=== PATIENT | male | born 1935 | race Caucasian/White ===

== ENCOUNTER 2023-03-18 13:53 | Outpatient (AMB) | payer MEDICARE, SELFPAY ==
--- NOTE | 2023-03-18 14:00 | HO.NEPHOV_ITS ---
HPI HPI Comments History of Present Illness Details I had the pleasure of seeing Alireza Kyle in the office in follow-up of his chronic kidney disease. 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 He has hypertension which is well controlled. He has anemia chronic disease for which he had been getting Procrit from my office. He denies taking any nonsteroidal anti-inflammatory medications. He does not have any chest pain, shortness of breath, nausea vomiting, diarrhea, orthostatic symptoms, edema. He does not feel tired. His appetite is good. He has not had any medication changes. He feels well. 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, stage 4 (severe) Family History (Updated 03/18/23 @ 14:14 by Tiffany Sheehan MA) Mother Cancer Child No Financial Resp Cancer Social History (Updated 03/18/23 @ 14:12 by Tiffany Sheehan MA) Alcohol intake: never Patient Tobacco Use Status: Never used Tobacco Vital Signs 03/18/23 14:08 Height 5 ft 9 in Weight 165 lb 2 oz BMI 24.4 BP 130/60 Blood Pressure Location Lt brachial Position Sitting Pulse 64 Pulse Source Pulse Oximeter Physical Exam Vital Signs: Last Vital Signs Pulse 64 03/18/23 14:08 BP 130/60 03/18/23 14:08 BMI result Body Mass Index 24.4 Const General: comfortable and no acute distress Orientation/consciousness: patient oriented x3 HEENT Head: Yes normocephalic Mouth: Normal oral and palatal mucosa present Eyes EOM: EOMs intact bilaterally Neck Neck: Yes supple Resp Auscultation: clear to auscultation bilaterally Cardio Jugular venous distension: no JVD Rate: regular rate Heart sounds: Murmur heart sound present GI Palpation (GI): Soft to palpation Auscultation: normal bowel sounds General: Yes no CVA tenderness Back/Spine/Pelvis Back: no CVA tenderness Skin General skin exam: no rashes or lesions noted Neuro General: patient oriented x3 and moves all extremities Extrem General: Yes no pedal edema Assessment & Plan Assessment & Plan (1) Hypertension: Code(s): I10 - Essential (primary) hypertension Qualifiers: Hypertension type: primary hypertension Qualified Code(s): I10 - Essential (primary) hypertension (2) Anemia in chronic kidney disease: Code(s): N18.9 - Chronic kidney disease, unspecified; D63.1 - Anemia in chronic kidney disease Qualifiers: Chronic kidney disease stage: stage 4 (severe) Qualified Code(s): N18.4 - Chronic kidney disease, stage 4 (severe); D63.1 - Anemia in chronic kidney disease (3) Chronic kidney disease, stage 4 (severe): Code(s): N18.4 - Chronic kidney disease, stage 4 (severe) Tristen Lay has history of minimal change disease with nephrotic syndrome. He had been on losartan which has been put on hold for a long time. He can continue on his current dose of diuretics. His CBC, iron studies, PTH, vitamin-D, calcium, electrolytes and renal functions are repeated today. After reviewing the lab work I shall arrange an iron and Procrit through my office. I did not make any other medication changes today. He will be for up in the office for continued care. All his and his Jane's questions were answered. Time spent retrieving all the data, documentation and clinical encounter 29 minutes. Orders: Orders Calcium Today D63.1 - Anemia in chronic kidney disease, I10 - Essential (primary) hypertension, N18.4 - Chronic kidney disease, stage 4 (severe), N18.9 - Chronic kidney disease, unspecified Phosphorus Today D63.1 - Anemia in chronic kidney disease, I10 - Essential (primary) hypertension, N18.4 - Chronic kidney disease, stage 4 (severe), N18.9 - Chronic kidney disease, unspecified Vitamin D 25-OH Total Today D63.1 - Anemia in chronic kidney disease, I10 - Essential (primary) hypertension, N18.4 - Chronic kidney disease, stage 4 (severe), N18.9 - Chronic kidney disease, unspecified Electrolytes Today D63.1 - Anemia in chronic kidney disease, I10 - Essential (primary) hypertension, N18.4 - Chronic kidney disease, stage 4 (severe), N18.9 - Chronic kidney disease, unspecified Creatinine Today D63.1 - Anemia in chronic kidney disease, I10 - Essential (primary) hypertension, N18.4 - Chronic kidney disease, stage 4 (severe), N18.9 - Chronic kidney disease, unspecified Ferritin Today D63.1 - Anemia in chronic kidney disease, I10 - Essential (primary) hypertension, N18.4 - Chronic kidney disease, stage 4 (severe), N18.9 - Chronic kidney disease, unspecified IRON PROFILE Today D63.1 - Anemia in chronic kidney disease, I10 - Essential (primary) hypertension, N18.4 - Chronic kidney disease, stage 4 (severe), N18.9 - Chronic kidney disease, unspecified PTHI Today D63.1 - Anemia in chronic kidney disease, I10 - Essential (primary) hypertension, N18.4 - Chronic kidney disease, stage 4 (severe), N18.9 - Chronic kidney disease, unspecified Blood Urea Nitrogen Today D63.1 - Anemia in chronic kidney disease, I10 - Essential (primary) hypertension, N18.4 - Chronic kidney disease, stage 4 (severe), N18.9 - Chronic kidney disease, unspecified Complete Blood Count Auto Diff Today D63.1 - Anemia in chronic kidney disease, I10 - Essential (primary) hypertension, N18.4 - Chronic kidney disease, stage 4 (severe), N18.9 - Chronic kidney disease, unspecified Coding Level of Care Code Est Pt Level 4 (94349) Diagnoses Primary hypertension I10 Hypertension type: primary hypertension Anemia in stage 4 chronic kidney disease N18.4; D63.1 Chronic kidney disease stage: stage 4 (severe) Chronic kidney disease, stage 4 (severe) N18.4
[2023-03-18 14:08] VITALS: BP 130/60; PULSE 64; BMI 24.4
== END 2023-03-18 14:45 | disposition home or self-care (01) ==
PROVIDERS: PCP Internal Medicine; Visit Provider Internal Medicine Nephrology
DX: I12.9 Hypertensive chronic kidney disease with stage 1 through stage 4 chronic kidney disease, or unspecified chronic kidney disease (principal); N18.4 Chronic kidney disease, stage 4 (severe); D63.1 Anemia in chronic kidney disease
CPT/HCPCS: 99214

== ENCOUNTER → 2023-03-18 13:53 | Outpatient (BNVA) | payer MEDICARE, SELFPAY | PROVIDERS: PCP Internal Medicine; Visit Provider Internal Medicine Nephrology | DX: I12.9 Hypertensive chronic kidney disease with stage 1 through stage 4 chronic kidney disease, or unspecified chronic kidney disease (principal); N18.4 Chronic kidney disease, stage 4 (severe); D63.1 Anemia in chronic kidney disease | CPT/HCPCS: 99212 ==

== ENCOUNTER 2023-03-30 10:45 | Outpatient (AMB) | payer MEDICARE, SELFPAY ==
[2023-03-30 10:54] VITALS: BP 130/70; PULSE 69; BMI 24.1
--- NOTE | 2023-03-30 10:54 | HO.NEPHOV_ITS ---
HPI HPI Comments History of Present Illness Details I had the pleasure of seeing Alireza Kyle in the office in follow-up of his chronic kidney disease. 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 He has hypertension which is well controlled. He has anemia chronic disease for which he had been getting Procrit . He denies taking any nonsteroidal anti-inflammatory medications. He does not have any chest pain, shortness of breath, nausea vomiting, diarrhea, orthostatic symptoms, edema. He does not feel tired. His appetite is good. He has not had any medication changes. 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, stage 4 (severe) Family History Mother Cancer Child No Financial Resp Cancer Social History Alcohol intake: never Patient Tobacco Use Status: Never used Tobacco Vital Signs 03/30/23 10:54 Height 5 ft 9 in Weight 163 lb 8 oz BMI 24.1 BP 130/70 Blood Pressure Location Rt brachial Position Sitting Pulse 69 Pulse Source Pulse Oximeter Physical Exam Vital Signs: Last Vital Signs Pulse 69 03/30/23 10:54 BP 130/70 03/30/23 10:54 BMI result Body Mass Index 24.1 Const General: comfortable and no acute distress Orientation/consciousness: patient oriented x3 HEENT Head: Yes normocephalic Mouth: Normal oral and palatal mucosa present Eyes EOM: EOMs intact bilaterally Neck Neck: Yes supple Resp Auscultation: clear to auscultation bilaterally Cardio Jugular venous distension: no JVD Rate: regular rate GI Palpation (GI): Soft to palpation Auscultation: normal bowel sounds General: Yes no CVA tenderness Back/Spine/Pelvis Back: no CVA tenderness Skin General skin exam: no rashes or lesions noted Neuro General: patient oriented x3 and moves all extremities Extrem General: Yes no pedal edema Assessment & Plan Assessment & Plan (1) Chronic kidney disease, stage 4 (severe): Code(s): N18.4 - Chronic kidney disease, stage 4 (severe) (2) Anemia in chronic kidney disease: Code(s): N18.9 - Chronic kidney disease, unspecified; D63.1 - Anemia in chronic kidney disease Qualifiers: Chronic kidney disease stage: stage 4 (severe) Qualified Code(s): N18.4 - Chronic kidney disease, stage 4 (severe); D63.1 - Anemia in chronic kidney disease (3) Hypertension: Code(s): I10 - Essential (primary) hypertension Qualifiers: Hypertension type: primary hypertension Qualified Code(s): I10 - Essential (primary) hypertension Plan Alireza has history of minimal change disease with nephrotic syndrome. He had been on losartan which has been put on hold for a long time. He can continue on his current dose of diuretics. His CBC, iron studies, PTH, vitamin-D, calcium, electrolytes and renal functions were reviewed. After reviewing the lab work , I administered [id number] Units Procrit in my office today. I did not make any other medication changes today. He will be for up in the office for continued care. All his questions were answered. Time spent retrieving all the data, documentation and clinical encounter 20 minutes Orders: Orders Electrolytes Today D63.1 - Anemia in chronic kidney disease, I10 - Essential (primary) hypertension, N18.4 - Chronic kidney disease, stage 4 (severe), N18.9 - Chronic kidney disease, unspecified Complete Blood Count Auto Diff 2 Weeks D63.1 - Anemia in chronic kidney disease, I10 - Essential (primary) hypertension, N18.4 - Chronic kidney disease, stage 4 (severe), N18.9 - Chronic kidney disease, unspecified Blood Urea Nitrogen 2 Weeks D63.1 - Anemia in chronic kidney disease, I10 - Essential (primary) hypertension, N18.4 - Chronic kidney disease, stage 4 (severe), N18.9 - Chronic kidney disease, unspecified Blood Urea Nitrogen Today D63.1 - Anemia in chronic kidney disease, I10 - Essential (primary) hypertension, N18.4 - Chronic kidney disease, stage 4 (severe), N18.9 - Chronic kidney disease, unspecified Creatinine Today D63.1 - Anemia in chronic kidney disease, I10 - Essential (prim phyllis) hypertension, N18.4 - Chronic kidney disease, stage 4 (severe), N18.9 - Chronic kidney disease, unspecified Calcium Today D63.1 - Anemia in chronic kidney disease, I10 - Essential (primary) hypertension, N18.4 - Chronic kidney disease, stage 4 (severe), N18.9 - Chronic kidney disease, unspecified Complete Blood Count Auto Diff Today D63.1 - Anemia in chronic kidney disease, I10 - Essential (primary) hypertension, N18.4 - Chronic kidney disease, stage 4 (severe), N18.9 - Chronic kidney disease, unspecified Electrolytes 2 Weeks D63.1 - Anemia in chronic kidney disease, I10 - Essential (primary) hypertension, N18.4 - Chronic kidney disease, stage 4 (severe), N18.9 - Chronic kidney disease, unspecified Creatinine 2 Weeks D63.1 - Anemia in chronic kidney disease, I10 - Essential (primary) hypertension, N18.4 - Chronic kidney disease, stage 4 (severe), N18.9 - Chronic kidney disease, unspecified Calcium 2 Weeks D63.1 - Anemia in chronic kidney disease, I10 - Essential (primary) hypertension, N18.4 - Chronic kidney disease, stage 4 (severe), N18.9 - Chronic kidney disease, unspecified Coding Level of Care Code Est Pt Level 2 (51775) Diagnoses Chronic kidney disease, stage 4 (severe) N18.4 Anemia in stage 4 chronic kidney disease N18.4; D63.1 Chronic kidney disease stage: stage 4 (severe) Primary hypertension I10 Hypertension type: primary hypertension
== END 2023-03-30 11:33 | disposition home or self-care (01) ==
PROVIDERS: PCP Internal Medicine; Visit Provider Internal Medicine Nephrology
DX: I12.9 Hypertensive chronic kidney disease with stage 1 through stage 4 chronic kidney disease, or unspecified chronic kidney disease (principal); D63.1 Anemia in chronic kidney disease
CPT/HCPCS: 99214

== ENCOUNTER → 2023-03-30 10:45 | Outpatient (BNVA) | payer MEDICARE, SELFPAY | PROVIDERS: PCP Internal Medicine; Visit Provider Internal Medicine Nephrology | DX: I12.9 Hypertensive chronic kidney disease with stage 1 through stage 4 chronic kidney disease, or unspecified chronic kidney disease (principal); N18.4 Chronic kidney disease, stage 4 (severe); D63.1 Anemia in chronic kidney disease | CPT/HCPCS: 96372; 99212; J0885 ==

== ENCOUNTER 2023-04-21 11:11 | Outpatient (REF) | payer MEDICARE, SELFPAY ==
[2023-04-21 12:46] LABS: MANUAL DIFF FLAG NO
[2023-04-21 12:54] LABS: Basophils Percent Auto 0.4 % (0-2); Eosinophils Absolute Auto 0.1 X10*3/uL (0.0-0.4); Eosinophils Percent Auto 2.6 % (0-4); Hematocrit 28.9 % (42.0-52.0); Hemoglobin 9.4 g/dl (14.0-18.0); Imm Gran Abs Auto 0.01 X10*3/uL (0.00-0.03); Imm Gran Pct Auto 0.2 % (0.0-0.4); Lymphocytes Absolute Auto 1.1 X10*3/uL (1.2-4.9); Lymphocytes Percent Auto 20.5 % (20-40); Mean Corpuscular HGB Conc 32.5 g/dl (31.0-36.0); Mean Corpuscular Hemoglobin 31.1 pg (27.0-33.0); Mean Corpuscular Volume 95.7 fL (80.0-98.0); Mean Platelet Volume 9.9 fL (9.4-12.4); Monocytes Absolute Auto 0.5 X10*3/uL (0.1-1.2); Monocytes Percent Auto 9.9 % (2-11); Neutrophils Absolute Auto 3.6 x10*3/uL (2.0-8.3); Neutrophils Percent Auto 66.4 % (45-73); Platelet Count 256 X10*3/uL (160-400); Red Blood Count 3.02 X10*6/uL (4.60-5.80); Red Cell Distribution Width 15.2 % (11.0-16.0); White Blood Count 5.5 X10*3/uL (4.8-10.8)
[2023-04-21 13:14] LABS: Anion Gap 11 (12-20); Blood Urea Nitrogen 43 mg/dL (9-16); Calcium 8.5 mg/dL (8.4-10.2); Carbon Dioxide 22 mmol/L (22-29); Chloride 112 mmol/L (96-108); Estimated Glomerular Filt Rate 23; Potassium 3.9 mmol/L (3.3-5.1); Sodium 141 mmol/L (135-145)
== END 2023-04-21 11:12 | disposition home or self-care (01) ==
LOC: HO.HKASLDS 11:11
PROVIDERS: Visit Provider Internal Medicine Nephrology
DX: I12.9 Hypertensive chronic kidney disease with stage 1 through stage 4 chronic kidney disease, or unspecified chronic kidney disease (principal); N18.4 Chronic kidney disease, stage 4 (severe); D63.1 Anemia in chronic kidney disease
CPT/HCPCS: 36415; 80051; 82310; 82565; 84520; 85025

== ENCOUNTER 2023-04-28 10:39 | Outpatient (AMB) | payer MEDICARE, SELFPAY ==
[2023-04-28 10:49] VITALS: BP 130/60; PULSE 81; O2SAT 98; BMI 24.0
--- NOTE | 2023-04-28 10:49 | HO.NEPHOV ---
HPI HPI Comments History of Present Illness Details I had the pleasure of seeing Alireza Kyle in the office, accompanied by his Jane, in follow-up of his chronic kidney disease. 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 He has hypertension which is well controlled. He has anemia chronic disease for which he had been getting Procrit . He denies taking any nonsteroidal anti-inflammatory medications. He does not have any chest pain, shortness of breath, nausea vomiting, diarrhea, orthostatic symptoms, edema. He does not feel tired. His appetite is good. He has not had any medication changes. 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, stage 4 (severe) Family History Mother Cancer Child No Financial Resp Cancer Social History Alcohol intake: never Patient Tobacco Use Status: Never used Tobacco Vital Signs 04/28/23 10:49 Height 5 ft 9 in Weight 162 lb 4 oz BMI 24.0 BP 130/60 Blood Pressure Location Lt brachial Position Sitting Pulse 81 Pulse Source Pulse Oximeter Pulse Oximetry (%) 98 Oxygen Delivery Method Room Air Physical Exam Vital Signs: Last Vital Signs Pulse 81 04/28/23 10:49 BP 130/60 04/28/23 10:49 Pulse Ox 98 04/28/23 10:49 Oxygen Delivery Method Room Air 04/28/23 10:49 BMI result Body Mass Index 24.0 Const General: comfortable and no acute distress Orientation/consciousness: patient oriented x3 HEENT Head: Yes normocephalic Mouth: Normal oral and palatal mucosa present Eyes EOM: EOMs intact bilaterally Neck Neck: Yes supple Resp Auscultation: clear to auscultation bilaterally Cardio Jugular venous distension: no JVD Rate: regular rate GI Palpation (GI): Soft to palpation Auscultation: normal bowel sounds General: Yes no CVA tenderness Back/Spine/Pelvis Back: no CVA tenderness Skin General skin exam: no rashes or lesions noted Neuro General: patient oriented x3 and moves all extremities Extrem General: Yes no pedal edema Assessment & Plan Assessment & Plan (1) Anemia in chronic kidney disease: Code(s): N18.9 - Chronic kidney disease, unspecified; D63.1 - Anemia in chronic kidney disease Qualifiers: Chronic kidney disease stage: stage 4 (severe) Qualified Code(s): N18.4 - Chronic kidney disease, stage 4 (severe); D63.1 - Anemia in chronic kidney disease (2) Chronic kidney disease, stage 4 (severe): Code(s): N18.4 - Chronic kidney disease, stage 4 (severe) (3) Hypertension: Code(s): I10 - Essential (primary) hypertension Qualifiers: Hypertension type: primary hypertension Qualified Code(s): I10 - Essential (primary) hypertension Plan Alireza has history of minimal change disease with nephrotic syndrome. He had been on losartan which has been put on hold for a long time. He can continue on his current dose of diuretics. His CBC, iron studies, PTH, vitamin-D, calcium, electrolytes and renal functions were reviewed. After reviewing the lab work , I administered [id number] Units Procrit in my office today. I did not make any other medication changes today. He will be for up in the office for continued care. All his questions were answered. Orders: Orders Complete Blood Count Auto Diff Today D63.1 - Anemia in chronic kidney disease, I10 - Essential (primary) hypertension, N18.4 - Chronic kidney disease, stage 4 (severe), N18.9 - Chronic kidney disease, unspecified Electrolytes Today D63.1 - Anemia in chronic kidney disease, I10 - Essential (primary) hypertension, N18.4 - Chronic kidney disease, stage 4 (severe), N18.9 - Chronic kidney disease, unspecified Blood Urea Nitrogen Today D63.1 - Anemia in chronic kidney disease, I10 - Essential (primary) hypertension, N18.4 - Chronic kidney disease, stage 4 (severe), N18.9 - Chronic kidney disease, unspecified Creatinine Today D63.1 - Anemia in chronic kidney disease, I10 - Essential (primary) hypertension, N18.4 - Chronic kidney disease, stage 4 (severe), N18.9 - Chronic kidney disease, unspecified Calcium Today D63.1 - Anemia in chronic kidney disease, I10 - Essential (primary) hypertension, N18.4 - Chronic kidney disease, stage 4 (severe), N18.9 - Chronic kidney disease, unspecified Coding Level of Care Code Est Pt Level 4 (70032) Diagnoses Anemia in stage 4 chronic kidney disease N18.4; D63.1 Chronic kidney disease stage: stage 4 (severe) Chronic kidney disease, stage 4 (severe) N18.4 Primary hypertension I10 Hypertension type: primary hypertension Results Reviewed Nephrology Results: Hgb 9.4 g/dl (14.0-18.0) L 04/21/23 WBC 5.5 X10*3/uL (4.8-10.8) 04/21/23 Plt Count 256 X10*3/uL (160-400) 04/21/23 Sodium 141 mmol/L (135-145) 04/21/23 Potassium 3.9 mmol/L (3.3-5.1) 04/21/23 Chloride 112 mmol/L (96-108) H 04/21/23 Carbon Dioxide 22 mmol/L (22-29) 04/21/23 BUN 43 mg/dL (9-16) H 04/21/23 Creatinine 2.68 mg/dL (0.5-1.4) H 04/21/23 Calcium 8.5 mg/dL (8.4-10.2) 04/21/23
== END 2023-04-28 11:25 | disposition home or self-care (01) ==
PROVIDERS: PCP Internal Medicine; Visit Provider Internal Medicine Nephrology
DX: I12.9 Hypertensive chronic kidney disease with stage 1 through stage 4 chronic kidney disease, or unspecified chronic kidney disease (principal); N18.4 Chronic kidney disease, stage 4 (severe); D63.1 Anemia in chronic kidney disease
CPT/HCPCS: 99214

== ENCOUNTER → 2023-04-28 10:39 | Outpatient (BNVA) | payer MEDICARE, SELFPAY | PROVIDERS: PCP Internal Medicine; Visit Provider Internal Medicine Nephrology | DX: I12.9 Hypertensive chronic kidney disease with stage 1 through stage 4 chronic kidney disease, or unspecified chronic kidney disease (principal); N18.4 Chronic kidney disease, stage 4 (severe); D63.1 Anemia in chronic kidney disease | CPT/HCPCS: 96372; 99212; Q5106 ==

== ENCOUNTER 2023-06-04 11:22 | Outpatient (AMB) | payer MEDICARE, SELFPAY ==
--- NOTE | 2023-06-04 11:26 | HO.NEPHOV ---
HPI HPI Comments History of Present Illness Details I had the pleasure of seeing Alireza Kyle in the office, accompanied by his Jane, in follow-up of his chronic kidney disease and management of his anemia. 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 He has hypertension which is well controlled. He has anemia chronic disease for which he had been getting Procrit . He denies taking any nonsteroidal anti-inflammatory medications. He does not have any chest pain, shortness of breath, nausea vomiting, diarrhea, orthostatic symptoms, edema. He does not feel tired. His appetite is good. 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, stage 4 (severe) Family History Mother Cancer Child No Financial Resp Cancer Social History Alcohol intake: never Patient Tobacco Use Status: Never used Tobacco Vital Signs 06/04/23 11:27 06/04/23 12:05 Height 5 ft 9 in Weight 163 lb 4 oz BMI 24.1 BP 140/70 H 124/70 Blood Pressure Location Lt brachial Position Sitting Pulse 70 Pulse Source Pulse Oximeter Pulse Oximetry (%) 99 Oxygen Delivery Method Room Air Physical Exam Vital Signs: Last Vital Signs Pulse 70 06/04/23 11:27 BP 140/70 H 06/04/23 11:27 Pulse Ox 99 06/04/23 11:27 Oxygen Delivery Method Room Air 06/04/23 11:27 BMI result Body Mass Index 24.1 Const General: comfortable and no acute distress Orientation/consciousness: patient oriented x3 HEENT Head: Yes normocephalic Mouth: Normal oral and palatal mucosa present Eyes EOM: EOMs intact bilaterally Neck Neck: Yes supple Resp Auscultation: clear to auscultation bilaterally Cardio Jugular venous distension: no JVD Rate: regular rate GI Palpation (GI): Soft to palpation Auscultation: normal bowel sounds General: Yes no CVA tenderness Back/Spine/Pelvis Back: no CVA tenderness Skin General skin exam: no rashes or lesions noted Neuro General: patient oriented x3 and moves all extremities Extrem General: Yes no pedal edema Assessment & Plan Assessment & Plan (1) Anemia in chronic kidney disease: Code(s): N18.9 - Chronic kidney disease, unspecified; D63.1 - Anemia in chronic kidney disease Qualifiers: Chronic kidney disease stage: stage 4 (severe) Qualified Code(s): N18.4 - Chronic kidney disease, stage 4 (severe); D63.1 - Anemia in chronic kidney disease (2) Chronic kidney disease, stage 4 (severe): Code(s): N18.4 - Chronic kidney disease, stage 4 (severe) (3) Hypertension: Code(s): I10 - Essential (primary) hypertension Qualifiers: Hypertension type: primary hypertension Qualified Code(s): I10 - Essential (primary) hypertension Plan Alireza has history of minimal change disease with nephrotic syndrome. He had been on losartan which has been put on hold for a long time. He can continue on his current dose of diuretics. His CBC, iron studies, PTH, vitamin-D, calcium, electrolytes and renal functions were reviewed. After reviewing the lab work , I administered [id number] Units Procrit in my office today ( Hb 8.9). I did not make any other medication changes . He will be for up in the office for continued care. All his questions were answered. Orders: Orders Blood Urea Nitrogen Today D63.1 - Anemia in chronic kidney disease, I10 - Essential (primary) hypertension, N18.4 - Chronic kidney disease, stage 4 (severe), N18.9 - Chronic kidney disease, unspecified Ferritin Today D63.1 - Anemia in chronic kidney disease, I10 - Essential (primary) hypertension, N18.4 - Chronic kidney disease, stage 4 (severe), N18.9 - Chronic kidney disease, unspecified [facility] Epoetin Injection [facility] Supplied Today D63.1 - Anemia in chronic kidney disease, I10 - Essential (primary) hypertension, N18.4 - Chronic kidney disease, stage 4 (severe), N18.9 - Chronic kidney disease, unspecified Complete Blood Count Auto Diff Today D63.1 - Anemia in chronic kidney disease, I10 - Essential (primary) hypertension, N18.4 - Chronic kidney disease, stage 4 (severe), N18.9 - Chronic kidney disease, unspecified Electrolytes Today D63.1 - Anemia in chronic kidney disease, I10 - Essential (primary) hypertension, N18.4 - Chronic kidney disease, stage 4 (severe), N18.9 - Chronic kidney disease, unspecified Creatinine Today D63.1 - Anemia in chronic kidney disease, I10 - Essential (primary) hypertension, N18.4 - Chronic kidney disease, stage 4 (severe), N18.9 - Chronic kidney disease, unspecified IRON PROFILE Today D63.1 - Anemia in chronic kidney disease, I10 - Essential (primary) hypertension, N18.4 - Chronic kidney disease, stage 4 (severe), N18.9 - Chronic kidney disease, unspecified Medications: New epoetin lizet 20,000 units subcut ONCE 1 mL 0RF D63.1 - Anemia in chronic kidney disease, I10 - Essential (primary) hypertension, N18.4 - Chronic kidney disease, stage 4 (severe), N18.9 - Chronic kidney disease, unspecified Coding Level of Care Code Est Pt Level 4 (30857) Diagnoses Anemia in stage 4 chronic kidney disease N18.4; D63.1 Chronic kidney disease stage: stage 4 (severe) Chronic kidney disease, stage 4 (severe) N18.4 Primary hypertension I10 Hypertension type: primary hypertension Results Reviewed Nephrology Results: Hgb 9.4 g/dl (14.0-18.0) L 04/21/23 WBC 5.5 X10*3/uL (4.8-10.8) 04/21/23 Plt Count 256 X10*3/uL (160-400) 04/21/23 Sodium 141 mmol/L (135-145) 04/21/23 Potassium 3.9 mmol/L (3.3-5.1) 04/21/23 Chloride 112 mmol/L (96-108) H 04/21/23 Carbon Dioxide 22 mmol/L (22-29) 04/21/23 BUN 43 mg/dL (9-16) H 04/21/23 Creatinine 2.68 mg/dL (0.5-1.4) H 04/21/23 Calcium 8.5 mg/dL (8.4-10.2) 04/21/23
[2023-06-04 11:27] VITALS: BP 140/70; PULSE 70; O2SAT 99; BMI 24.1
[2023-06-04 12:05] VITALS: BP 124/70
== END 2023-06-04 12:11 | disposition home or self-care (01) ==
PROVIDERS: PCP Internal Medicine; Visit Provider Internal Medicine Nephrology
DX: I12.9 Hypertensive chronic kidney disease with stage 1 through stage 4 chronic kidney disease, or unspecified chronic kidney disease (principal); N18.4 Chronic kidney disease, stage 4 (severe); D63.1 Anemia in chronic kidney disease
CPT/HCPCS: 99214

== ENCOUNTER → 2023-06-04 11:22 | Outpatient (BNVA) | payer MEDICARE, SELFPAY | PROVIDERS: PCP Internal Medicine; Visit Provider Internal Medicine Nephrology | DX: I12.9 Hypertensive chronic kidney disease with stage 1 through stage 4 chronic kidney disease, or unspecified chronic kidney disease (principal); N18.4 Chronic kidney disease, stage 4 (severe); D63.1 Anemia in chronic kidney disease | CPT/HCPCS: 96372; 99212; Q5106 ==

== ENCOUNTER 2023-07-09 10:07 | Outpatient (AMB) | payer MEDICARE, SELFPAY ==
--- NOTE | 2023-07-09 10:42 | HO.NEPHOV_ITS ---
HPI HPI Comments History of Present Illness Details I had the pleasure of seeing Alireza Kyle in the office, accompanied by his Jane, in follow-up of his chronic kidney disease and management of his anemia. 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 He has hypertension which is well controlled. He has anemia chronic disease for which he had been getting Procrit . He denies taking any nonsteroidal anti-inflammatory medications. He does not have any chest pain, shortness of breath, nausea vomiting, diarrhea, orthostatic symptoms, edema. He does not feel tired. His appetite is good. 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, stage 4 (severe) Family History Mother Cancer Child No Financial Resp Cancer Social History Alcohol intake: never Patient Tobacco Use Status: Never used Tobacco Vital Signs 07/09/23 10:43 Height 5 ft 9 in Weight 162 lb 6 oz BMI 24.0 BP 140/62 H Blood Pressure Location Lt brachial Position Sitting Pulse 86 Pulse Source Pulse Oximeter Pulse Oximetry (%) 97 Oxygen Delivery Method Room Air Physical Exam Vital Signs: Last Vital Signs Pulse 86 07/09/23 10:43 BP 140/62 H 07/09/23 10:43 Pulse Ox 97 07/09/23 10:43 Oxygen Delivery Method Room Air 07/09/23 10:43 BMI result Body Mass Index 24.0 Const General: comfortable and no acute distress Orientation/consciousness: patient oriented x3 HEENT Head: Yes normocephalic Mouth: Normal oral and palatal mucosa present Eyes EOM: EOMs intact bilaterally Neck Neck: Yes supple Resp Auscultation: clear to auscultation bilaterally Cardio Jugular venous distension: no JVD Rate: regular rate GI Palpation (GI): Soft to palpation Auscultation: normal bowel sounds General: Yes no CVA tenderness Back/Spine/Pelvis Back: no CVA tenderness Skin General skin exam: no rashes or lesions noted Neuro General: patient oriented x3 and moves all extremities Extrem General: Yes no pedal edema Office Meds epoetin lizet 10,000 unit/mL injection solution Performing Provider: Santy Jonas MD Performing Location[place] [facility] Administered by: Santy Jonas MD on 07/09/23 11:16 Dose Route Admin Location Dispensed Lot Number Expiration Date [facility] Oceanographic Meteorologist 20,000 unit subcut 2 mL [id number] 10/09/25 3559-2814-47 Assessment & Plan Assessment & Plan (1) Hypertension: Code(s): I10 - Essential (primary) hypertension Qualifiers: Hypertension type: primary hypertension Qualified Code(s): I10 - Essential (primary) hypertension (2) Anemia in chronic kidney disease: Code(s): N18.9 - Chronic kidney disease, unspecified; D63.1 - Anemia in chronic kidney disease Qualifiers: Chronic kidney disease stage: stage 4 (severe) Qualified Code(s): N18.4 - Chronic kidney disease, stage 4 (severe); D63.1 - Anemia in chronic kidney disease (3) Chronic kidney disease, stage 4 (severe): Code(s): N18.4 - Chronic kidney disease, stage 4 (severe) Plan Alireza has history of minimal change disease with nephrotic syndrome. He had been on losartan which has been put on hold for a long time. He can continue on his current dose of diuretics. His CBC, iron studies, PTH, vitamin-D, calcium, electrolytes and renal functions were reviewed. After reviewing the lab work , I administered [id number] Units Procrit in my office today ( Hb 8.9). I did not make any other medication changes . He will be for up in the office for continued care. All his questions were answered Orders: Orders AMB Epoetin Injection Practice Supplied Today D63.1 - Anemia in chronic kidney disease, N18.9 - Chronic kidney disease, unspecified Coding Level of Care Code Est Pt Level 3 (73204) Diagnoses Primary hypertension I10 Hypertension type: primary hypertension Anemia in stage 4 chronic kidney disease N18.4; D63.1 Chronic kidney disease stage: stage 4 (severe) Chronic kidney disease, stage 4 (severe) N18.4 Results Reviewed Nephrology Results: Hgb 9.4 g/dl (14.0-18.0) L 04/21/23 WBC 5.5 X10*3/uL (4.8-10.8) 04/21/23 Plt Count 256 X10*3/uL (160-400) 04/21/23 Sodium 141 mmol/L (135-145) 04/21/23 Potassium 3.9 mmol/L (3.3-5.1) 04/21/23 Chloride 112 mmol/L (96-108) H 04/21/23 Carbon Dioxide 22 mmol/L (22-29) 04/21/23 BUN 43 mg/dL (9-16) H 04/21/23 Creatinine 2.68 mg/dL (0.5-1.4) H 04/21/23 Calcium 8.5 mg/dL (8.4-10.2) 04/21/23
[2023-07-09 10:43] VITALS: BP 140/62; PULSE 86; O2SAT 97; BMI 24.0
== END 2023-07-09 11:39 | disposition home or self-care (01) ==
PROVIDERS: PCP Internal Medicine; Visit Provider Internal Medicine Nephrology
DX: I12.9 Hypertensive chronic kidney disease with stage 1 through stage 4 chronic kidney disease, or unspecified chronic kidney disease (principal); N18.4 Chronic kidney disease, stage 4 (severe); D63.1 Anemia in chronic kidney disease; N18.9 Chronic kidney disease, unspecified
CPT/HCPCS: 99213; J0885

== ENCOUNTER → 2023-07-09 10:07 | Outpatient (BNVA) | payer MEDICARE, SELFPAY | PROVIDERS: PCP Internal Medicine; Visit Provider Internal Medicine Nephrology | DX: I12.9 Hypertensive chronic kidney disease with stage 1 through stage 4 chronic kidney disease, or unspecified chronic kidney disease (principal); N18.4 Chronic kidney disease, stage 4 (severe); D63.1 Anemia in chronic kidney disease | CPT/HCPCS: 96372; 99212; J0885 ==

== ENCOUNTER 2023-07-30 11:41 | Outpatient (AMB) | payer MEDICARE, SELFPAY ==
[2023-07-30 11:52] VITALS: BP 140/70; PULSE 80; O2SAT 98; BMI 24.4
--- NOTE | 2023-07-30 11:52 | HO.NEPHOV ---
HPI HPI Comments History of Present Illness Details I had the pleasure of seeing Alireza Kyle in the office, accompanied by his Jane, in follow-up of his chronic kidney disease and management of his anemia. 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 He has hypertension which is well controlled. He has anemia chronic disease for which he had been getting Procrit . He denies taking any nonsteroidal anti-inflammatory medications. He does not have any chest pain, shortness of breath, nausea vomiting, diarrhea, orthostatic symptoms, edema. He does not feel tired. His appetite is good. 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, stage 4 (severe) Family History Mother Cancer Child No Financial Resp Cancer Social History Alcohol intake: never Patient Tobacco Use Status: Never used Tobacco Vital Signs 07/30/23 11:52 Height 5 ft 9 in Weight 165 lb BMI 24.4 BP 140/70 H Blood Pressure Location Lt brachial Position Sitting Pulse 80 Pulse Source Pulse Oximeter Pulse Oximetry (%) 98 Oxygen Delivery Method Room Air Physical Exam Vital Signs: Last Vital Signs Pulse 80 07/30/23 11:52 BP 140/70 H 07/30/23 11:52 Pulse Ox 98 07/30/23 11:52 Oxygen Delivery Method Room Air 07/30/23 11:52 BMI result Body Mass Index 24.4 Const General: comfortable and no acute distress Orientation/consciousness: patient oriented x3 HEENT Head: Yes normocephalic Mouth: Normal oral and palatal mucosa present Eyes EOM: EOMs intact bilaterally Neck Neck: Yes supple Resp Auscultation: clear to auscultation bilaterally Cardio Jugular venous distension: no JVD Rate: regular rate GI Palpation (GI): Soft to palpation Auscultation: normal bowel sounds General: Yes no CVA tenderness Back/Spine/Pelvis Back: no CVA tenderness Skin General skin exam: no rashes or lesions noted Neuro General: patient oriented x3 and moves all extremities Extrem General: Yes no pedal edema Office Meds epoetin lizet-epbx 10,000 unit/mL injection solution Performing Provider: Santy Jonas MD Performing Location[facility] Administered by: Santy Jonas MD on 07/30/23 12:05 Dose Route Admin Location Dispensed Lot Number Expiration Date [facility] Active Directory Systems Administrator 20,000 unit subcut L UE 2 mL [id number] 10/14/25 7506-2378-83 [employer] Assessment & Plan Assessment & Plan (1) Chronic kidney disease, stage 4 (severe): Code(s): N18.4 - Chronic kidney disease, stage 4 (severe) (2) Anemia in chronic kidney disease: Code(s): N18.9 - Chronic kidney disease, unspecified; D63.1 - Anemia in chronic kidney disease Qualifiers: Chronic kidney disease stage: stage 4 (severe) Qualified Code(s): N18.4 - Chronic kidney disease, stage 4 (severe); D63.1 - Anemia in chronic kidney disease (3) Hypertension: Code(s): I10 - Essential (primary) hypertension Qualifiers: Hypertension type: primary hypertension Qualified Code(s): I10 - Essential (primary) hypertension Plan Alireza has history of minimal change disease with nephrotic syndrome. He had been on losartan which has been put on hold for a long time. He can continue on his current dose of diuretics. His CBC, iron studies, PTH, vitamin-D, calcium, electrolytes and renal functions were reviewed. After reviewing the lab work , I administered [id number] Units Procrit in my office today. I did not make any other medication changes . He will be for up in the office for continued care. All his questions were answered Orders: Orders Creatinine Today D63.1 - Anemia in chronic kidney disease, I10 - Essential (primary) hypertension, N18.4 - Chronic kidney disease, stage 4 (severe), N18.9 - Chronic kidney disease, unspecified AMB Epoetin Injection Practice Supplied Today D63.1 - Anemia in chronic kidney disease, N18.4 - Chronic kidney disease, stage 4 (severe), N18.9 - Chronic kidney disease, unspecified Complete Blood Count Auto Diff Today D63.1 - Anemia in chronic kidney disease, I10 - Essential (primary) hypertension, N18.4 - Chronic kidney disease, stage 4 (severe), N18.9 - Chronic kidney disease, unspecified Blood Urea Nitrogen Today D63.1 - Anemia in chronic kidney disease, I10 - Essential (primary) hypertension, N18.4 - Chronic kidney disease, stage 4 (severe), N18.9 - Chronic kidney disease, unspecified Electrolytes Today D63.1 - Anemia in chronic kidney disease, I10 - Essential (primary) hypertension, N18.4 - Chronic kidney disease, stage 4 (severe), N18.9 - Chronic kidney disease, unspecified Coding Level of Care Code Est Pt Level 3 (69591) Diagnoses Chronic kidney disease, stage 4 (severe) N18.4 Anemia in stage 4 chronic kidney disease N18.4; D63.1 Chronic kidney disease stage: stage 4 (severe) Primary hypertension I10 Hypertension type: primary hypertension
== END 2023-07-30 12:17 | disposition home or self-care (01) ==
PROVIDERS: PCP Internal Medicine; Visit Provider Internal Medicine Nephrology
DX: N18.4 Chronic kidney disease, stage 4 (severe) (principal); I12.9 Hypertensive chronic kidney disease with stage 1 through stage 4 chronic kidney disease, or unspecified chronic kidney disease; D63.1 Anemia in chronic kidney disease
CPT/HCPCS: 99213

== ENCOUNTER → 2023-07-30 11:41 | Outpatient (BNVA) | payer MEDICARE, SELFPAY | PROVIDERS: PCP Internal Medicine; Visit Provider Internal Medicine Nephrology | DX: I12.9 Hypertensive chronic kidney disease with stage 1 through stage 4 chronic kidney disease, or unspecified chronic kidney disease (principal); D63.1 Anemia in chronic kidney disease; N18.4 Chronic kidney disease, stage 4 (severe) | CPT/HCPCS: 96372; 99212; Q5106 ==

== ENCOUNTER 2023-08-25 10:46 | Outpatient (REF) | payer MEDICARE, SELFPAY ==
[2023-08-25 12:09] LABS: MANUAL DIFF FLAG NO
[2023-08-25 12:25] LABS: Basophils Percent Auto 0.5 % (0-2); Eosinophils Absolute Auto 0.2 X10*3/uL (0.0-0.4); Eosinophils Percent Auto 2.6 % (0-4); Hematocrit 24.6 % (42.0-52.0); Imm Gran Abs Auto 0.02 X10*3/uL (0.00-0.03); Imm Gran Pct Auto 0.3 % (0.0-0.4); Lymphocytes Absolute Auto 1.3 X10*3/uL (1.2-4.9); Lymphocytes Percent Auto 21.6 % (20-40); Mean Corpuscular HGB Conc 32.5 g/dl (31.0-36.0); Mean Corpuscular Hemoglobin 31.1 pg (27.0-33.0); Mean Corpuscular Volume 95.7 fL (80.0-98.0); Mean Platelet Volume 10.1 fL (9.4-12.4); Monocytes Absolute Auto 0.5 X10*3/uL (0.1-1.2); Monocytes Percent Auto 8.7 % (2-11); Neutrophils Absolute Auto 4.1 x10*3/uL (2.0-8.3); Neutrophils Percent Auto 66.3 % (45-73); Platelet Count 309 X10*3/uL (160-400); Red Blood Count 2.57 X10*6/uL (4.60-5.80); Red Cell Distribution Width 15.4 % (11.0-16.0); White Blood Count 6.2 X10*3/uL (4.8-10.8)
[2023-08-25 16:29] LABS: Anion Gap 12 (12-20); Blood Urea Nitrogen 55 mg/dL (9-16); Calcium 8.6 mg/dL (8.4-10.2); Carbon Dioxide 22 mmol/L (22-29); Chloride 109 mmol/L (96-108); Estimated Glomerular Filt Rate 19; Iron 76 mcg/dL (45-160); Percent Iron Saturation 36 % (15-50); Phosphorus 3.5 mg/dL (2.7-4.5); Potassium 4.1 mmol/L (3.3-5.1); Sodium 139 mmol/L (135-145); Total Iron Binding Capacity 209 mcg/dL (228-428); Unsaturated Iron Binding 133 ug/dL
[2023-08-25 16:49] LABS: Ferritin 498 ng/mL (20-250); Vitamin D 25-OH Total 29.4 ng/mL (>30)
== END 2023-08-25 10:47 | disposition home or self-care (01) ==
LOC: HO.HKASLDS 10:46
PROVIDERS: Visit Provider Internal Medicine Nephrology
DX: I12.9 Hypertensive chronic kidney disease with stage 1 through stage 4 chronic kidney disease, or unspecified chronic kidney disease (principal); N18.4 Chronic kidney disease, stage 4 (severe); D63.1 Anemia in chronic kidney disease
CPT/HCPCS: 36415; 80051; 82306; 82310; 82565; 82728; 83540; 84100; 84520; 85025

== ENCOUNTER 2023-08-27 11:28 | Outpatient (AMB) | payer MEDICARE, SELFPAY ==
[2023-08-27 11:43] VITALS: BP 130/60; PULSE 82; O2SAT 99; BMI 23.3
--- NOTE | 2023-08-27 11:43 | HO.NEPHOV_ITS ---
HPI HPI Comments History of Present Illness Details I had the pleasure of seeing Alireza Kyle in the office, accompanied by his Jane, in follow-up of his chronic kidney disease and management of his anemia. 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 He has hypertension which is well controlled. He has anemia chronic disease for which he had been getting Procrit . He denies taking any nonsteroidal anti-inflammatory medications. He does not have any chest pain, shortness of breath, nausea vomiting, diarrhea, orthostatic symptoms, edema. He does not feel tired. His appetite is good. He had pneumonia and was treated with antibiotic by PCP. His serum creatinine has gone up marginally. 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, stage 4 (severe) Family History Mother Cancer Child No Financial Resp Cancer Social History Alcohol intake: never Patient Tobacco Use Status: Never used Tobacco Vital Signs 08/27/23 11:43 Height 5 ft 9 in Weight 158 lb BMI 23.3 BP 130/60 Blood Pressure Location Lt brachial Position Sitting Pulse 82 Pulse Source Pulse Oximeter Pulse Oximetry (%) 99 Oxygen Delivery Method Room Air Physical Exam Vital Signs: Last Vital Signs Pulse 82 08/27/23 11:43 BP 130/60 08/27/23 11:43 Pulse Ox 99 08/27/23 11:43 Oxygen Delivery Method Room Air 08/27/23 11:43 BMI result Body Mass Index 23.3 Const General: comfortable and no acute distress Orientation/consciousness: patient oriented x3 HEENT Head: Yes normocephalic Mouth: Normal oral and palatal mucosa present Eyes EOM: EOMs intact bilaterally Neck Neck: Yes supple Resp Auscultation: clear to auscultation bilaterally Cardio Jugular venous distension: no JVD Rate: regular rate GI Palpation (GI): Soft to palpation Auscultation: normal bowel sounds General: Yes no CVA tenderness Back/Spine/Pelvis Back: no CVA tenderness Skin General skin exam: no rashes or lesions noted Neuro General: patient oriented x3 and moves all extremities Office Meds epoetin lizet 20,000 unit/mL injection solution Performing Provider: Santy Jonas MD [facility] [facility] Administered by: Satny Jonas MD on 08/27/23 12:18 Dose Route Admin Location Dispensed Lot Number Expiration Date [employer] 20,000 unit subcut Abdomen 1 mL [id number] 04/10/25 16033-352-59 [employer] Assessment & Plan Assessment & Plan (1) Chronic kidney disease, stage 4 (severe): Code(s): N18.4 - Chronic kidney disease, stage 4 (severe) (2) Anemia in chronic kidney disease: Code(s): N18.9 - Chronic kidney disease, unspecified; D63.1 - Anemia in chronic kidney disease Qualifiers: Chronic kidney disease stage: stage 4 (severe) Qualified Code(s): N18.4 - Chronic kidney disease, stage 4 (severe); D63.1 - Anemia in chronic kidney disease (3) Hypertension: Code(s): I10 - Essential (primary) hypertension Qualifiers: Hypertension type: primary hypertension Qualified Code(s): I10 - Essential (primary) hypertension Plan Alireza has history of minimal change disease with nephrotic syndrome. He had been on losartan which has been put on hold for a long time. He can continue on his current dose of diuretics. I administered [id number] Units Procrit in my office today. I did not make any other medication changes . He will be for up in the office for continued care. Labs ordered for F/U All his questions were answered Orders: Orders AMB Epoetin Injection Practice Supplied Today D63.1 - Anemia in chronic kidney disease, N18.4 - Chronic kidney disease, stage 4 (severe) Medications: New epoetin lizet 20,000 units subcut ONCE 1 mL 0RF D63.1 - Anemia in chronic kidney disease, N18.4 - Chronic kidney disease, stage 4 (severe) Coding Level of Care Code Est Pt Level 3 (23153) Diagnoses Chronic kidney disease, stage 4 (severe) N18.4 Anemia in stage 4 chronic kidney disease N18.4; D63.1 Chronic kidney disease stage: stage 4 (severe) Primary hypertension I10 Hypertension type: primary hypertension Results Reviewed Nephrology Results: Hgb 8.0 g/dl (14.0-18.0) L 08/25/23 WBC 6.2 X10*3/uL (4.8-10.8) 08/25/23 Plt Count 309 X10*3/uL (160-400) 08/25/23 Sodium 139 mmol/L (135-145) 08/25/23 Potassium 4.1 mmol/L (3.3-5.1) 08/25/23 Chloride 109 mmol/L (96-108) H 08/25/23 Carbon Dioxide 22 mmol/L (22-29) 08/25/23 BUN 55 mg/dL (9-16) H 08/25/23 Creatinine 3.07 mg/dL (0.5-1.4) H 08/25/23 Calcium 8.6 mg/dL (8.4-10.2) 08/25/23 Phosphorus 3.5 mg/dL (2.7-4.5) 08/25/23
== END 2023-08-27 12:26 | disposition home or self-care (01) ==
PROVIDERS: PCP Internal Medicine; Visit Provider Internal Medicine Nephrology
DX: I12.9 Hypertensive chronic kidney disease with stage 1 through stage 4 chronic kidney disease, or unspecified chronic kidney disease (principal); N18.4 Chronic kidney disease, stage 4 (severe); D63.1 Anemia in chronic kidney disease
CPT/HCPCS: 99213

== ENCOUNTER → 2023-08-27 11:28 | Outpatient (BNVA) | payer MEDICARE, SELFPAY | PROVIDERS: PCP Internal Medicine; Visit Provider Internal Medicine Nephrology | DX: I12.9 Hypertensive chronic kidney disease with stage 1 through stage 4 chronic kidney disease, or unspecified chronic kidney disease (principal); N18.4 Chronic kidney disease, stage 4 (severe); D63.1 Anemia in chronic kidney disease; Z79.899 Other long term (current) drug therapy | CPT/HCPCS: 96372; 99212; J0885 ==

== ENCOUNTER 2023-09-10 11:18 | Outpatient (AMB) | payer MEDICARE, SELFPAY ==
[2023-09-10 11:35] VITALS: BP 124/60; PULSE 86; O2SAT 97; BMI 23.3
--- NOTE | 2023-09-10 11:35 | HO.NEPHOV_ITS ---
Vital Signs 09/10/23 11:35 Height 5 ft 9 in Weight 158 lb 2 oz BMI 23.3 BP 124/60 Blood Pressure Location Lt brachial Position Sitting Pulse 86 Pulse Source Pulse Oximeter Pulse Oximetry (%) 97 Oxygen Delivery Method Room Air Intake Visit Reasons: 2 wks follow up/ Confirmed Process Architect Required: No Accompanied by: Spouse Allergies lisinopril Allergy (Verified 09/10/23 11:39) Unknown Macrolides and Ketolides Allergy (Uncoded 03/18/23 13:49) Unknown HPI Comments Details: I had the pleasure of seeing Alireza Kyle in the office, accompanied by his Jane, in follow-up of his chronic kidney disease and management of his anemia. 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 He has hypertension which is well controlled. He has anemia chronic disease for which he had been getting Procrit . He denies taking any nonsteroidal anti-inflammatory medications. He does not have any chest pain, shortness of breath, nausea vomiting, diarrhea, orthostatic symptoms, edema. He does not feel tired. His appetite is better. 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 disease, stage 4 (severe) Family History Mother Cancer Child No Financial Resp Cancer Social History Alcohol intake: never Patient Tobacco Use Status: Never used Tobacco Physical Exam Vital Signs: Last Vital Signs Pulse 86 09/10/23 11:35 BP 124/60 09/10/23 11:35 Pulse Ox 97 09/10/23 11:35 Oxygen Delivery Method Room Air 09/10/23 11:35 BMI result Body Mass Index 23.3 Const General: comfortable and no acute distress Orientation/consciousness: patient oriented x3 HEENT Head: Yes normocephalic Mouth: Normal oral and palatal mucosa present Eyes EOM: EOMs intact bilaterally Neck Neck: Yes supple Resp Auscultation: clear to auscultation bilaterally Cardio Jugular venous distension: no JVD Rate: regular rate GI Palpation (GI): Soft to palpation Auscultation: normal bowel sounds General: Yes no CVA tenderness Back/Spine/Pelvis Back: no CVA tenderness Skin General skin exam: no rashes or lesions noted Neuro General: patient oriented x3 and moves all extremities Extrem General: Yes no pedal edema Office Meds epoetin lizet-epbx 10,000 unit/mL injection solution Performing Provider: Santy Jonas MD [facility] Administered by: Santy Jonas MD on 09/10/23 12:07 Dose Route Admin Location Dispensed Lot Number Expiration Date [facility] Bandsaw Operator 20,000 unit subcut 2 mL [id number] 04/10/25 0647-5553-72 [employer] Results Reviewed Nephrology Results: Hgb 8.0 g/dl (14.0-18.0) L 08/25/23 WBC 6.2 X10*3/uL (4.8-10.8) 08/25/23 Plt Count 309 X10*3/uL (160-400) 08/25/23 Sodium 139 mmol/L (135-145) 08/25/23 Potassium 4.1 mmol/L (3.3-5.1) 08/25/23 Chloride 109 mmol/L (96-108) H 08/25/23 Carbon Dioxide 22 mmol/L (22-29) 08/25/23 BUN 55 mg/dL (9-16) H 08/25/23 Creatinine 3.07 mg/dL (0.5-1.4) H 08/25/23 Calcium 8.6 mg/dL (8.4-10.2) 08/25/23 Phosphorus 3.5 mg/dL (2.7-4.5) 08/25/23 Assessment & Plan Assessment & Plan (1) Chronic kidney disease, stage 4 (severe): Code(s): N18.4 - Chronic kidney disease, stage 4 (severe) Category: Medical (2) Anemia in chronic kidney disease: Code(s): N18.9 - Chronic kidney disease, unspecified; D63.1 - Anemia in chronic kidney disease Category: Medical Qualifiers: Chronic kidney disease stage: stage 4 (severe) Qualified Code(s): N18.4 - Chronic kidney disease, stage 4 (severe); D63.1 - Anemia in chronic kidney disease (3) Hypertension: Code(s): I10 - Essential (primary) hypertension Category: Medical Qualifiers: Hypertension type: primary hypertension Qualified Code(s): I10 - Essential (primary) hypertension Plan Alireza has history of minimal change disease with nephrotic syndrome. He had been on losartan which has been put on hold for a long time. He can continue on his current dose of diuretics. I administered [id number] Units Procrit in my office today. I did not make any other medication changes . He will be for up in the office for continued care. 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 disease, I10 - Essential (primary) hypertension, N18.4 - Chronic kidney disease, stage 4 (severe) IRON PROFILE Today D63.1 - Anemia in chronic kidney disease, I10 - Essential (primary) hypertension, N18.4 - Chronic kidney disease, stage 4 (severe) Electrolytes Today D63.1 - Anemia in chronic kidney disease, I10 - Essential (primary) hypertension, N18.4 - Chronic kidney disease, stage 4 (severe) Calcium Today D63.1 - Anemia in chronic kidney disease, I10 - Essential (primary) hypertension, N18.4 - Chronic kidney disease, stage 4 (severe) Creatinine Today D63.1 - Anemia in chronic kidney disease, I10 - Essential (primary) hypertension, N18.4 - Chronic kidney disease, stage 4 (severe) Coding Level of Care Code Est Pt Level 4 (91325) Diagnoses Chronic kidney disease, stage 4 (severe) N18.4 Anemia in stage 4 chronic kidney disease N18.4; D63.1 Chronic kidney disease stage: stage 4 (severe) Primary hypertension I10 Hypertension type: primary hypertension
== END 2023-09-10 12:13 | disposition home or self-care (01) ==
PROVIDERS: PCP Internal Medicine; Visit Provider Internal Medicine Nephrology
DX: I12.9 Hypertensive chronic kidney disease with stage 1 through stage 4 chronic kidney disease, or unspecified chronic kidney disease (principal); N18.4 Chronic kidney disease, stage 4 (severe); D63.1 Anemia in chronic kidney disease
CPT/HCPCS: 99214

== ENCOUNTER → 2023-09-10 11:18 | Outpatient (BNVA) | payer MEDICARE, SELFPAY | PROVIDERS: PCP Internal Medicine; Visit Provider Internal Medicine Nephrology | DX: I12.9 Hypertensive chronic kidney disease with stage 1 through stage 4 chronic kidney disease, or unspecified chronic kidney disease (principal); N18.4 Chronic kidney disease, stage 4 (severe); D63.1 Anemia in chronic kidney disease | CPT/HCPCS: 96372; 99212; Q5106 ==

== ENCOUNTER 2023-09-22 11:29 | Outpatient (REF) | payer MEDICARE, SELFPAY ==
[2023-09-22 17:50] LABS: MANUAL DIFF FLAG NO
[2023-09-22 18:07] LABS: Basophils Percent Auto 0.5 % (0-2); Eosinophils Absolute Auto 0.2 X10*3/uL (0.0-0.4); Eosinophils Percent Auto 3.9 % (0-4); Hematocrit 26.6 % (42.0-52.0); Hemoglobin 8.3 g/dl (14.0-18.0); Imm Gran Abs Auto 0.02 X10*3/uL (0.00-0.03); Imm Gran Pct Auto 0.4 % (0.0-0.4); Lymphocytes Absolute Auto 1.2 X10*3/uL (1.2-4.9); Lymphocytes Percent Auto 22.2 % (20-40); Mean Corpuscular HGB Conc 31.2 g/dl (31.0-36.0); Mean Corpuscular Hemoglobin 30.5 pg (27.0-33.0); Mean Corpuscular Volume 97.8 fL (80.0-98.0); Monocytes Absolute Auto 0.6 X10*3/uL (0.1-1.2); Monocytes Percent Auto 10.6 % (2-11); Neutrophils Absolute Auto 3.5 x10*3/uL (2.0-8.3); Neutrophils Percent Auto 62.4 % (45-73); Platelet Count 323 X10*3/uL (160-400); Red Blood Count 2.72 X10*6/uL (4.60-5.80); Red Cell Distribution Width 16.4 % (11.0-16.0); White Blood Count 5.6 X10*3/uL (4.8-10.8)
[2023-09-22 18:23] LABS: Anion Gap 15 (12-20); Blood Urea Nitrogen 48 mg/dL (9-16); Calcium 8.4 mg/dL (8.4-10.2); Carbon Dioxide 18 mmol/L (22-29); Chloride 113 mmol/L (96-108); Estimated Glomerular Filt Rate 20; Iron 65 mcg/dL (45-160); Percent Iron Saturation 29 % (15-50); Sodium 142 mmol/L (135-145); Total Iron Binding Capacity 222 mcg/dL (228-428); Unsaturated Iron Binding 157 ug/dL
[2023-09-22 18:39] LABS: Ferritin 348 ng/mL (20-250)
== END 2023-09-22 11:30 | disposition home or self-care (01) ==
LOC: HO.HKASLDS 11:29
PROVIDERS: Visit Provider Internal Medicine Nephrology
DX: N18.4 Chronic kidney disease, stage 4 (severe) (principal); D63.1 Anemia in chronic kidney disease; I10 Essential (primary) hypertension
CPT/HCPCS: 36415; 80051; 82310; 82565; 82728; 83540; 84520; 85025

== ENCOUNTER 2023-09-24 11:28 | Outpatient (AMB) | payer MEDICARE, SELFPAY ==
--- NOTE | 2023-09-24 11:32 | HO.NEPHOV ---
Vital Signs 09/24/23 12:07 Height 5 ft 9 in Weight 158 lb 9 oz BMI 23.4 BP 112/60 Blood Pressure Location Rt brachial Position Sitting Pulse 66 Pulse Source Pulse Oximeter Pulse Oximetry (%) 97 Oxygen Delivery Method Room Air Intake Visit Reasons: 2 wks follow up/ Confirmed w/ Core Machine Tender Required: No Accompanied by: Spouse Allergies lisinopril Allergy (Verified 09/24/23 12:08) Unknown Macrolides and Ketolides Allergy (Uncoded 03/18/23 13:49) Unknown HPI Comments Details: I had the pleasure of seeing Alireza Kyle in the office, accompanied by his Jane, in follow-up of his chronic kidney disease and management of his anemia. 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 He has hypertension which is well controlled. He has anemia chronic disease for which he had been getting Procrit . He denies taking any nonsteroidal anti-inflammatory medications. He does not have any chest pain, shortness of breath, nausea vomiting, diarrhea, orthostatic symptoms, edema. He does not feel tired. His appetite is better. 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, stage 4 (severe) Family History Mother Cancer Child No Financial Resp Cancer Social History Alcohol intake: never Patient Tobacco Use Status: Never used Tobacco Physical Exam Vital Signs: Last Vital Signs Pulse 66 09/24/23 12:07 BP 112/60 09/24/23 12:07 Pulse Ox 97 09/24/23 12:07 Oxygen Delivery Method Room Air 09/24/23 12:07 BMI result Body Mass Index 23.4 Const General: comfortable and no acute distress Orientation/consciousness: patient oriented x3 HEENT Head: Yes normocephalic Mouth: Normal oral and palatal mucosa present Eyes EOM: EOMs intact bilaterally Neck Neck: Yes supple Resp Auscultation: clear to auscultation bilaterally Cardio Jugular venous distension: no JVD Rate: regular rate GI Palpation (GI): Soft to palpation Auscultation: normal bowel sounds General: Yes no CVA tenderness Back/Spine/Pelvis Back: no CVA tenderness Skin General skin exam: no rashes or lesions noted Neuro General: patient oriented x3 and moves all extremities Extrem General: Yes no pedal edema Office Meds epoetin lizet-epbx 10,000 unit/mL injection solution Performing Provider: Santy Jonas MD Performing Location: [facility] Administered by: Santy Jonas MD on 09/24/23 12:18 Dose Route Admin Location Dispensed Lot Number Expiration Date [facility] Senior Project Accountant 40,000 unit subcut 4 mL [id number] 04/10/25 7347-5538-06 [employer] [place] Results Reviewed Nephrology Results: Hgb 8.3 g/dl (14.0-18.0) L 09/22/23 WBC 5.6 X10*3/uL (4.8-10.8) 09/22/23 Plt Count 323 X10*3/uL (160-400) 09/22/23 Sodium 142 mmol/L (135-145) 09/22/23 Potassium 4.0 mmol/L (3.3-5.1) 09/22/23 Chloride 113 mmol/L (96-108) H 09/22/23 Carbon Dioxide 18 mmol/L (22-29) L 09/22/23 BUN 48 mg/dL (9-16) H 09/22/23 Creatinine 2.96 mg/dL (0.5-1.4) H 09/22/23 Calcium 8.4 mg/dL (8.4-10.2) 09/22/23 Phosphorus 3.5 mg/dL (2.7-4.5) 08/25/23 Assessment & Plan Assessment & Plan (1) Anemia in chronic kidney disease: Code(s): N18.9 - Chronic kidney disease, unspecified; D63.1 - Anemia in chronic kidney disease Category: Medical Qualifiers: Chronic kidney disease stage: stage 4 (severe) Qualified Code(s): N18.4 - Chronic kidney disease, stage 4 (severe); D63.1 - Anemia in chronic kidney disease (2) Hypertension: Code(s): I10 - Essential (primary) hypertension Category: Medical Qualifiers: Hypertension type: primary hypertension Qualified Code(s): I10 - Essential (primary) hypertension (3) Chronic kidney disease, stage 4 (severe): Code(s): N18.4 - Chronic kidney disease, stage 4 (severe) Category: Medical Plan Alireza has history of minimal change disease with nephrotic syndrome. He had been on losartan which has been put on hold for a long time. He can continue on his current dose of diuretics. I administered [id number] Units Procrit in my office today. I did not make any other medication changes . He will be for up in the office for continued care. Labs ordered for F/U .All his questions were answered Orders: Orders AMB Epoetin Injection Practice Supplied Today D63.1 - Anemia in chronic kidney disease, N18.4 - Chronic kidney disease, stage 4 (severe) Complete Blood Count Auto Diff 3 Weeks D63.1 - Anemia in chronic kidney disease, N18.4 - Chronic kidney disease, stage 4 (severe) Coding Level of Care Code Est Pt Level 4 (98334) Diagnoses Anemia in stage 4 chronic kidney disease N18.4; D63.1 Chronic kidney disease stage: stage 4 (severe) Primary hypertension I10 Hypertension type: primary hypertension Chronic kidney disease, stage 4 (severe) N18.4
[2023-09-24 12:07] VITALS: BP 112/60; PULSE 66; O2SAT 97; BMI 23.4
== END 2023-09-24 12:29 | disposition home or self-care (01) ==
PROVIDERS: PCP Internal Medicine; Visit Provider Internal Medicine Nephrology
DX: I12.9 Hypertensive chronic kidney disease with stage 1 through stage 4 chronic kidney disease, or unspecified chronic kidney disease (principal); N18.4 Chronic kidney disease, stage 4 (severe); D63.1 Anemia in chronic kidney disease
CPT/HCPCS: 99214

== ENCOUNTER → 2023-09-24 11:28 | Outpatient (BNVA) | payer MEDICARE, SELFPAY | PROVIDERS: PCP Internal Medicine; Visit Provider Internal Medicine Nephrology | DX: I12.9 Hypertensive chronic kidney disease with stage 1 through stage 4 chronic kidney disease, or unspecified chronic kidney disease (principal); N18.4 Chronic kidney disease, stage 4 (severe); D63.1 Anemia in chronic kidney disease | CPT/HCPCS: 96372; 99212; Q5106 ==

== ENCOUNTER 2023-10-13 12:48 | Outpatient (REF) | payer MEDICARE, SELFPAY ==
[2023-10-13 18:12] LABS: MANUAL DIFF FLAG NO
[2023-10-13 18:22] LABS: Basophils Percent Auto 0.3 % (0-2); Eosinophils Absolute Auto 0.2 X10*3/uL (0.0-0.4); Eosinophils Percent Auto 3.3 % (0-4); Hematocrit 28.1 % (42.0-52.0); Hemoglobin 9.1 g/dl (14.0-18.0); Imm Gran Abs Auto 0.04 X10*3/uL (0.00-0.03); Imm Gran Pct Auto 0.7 % (0.0-0.4); Lymphocytes Absolute Auto 1.4 X10*3/uL (1.2-4.9); Lymphocytes Percent Auto 23.5 % (20-40); Mean Corpuscular HGB Conc 32.4 g/dl (31.0-36.0); Mean Corpuscular Hemoglobin 31.7 pg (27.0-33.0); Mean Corpuscular Volume 97.9 fL (80.0-98.0); Mean Platelet Volume 10.6 fL (9.4-12.4); Monocytes Absolute Auto 0.7 X10*3/uL (0.1-1.2); Monocytes Percent Auto 11.4 % (2-11); Neutrophils Absolute Auto 3.5 x10*3/uL (2.0-8.3); Neutrophils Percent Auto 60.8 % (45-73); Platelet Count 289 X10*3/uL (160-400); Red Blood Count 2.87 X10*6/uL (4.60-5.80); Red Cell Distribution Width 16.3 % (11.0-16.0); White Blood Count 5.8 X10*3/uL (4.8-10.8)
[2023-10-13 18:33] LABS: Anion Gap 12 (12-20); Blood Urea Nitrogen 53 mg/dL (9-16); Calcium 8.8 mg/dL (8.4-10.2); Carbon Dioxide 20 mmol/L (22-29); Chloride 113 mmol/L (96-108); Estimated Glomerular Filt Rate 21; Potassium 4.2 mmol/L (3.3-5.1); Sodium 141 mmol/L (135-145)
== END 2023-10-13 12:49 | disposition home or self-care (01) ==
LOC: HO.HKASLDS 12:48
PROVIDERS: Visit Provider Internal Medicine Nephrology
DX: I12.9 Hypertensive chronic kidney disease with stage 1 through stage 4 chronic kidney disease, or unspecified chronic kidney disease (principal); N18.4 Chronic kidney disease, stage 4 (severe); D63.1 Anemia in chronic kidney disease
CPT/HCPCS: 36415; 80051; 82310; 82565; 84520; 85025

== ENCOUNTER 2023-10-15 11:25 | Outpatient (AMB) | payer MEDICARE, SELFPAY ==
--- NOTE | 2023-10-15 11:47 | HO.NEPHOV ---
Vital Signs 10/15/23 11:48 Height 5 ft 9 in Weight 160 lb BMI 23.6 BP 114/60 Blood Pressure Location Lt brachial Position Sitting Pulse 75 Pulse Source Pulse Oximeter Pulse Oximetry (%) 97 Oxygen Delivery Method Room Air Intake Visit Reasons: 3 wks follow u/ Conf Night Court Magistrate Required: No Accompanied by: Spouse Allergies lisinopril Allergy (Verified 10/15/23 11:49) Unknown Macrolides and Ketolides Allergy (Uncoded 03/18/23 13:49) Unknown HPI Comments Details: I had the pleasure of seeing Alireza Kyle in the office, accompanied by his Jane, in follow-up of his chronic kidney disease and management of his anemia. 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 He has hypertension which is well controlled. He has anemia chronic disease for which he had been getting Procrit . He denies taking any nonsteroidal anti-inflammatory medications. He does not have any chest pain, shortness of breath, nausea vomiting, diarrhea, orthostatic symptoms, edema. He does not feel tired. His appetite is better. 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, stage 4 (severe) Family History Mother Cancer Child No Financial Resp Cancer Social History Alcohol intake: never Patient Tobacco Use Status: Never used Tobacco Physical Exam Vital Signs: Last Vital Signs Pulse 75 10/15/23 11:48 BP 114/60 10/15/23 11:48 Pulse Ox 97 10/15/23 11:48 Oxygen Delivery Method Room Air 10/15/23 11:48 BMI result Body Mass Index 23.6 Const General: comfortable and no acute distress Orientation/consciousness: patient oriented x3 HEENT Head: Yes normocephalic Mouth: Normal oral and palatal mucosa present Eyes EOM: EOMs intact bilaterally Neck Neck: Yes supple Resp Auscultation: clear to auscultation bilaterally Cardio Jugular venous distension: no JVD Rate: regular rate GI Palpation (GI): Soft to palpation Auscultation: normal bowel sounds General: Yes no CVA tenderness Back/Spine/Pelvis Back: no CVA tenderness Skin General skin exam: no rashes or lesions noted Neuro General: patient oriented x3 and moves all extremities Extrem General: Yes no pedal edema Office Meds epoetin lizet-epbx 10,000 unit/mL injection solution Performing Provider: Santy Jonas MD Performing Location: [facility] Documented (not given) by: Santy Jonas MD on 10/15/23 11:56 Reason Not Given: Not Medically Necessary epoetin lizet-epbx 20,000 unit/mL injection solution Performing Provider: Santy Jonas MD Performing Location: [facility] Administered by: Santy Jonas MD on 10/15/23 11:56 Dose Route Admin Location Dispensed Lot Number Expiration Date [facility] Glazing Superintendent 40,000 unit subcut LUE 2 mL [id number] 04/10/25 5261-8601-89 [employer] [place] Results Reviewed Nephrology Results: Hgb 9.1 g/dl (14.0-18.0) L 10/13/23 WBC 5.8 X10*3/uL (4.8-10.8) 10/13/23 Plt Count 289 X10*3/uL (160-400) 10/13/23 Sodium 141 mmol/L (135-145) 10/13/23 Potassium 4.2 mmol/L (3.3-5.1) 10/13/23 Chloride 113 mmol/L (96-108) H 10/13/23 Carbon Dioxide 20 mmol/L (22-29) L 10/13/23 BUN 53 mg/dL (9-16) H 10/13/23 Creatinine 2.84 mg/dL (0.5-1.4) H 10/13/23 Calcium 8.8 mg/dL (8.4-10.2) 10/13/23 Phosphorus 3.5 mg/dL (2.7-4.5) 08/25/23 Assessment & Plan Assessment & Plan (1) Anemia in chronic kidney disease: Code(s): N18.9 - Chronic kidney disease, unspecified; D63.1 - Anemia in chronic kidney disease Category: Medical Qualifiers: Chronic kidney disease stage: stage 4 (severe) Qualified Code(s): N18.4 - Chronic kidney disease, stage 4 (severe); D63.1 - Anemia in chronic kidney disease (2) Chronic kidney disease, stage 4 (severe): Code(s): N18.4 - Chronic kidney disease, stage 4 (severe) Category: Medical (3) Hypertension: Code(s): I10 - Essential (primary) hypertension Category: Medical Qualifiers: Hypertension type: primary hypertension Qualified Code(s): I10 - Essential (primary) hypertension Plan Alireza has history of minimal change disease with nephrotic syndrome. He had been on losartan which has been put on hold for a long time. He can continue on his current dose of diuretics. I administered [id number] Units Procrit in my office today. I did not make any other medication changes . He will be for up in the office for continued care. Labs ordered for F/U .All his questions were answered Orders: Orders Complete Blood Count Auto Diff 3 Weeks D63.1 - Anemia in chronic kidney disease, I10 - Essential (primary) hypertension, N18.4 - Chronic kidney disease, stage 4 (severe) AMB Epoetin Injection Practice Supplied Today D63.1 - Anemia in chronic kidney disease, N18.4 - Chronic kidney disease, stage 4 (severe) Medications: New ergocalciferol (vitamin D2) 1,250 mcg PO .monthly 10 caps 5RF Coding Level of Care Code Est Pt Level 4 (77630) Diagnoses Anemia in stage 4 chronic kidney disease N18.4; D63.1 Chronic kidney disease stage: stage 4 (severe) Chronic kidney disease, stage 4 (severe) N18.4 Primary hypertension I10 Hypertension type: primary hypertension
[2023-10-15 11:48] VITALS: BP 114/60; PULSE 75; O2SAT 97; BMI 23.6
== END 2023-10-15 12:10 | disposition home or self-care (01) ==
PROVIDERS: PCP Internal Medicine; Visit Provider Internal Medicine Nephrology
DX: I12.9 Hypertensive chronic kidney disease with stage 1 through stage 4 chronic kidney disease, or unspecified chronic kidney disease (principal); N18.4 Chronic kidney disease, stage 4 (severe); D63.1 Anemia in chronic kidney disease
CPT/HCPCS: 99214

== ENCOUNTER → 2023-10-15 11:25 | Outpatient (BNVA) | payer MEDICARE, SELFPAY | PROVIDERS: PCP Internal Medicine; Visit Provider Internal Medicine Nephrology | DX: I12.9 Hypertensive chronic kidney disease with stage 1 through stage 4 chronic kidney disease, or unspecified chronic kidney disease (principal); N18.4 Chronic kidney disease, stage 4 (severe); D63.1 Anemia in chronic kidney disease | CPT/HCPCS: 96372; 99212; Q5106 ==

== ENCOUNTER 2023-11-03 10:45 | Outpatient (REF) | payer MEDICARE, SELFPAY ==
[2023-11-03 18:03] LABS: MANUAL DIFF FLAG NO
[2023-11-03 18:34] LABS: Anion Gap 12 (12-20); Blood Urea Nitrogen 48 mg/dL (9-16); Calcium 8.6 mg/dL (8.4-10.2); Carbon Dioxide 22 mmol/L (22-29); Chloride 112 mmol/L (96-108); Estimated Glomerular Filt Rate 21; Potassium 4.2 mmol/L (3.3-5.1); Sodium 142 mmol/L (135-145)
[2023-11-03 18:48] LABS: Basophils Percent Auto 0.7 % (0-2); Eosinophils Absolute Auto 0.1 X10*3/uL (0.0-0.4); Eosinophils Percent Auto 2.4 % (0-4); Hematocrit 31.7 % (42.0-52.0); Hemoglobin 10.2 g/dl (14.0-18.0); Imm Gran Abs Auto 0.02 X10*3/uL (0.00-0.03); Imm Gran Pct Auto 0.3 % (0.0-0.4); Lymphocytes Absolute Auto 1.2 X10*3/uL (1.2-4.9); Lymphocytes Percent Auto 20.2 % (20-40); Mean Corpuscular HGB Conc 32.2 g/dl (31.0-36.0); Mean Corpuscular Hemoglobin 31.1 pg (27.0-33.0); Mean Corpuscular Volume 96.6 fL (80.0-98.0); Mean Platelet Volume 10.2 fL (9.4-12.4); Monocytes Absolute Auto 0.6 X10*3/uL (0.1-1.2); Neutrophils Absolute Auto 3.9 x10*3/uL (2.0-8.3); Neutrophils Percent Auto 66.4 % (45-73); Platelet Count 289 X10*3/uL (160-400); Red Blood Count 3.28 X10*6/uL (4.60-5.80); Red Cell Distribution Width 16.1 % (11.0-16.0); White Blood Count 5.9 X10*3/uL (4.8-10.8)
== END 2023-11-03 10:46 | disposition home or self-care (01) ==
LOC: HO.HKASLDS 10:45
PROVIDERS: Visit Provider Internal Medicine Nephrology
DX: N18.9 Chronic kidney disease, unspecified (principal); I10 Essential (primary) hypertension; D63.1 Anemia in chronic kidney disease; N18.4 Chronic kidney disease, stage 4 (severe)
CPT/HCPCS: 36415; 80051; 82310; 82565; 84520; 85025

== ENCOUNTER 2023-11-05 10:52 | Outpatient (AMB) | payer MEDICARE, SELFPAY ==
--- NOTE | 2023-11-05 11:10 | HO.NEPHOV_ITS ---
Vital Signs 11/05/23 11:11 Height 5 ft 9 in Weight 160 lb BMI 23.6 BP 130/60 Blood Pressure Location Lt brachial Position Sitting Pulse 86 Pulse Source Pulse Oximeter Pulse Oximetry (%) 96 Oxygen Delivery Method Room Air Intake Visit Reasons: 3wk follow up/ LVM Bindery Machine Setter Required: No Accompanied by: Spouse Allergies lisinopril Allergy (Verified 11/05/23 11:13) Unknown Macrolides and Ketolides Allergy (Uncoded 03/18/23 13:49) Unknown HPI Comments Details: Alireza Kyle was seen in the office, accompanied by his Jane, in follow- up of his chronic kidney disease and management of his anemia. 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 He has hypertension which is well controlled. He has anemia chronic disease for which he had been getting Procrit . He denies taking any nonsteroidal anti- inflammatory medications. He does not have any chest pain, shortness of breath, nausea vomiting, diarrhea, orthostatic symptoms, edema. He does not feel tired. His appetite is better. 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, stage 4 (severe) Family History Mother Cancer Child No Financial Resp Cancer Social History Alcohol intake: never Patient Tobacco Use Status: Never used Tobacco Physical Exam Vital Signs: Last Vital Signs Pulse 86 11/05/23 11:11 BP 130/60 11/05/23 11:11 Pulse Ox 96 11/05/23 11:11 Oxygen Delivery Method Room Air 11/05/23 11:11 BMI result Body Mass Index 23.6 Const General: comfortable and no acute distress Orientation/consciousness: patient oriented x3 HEENT Head: Yes normocephalic Mouth: Normal oral and palatal mucosa present Eyes EOM: EOMs intact bilaterally Neck Neck: Yes supple Resp Auscultation: clear to auscultation bilaterally Cardio Jugular venous distension: no JVD Rate: regular rate GI Palpation (GI): Soft to palpation Auscultation: normal bowel sounds General: Yes no CVA tenderness Back/Spine/Pelvis Back: no CVA tenderness Skin General skin exam: no rashes or lesions noted Neuro General: patient oriented x3 and moves all extremities Extrem General: Yes no pedal edema Office Meds epoetin lizet-epbx 10,000 unit/mL injection solution Performing Provider: Santy Jonas MD Performing Location: [facility] Administered by: Santy Jonas MD on 11/05/23 11:21 Dose Route Admin Location Dispensed Lot Number Expiration Date [facility] Publishing Manager 20,000 unit subcut LUE 2 mL [id number] 04/10/25 4132-7986-00 [employer] [place] PHARM Results Reviewed Nephrology Results: Hgb 10.2 g/dl (14.0-18.0) L 11/03/23 WBC 5.9 X10*3/uL (4.8-10.8) 11/03/23 Plt Count 289 X10*3/uL (160-400) 11/03/23 Sodium 142 mmol/L (135-145) 11/03/23 Potassium 4.2 mmol/L (3.3-5.1) 11/03/23 Chloride 112 mmol/L (96-108) H 11/03/23 Carbon Dioxide 22 mmol/L (22-29) 11/03/23 BUN 48 mg/dL (9-16) H 11/03/23 Creatinine 2.81 mg/dL (0.5-1.4) H 11/03/23 Calcium 8.6 mg/dL (8.4-10.2) 11/03/23 Phosphorus 3.5 mg/dL (2.7-4.5) 08/25/23 Assessment & Plan Assessment & Plan (1) Chronic kidney disease, stage 4 (severe): Code(s): N18.4 - Chronic kidney disease, stage 4 (severe) Category: Medical (2) Anemia in chronic kidney disease: Code(s): N18.9 - Chronic kidney disease, unspecified; D63.1 - Anemia in chronic kidney disease Category: Medical Qualifiers: Chronic kidney disease stage: stage 4 (severe) Qualified Code(s): N18.4 - Chronic kidney disease, stage 4 (severe); D63.1 - Anemia in chronic kidney disease (3) Hypertension: Code(s): I10 - Essential (primary) hypertension Category: Medical Qualifiers: Hypertension type: primary hypertension Qualified Code(s): I10 - Essential (primary) hypertension Plan Alireza has history of minimal change disease with nephrotic syndrome. He had been on losartan which has been put on hold for a long time. He can continue on his current dose of diuretics. I administered [id number] Units Procrit in my office today. I did not make any other medication changes. Labs ordered for F/U .All his questions were answered Orders: Orders Creatinine Today D63.1 - Anemia in chronic kidney disease, I10 - Essential (primary) hypertension, N18.4 - Chronic kidney disease, stage 4 (severe) Blood Urea Nitrogen Today D63.1 - Anemia in chronic kidney disease, I10 - Essential (primary) hypertension, N18.4 - Chronic kidney disease, stage 4 (severe) AMB Epoetin Injection Practice Supplied Today D63.1 - Anemia in chronic kidney disease, N18.4 - Chronic kidney disease, stage 4 (severe) Electrolytes Today D63.1 - Anemia in chronic kidney disease, I10 - Essential (primary) hypertension, N18.4 - Chronic kidney disease, stage 4 (severe) Complete Blood Count Auto Diff 3 Weeks D63.1 - Anemia in chronic kidney disease, I10 - Essential (primary) hypertension, N18.4 - Chronic kidney disease, stage 4 (severe) Coding Level of Care Code Est Pt Level 4 (34783) Diagnoses Chronic kidney disease, stage 4 (severe) N18.4 Anemia in stage 4 chronic kidney disease N18.4; D63.1 Chronic kidney disease stage: stage 4 (severe) Primary hypertension I10 Hypertension type: primary hypertension
[2023-11-05 11:11] VITALS: BP 130/60; PULSE 86; O2SAT 96; BMI 23.6
== END 2023-11-05 11:31 | disposition home or self-care (01) ==
PROVIDERS: PCP Internal Medicine; Visit Provider Internal Medicine Nephrology
DX: I12.9 Hypertensive chronic kidney disease with stage 1 through stage 4 chronic kidney disease, or unspecified chronic kidney disease (principal); N18.4 Chronic kidney disease, stage 4 (severe); D63.1 Anemia in chronic kidney disease
CPT/HCPCS: 99214

== ENCOUNTER → 2023-11-05 10:52 | Outpatient (BNVA) | payer MEDICARE, SELFPAY | PROVIDERS: PCP Internal Medicine; Visit Provider Internal Medicine Nephrology | DX: I12.9 Hypertensive chronic kidney disease with stage 1 through stage 4 chronic kidney disease, or unspecified chronic kidney disease (principal); N18.4 Chronic kidney disease, stage 4 (severe); D63.1 Anemia in chronic kidney disease | CPT/HCPCS: 96372; 99212; Q5106 ==

== ENCOUNTER 2023-11-24 13:55 | Outpatient (REF) | payer MEDICARE, SELFPAY ==
[2023-11-24 17:26] LABS: MANUAL DIFF FLAG NO
[2023-11-24 17:42] LABS: Basophils Percent Auto 0.5 % (0-2); Eosinophils Absolute Auto 0.1 X10*3/uL (0.0-0.4); Hematocrit 27.5 % (42.0-52.0); Imm Gran Abs Auto 0.01 X10*3/uL (0.00-0.03); Imm Gran Pct Auto 0.2 % (0.0-0.4); Lymphocytes Absolute Auto 1.3 X10*3/uL (1.2-4.9); Mean Corpuscular HGB Conc 32.7 g/dl (31.0-36.0); Mean Corpuscular Hemoglobin 31.5 pg (27.0-33.0); Mean Corpuscular Volume 96.2 fL (80.0-98.0); Mean Platelet Volume 10.4 fL (9.4-12.4); Monocytes Absolute Auto 0.6 X10*3/uL (0.1-1.2); Monocytes Percent Auto 10.1 % (2-11); Neutrophils Percent Auto 66.2 % (45-73); Platelet Count 266 X10*3/uL (160-400); Red Blood Count 2.86 X10*6/uL (4.60-5.80); White Blood Count 6.1 X10*3/uL (4.8-10.8)
[2023-11-24 17:52] LABS: Anion Gap 12 (12-20); Blood Urea Nitrogen 50 mg/dL (9-16); Carbon Dioxide 20 mmol/L (22-29); Chloride 114 mmol/L (96-108); Estimated Glomerular Filt Rate 22; Iron 76 mcg/dL (45-160); Percent Iron Saturation 34 % (15-50); Potassium 4.2 mmol/L (3.3-5.1); Sodium 142 mmol/L (135-145); Total Iron Binding Capacity 225 mcg/dL (228-428); Unsaturated Iron Binding 149 ug/dL
[2023-11-24 18:06] LABS: Ferritin 277 ng/mL (20-250)
== END 2023-11-24 13:56 | disposition home or self-care (01) ==
LOC: HO.HKASLDS 13:55
PROVIDERS: Visit Provider Internal Medicine Nephrology
DX: I12.9 Hypertensive chronic kidney disease with stage 1 through stage 4 chronic kidney disease, or unspecified chronic kidney disease (principal); N18.4 Chronic kidney disease, stage 4 (severe); D63.1 Anemia in chronic kidney disease
CPT/HCPCS: 36415; 80051; 82565; 82728; 83540; 84520; 85025

== ENCOUNTER 2023-11-26 11:19 | Outpatient (AMB) | payer MEDICARE, SELFPAY ==
--- NOTE | 2023-11-26 11:40 | HO.NEPHOV_ITS ---
Vital Signs 11/26/23 11:41 Height 5 ft 9 in Weight 157 lb BMI 23.2 BP 92/54 L Blood Pressure Location Lt brachial Position Sitting Pulse 71 Pulse Source Pulse Oximeter Pulse Oximetry (%) 96 Oxygen Delivery Method Room Air Intake Visit Reasons: 3 wk follow up/ Conf w/ Job Development Specialist Required: No Accompanied by: Spouse Allergies lisinopril Allergy (Verified 11/26/23 11:43) Unknown Macrolides and Ketolides Allergy (Uncoded 03/18/23 13:49) Unknown HPI Comments Details: Alireza Kyle was seen in the office, accompanied by his Jane, in follow- up of his chronic kidney disease and management of his anemia. 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 He has hypertension which is well controlled. He has anemia chronic disease for which he had been getting Procrit . He denies taking any nonsteroidal anti- inflammatory medications. He does not have any chest pain, shortness of breath, nausea vomiting, diarrhea, orthostatic symptoms, edema. He does not feel tired. His appetite is better. 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, stage 4 (severe) Family History Mother Cancer Child No Financial Resp Cancer Social History Alcohol intake: never Patient Tobacco Use Status: Never used Tobacco Physical Exam Vital Signs: Last Vital Signs Pulse 71 11/26/23 11:41 BP 92/54 L 11/26/23 11:41 Pulse Ox 96 11/26/23 11:41 Oxygen Delivery Method Room Air 11/26/23 11:41 BMI result Body Mass Index 23.2 Const General: comfortable and no acute distress Orientation/consciousness: patient oriented x3 HEENT Head: Yes normocephalic Mouth: Normal oral and palatal mucosa present Eyes EOM: EOMs intact bilaterally Neck Neck: Yes supple Resp Auscultation: clear to auscultation bilaterally Cardio Jugular venous distension: no JVD Rate: regular rate GI Palpation (GI): Soft to palpation Auscultation: normal bowel sounds General: Yes no CVA tenderness Back/Spine/Pelvis Back: no CVA tenderness Skin General skin exam: no rashes or lesions noted Neuro General: patient oriented x3 and moves all extremities Extrem General: Yes no pedal edema Office Meds epoetin lizet-epbx 10,000 unit/mL injection solution Performing Provider: Santy Jonas MD Performing Location: [facility] Administered by: Santy Jonas MD on 11/26/23 12:07 Dose Route Admin Location Dispensed Lot Number Expiration Date [facility] Enrollment Representative 40,000 unit subcut LUE 4 mL [id number] 04/10/25 8769-0911-34 [employer] [place] Results Reviewed Nephrology Results: Hgb 9.0 g/dl (14.0-18.0) L 11/24/23 WBC 6.1 X10*3/uL (4.8-10.8) 11/24/23 Plt Count 266 X10*3/uL (160-400) 11/24/23 Sodium 142 mmol/L (135-145) 11/24/23 Potassium 4.2 mmol/L (3.3-5.1) 11/24/23 Chloride 114 mmol/L (96-108) H 11/24/23 Carbon Dioxide 20 mmol/L (22-29) L 11/24/23 BUN 50 mg/dL (9-16) H 11/24/23 Creatinine 2.79 mg/dL (0.5-1.4) H 11/24/23 Calcium 8.6 mg/dL (8.4-10.2) 11/03/23 Assessment & Plan Assessment & Plan (1) Chronic kidney disease, stage 4 (severe): Code(s): N18.4 - Chronic kidney disease, stage 4 (severe) Category: Medical (2) Anemia in chronic kidney disease: Code(s): N18.9 - Chronic kidney disease, unspecified; D63.1 - Anemia in chronic kidney disease Category: Medical Qualifiers: Chronic kidney disease stage: stage 4 (severe) Qualified Code(s): N18.4 - Chronic kidney disease, stage 4 (severe); D63.1 - Anemia in chronic kidney disease (3) Hypertension: Code(s): I10 - Essential (primary) hypertension Category: Medical Qualifiers: Hypertension type: primary hypertension Qualified Code(s): I10 - Essential (primary) hypertension Plan Alireza has history of minimal change disease with nephrotic syndrome. He had been on losartan which has been put on hold for a long time. He can continue on his current dose of diuretics. I administered [id number] Units Procrit in my office today. I did not make any other medication changes. Labs ordered for F/U .All his questions were answered Orders: Orders Complete Blood Count Auto Diff 1 Month D63.1 - Anemia in chronic kidney disease, I10 - Essential (primary) hypertension, N18.4 - Chronic kidney disease, stage 4 (severe) AMB Epoetin Injection Practice Supplied Today D63.1 - Anemia in chronic kidney disease, I10 - Essential (primary) hypertension, N18.4 - Chronic kidney disease, stage 4 (severe) Coding Level of Care Code Est Pt Level 4 (35338) Diagnoses Chronic kidney disease, stage 4 (severe) N18.4 Anemia in stage 4 chronic kidney disease N18.4; D63.1 Chronic kidney disease stage: stage 4 (severe) Primary hypertension I10 Hypertension type: primary hypertension
[2023-11-26 11:41] VITALS: BP 92/54; PULSE 71; O2SAT 96; BMI 23.2
== END 2023-11-26 12:17 | disposition home or self-care (01) ==
PROVIDERS: PCP Internal Medicine; Visit Provider Internal Medicine Nephrology
DX: I12.9 Hypertensive chronic kidney disease with stage 1 through stage 4 chronic kidney disease, or unspecified chronic kidney disease (principal); N18.4 Chronic kidney disease, stage 4 (severe); D63.1 Anemia in chronic kidney disease
CPT/HCPCS: 99214

== ENCOUNTER → 2023-11-26 11:19 | Outpatient (BNVA) | payer MEDICARE, SELFPAY | PROVIDERS: PCP Internal Medicine; Visit Provider Internal Medicine Nephrology | DX: I12.9 Hypertensive chronic kidney disease with stage 1 through stage 4 chronic kidney disease, or unspecified chronic kidney disease (principal); N18.4 Chronic kidney disease, stage 4 (severe); D63.1 Anemia in chronic kidney disease | CPT/HCPCS: 96372; 99212; Q5106 ==

== ENCOUNTER 2023-12-22 11:31 | Outpatient (REF) | payer MEDICARE, SELFPAY ==
[2023-12-22 14:40] LABS: MANUAL DIFF FLAG NO
[2023-12-22 14:47] LABS: Basophils Percent Auto 0.5 % (0-2); Eosinophils Absolute Auto 0.1 X10*3/uL (0.0-0.4); Eosinophils Percent Auto 2.4 % (0-4); Hemoglobin 9.3 g/dl (14.0-18.0); Imm Gran Abs Auto 0.02 X10*3/uL (0.00-0.03); Imm Gran Pct Auto 0.3 % (0.0-0.4); Lymphocytes Absolute Auto 1.4 X10*3/uL (1.2-4.9); Lymphocytes Percent Auto 23.9 % (20-40); Mean Corpuscular HGB Conc 32.1 g/dl (31.0-36.0); Mean Corpuscular Hemoglobin 30.7 pg (27.0-33.0); Mean Corpuscular Volume 95.7 fL (80.0-98.0); Monocytes Absolute Auto 0.6 X10*3/uL (0.1-1.2); Monocytes Percent Auto 9.4 % (2-11); Neutrophils Absolute Auto 3.7 x10*3/uL (2.0-8.3); Neutrophils Percent Auto 63.5 % (45-73); Platelet Count 242 X10*3/uL (160-400); Red Blood Count 3.03 X10*6/uL (4.60-5.80); Red Cell Distribution Width 15.9 % (11.0-16.0); White Blood Count 5.9 X10*3/uL (4.8-10.8)
[2023-12-22 15:22] LABS: Anion Gap 12 (12-20); Blood Urea Nitrogen 65 mg/dL (9-16); Carbon Dioxide 21 mmol/L (22-29); Chloride 112 mmol/L (96-108); Estimated Glomerular Filt Rate 18; Potassium 3.8 mmol/L (3.3-5.1); Sodium 141 mmol/L (135-145)
== END 2023-12-22 11:32 | disposition home or self-care (01) ==
LOC: HO.HKASLDS 11:31
PROVIDERS: Visit Provider Internal Medicine Nephrology
DX: I10 Essential (primary) hypertension (principal); N18.4 Chronic kidney disease, stage 4 (severe); N18.9 Chronic kidney disease, unspecified; D63.1 Anemia in chronic kidney disease
CPT/HCPCS: 36415; 80051; 82565; 84520; 85025

== ENCOUNTER 2023-12-24 11:12 | Outpatient (AMB) | payer MEDICARE, SELFPAY ==
--- NOTE | 2023-12-24 11:56 | HO.NEPHOV_ITS ---
Vital Signs 12/24/23 11:57 Height 5 ft 9 in Weight 156 lb 8 oz BMI 23.1 BP 130/60 Blood Pressure Location Lt brachial Position Sitting Pulse 56 Pulse Source Pulse Oximeter Pulse Oximetry (%) 99 Oxygen Delivery Method Room Air Intake Visit Reasons: 1 mon follow up (Retacrit) LVM Creative Services Writer Required: No Accompanied by: Spouse Allergies lisinopril Allergy (Verified 12/24/23 11:59) Unknown Macrolides and Ketolides Allergy (Uncoded 03/18/23 13:49) Unknown HPI Comments Details: Alireza Kyle was seen in the office, accompanied by his Jane, in follow- up of his chronic kidney disease and management of his anemia. 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 He has hypertension which is well controlled. He has anemia chronic disease for which he had been getting Procrit . He denies taking any nonsteroidal anti-inflammato ry medications. He does not have any chest pain, shortness of breath, nausea vomiting, diarrhea, orthostatic symptoms, edema. His serum creatinine is marginally up. He does not feel tired. His appetite is better. 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, stage 4 (severe) Family History Mother Cancer Child No Financial Resp Cancer Social History Alcohol intake: never Patient Tobacco Use Status: Never used Tobacco Review of Systems Const All systems reviewed & are unremarkable except as noted in HPI and below Physical Exam Vital Signs: Last Vital Signs Pulse 56 12/24/23 11:57 BP 130/60 12/24/23 11:57 Pulse Ox 99 12/24/23 11:57 Oxygen Delivery Method Room Air 12/24/23 11:57 BMI result Body Mass Index 23.1 Const General: comfortable and no acute distress Orientation/consciousness: patient oriented x3 HEENT Head: Yes normocephalic Mouth: Normal oral and palatal mucosa present Eyes EOM: EOMs intact bilaterally Neck Neck: Yes supple Resp Auscultation: clear to auscultation bilaterally Cardio Jugular venous distension: no JVD Rate: regular rate GI Palpation (GI): Soft to palpation Auscultation: normal bowel sounds General: Yes no CVA tenderness Back/Spine/Pelvis Back: no CVA tenderness Skin General skin exam: no rashes or lesions noted Neuro General: patient oriented x3 and moves all extremities Extrem General: Yes no pedal edema Office Meds epoetin lizet-epbx 10,000 unit/mL injection solution Performing Provider: Santy Jonas MD [place] [facility] [facility] [place] [facility] Administered by: Santy Jonas MD on 12/24/23 12:07 Dose Route Admin Location Dispensed Lot Number Expiration Date [facility] [employer] 40,000 unit subcut lue 4 mL [id number] 04/10/25 9322-6159-25 [employer] Results Reviewed Nephrology Results: Hgb 9.3 g/dl (14.0-18.0) L 12/22/23 WBC 5.9 X10*3/uL (4.8-10.8) 12/22/23 Plt Count 242 X10*3/uL (160-400) 12/22/23 Sodium 141 mmol/L (135-145) 12/22/23 Potassium 3.8 mmol/L (3.3-5.1) 12/22/23 Chloride 112 mmol/L (96-108) H 12/22/23 Carbon Dioxide 21 mmol/L (22-29) L 12/22/23 BUN 65 mg/dL (9-16) H 12/22/23 Creatinine 3.24 mg/dL (0.5-1.4) H 12/22/23 Calcium 8.6 mg/dL (8.4-10.2) 11/03/23 Assessment & Plan Assessment & Plan (1) Anemia in chronic kidney disease: Code(s): N18.9 - Chronic kidney disease, unspecified; D63.1 - Anemia in chronic kidney disease Category: Medical Qualifiers: Chronic kidney disease stage: stage 4 (severe) Qualified Code(s): N18.4 - Chronic kidney disease, stage 4 (severe); D63.1 - Anemia in chronic kidney disease (2) Chronic kidney disease, stage 4 (severe): Code(s): N18.4 - Chronic kidney disease, stage 4 (severe) Category: Medical (3) Hypertension: Code(s): I10 - Essential (primary) hypertension Category: Medical Qualifiers: Hypertension type: primary hypertension Qualified Code(s): I10 - Essential (primary) hypertension Plan Alireza has history of minimal change disease with nephrotic syndrome. He had been on losartan which has been put on hold for a long time. He can continue on his current dose of diuretics. I asked him to increase his fluid intake a bit. I administered [id number] Units Procrit in my office today. I did not make any other medication changes. Labs ordered for F/U .All his questions were answered Orders: Orders Blood Urea Nitrogen Today D63.1 - Anemia in chronic kidney disease, I10 - Essential (primary) hypertension, N18.4 - Chronic kidney disease, stage 4 (severe) Electrolytes Today D63.1 - Anemia in chronic kidney disease, I10 - Essential (primary) hypertension, N18.4 - Chronic kidney disease, stage 4 (severe) AMB Epoetin Injection Practice Supplied Today D63.1 - Anemia in chronic kidney disease, N18.4 - Chronic kidney disease, stage 4 (severe) Creatinine Today D63.1 - Anemia in chronic kidney disease, I10 - Essential (primary) hypertension, N18.4 - Chronic kidney disease, stage 4 (severe) Complete Blood Count Auto Diff 1 Month D63.1 - Anemia in chronic kidney disease, I10 - Essential (primary) hypertension, N18.4 - Chronic kidney disease, stage 4 (severe) Coding Level of Care Code Est Pt Level 4 (99536) Diagnoses Anemia in stage 4 chronic kidney disease N18.4; D63.1 Chronic kidney disease stage: stage 4 (severe) Chronic kidney disease, stage 4 (severe) N18.4 Primary hypertension I10 Hypertension type: primary hypertension
[2023-12-24 11:57] VITALS: BP 130/60; PULSE 56; O2SAT 99; BMI 23.1
== END 2023-12-24 12:22 | disposition home or self-care (01) ==
PROVIDERS: PCP Internal Medicine; Visit Provider Internal Medicine Nephrology
DX: I12.9 Hypertensive chronic kidney disease with stage 1 through stage 4 chronic kidney disease, or unspecified chronic kidney disease (principal); N18.4 Chronic kidney disease, stage 4 (severe); D63.1 Anemia in chronic kidney disease
CPT/HCPCS: 99214

== ENCOUNTER → 2023-12-24 11:12 | Outpatient (BNVA) | payer MEDICARE, SELFPAY | PROVIDERS: PCP Internal Medicine; Visit Provider Internal Medicine Nephrology | DX: I12.9 Hypertensive chronic kidney disease with stage 1 through stage 4 chronic kidney disease, or unspecified chronic kidney disease (principal); N18.4 Chronic kidney disease, stage 4 (severe); D63.1 Anemia in chronic kidney disease | CPT/HCPCS: 96372; 99212; Q5106 ==

== ENCOUNTER 2024-01-19 13:57 | Outpatient (AMB) | payer MEDICARE, SELFPAY ==
--- NOTE | 2024-01-19 14:34 | HO.NEPHOV ---
Vital Signs 01/19/24 14:35 Height 5 ft 9 in Weight 159 lb 6 oz BMI 23.5 BP 122/52 L Blood Pressure Location Lt brachial Position Sitting Pulse 74 Pulse Source Pulse Oximeter Pulse Oximetry (%) 98 Oxygen Delivery Method Room Air Intake Visit Reasons: 1 mon retacrit follow up Direct Selling Counselor Required: No Accompanied by: Self / Same As Patient Allergies lisinopril Allergy (Verified 01/19/24 14:38) Unknown Macrolides and Ketolides Allergy (Uncoded 03/18/23 13:49) Unknown HPI Comments Details: Alireza Kyle was seen in the office, accompanied by his Jane, in follow-up of his chronic kidney disease and management of his anemia. 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 He has hypertension which is well controlled. He has anemia chronic disease for which he had been getting Procrit . He denies taking any nonsteroidal anti-inflammatory medications. He does not have any chest pain, shortness of breath, nausea vomiting, diarrhea, orthostatic symptoms, edema. His serum creatinine is back to baseline. He does not feel tired. His appetite is better. 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, stage 4 (severe) Family History Mother Cancer Child No Financial Resp Cancer Social History Alcohol intake: never Patient Tobacco Use Status: Never used Tobacco Physical Exam Vital Signs: Last Vital Signs Pulse 74 01/19/24 14:35 BP 122/52 L 01/19/24 14:35 Pulse Ox 98 01/19/24 14:35 Oxygen Delivery Method Room Air 01/19/24 14:35 BMI result Body Mass Index 23.5 Const General: comfortable and no acute distress Orientation/consciousness: patient oriented x3 HEENT Head: Yes normocephalic Mouth: Normal oral and palatal mucosa present Eyes EOM: EOMs intact bilaterally Neck Neck: Yes supple Resp Auscultation: clear to auscultation bilaterally Cardio Jugular venous distension: no JVD Rate: regular rate GI Palpation (GI): Soft to palpation Auscultation: normal bowel sounds General: Yes no CVA tenderness Back/Spine/Pelvis Back: no CVA tenderness Skin General skin exam: no rashes or lesions noted Neuro General: patient oriented x3 and moves all extremities Extrem General: Yes no pedal edema Office Meds epoetin lizet-epbx 10,000 unit/mL injection solution Performing Provider: Santy Jonas MD [place] [facility] [place] [facility] Administered by: Santy Jonas MD on 01/19/24 14:58 Dose Route Admin Location Dispensed Lot Number Expiration Date [facility] [employer] 40,000 unit subcut 4 mL [id number] 04/10/25 Results Reviewed Nephrology Results: Hgb 9.3 g/dl (14.0-18.0) L 12/22/23 WBC 5.9 X10*3/uL (4.8-10.8) 12/22/23 Plt Count 242 X10*3/uL (160-400) 12/22/23 Sodium 141 mmol/L (135-145) 12/22/23 Potassium 3.8 mmol/L (3.3-5.1) 12/22/23 Chloride 112 mmol/L (96-108) H 12/22/23 Carbon Dioxide 21 mmol/L (22-29) L 12/22/23 BUN 65 mg/dL (9-16) H 12/22/23 Creatinine 3.24 mg/dL (0.5-1.4) H 12/22/23 Calcium 8.6 mg/dL (8.4-10.2) 11/03/23 Assessment & Plan Assessment & Plan (1) Anemia in chronic kidney disease: Code(s): N18.9 - Chronic kidney disease, unspecified; D63.1 - Anemia in chronic kidney disease Category: Medical Qualifiers: Chronic kidney disease stage: stage 4 (severe) Qualified Code(s): N18.4 - Chronic kidney disease, stage 4 (severe); D63.1 - Anemia in chronic kidney disease (2) Chronic kidney disease, stage 4 (severe): Code(s): N18.4 - Chronic kidney disease, stage 4 (severe) Category: Medical (3) Hypertension: Code(s): I10 - Essential (primary) hypertension Category: Medical Qualifiers: Hypertension type: primary hypertension Qualified Code(s): I10 - Essential (primary) hypertension Plan Alireza has history of minimal change disease with nephrotic syndrome. He had been on losartan which has been put on hold for a long time. He can continue on his current dose of diuretics. His renal function is close to baseline. I asked him to increase his fluid intake a bit. I administered [id number] Units Procrit in my office today. I did not make any other medication changes. Labs ordered for F/U .All his questions were answered Orders: Orders AMB Epoetin Injection Practice Supplied Today D63.1 - Anemia in chronic kidney disease, N18.4 - Chronic kidney disease, stage 4 (severe) Creatinine Today D63.1 - Anemia in chronic kidney disease, I10 - Essential (primary) hypertension, N18.4 - Chronic kidney disease, stage 4 (severe) Electrolytes Today D63.1 - Anemia in chronic kidney disease, I10 - Essential (primary) hypertension, N18.4 - Chronic kidney disease, stage 4 (severe) Complete Blood Count Auto Diff Today D63.1 - Anemia in chronic kidney disease, I10 - Essential (primary) hypertension, N18.4 - Chronic kidney disease, stage 4 (severe) Blood Urea Nitrogen Today D63.1 - Anemia in chronic kidney disease, I10 - Essential (primary) hypertension, N18.4 - Chronic kidney disease, stage 4 (severe) Coding Level of Care Code Est Pt Level 4 (74467) Diagnoses Anemia in stage 4 chronic kidney disease N18.4; D63.1 Chronic kidney disease stage: stage 4 (severe) Chronic kidney disease, stage 4 (severe) N18.4 Primary hypertension I10 Hypertension type: primary hypertension
[2024-01-19 14:35] VITALS: BP 122/52; PULSE 74; O2SAT 98; BMI 23.5
== END 2024-01-19 15:05 | disposition home or self-care (01) ==
PROVIDERS: PCP Internal Medicine; Visit Provider Internal Medicine Nephrology
DX: I12.9 Hypertensive chronic kidney disease with stage 1 through stage 4 chronic kidney disease, or unspecified chronic kidney disease (principal); N18.4 Chronic kidney disease, stage 4 (severe); D63.1 Anemia in chronic kidney disease
CPT/HCPCS: 99214

== ENCOUNTER → 2024-01-19 13:57 | Outpatient (BNVA) | payer MEDICARE, SELFPAY | PROVIDERS: PCP Internal Medicine; Visit Provider Internal Medicine Nephrology | DX: I12.9 Hypertensive chronic kidney disease with stage 1 through stage 4 chronic kidney disease, or unspecified chronic kidney disease (principal); N18.4 Chronic kidney disease, stage 4 (severe); D63.1 Anemia in chronic kidney disease | CPT/HCPCS: 96372; 99212; Q5106 ==

== ENCOUNTER 2024-02-09 13:08 | Outpatient (REF) | payer MEDICARE, SELFPAY ==
[2024-02-09 17:45] LABS: MANUAL DIFF FLAG NO
[2024-02-09 18:01] LABS: Basophils Percent Auto 0.7 % (0-2); Eosinophils Absolute Auto 0.2 X10*3/uL (0.0-0.4); Eosinophils Percent Auto 2.7 % (0-4); Hematocrit 26.8 % (42.0-52.0); Hemoglobin 8.7 g/dl (14.0-18.0); Imm Gran Abs Auto 0.03 X10*3/uL (0.00-0.03); Imm Gran Pct Auto 0.5 % (0.0-0.4); Lymphocytes Absolute Auto 1.2 X10*3/uL (1.2-4.9); Lymphocytes Percent Auto 22.3 % (20-40); Mean Corpuscular HGB Conc 32.5 g/dl (31.0-36.0); Mean Corpuscular Hemoglobin 31.6 pg (27.0-33.0); Mean Corpuscular Volume 97.5 fL (80.0-98.0); Mean Platelet Volume 10.7 fL (9.4-12.4); Monocytes Absolute Auto 0.6 X10*3/uL (0.1-1.2); Monocytes Percent Auto 11.5 % (2-11); Neutrophils Absolute Auto 3.4 x10*3/uL (2.0-8.3); Neutrophils Percent Auto 62.3 % (45-73); Platelet Count 257 X10*3/uL (160-400); Red Blood Count 2.75 X10*6/uL (4.60-5.80); Red Cell Distribution Width 16.3 % (11.0-16.0); White Blood Count 5.5 X10*3/uL (4.8-10.8)
[2024-02-09 18:13] LABS: Anion Gap 13 (12-20); Blood Urea Nitrogen 54 mg/dL (9-16); Carbon Dioxide 21 mmol/L (22-29); Chloride 113 mmol/L (96-108); Estimated Glomerular Filt Rate 19; Potassium 4.2 mmol/L (3.3-5.1); Sodium 143 mmol/L (135-145)
== END 2024-02-09 13:09 | disposition home or self-care (01) ==
LOC: HO.HKASLDS 13:08
PROVIDERS: Visit Provider Internal Medicine Nephrology
DX: I12.9 Hypertensive chronic kidney disease with stage 1 through stage 4 chronic kidney disease, or unspecified chronic kidney disease (principal); D63.1 Anemia in chronic kidney disease; N18.4 Chronic kidney disease, stage 4 (severe); N18.9 Chronic kidney disease, unspecified
CPT/HCPCS: 36415; 80051; 82565; 84520; 85025

== ENCOUNTER 2024-02-18 11:11 | Outpatient (AMB) | payer MEDICARE, SELFPAY ==
[2024-02-18 11:20] VITALS: BP 130/60; PULSE 69; O2SAT 97; BMI 23.6
--- NOTE | 2024-02-18 11:20 | HO.NEPHOV_ITS ---
Vital Signs 02/18/24 11:20 Height 5 ft 9 in Weight 160 lb BMI 23.6 BP 130/60 Blood Pressure Location Lt brachial Position Sitting Pulse 69 Pulse Source Pulse Oximeter Pulse Oximetry (%) 97 Oxygen Delivery Method Room Air Intake Visit Reasons: 1 mon follow up/ Conf Soldering Technician Required: No Accompanied by: Spouse Allergies lisinopril Allergy (Verified 02/18/24 11:26) Unknown Macrolides and Ketolides Allergy (Uncoded 03/18/23 13:49) Unknown HPI Comments Details: Alireza Kyle was seen in the office, accompanied by his Jane, in follow- up of his chronic kidney disease and management of his anemia. 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 He has hypertension which is well controlled. He has anemia chronic disease for which he had been getting Procrit . He denies taking any nonsteroidal anti- inflammatory medications. He does not have any chest pain, shortness of breath, nausea vomiting, diarrhea, orthostatic symptoms, edema. His serum creatinine is stable at baseline. He does not feel tired. His appetite is better. 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, stage 4 (severe) Family History Mother Cancer Child No Financial Resp Cancer Social History Alcohol intake: never Patient Tobacco Use Status: Never used Tobacco Review of Systems Const All systems reviewed & are unremarkable except as noted in HPI and below Physical Exam Const General: comfortable and no acute distress Orientation/consciousness: patient oriented x3 HEENT Head: Yes normocephalic Mouth: Normal oral and palatal mucosa present Eyes EOM: EOMs intact bilaterally Neck Neck: Yes supple Resp Auscultation: clear to auscultation bilaterally Cardio Jugular venous distension: no JVD Rate: regular rate GI Palpation (GI): Soft to palpation Auscultation: normal bowel sounds General: Yes no CVA tenderness Back/Spine/Pelvis Back: no CVA tenderness Skin General skin exam: no rashes or lesions noted Neuro General: patient oriented x3 and moves all extremities Extrem General: Yes no pedal edema Office Meds epoetin lizet-epbx 10,000 unit/mL injection solution Performing Provider: Santy Jonas MD Performing Location[place] [facility] [place] [facility] Administered by: Santy Jonas MD on 02/18/24 11:27 Dose Route Admin Location Dispensed Lot Number Expiration Date [facility] [employer] 40,000 unit subcut LUE 4 mL [id number] 09/08/25 1642-9778-00 [employer] Results Reviewed Nephrology Results: Hgb 8.7 g/dl (14.0-18.0) L 02/09/24 WBC 5.5 X10*3/uL (4.8-10.8) 02/09/24 Plt Count 257 X10*3/uL (160-400) 02/09/24 Sodium 143 mmol/L (135-145) 02/09/24 Potassium 4.2 mmol/L (3.3-5.1) 02/09/24 Chloride 113 mmol/L (96-108) H 02/09/24 Carbon Dioxide 21 mmol/L (22-29) L 02/09/24 BUN 54 mg/dL (9-16) H 02/09/24 Creatinine 3.10 mg/dL (0.5-1.4) H 02/09/24 Calcium 8.6 mg/dL (8.4-10.2) 11/03/23 Assessment & Plan Assessment & Plan (1) Anemia in chronic kidney disease: Code(s): N18.9 - Chronic kidney disease, unspecified; D63.1 - Anemia in chronic kidney disease Category: Medical Qualifiers: Chronic kidney disease stage: stage 4 (severe) Qualified Code(s): N18.4 - Chronic kidney disease, stage 4 (severe); D63.1 - Anemia in chronic kidney disease (2) Chronic kidney disease, stage 4 (severe): Code(s): N18.4 - Chronic kidney disease, stage 4 (severe) Category: Medical (3) Hypertension: Code(s): I10 - Essential (primary) hypertension Category: Medical Qualifiers: Hypertension type: primary hypertension Qualified Code(s): I10 - Essential (primary) hypertension Plan Alireza has history of minimal change disease with nephrotic syndrome. He had been on losartan which has been put on hold for a long time. He can continue on his current dose of diuretics. His renal function is close to baseline. I asked him to increase his fluid intake a bit. I administered [id number] Units Procrit in my office today. I did not make any other medication changes. Labs ordered for F/U .All his questions were answered Orders: Orders Creatinine 1 Month D63.1 - Anemia in chronic kidney disease, I10 - Essential (primary) hypertension, N18.4 - Chronic kidney disease, stage 4 (severe) Blood Urea Nitrogen 1 Month D63.1 - Anemia in chronic kidney disease, I10 - Essential (primary) hypertension, N18.4 - Chronic kidney disease, stage 4 (severe) Electrolytes 1 Month D63.1 - Anemia in chronic kidney disease, I10 - Essential (primary) hypertension, N18.4 - Chronic kidney disease, stage 4 (severe) Calcium 1 Month D63.1 - Anemia in chronic kidney disease, I10 - Essential (primary) hypertension, N18.4 - Chronic kidney disease, stage 4 (severe) Parathyroid Hormone Intact 1 Month D63.1 - Anemia in chronic kidney disease, I10 - Essential (primary) hypertension, N18.4 - Chronic kidney disease, stage 4 (severe) AMB Epoetin Injection Practice Supplied Today D63.1 - Anemia in chronic kidney disease, N18.4 - Chronic kidney disease, stage 4 (severe) Phosphorus 1 Month D63.1 - Anemia in chronic kidney disease, I10 - Essential (primary) hypertension, N18.4 - Chronic kidney disease, stage 4 (severe) Complete Blood Count Auto Diff 1 Month D63.1 - Anemia in chronic kidney disease, I10 - Essential (primary) hypertension, N18.4 - Chronic kidney disease, stage 4 (severe) IRON PROFILE 1 Month D63.1 - Anemia in chronic kidney disease, I10 - Essential (primary) hypertension, N18.4 - Chronic kidney disease, stage 4 (severe) Coding Level of Care Code Est Pt Level 4 (17985) Diagnoses Anemia in stage 4 chronic kidney disease N18.4; D63.1 Chronic kidney disease stage: stage 4 (severe) Chronic kidney disease, stage 4 (severe) N18.4 Primary hypertension I10 Hypertension type: primary hypertension
== END 2024-02-18 11:44 | disposition home or self-care (01) ==
PROVIDERS: PCP Internal Medicine; Visit Provider Internal Medicine Nephrology
DX: I12.9 Hypertensive chronic kidney disease with stage 1 through stage 4 chronic kidney disease, or unspecified chronic kidney disease (principal); N18.4 Chronic kidney disease, stage 4 (severe); D63.1 Anemia in chronic kidney disease
CPT/HCPCS: 99214

== ENCOUNTER → 2024-02-18 11:11 | Outpatient (BNVA) | payer MEDICARE, SELFPAY | PROVIDERS: PCP Internal Medicine; Visit Provider Internal Medicine Nephrology | DX: I12.9 Hypertensive chronic kidney disease with stage 1 through stage 4 chronic kidney disease, or unspecified chronic kidney disease (principal); D63.1 Anemia in chronic kidney disease; N18.4 Chronic kidney disease, stage 4 (severe) | CPT/HCPCS: 96372; 99212; Q5106 ==

== ENCOUNTER 2024-03-24 10:59 | Outpatient (AMB) | payer MEDICARE, SELFPAY ==
--- NOTE | 2024-03-24 11:10 | HO.NEPHOV_ITS ---
Vital Signs 03/24/24 11:13 Height 5 ft 9 in Weight 159 lb 6 oz BMI 23.5 BP 122/60 Blood Pressure Location Lt brachial Position Sitting Pulse 80 Pulse Source Pulse Oximeter Pulse Oximetry (%) 97 Oxygen Delivery Method Room Air Intake Visit Reasons: 1 mon follow up-[facility] Gold Marker Required: No Accompanied by: Spouse Allergies lisinopril Allergy (Verified 03/24/24 11:11) Unknown Macrolides and Ketolides Allergy (Uncoded 03/18/23 13:49) Unknown HPI Comments Details: Alireza Kyle was seen in the office, accompanied by his Jane, in follow- up of his chronic kidney disease and management of his anemia. 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 He has hypertension which is well controlled. He has anemia chronic disease for which he had been getting Procrit . He denies taking any nonsteroidal anti- inflammatory medications. He does not have any chest pain, shortness of breath, nausea vomiting, diarrhea, orthostatic symptoms, edema. His serum creatinine is stable at baseline. He does not feel tired. His appetite is better. 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, stage 4 (severe) Family History Mother Cancer Child No Financial Resp Cancer Social History Alcohol intake: never Patient Tobacco Use Status: Never used Tobacco Review of Systems Const All systems reviewed & are unremarkable except as noted in HPI and below Physical Exam Vital Signs: Last Vital Signs Pulse 80 03/24/24 11:13 BP 122/60 03/24/24 11:13 Pulse Ox 97 03/24/24 11:13 Oxygen Delivery Method Room Air 03/24/24 11:13 BMI result Body Mass Index 23.5 Const General: comfortable and no acute distress Orientation/consciousness: patient oriented x3 HEENT Head: Yes normocephalic Mouth: Normal oral and palatal mucosa present Eyes EOM: EOMs intact bilaterally Neck Neck: Yes supple Resp Auscultation: clear to auscultation bilaterally Cardio Jugular venous distension: no JVD Rate: regular rate GI Palpation (GI): Soft to palpation Auscultation: normal bowel sounds General: Yes no CVA tenderness Back/Spine/Pelvis Back: no CVA tenderness Skin General skin exam: no rashes or lesions noted Neuro General: patient oriented x3 and moves all extremities Extrem General: Yes no pedal edema Office Meds epoetin lizet-epbx 10,000 unit/mL injection solution Performing Provider: Santy Jonas MD Performing Location: [facility] [place] [facility] Administered by: Santy Jonas MD on 03/24/24 11:34 Dose Route Admin Location Dispensed Lot Number Expiration Date [facility] [employer] 40,000 unit subcut 4 mL [id number] 09/08/25 9180-8464-82 [employer] Results Reviewed Nephrology Results: Hgb 8.7 g/dl (14.0-18.0) L 02/09/24 WBC 5.5 X10*3/uL (4.8-10.8) 02/09/24 Plt Count 257 X10*3/uL (160-400) 02/09/24 Sodium 143 mmol/L (135-145) 02/09/24 Potassium 4.2 mmol/L (3.3-5.1) 02/09/24 Chloride 113 mmol/L (96-108) H 02/09/24 Carbon Dioxide 21 mmol/L (22-29) L 02/09/24 BUN 54 mg/dL (9-16) H 02/09/24 Creatinine 3.10 mg/dL (0.5-1.4) H 02/09/24 Assessment & Plan Assessment & Plan (1) Chronic kidney disease, stage 4 (severe): Code(s): N18.4 - Chronic kidney disease, stage 4 (severe) Category: Medical (2) Anemia in chronic kidney disease: Code(s): N18.9 - Chronic kidney disease, unspecified; D63.1 - Anemia in chronic kidney disease Category: Medical Qualifiers: Chronic kidney disease stage: stage 4 (severe) Qualified Code(s): N18.4 - Chronic kidney disease, stage 4 (severe); D63.1 - Anemia in chronic kidney disease (3) Hypertension: Code(s): I10 - Essential (primary) hypertension Category: Medical Qualifiers: Hypertension type: primary hypertension Qualified Code(s): I10 - Essential (primary) hypertension Plan Alireza has history of minimal change disease with nephrotic syndrome. He had been on losartan which has been put on hold for a long time. He can continue on his current dose of diuretics. His renal function is close to baseline. I administered [id number] Units Procrit in my office today. I did not make any other medication changes. Labs ordered for F/U .All his questions were answered Orders: Orders Blood Urea Nitrogen 1 Month D63.1 - Anemia in chronic kidney disease, I10 - Essential (primary) hypertension, N18.4 - Chronic kidney disease, stage 4 (severe) Electrolytes 1 Month D63.1 - Anemia in chronic kidney disease, I10 - Essential (primary) hypertension, N18.4 - Chronic kidney disease, stage 4 (severe) AMB Epoetin Injection Practice Supplied Today D63.1 - Anemia in chronic kidney disease, N18.4 - Chronic kidney disease, stage 4 (severe) Complete Blood Count Auto Diff 1 Month D63.1 - Anemia in chronic kidney disease, I10 - Essential (primary) hypertension, N18.4 - Chronic kidney disease, stage 4 (severe) Creatinine 1 Month D63.1 - Anemia in chronic kidney disease, I10 - Essential (primary) hypertension, N18.4 - Chronic kidney disease, stage 4 (severe) Coding Level of Care Code Est Pt Level 4 (50854) Diagnoses Chronic kidney disease, stage 4 (severe) N18.4 Anemia in stage 4 chronic kidney disease N18.4; D63.1 Chronic kidney disease stage: stage 4 (severe) Primary hypertension I10 Hypertension type: primary hypertension
[2024-03-24 11:13] VITALS: BP 122/60; PULSE 80; O2SAT 97; BMI 23.5
== END 2024-03-24 11:45 | disposition home or self-care (01) ==
PROVIDERS: PCP Internal Medicine; Visit Provider Internal Medicine Nephrology
DX: I12.9 Hypertensive chronic kidney disease with stage 1 through stage 4 chronic kidney disease, or unspecified chronic kidney disease (principal); N18.4 Chronic kidney disease, stage 4 (severe); D63.1 Anemia in chronic kidney disease
CPT/HCPCS: 99214

== ENCOUNTER → 2024-03-24 10:59 | Outpatient (BNVA) | payer MEDICARE, SELFPAY | PROVIDERS: PCP Internal Medicine; Visit Provider Internal Medicine Nephrology | DX: I12.9 Hypertensive chronic kidney disease with stage 1 through stage 4 chronic kidney disease, or unspecified chronic kidney disease (principal); N18.4 Chronic kidney disease, stage 4 (severe); D63.1 Anemia in chronic kidney disease | CPT/HCPCS: 96372; 99212; Q5106 ==

== ENCOUNTER 2024-04-21 11:06 | Outpatient (AMB) | payer MEDICARE, SELFPAY ==
--- OUTSIDE RECORDS SUMMARY | 2024-04-21 11:09 | XMS_ITS | Continuity of Care Document ---
Author Organization [facility] Address [address] [place] [address]- Care Team Providers Care Package Collector Name Role Phone Junior Artis MD Primary Care Physician Encounter [facility] Date(s): 04/11/24 - 04/18/24 [facility] [address] [place], [place] [address] Attending Physician: Junior Artis MD Encounter Type: Office Visit Allergies, Adverse Reactions, Alerts Substance Criticality Severity Reaction Reaction Severity Status lisinopril swelling of face Ac tive Zithromax diarrhea and upset stomach Active Immunizations Given and Recorded Vaccine Date Status Refusal Reason influenza virus vaccine, inactivated 03/07/24 Arben rded influenza virus vaccine, inactivated 02/13/23 Arben rded influenza virus vaccine, inactivated 02/25/22 Give n influenza virus vaccine, inactivated 02/14/21 Arben rded influenza virus vaccine, inactivated 1 02/23/20 Gi guicho influenza virus vaccine, inactivated 02/12/18 Give n influenza virus vaccine, inactivated 03/14/17 Arben rded influenza virus vaccine, inactivated 02/22/16 Give n influenza virus vaccine, inactivated 03/13/15 Give n influenza virus vaccine, inactivated 02/14/14 Give n influenza virus vaccine, inactivated 2 02/24/13 Gi guicho influenza virus vaccine, inactivated 05/13/12 Give n influenza virus vaccine, inactivated 01/24/11 Give n influenza virus vaccine, inactivated 01/25/10 Give n SARS-CoV-2(COVID-19)mRNA-LNP vac([id number]) 03/07/24 Recorded SARS-CoV-2(COVID-19)mRNA-LNP vac([id number]) 04/04/23 Recorded pneumococcal 20-valent conjugate vaccine 01/22/24 Recorded RSV vaccine preF3, recombinant 05/13/23 Recorded zoster vaccine, inactivated 04/21/23 Recorded zoster vaccine, inactivated 06/27/22 Recorded tetanus-diphtheria toxoids (Td) 03/09/23 Given tetanus-diphtheria toxoids (Td) 02/22/99 Given [id number] bivalent booster vax 03/17/22 Recorded SARS-CoV-2 (COVID-19) mRNA-1273 vaccine 08/28/21 R ecorded SARS-CoV-2 (COVID-19) mRNA BNT-162b2 vac 02/26/21 Recorded SARS-CoV-2 (COVID-19) mRNA BNT-162b2 vac 08/07/20 Recorded SARS-CoV-2 (COVID-19) mRNA BNT-162b2 vac 07/18/20 Recorded SARS-CoV-2 (COVID-19) mRNA BNT-162b2 vac 07/09/20 Recorded SARS-CoV-2 (COVID-19) mRNA BNT-162b2 vac 06/18/20 Recorded Influenza Virus Vaccine (oldterm) 02/20/19 Recorde d Influenza Virus Vaccine (oldterm) 3 05/17/07 Given Influenza Virus Vaccine (oldterm) 04/17/06 Given pneumococcal 13-valent vaccine 4 01/03/15 Recorded tetanus/diphtheria/pertussis, acel(Tdap) 11/15/12 Given Zoster Vaccine Live 09/06/09 Given FluLaval (oldterm) 02/27/09 Given Tetanus-Diphth Toxoids, Adult (oldterm) 09/29/08 G iven Pneumococcal Vaccine (oldterm) 05/18/06 Given Pneumococcal Vaccine (oldterm) 06/27/97 Given 1Result Comment: [id number] 2Result Comment: [02/24/2013] given w/o incidense...mh 3Admin Note: SONOFI-given without incident- PT MEETS CRITERIA 4Result Comment: [01/04/2015] DONE AT [facility] RECEIVED Medications apixaban 2.5 mg oral tablet 1 tablet = 2.5 mg, By Mouth, 2 times a day, # 180 tablet, 3 Refills, Maintenance, 4/28/23 3:45:00 PM EDT, Tablet, [facility] #[id number], Partial fill upon patient request if the prescription isfor a schedule II opioid drug., 175, cm, 08/26/22 10:20:00 EDT, Height, 70.5, kg, 11/15/21 21:18:00EDT, Dry Weight Start Date: 09/05/22 Stop Date: 08/31/23 Status: Ordered Quantity: 180.0 Unit: tablet Repeat number: 4 atorvastatin 80 mg oral tablet 1 tablet = 80 mg, By Mouth, Daily, # 90 tablet, 3 Refills, Maintenance, 01/22/24 11:40:00 AM EDT, Tablet, [facility] #[id number], 175, cm, 01/22/24 10:57:00 EDT, Height, 76.8, kg, 01/22/24 10:57:00 EDT, Dry Weight Start Date: 01/22/24 Stop Date: 01/16/25 Status: Ordered Quantity: 90.0 Unit: tablet Repeat number: 4 clopidogrel 75 mg oral tablet 1, tablet, By Mouth, Daily, # 90 tablet, Refills 3, Tot. Refills 3, Maintenance, 01/12/24 11:16:00 AMEDT, Route to Pharmacy Electronically, [facility] #[id number], 175, cm, 10/14/23 11:40:00 EDT,Height, 72, kg, 10/14/23 11:40:00 EDT, Dry Weight Start Date: 01/12/24 Status: Ordered Quantity: 90.0 Unit: tablet Repeat number: 4 Coreg 12.5 mg oral tablet 12.5 mg, 1, tablet, By Mouth, 2 times a day, PLEASE DISCONTINUE PREVIOUS METOPROLOL AND TAKE COREG/CARVEDILOL, # 180 tablet, Refills 3, Tot. Refills 3, Maintenance, 01/22/24 11:42:00 AM EDT, Route to Pharmacy Electronically, [facility] #[id number], Partial fill upon patient request if the prescr iption is for a schedule II opioid drug., 175, cm, 01/22/24 10:57:00 EDT, Height, 76.8, kg, 01/22/24 10:57:00 EDT, Dry Weight Start Date: 01/22/24 Status: Ordered Quantity: 180.0 Unit: tablet Repeat number: 4 doxazosin 8 mg oral tablet 0 Refills, Maintenance, 06/13/21 2:50:00 PM EST, Partial fill upon patient request if the prescription is for a schedule II opioid drug. Start Date: 06/13/21 Status: Ordered Repeat number: 1 Epoetin Telly 1 mL = 10,000 units, Subcutaneous Injection, Every week, 0 Refills, Maintenance, 06/30/19 12:23:00 PM EST, Injection Start Date: 06/30/19 Status: Ordered Repeat number: 1 famotidine 20 mg oral tablet 20 mg, 1, tablet, By Mouth, 2 times a day, # 180 tablet, Refills 3, Tot. Refills 3, Maintenance, 01/22/24 11:41:00 AM EDT, Route to Pharmacy Electronically, [facility] #[id number], Partial fill upon patient request if the prescription is for a schedule II opioid drug., 175, cm, 01/22/24 10:57:00 EDT, Height, 76.8, kg, 01/22/24 10:57:00 EDT, Dry Weight Start Date: 01/22/24 Stop Date: 01/16/25 Status: Ordered Quantity: 180.0 Unit: tablet Repeat number: 4 fenofibrate 54 mg oral tablet 1 tablet, By Mouth, Daily, # 90 tablet, 3 Refills, Maintenance, 04/11/24 12:17:00 PM EST, [facility] #[id number], 175, cm, 04/11/24 12:13:00 EST, Height, 72.8, kg, 04/11/24 11:32:00 EST, Dry Weight Start Date: 04/11/24 Status: Ordered Quantity: 90.0 Unit: tablet Repeat number: 4 ferrous sulfate 325 mg oral enteric coated tablet 325 mg, 1, tablet, By Mouth, Daily, # 90 tablet, Refills 3, Tot. Refills 3, Maintenance, 11/23/20 11:32:00 AM EDT, Do Not Route Start Date: 11/23/20 Stop Date: 11/18/21 Status: Ordered Quantity: 90.0 Unit: tablet Repeat number: 4 furosemide 20 mg oral tablet 20 mg, 1, tablet, By Mouth, Daily, # 90 tablet, Refills 3, Tot. Refills 3, Maintenance, 10/14/23 12:18:00 PM EDT, Route to Pharmacy Electronically, [facility] #[id number], Partial fill upon patient request if the prescription is for a schedule II opioid drug., 175, cm, 10/14/23 11:40:00 EDT, Height, 72, kg, 10/14/23 11:40:00 EDT, Dry Weight Start Date: 10/14/23 Status: Ordered Quantity: 90.0 Unit: tablet Repeat number: 4 hydrALAZINE 50 mg oral tablet 1 tablet, By Mouth, 3 times a day, # 270 tablet, 3 Refills, Maintenance, 01/22/24 11:39:00 AM EDT, [facility] #[id number], 175, cm, 01/22/24 10:57:00 EDT, Height, 76.8, kg, 01/22/24 10:57:00 EDT,Dry Weight Start Date: 01/22/24 Status: Ordered Quantity: 270.0 Unit: tablet Repeat number: 4 isosorbide mononitrate 60 mg oral tablet, extended release 2 tablet = 120 mg, By Mouth, Daily in AM, # 180 tablet, 3 Refills, Maintenance, 01/22/24 11:38:00 AMEDT, ER Tablet, [facility] #[id number], Partial fill upon patient request if the prescription is for a schedule II opioid drug., 175, cm, 01/22/24 10:57:00 EDT, Height, 76.8, kg, 01/22/24 10:57:00 EDT, Dry Weight Start Date: 01/22/24 Stop Date: 01/16/25 Status: Ordered Quantity: 180.0 Unit: tablet Repeat number: 4 nitroglycerin 0.4 mg sublingual tablet See Instructions, one Sublingual prn for chest pain or dyspnea. May repeat x 2, 5 minutes apart, # 100 tablet, 3 Refills, Maintenance, 12/02/22 2:07:00 PM EDT, Tablet, [facility] #[id number], 175, cm, 08/26/22 10:20:00 EDT, Height, 70.5, kg, 11/15/21 21:18:00 EDT, Dry Weight Start Date: 12/02/22 Status: Ordered Quantity: 100.0 Unit: tablet Repeat number: 4 Ocuvite Lutein oral capsule 1 capsule, By Mouth, Daily, 0 Refills, Maintenance, 06/06/13 11:32:13 AM EST Start Date: 06/06/13 Status: Ordered Repeat number: 1 omeprazole 40 mg oral enteric coated capsule 1 capsule = 40 mg, By Mouth, 2 times a day, 30 min before a meal, # 60 capsule, 11 Refills, Maintenance, 09/22/23 5:27:00 PM EDT, [facility] #[id number], Partial fill upon patient request if the prescription is for a schedule II opioid drug., 175, cm, 08/10/23 11:23:00 EDT, Height, 70.5, kg, 11/15/21 21:18:00 EDT, Dry Weight Start Date: 09/22/23 Status: Ordered Quantity: 60.0 Unit: capsule Repeat number: 12 Tylenol 325 mg oral tablet 2 tablet = 650 mg, By Mouth, Every 4 hours, PRN Headache, # 60 tablet, 0 Refills, Maintenance, 07/14/11 8:11:33 PM EST, Tablet Start Date: 07/14/11 Status: Ordered Quantity: 60.0 Unit: tablet Repeat number: 1 Vitamin D 73145 iu oral capsule 1 capsule = 50,000 International_Units, By Mouth, Every 28 days, 0 Refills, Maintenance, 11/15/12 10:33:54 AM EDT Start Date: 11/15/12 Status: Ordered Repeat number: 1 Problem List Condition Confirmation Course Effective Dates Status H ealth Status Informant Anemia of chronic disease Confirmed Active (HCC) Atrial fibrillation Confirmed Active Cholelithiasis Confirmed 04/05/19 Active Cervical osteoarthritis Confirmed Active (HCC) CKD (chronic kidney disease) stage 4, 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 Confirmed Active Coronary artery disease Confirmed Active Diastolic dysfunction Confirmed Active (HCC) Diastolic heart failure Confirmed 11/15/12 Active Carotid artery disease Confirmed Active Family history of cancer of colon Confirmed Active Chronic GERD Confirmed Active Hiatal hernia with gastroesophageal reflux disease Confirmed Active Hyperlipidemia Confirmed 05/17/07 Active Hypertension Confirmed Active 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 Vital Signs Most recent to oldest [Reference Range]: 1 2 Height 175 cm (04/11/24 12:13 PM) 175 cm (04/11/24 11:32 AM) Weight 72.8 kg (04/11/24 11:32 AM) Oxygen Saturation [94-100 %] 98 % (04/11/24 11:32 AM) Pulse Rate [55-90 bpm] 74 bpm (04/11/24 11:32 AM) Body Mass Index [18.5-24.99 kg/m2] 23.77 kg/m2 (04/11/24 11:32 AM) Blood Pressure [90-138/55-84 mm Hg] 132/ 50mm Hg (04/11/24 12:13 PM) 142/60mm Hg *H* (04/11/24 11:32 AM) Mode of Delivery (Oxygen) Room air (04/11/24 11:32 AM) Blood pressure sites Arm, left (04/11/24 11:32 AM) Dry Weight 72.8 kg (04/11/24 11:32 AM) Social History Social History Type Response Smoking Status Never smoker; Tobacc o user in household: No entered on: 05/06/13 Sex Sex Representation Male (finding) Note * Melinda Lance: PERFORM Event Display: Patient Education/Instruction Authored Date: Ambulatory Adult Visit Summary [facility] [address] [place] [address] Name: CASEY SALAZAR : 1935?? Visit: 04/11/2024 10:50?? Ambulatory Visit Instructions ?? Your Care Team Primary Care Provider Junior Artis MD? This Visit Provider Junior Artis MD Your Diagnosis (HCC) Atrial fibrillation (HCC) CKD (chronic kidney disease) stage 4, GFR 15-29 ml/min (HCC) Diastolic heart failure Coronary artery disease Chronic GERD Hematuria Medication monitoring encounter Vitals Signs Pulse Rate: 74 bpm Height: 175 cm Systolic Blood Pressure: 132 mm Hg Weight: 72.8 kg Diastolic Blood Pressure:??50 mm Hg??Low Body Mass Index: 23.77 kg/m2 Oxygen Saturation: 98 % Body surface area: 1.88 What to do next Future Orders CBC - Routine, Once, STAT ??STAT ??STAT ??!!!, 08/07/23 8:44:00 EDT, Single or Recurring Future Order, [facility], Blood?? Vitamin B12 Level (B12 Vitamin Level) - Routine, Once, 04/11/24 12:18:00 EST, Single or Recurring Future Order, [facility], Blood?? Medications The list below reflects the information in our records and provided by you today along with any changes made during this visit. Please continue your medications until treatment is completed or stopped by your provider. If this is different from the information you have or there are other questions,please contact the prescribing provider. What How Much When Instructions Unchanged Acetaminophen (Tylenol 325 mg oral tablet) 2 tab(s) Oral Every 4 hours as needed for Headache Unchanged apixaban (apixaban 2.5 mg oral tablet) 1 tab(s) Oral Twice a day Duration: 90 Days Unchanged Atorvastatin (atorvastatin 80 mg oral tablet) 1 tab(s) Oral Daily Duration: 90 Days Unchanged Carvedilol (Coreg 12.5 mg oral tablet) 1 tab(s) Oral Twice a day PLEASE DISCONTINUE PREVIOUS METOPROLOL AND TAKE COREG/ CARVEDILOL ?? Unchanged Clopidogrel (clopidogrel 75 mg oral tablet) 1 tab(s) Oral Daily Unchanged Doxazosin (doxazosin 8 mg oral tablet) Unchanged Epoetin Telly 10,000 unit(s) Subcutaneous Injection Every week Unchanged Ergocalciferol (Vitamin D 33541 iu oral capsule) 50,000 International Unit Oral Every 28 days Unchanged Famotidine (famotidine 20 mg oral tablet) 1 tab(s) Oral Twice a day Duration: 90 Days Unchanged Fenofibrate (fenofibrate 54 mg oral tablet) 1 tab(s) Oral Daily Pickup at [facility] #[id number] Unchanged Ferrous Sulfate (ferrous sulfate 325 mg oral enteric coated tablet) 1 tab(s) Oral Daily Duration: 90 Days Unchanged Furosemide (furosemide 20 mg oral tablet) 1 tab(s) Oral Daily Unchanged hydrALAZINE (hydrALAZINE 50 mg oral tablet) 1 tab(s) Oral 3 times a day Unchanged Isosorbide Mononitrate (isosorbide mononitrate 60 mg oral tablet, extended release) 2 tab(s) Oral Daily in the morning Duration: 90 Days Unchanged Multivitamin With Minerals (Ocuvite Lutein oral capsule) 1 capsule Oral Daily Unchanged Nitroglycerin (nitroglycerin 0.4 mg sublingual tablet) See instructions one Sublingual prn for chest pain or dyspnea. May repeat x 2, 5 minutes apart ?? Unchanged Omeprazole (omeprazole 40 mg oral enteric coated capsule) 1 capsule Oral Twice a day 30 min before a meal ?? Pharmacy Information [facility] #[id number]: [address] [place], [place] [phone] Test Performed Below is a partial list of the tests performed during your Visit. You may have had other tests and procedures not included in this list. Please discuss all test results with your provider. B12 Vitamin Level?-- Results Pending -- Medications and Immunizations Administered Medications Given During Visit No medications given during this visit.?? Allergies (NKA means No Known Allergies) Zithromax??(diarrhea and upset stomach) lisinopril??(swelling of face) Common Emergency Awareness Tips IS IT A STROKE? Act FAST and Check for these signs: FACE Does the face look uneven? ARM Does one arm drift down? SPEECH Does their speech sound strange? TIME Call at any sign of stroke ?? Heart Attack Signs Chest discomfort: Most heart attacks involve discomfort in the center of the chest and lasts more than a few minutes, or goes away and comes back. It can feel like uncomfortable pressure, squeezing, fullness or pain. Discomfort in upper body: Symptoms can include pain or discomfort in one or both arms, back, neck, jaw or stomach. Shortness of breath: With or without discomfort. Other signs: Breaking out in a cold sweat, nausea, or lightheaded. Remember, MINUTES DO MATTER. If you experience any of these heart attack warning signs, call to get immediate medical attention! ?? Smoking can increase your chances of developing chronic health problems and can cause harmful effects to other family members in your house. If you smoke, you are strongly encouraged to quit. Please call [facility] [employer] at [phone] or [phone] ([phone]) or log in to [email or web address] for referrals to smoking cessation programs. ?? The National Suicide Prevention Hotline is available 01/12 if you or someone you know needs to find a reason to keep living. By calling 1-514-945-[employer] (4333) you'll be connected to a skilled, trained counselor at a crisis center in your area. [facility] [employer] Portal You can view and manage your care through the patient portal or by using a health care taty of your choosing. [employer] is a website that allows you to securely view your medical information including your hospital discharge summary, office visit summaries, medications and follow-up visits. You can also request appointments, renew medications, and request access to your medical information using a health care taty of your choosing, or just ask a question. You can enroll at [email or web address] or register during your next office visit. [facility], in keeping with [facility] guidance, no longer requires face masks for staff, patientsor visitors in most situations. Similiar to time spent indoors at other locations, there is the chance that you were exposed to repiratory viruses during your time with us (such as flu or COVID-19). If you develop symptoms concerning for a viral respiratory infection, please seek testing (and treatment if indicated) from your medical provider or home test kit. ?? Disclaimer: The information provided is of a general nature and is intended to be used in conjunction with the recommendations and advice of your health care practitioner. Every effort has been made to ensure that the information provided is accurate and complete at the time it is provided to you however, as your needs change, or, as new information becomes available, different or additional instructions may be required. ?? If you have questions, please consult with your primary care provider or pharmacist, as appropriate. This information is not intended to serve as substitution for assessment and evaluation by a qualified health care provider. If you do not have a primary care provider, you may find a [facility] provider by calling [employer] at [phone]. Patient Care team information Care Team Personnel Name: Salma Gordon CNM Position: Reference Physician Member Role: Primary Care Nurse Address: [address] [place] [address]- [place] [employer]: Name: Orquidea Brizuela RN Position: [facility] Onco RN Member Role: Primary Care Nurse Name: Junior Artis MD Position: [facility] Physician - Primary Care Member Role: PCP Address: [address] [facility] [place] [address]- Tele[employer]: Name: Santy Jonas MD Position: [facility] Renal MD Member Role: [employer] Consulting Physician Address: [address] [place] [address] [address] [place] [address]- [place] Tele[employer]: Name: Merle WHITLOCK, Irais Davlaos Position: [facility] Associate Professional Member Role: Primary Care Nurse Address: [address] [place] [address]- Tele[employer]: Name: Mane Taylor RN Position: [facility] RN Member Role: Primary Care Nurse Name: Tiffany Sheehan Position: [facility] AMB Nurse Member Role: [employer] Consulting Physician Name: Cadny Boothe RN Position: [facility] RN Member Role: Primary Care Nurse Name: Artem Uriarte MD Position: [facility] Outreach Member Role: [employer] Consulting Physician Address: [address] [facility] [address] [facility] [place] [address]- Telecom: Name: Alton Pineda MD Position: [facility] Renal MD Member Role: [employer] Consulting Physician Address: [address] [facility] [place] [address]- [place] [employer]: Name: Nayeli Iglesias RN Position: [facility] RN Member Role: Primary Care Nurse Care Team Related Persons Name: CASEY SALAZAR Name: FELISA SALAZAR Insurance Providers Guarantor name: CASEY SALAZAR Health Plan Information #: 1 Payer: [facility] [employer] Member Number: [id number] Policy Number: NA Group Number: [id number] Health Plan Information #: 2 Payer: [facility] [employer] Member Number: [id number] Policy Number: NA Group Number: NA
--- OUTSIDE RECORDS SUMMARY | 2024-04-21 11:09 | XMS_ITS | Data Portability ---
Author Organization [place] - [facility], Allergy Address [address] [address] Care Team Providers Care Forest Firefighter Name Role Phone TAIROD FLOWERS Primary Care Provider Assessment Encounter Date Assessment Date Assessment LastModified by Organization Details LastModified Time 10/29/2023 10/29/2023 Discussed various types, models and levels of technology. Patient is a potential BiCROS candidate. Patient is interested in rechargeable option.. Recommended Oticon Real 1 miniRITE R for the right ear $2920 with Cros PX transmitter $1170 on the left ear. Patient wants to think about before proceeding. Wii contact office when ready to proceed. Will need to update HT and complete paperwork to order. [email or web address] Not available 10/29/2023 10:52:03 Plan of Treatment Reminders Order Date Submit Date Provider Last Modified By Organization Details Last Modified Time Details Appointments Establish ed 15 2024 11:15A M LIGIA PERKINS PA-C Not available Not available Not available Lab None recorded. Referral None recorded. Procedures None recorded. Surgeries None recorded. Imaging None recorded. Medication Orders None recorded. Patient TargetsNo targets recorded. Patient InstructionsNo instructions recorded. Reason for Referral None Reported. Results Created Date Observation Date Name Description Value Unit Range Abnormal Flag Note LastModifiedBy Organization Detail LastModifiedTime 12/30/1905/24/2020 imagi ng/di agnos tic resul t No observ ation record ed. [email or web address] Not Available 05:59:24 12/30/19 24 06/22/2020 imagi ng/di agnos tic resul t No observ ation record ed. [email or web address] Not Available 05:59:31 12/30/19 24 07/13/2019 imagi ng/di agnos tic resul t No observ ation record ed. [email or web address] Not Available 05:59:33 12/30/19 24 08/21/2022 imagi ng/di agnos tic resul t No observ ation record ed. [email or web address] Not Available 05:59:38 12/30/1909/08/2023 imagi ng/di agnos tic resul t No observ ation record ed. [email or web address] Not Available 05:59:46 12/30/1902/13/2023 imagi ng/di agnos tic resul t No observ ation record ed. [email or web address] Not Available 05:59:48 12/30/1903/06/2023 imagi ng/di agnos tic resul t No observ ation record ed. [email or web address] Not Available 05:59:50 Result Notes None recorded. 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 Procedures Surgical History None recorded. Imaging Results Imaging Date Name Status LastModified by Organiz ation Details LastModified Time 05/24/2020 imaging/diag nostic result completed Information not available 12/30/2023 05:59:24 06/22/2020 imaging/diag nostic result completed Information not available 12/30/2023 05:59:31 07/13/2019 imaging/diag nostic result completed Information not available 12/30/2023 05:59:33 08/21/2022 imaging/diag nostic result completed Information not available 12/30/2023 05:59:38 09/08/2023 imaging/diag nostic result completed Information not available 12/30/2023 05:59:46 02/13/2023 imaging/diag nostic result completed Information not available 12/30/2023 05:59:48 03/06/2023 imaging/diag nostic result completed Information not available 12/30/2023 05:59:50 Procedure Notes None recorded. Medical Equipment None Reported. Allergies Allergen ID Allergen Name Allergen Category Reaction Reaction Severity Criticality Documentation Date Start Date Code Code System Note Provider Name and Address Organization Details Recorded Time 71484 Zithromax medicatio n other Not available Not available 09/22/202319637 4 RxNorm React ion: Unkno wn; Not Available [facility] 4 00:48:42 69702 lisinopri l medicatio n other Not available Not available 09/22/2023 07781 RxNorm React ion: Unkno wn; Not Available [facility] 4 00:48:46 Medications Name Sig Start Date Stop Date Status Note LastModified by Organization Details LastModified Time atorvasta tin 80 mg tablet TAKE 1 TABLET BY MOUTH DAILY active Not Available Not Available No t Available carvedilo l 12.5 mg tablet TAKE 1 TABLET BY MOUTH TWICE DAILY PLEASE. SOURAV BLACK PREVIOUS METOPROL OL AND TAKE COREG / CARVEDIL OL active Not Available Not Available No t Available ondansetr on HCl 4 mg tablet TAKE 1 TABLET BY MOUTH EVERY 8 HOURS FOR 3 DAYS NEEDED NAUSEA 03/01 completed Not Available Not Available Not Available metoprolo l succinate ER 100 mg tablet,ex tended release 24 hr active Medicati on ID: [id number] B rand Name: metoprol ol succinat e Send Method: E-Prescr ibed Sub s Allowed: subs OK Medic ationGen ericName : metoprol ol succinat e Not Available Not Available Not Available clopidogr el 75 mg tablet TAKE 1 TABLET BY MOUTH DAILY active Not Available Not Available No t Available omeprazol e 40 mg capsule,d elayed release TAKE 1 CAPSULE BY MOUTH TWICE DAILY 30 MINUTES BEFORE A MEAL active Not Available Not Available No t Available Thera 400 mcg tablet 2023 active Medicati on ID: [id number] B rand Name: Thera Se nd Method: E-Prescr ibed Sub s Allowed: subs OK Medic ationGen ericName : Thera Not Available Not Available Not Available isosorbid e mononitra te ER 60 mg tablet,ex tended release 24 hr TAKE 2 TABLETS BY MOUTH DAILY IN THE MORNING active Not Available Not Available No t Available doxazosin 8 mg tablet TAKE 1 TABLET BY MOUTH EVERY DAY active Not Available Not Available No t Available famotidin e 20 mg tablet TAKE 1 TABLET BY MOUTH TWICE DAILY active Not Available Not Available No t Available benzonata te 100 mg capsule TAKE 1 CAPSULE BY MOUTH THREE TIMES DAILY FOR 7 DAYS 03/01 completed Not Available Not Available Not Available hydralazi ne 100 mg tablet 03/01 completed Medicati on ID: [id number] B rand Name: hydralaz ine Send Method: E-Prescr ibed Sub s Allowed: subs OK Medic ationGen ericName : hydralaz ine Not Available Not Available Not Available nitroglyc roger 0.4 mg sublingua l tablet active Not Available Not Available Not Available omeprazol e 20 mg capsule,d elayed release 03/01 completed Medicati on ID: [id number] B rand Name: omeprazo le Send Method: E-Prescr ibed Sub s Allowed: subs OK Speci al Instruct ion: take 1 capsule by mouth twice a day Medi cationGe nericNam e: omeprazo le Not Available Not Available Not Available aspirin 81 mg chewable tablet active Medicati on ID: [id number] B rand Name: aspirin Send Method: E-Prescr ibed Sub s Allowed: subs OK Medic ationGen ericName : aspirin Not Available Not Available Not Available hydralazi ne 50 mg tablet TAKE 1 TABLET BY MOUTH THREE TIMES DAILY active Not Available Not Available No t Available furosemid e 20 mg tablet TAKE 1 TABLET BY MOUTH DAILY active Not Available Not Available No t Available ergocalci ferol (vitamin D2) 1,250 mcg (50,000 unit) capsule TAKE 1 CAPSULE BY MOUTH ONCE A MONTH active Not Available Not Available No t Available doxycycli ne hyclate 100 mg tablet TAKE 1 TABLET BY MOUTH TWICE DAILY FOR 7 DAYS 03/01 completed Not Available Not Available Not Available amoxicill in 500 mg-potass ium clavulana te 125 mg tablet TAKE 1/2 TABLET BY MOUTH EVERY 12 HOURS FOR 7 DAYS 03/01 completed Not Available Not Available Not Available FeroSul 325 mg (65 mg iron) tablet active Medicati on ID: [id number] B rand Name: FeroSul Send Method: E-Prescr ibed Sub s Allowed: subs [facility]ul Not Available Not Available Not Available fenofibra te 54 mg tablet TAKE 1 TABLET BY MOUTH DAILY active Not Available Not Available No t Available Vitals None Recorded Social History None recorded. Functional Status None recorded. Mental Status None recorded. Family History Nothing Reported. Medical History Condition Response Anemia Y GERD/Reflux Y High Cholesterol Y Heart Attack ([place]) Y Cancer Y Hypertension Y Past Encounters Encounter ID Performer Location Encounter Start Date Encounter Closed Date Diagnosis/Indication Diagnosis SNOMED-CT Code Diagnosis ICD10 Code [id number] PAT [facility] [place] [address] [place] [address] [place] [address] 10/29/2023 09:42:53 10/30/2023 11:32:39 Mixed conductive and sensorineural hearing loss, bilateral 736638735 H90.6 [id number] DEV BRICE MD [facility] [address] [place] [address] 03/01/2024 10:50:40 03/01/2024 11:31:11 Disorder of right Eustachian tube 5001695641 197812 H69.81 Sensorineu ral hearing loss of bilateral ears 637212271 H90.3 Health Concerns Section Related Observation LastModified by Organization Detai ls LastModified Time None Recorded Concern Status LastModified by Organization Details LastModified Time None Recorded Advance Directives Directive None Recorded Payers Encounter Date Sequence Insurance Name Policy Number Policy Mccullough Covered Member ID Mccullough Member ID Guarantor Name 10/29/2023 1 [facility] [id number] 4 Rachid Saroj [id number] Alireza Kyle 03/01/2024 1 [facility] [id number] Alireza Kyle [id number] Alireza Kyle Notes Date Note Type Note Provider Name and Address Organization Details Recorded Time 10/29/2023 text/html 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 Was cleared for amplification by Dr Brice. NAVARRO AIKEN, PAT [address] [place] [address], [phone], [facility] 10/29/2023 10:52:09 03/01/2024 text/html Patient with history of asymmetric sensorineural hearing loss and chronic right-sided eustachian tube dysfunction, status post right T-tube placement back in May 2020. Comes back for routine tube check. At his last visit back in August, we discussed his candidacy for amplification. He came in for a hearing aid evaluation but elected against proceeding. He comes in today accompanied by his . DEV BRICE MD [address], [address], [facility] - [facility] 03/01/2024 11:31:24
--- OUTSIDE RECORDS SUMMARY | 2024-04-21 11:10 | XMS_ITS ---
Author Name [facility] Organization Unknown History of Medication Use Medication Directions Dispensed Refills Start Date End Date Stat atorvastatin (LIPITOR) 80 MG tablet Take 80 mg by mouth daily. 01/31/2022 active multivitamin Tab tablet Take 1 tablet by mouth daily. 01/31/2022 active carvedilol (COREG) 12.5 MG tablet Take 12.5 mg by mouth. 01/31/2022 active OMEprazole (PriLOSEC) 20 MG capsule Take 20 mg by mouth 2 (two) times a day. 01/31/2022 active ferrous sulfate 325 (65 FE) MG tablet Take 1 tablet by mouth 2 (two) times a day. 01/31/2022 active doxazosin (CARDURA) 8 MG tablet 01/31/2022 active chlorthalidone (HYGROTON) 25 MG tablet Take 25 mg by mouth daily. 01/31/2022 active famotidine (PEPCID) 20 MG tablet TAKE 1 TABLET(20 MG) BY MOUTH TWICE DAILY 01/31/2022 aborted isosorbide mononitrate (IMDUR) 30 MG 24 hr tablet Take 90 mg by mouth daily. 01/31/2022 active apixaban (ELIQUIS) 2.5 MG tablet Take 2.5 mg by mouth. 01/31/2022 active furosemide (LASIX) 40 MG tablet TK 1 T PO QD 01/31/2022 active ergocalciferol (VITAMIN D2,DRISDOL) 49269 units Cap Take 50,000 Units by mouth every 30 days (once a month). 01/31/2022 active metroNIDAZOLE (METROCREAM) 0.75 % cream Apply topically 2 (two) times a day. 01/31/2022 active nitroglycerin (NITROSTAT) 0.[address] 0.4 mg under the tongue every 5 (five) minutes as needed for chest pain. 01/31/2022 active fenofibrate (LOFIBRA) 54 MG tablet Take 54 mg by mouth daily. 01/31/2022 active aspirin enteric coated (ECOTRIN LOW STRENGTH) 81 MG EC tablet Take 81 mg by mouth daily. 01/31/2022 active hydrALAZINE (APRESOLINE) 100 MG tablet Take 100 mg by mouth 3 (three) times a day. 01/31/2022 active Problems Problem Status Onset Date Problem Type Date of Resoluti on Source Nausea active [facility]
--- OUTSIDE RECORDS SUMMARY | 2024-04-21 11:10 | XMS_ITS | Continuity of Care Document ---
Author Organization [place] - [facility], [facility] Address [address] [place] [address] Care Team Providers Care Telemetry Tech Name Role Phone ROD STERLING Primary Care Provider Assessment No assessment recorded. Plan of Treatment Reminders Order Date Submit [...] instructions recorded. Reason for Referral None Reported. 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 Medical Equipment None Reported. Allergies Allergen ID Allergen Name Allergen Category Reaction Reaction Severity Criticality Documentation Date Start Date Code Code System Note Provider Name and Address Organization Details Recorded Time 09733 Zithromax medicatio n other Not available Not available 09/22/202319637 4 RxNorm React ion: Unkno wn; Not Available [facility] 4 00:48:42 79222 lisinopri l medicatio n other Not available Not available 09/22/2023 84353 RxNorm React ion: Unkno wn; Not Available [facility] 4 00:48:46 Medications Name Sig Start Date Stop Date Status Note LastModified by Organization Details LastModified Time atorvasta tin 80 mg tablet TAKE 1 TABLET BY MOUTH DAILY active Not Available Not Available No t Available carvedilo l 12.5 mg tablet TAKE 1 TABLET BY MOUTH TWICE DAILY PLEASE. DISCONTI NUE PREVIOUS METOPROL OL AND TAKE COREG / CARVEDIL OL active Not Available Not Available No t Available ondansetr on HCl 4 mg tablet TAKE 1 TABLET BY MOUTH EVERY 8 HOURS FOR 3 DAYS NEEDED NAUSEA 03/01 completed Not Available Not Available Not Available metoprolo l succinate ER 100 mg tablet,ex tended release 24 hr active Medicati on ID: [id number] B rand Name: metoprol ol succinat e [...] mcg tablet 2023 active Medicati on ID: [id number] B rand Name: Thera Se nd Method: [...] mg tablet 03/01 completed Medicati on ID: [id number] B rand Name: hydralaz ine Send Method: E-Prescr ibed Sub s Allowed: subs OK Medic ationGen ericName : hydralaz ine Not Available Not Available Not Available nitroglyc roger 0.4 mg sublingua l tablet active Not Available Not Available Not Available omeprazol e 20 mg capsule,d elayed release 03/01 completed Medicati on ID: [id number] B rand Name: omeprazo le Send Method: E-Prescr ibed Sub s Allowed: subs OK Speci al Instruct ion: take 1 capsule by mouth twice a day Medi cationGe nericNam e: omeprazo le Not Available Not Available Not Available aspirin 81 mg chewable tablet active Medicati on ID: [id number] B rand Name: aspirin Send Method: E-Prescr [...] mg iron) tablet active Medicati on ID: [id number] B rand Name: Sam Send Method: E-Prescr ibed Sub s Allowed: subs OK Medic ationGen ericName : Sam Not Available Not Available Not Available fenofibra te 54 mg tablet TAKE 1 TABLET BY MOUTH DAILY active Not Available Not Available No t Available Vitals None Recorded Social History None recorded. Functional Status None recorded. Mental Status None recorded. Family History Nothing Reported. Medical History Condition Response Anemia Y Heart Attack ([place]) Y Cancer Y GERD/Reflux Y High Cholesterol Y Hypertension Y Past Encounters Encounter ID Performer Location Encounter Start Date Encounter Closed Date Diagnosis/Indication Diagnosis SNOMED-CT Code Diagnosis ICD10 Code [id number] DEV FITZGERALD MD [facility] [address] [address] 03/01/2024 10:50:40 03/01/2024 11:31:11 Disorder of right Eustachian tube 6403115218 224210 H69.81 Sensorineu ral hearing loss of bilateral ears 237157414 H90.3 Health Concerns Section Related Observation LastModified by Organization Detai ls LastModified Time None Recorded Concern Status LastModified by Organization Details LastModified Time None Recorded Payers Encounter Date Sequence Insurance Name Policy Number Policy Mccullough Covered Member ID Mccullough Member ID Guarantor Name 03/01/2024 1 [facility] [id number] 4 Alireza Kyle [id number] Alireza Kyle Notes Date Note Type Note Provider Name and Address Organization Details Recorded Time 03/01/2024 text/html Patient with history of asymmetric [...] in today accompanied by his . DEV FITZGERALD MD [address] [place] [address], [address], [facility] - [facility] 03/01/2024 11:31:24
--- NOTE | 2024-04-21 11:34 | HO.NEPHOV ---
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 He has hypertension which is well controlled. He has anemia chronic disease for which he had been getting Procrit . He denies taking any nonsteroidal anti-inflammatory medications. He does not have any chest pain, shortness of breath, nausea vomiting, diarrhea, orthostatic symptoms, edema. His serum creatinine is stable at baseline. He does not feel tired. His appetite is better. He had blood in the urine and is going to see Urologist next Thursday [facility] Medical History Proteinuria Hypertension Anemia in chronic kidney disease Chronic kidney disease, stage 4 (severe) Family History Mother Cancer Child No Financial Resp Cancer Social History Alcohol intake: never Patient Tobacco Use Status: Never used Tobacco Review of Systems Const All systems reviewed & are unremarkable except as noted in HPI and below Physical Exam Vital Signs: Last Vital Signs Pulse 67 04/21/24 11:35 BP 120/62 04/21/24 11:35 Pulse Ox 98 04/21/24 11:35 Oxygen Delivery Method Room Air 04/21/24 11:35 BMI result Body Mass Index 23.4 Const General: comfortable and no acute distress Orientation/consciousness: patient oriented x3 HEENT Head: Yes normocephalic Mouth: Normal oral and palatal mucosa present Eyes EOM: EOMs intact bilaterally Neck Neck: Yes supple Resp Auscultation: clear to auscultation bilaterally Cardio Jugular venous distension: no JVD Rate: regular rate GI Palpation (GI): Soft to palpation Auscultation: normal bowel sounds General: Yes no CVA tenderness Back/Spine/Pelvis Back: no CVA tenderness Skin General skin exam: no rashes or lesions noted Neuro General: patient oriented x3 and moves all extremities Extrem General: Yes no pedal edema Office Meds epoetin lizet-epbx 10,000 unit/mL injection solution Performing Provider: Santy Jonas MD [place] [facility] Administered by: Santy Jonas MD on 04/21/24 11:53 Dose Route Admin Location Dispensed Lot Number Expiration Date [facility] Boat Officer 40,000 unit subcut LUE 4 mL [id number] 09/08/25 5435-0961-04 [employer] Results Reviewed Nephrology Results: Hgb 8.7 g/dl (14.0-18.0) L 02/09/24 WBC 5.5 X10*3/uL (4.8-10.8) 02/09/24 Plt Count 257 X10*3/uL (160-400) 02/09/24 Sodium 143 mmol/L (135-145) 02/09/24 Potassium 4.2 mmol/L (3.3-5.1) 02/09/24 Chloride 113 mmol/L (96-108) H 02/09/24 Carbon Dioxide 21 mmol/L (22-29) L 02/09/24 BUN 54 mg/dL (9-16) H 02/09/24 Creatinine 3.10 mg/dL (0.5-1.4) H 02/09/24 Assessment & Plan Assessment & Plan (1) Chronic kidney disease, stage 4 (severe): Code(s): N18.4 - Chronic kidney disease, stage 4 (severe) Category: Medical (2) Anemia in chronic kidney disease: Code(s): N18.9 - Chronic kidney disease, unspecified; D63.1 - Anemia in chronic kidney disease Category: Medical Qualifiers: Chronic kidney disease stage: stage 4 (severe) Qualified Code(s): N18.4 - Chronic kidney disease, stage 4 (severe); D63.1 - Anemia in chronic kidney disease (3) Hypertension: Code(s): I10 - Essential (primary) hypertension Category: Medical Qualifiers: Hypertension type: primary hypertension Qualified Code(s): I10 - Essential (primary) hypertension (4) Hematuria: Code(s): R31.9 - Hematuria, unspecified Category: Medical Qualifiers: Hematuria type: unspecified type Qualified Code(s): R31.9 - Hematuria, unspecified Plan Alireza has history of minimal change disease with nephrotic syndrome. He had been on losartan which has been put on hold for a long time. He can continue on his current dose of diuretics. His renal function is close to baseline. I administered 06751 Units Procrit in my office today. I did not make any other medication changes. Labs ordered for F/U .All his questions were answered Orders: Orders AMB Epoetin Injection Practice Supplied Today D63.1 - Anemia in chronic kidney disease, N18.4 - Chronic kidney disease, stage 4 (severe) Complete Blood Count Auto Diff 1 Month D63.1 - Anemia in chronic kidney disease, N18.4 - Chronic kidney disease, stage 4 (severe) Coding Level of Care Code Est Pt Level 4 (63940) Diagnoses Chronic kidney disease, stage 4 (severe) N18.4 Anemia in stage 4 chronic kidney disease N18.4; D63.1 Chronic kidney disease stage: stage 4 (severe) Primary hypertension I10 Hypertension type: primary hypertension Hematuria, unspecified type R31.9 Hematuria type: unspecified type
[2024-04-21 11:35] VITALS: BP 120/62; PULSE 67; O2SAT 98; BMI 23.4
== END 2024-04-21 12:07 | disposition home or self-care (01) ==
PROVIDERS: PCP Internal Medicine; Visit Provider Internal Medicine Nephrology
DX: I12.9 Hypertensive chronic kidney disease with stage 1 through stage 4 chronic kidney disease, or unspecified chronic kidney disease (principal); N18.4 Chronic kidney disease, stage 4 (severe); D63.1 Anemia in chronic kidney disease; R31.9 Hematuria, unspecified
CPT/HCPCS: 99214

== ENCOUNTER → 2024-04-21 11:06 | Outpatient (BNVA) | payer MEDICARE, SELFPAY | PROVIDERS: PCP Internal Medicine; Visit Provider Internal Medicine Nephrology | DX: I12.9 Hypertensive chronic kidney disease with stage 1 through stage 4 chronic kidney disease, or unspecified chronic kidney disease (principal); N18.4 Chronic kidney disease, stage 4 (severe); D63.1 Anemia in chronic kidney disease; R31.9 Hematuria, unspecified | CPT/HCPCS: 96372; 99212; Q5106 ==

== ENCOUNTER 2024-05-19 10:53 | Outpatient (AMB) | payer MEDICARE, SELFPAY ==
--- OUTSIDE RECORDS SUMMARY | 2024-05-19 11:36 | XMS_ITS | Data Portability ---
Author Organization [place] - [facility], Allergy Address [address] [address] Care Team Providers Care After School Program Director Name Role Phone TAIROD FLOWERS Primary Care [...] update HT and complete paperwork to order. 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 Procedures [...] Name and Address Organization Details Recorded Time 37625 Zithromax medicatio n other Not available Not available 09/22/202319637 4 RxNorm React ion: Unkno wn; Not Available [facility] 4 00:48:42 18206 lisinopri l medicatio n other Not available Not available 09/22/2023 14148 RxNorm React ion: Unkno wn; Not Available [facility] 4 00:48:46 Medications Name Sig Start Date [...] release 24 hr active Medicati on ID: [id number] B rand Name: metoprol ol succinat e [...] mcg tablet 2023 active Medicati on ID: [id number] B rand Name: Thera Se nd Method: [...] mg tablet 03/01 completed Medicati on ID: [id number] B rand Name: hydralaz ine Send Method: E-Prescr ibed Sub s Allowed: subs OK Medic ationGen ericName : hydralaz ine Not Available Not Available Not Available nitroglyc roger 0.4 mg sublingua l tablet active Not Available Not Available Not Available omeprazol e 20 mg capsule,d elayed release 03/01 completed Medicati on ID: 287882 B rand Name: omeprazo le Send Method: E-Prescr ibed Sub s Allowed: subs OK Speci al Instruct ion: take 1 capsule by mouth twice a day Medi cationGe nericNam e: omeprazo le Not Available Not Available Not Available aspirin 81 mg chewable tablet active Medicati on ID: [id number] B rand Name: aspirin Send Method: E-Prescr [...] mg iron) tablet active Medicati on ID: 434852 B rand Name: FeroSul Send Method: E-Prescr ibed Sub s Allowed: subs [place] [facility] FeroSul Not Available Not Available Not Available fenofibra te 54 mg tablet TAKE 1 TABLET BY MOUTH DAILY active Not Available Not Available No t Available Vitals None Recorded Social History None recorded. Functional Status None recorded. Mental Status None recorded. Family History Nothing Reported. Medical History Condition Response Anemia Y High Cholesterol Y GERD/Reflux Y Heart Attack (NM) Y Cancer Y Hypertension Y Past Encounters Encounter ID Performer Location Encounter Start Date Encounter Closed Date Diagnosis/Indication Diagnosis SNOMED-CT Code Diagnosis ICD10 Code Diagnosis Note [id number] PAT [facility] [place] [place] [address] [place] [address] [address] 10/29/2023 09:42:53 10/30/2023 11:32:39 Mixed conductive and sensorineural hearing loss, bilateral [id number] H90.6 [id number] DEV BRICE MD [facility] [address] [address] 03/01/2024 10:50:40 03/01/2024 11:31:11 Disorder of right Eustachian tube 0318328130 532963 H69.81 Right-side d T-tube remains in good position and patent with some peripheral crusting. Follow-up with PA in 6 months. Sensorineu ral hearing loss of bilateral ears 624660167 H90.3 Patient still remains a good candidate for patient still remains a good candidate for binaural amplificat ion versus BiCROS amplificat ion. I encouraged him to further consider this, but he feels like he cannot afford it. He is always welcome to come back to see our audiologis ts to discuss this further if he desires. Health Concerns Section Related Observation LastModified by Organization Detai ls LastModified Time None Recorded Concern Status LastModified by Organization Details LastModified Time None Recorded Advance Directives Directive None Recorded Payers Encounter Date Sequence Insurance Name Policy Number Policy Mccullough Covered Member ID Mccullough Member ID Guarantor Name 10/29/2023 1 [facility] [id number] 4 Alireza Kyle [id number] Alireza Kyle 03/01/2024 1 [facility] [id number] 4 Alireza Kyle [id number] Alireza Kyle Notes Date Note Type Note Provider Name and Address Organization Details Recorded Time 10/29/2023 text/html 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 Was cleared for amplification by Dr Brice. NAVARRO AIKEN, AUD [address], [address], [place] - [facility] 10/29/2023 10:52:09 03/01/2024 text/html Patient with history [...] by his . DEV BRICE MD [address], [address], [place] - [facility] 03/01/2024 11:31:24
--- OUTSIDE RECORDS SUMMARY | 2024-05-19 11:36 | XMS_ITS | Continuity of Care Document ---
Author Organization [facility] Address [address] [place] [address]- Care Team Providers Care Multifocal Button Generator Name Role Phone Chandra GIBBONS, Junior Jeffries Primary Care Physician [facility] Date[facility]): 03/28/24 - 04/27/24 [facility] [address] [place], [place] [address] Encounter Type: Triage Allergies, Adverse Reactions, Alerts Substance Criticality Severity [...] virus vaccine, inactivated 01/25/10 Give n SARS-CoV-2(COVID-19)mRNA-LNP vac(www262) 03/07/24 Recorded SARS-CoV-2(COVID-19)mRNA-LNP vac([id number]) 04/04/23 Recorded pneumococcal 20-valent conjugate vaccine 01/22/24 Recorded RSV vaccine preF3, recombinant 05/13/23 Recorded zoster vaccine, inactivated 04/21/23 Recorded zoster vaccine, inactivated 06/27/22 Recorded tetanus-diphtheria toxoids (Td) 03/09/23 Given tetanus-diphtheria toxoids (Td) 02/22/99 Given [id number] bivalent booster vax 03/17/22 Recorded SARS-CoV-2 (COVID-19) [...] Pneumococcal Vaccine (oldterm) 06/27/97 Given 1Result Comment: [id number] 2Result Comment: [02/24/2013] given w/o incidense...mh 3Admin Note: SONOFI-given without incident- PT MEETS CRITERIA 4Result Comment: [01/04/2015] DONE AT [facility] FORM RECEIVED Medications apixaban 2.5 mg oral tablet 1 tablet = 2.5 mg, By Mouth, 2 times a day, # 180 tablet, 3 Refills, Maintenance, 09/05/22 3:45:00 PM EDT, Tablet, [facility] #[id number], Partial fill upon patient request if the [...] Refills, Maintenance, 01/22/24 11:40:00 AM EDT, Tablet, [facility] #[id number], 175, cm, 01/22/24 10:57:00 EDT, Height, 76.8, kg, 01/22/24 10:57:00 EDT, Dry Weight Start Date: 01/22/24 Stop Date: 01/16/25 Status: Ordered Quantity: 90.0 Unit: tablet Repeat number: 4 clopidogrel 75 mg oral tablet 1, tablet, By Mouth, Daily, # 90 tablet, Refills 3, Tot. Refills 3, Maintenance, 01/12/24 11:16:00 AMEDT, Route to Pharmacy Electronically, [facility] #[id number], 175, cm, 10/14/23 11:40:00 EDT,Height, 72, kg, 10/14/23 11:40:00 EDT, Dry Weight Start Date: 01/12/24 Status: Ordered Quantity: 90.0 Unit: tablet Repeat number: 4 Coreg 12.5 mg oral tablet 12.5 mg, 1, tablet, By Mouth, 2 times a day, PLEASE DISCONTINUE PREVIOUS METOPROLOL AND TAKE COREG/CARVEDILOL, # 180 tablet, Refills 3, Tot. Refills 3, Maintenance, 01/22/24 11:42:00 AM EDT, Route to Pharmacy Electronically, [facility] #[id number], Partial fill upon patient request if the [...] 11:41:00 AM EDT, Route to Pharmacy Electronically, [facility] #[id number], Partial fill upon patient request if the prescription is for a schedule II opioid drug., 175, cm, 01/22/24 10:57:00 EDT, Height, 76.8, kg, 01/22/24 10:57:00 EDT, Dry Weight Start Date: 01/22/24 Stop Date: 01/16/25 Status: Ordered Quantity: 180.0 Unit: tablet Repeat number: 4 fenofibrate 54 mg oral tablet 1 tablet, By Mouth, Daily, # 90 tablet, 3 Refills, Maintenance, 04/11/24 12:17:00 PM EST, [facility] #[id number], 175, cm, 04/11/24 12:13:00 EST, Height, 72.8, [...] 12:18:00 PM EDT, Route to Pharmacy Electronically, [facility] #[id number], Partial fill upon patient request if the prescription is for a schedule II opioid drug., 175, cm, 10/14/23 11:40:00 EDT, Height, 72, kg, 10/14/23 11:40:00 EDT, Dry Weight Start Date: 10/14/23 Status: Ordered Quantity: 90.0 Unit: tablet Repeat number: 4 hydrALAZINE 50 mg oral tablet 1 tablet, By Mouth, 3 times a day, # 270 tablet, 3 Refills, Maintenance, 01/22/24 11:39:00 AM EDT, [facility] #[id number], 175, cm, 01/22/24 10:57:00 EDT, Height, 76.8, kg, 01/22/24 10:57:00 EDT,Dry Weight Start Date: 01/22/24 Status: Ordered Quantity: 270.0 Unit: tablet Repeat number: 4 isosorbide mononitrate 60 mg oral tablet, extended release 2 tablet = 120 mg, By Mouth, Daily in AM, # 180 tablet, 3 Refills, Maintenance, 01/22/24 11:38:00 AMEDT, ER Tablet, [facility] #[id number], Partial fill upon patient request if the [...] Refills, Maintenance, 12/02/22 2:07:00 PM EDT, Tablet, [facility] #[id number], 175, cm, 08/26/22 10:20:00 EDT, Height, 70.5, [...] 11 Refills, Maintenance, 09/22/23 5:27:00 PM EDT, [facility] #[id number], Partial fill upon patient request if the [...] Unit: tablet Repeat number: 1 Vitamin D 42697 iu oral capsule 1 capsule = 50,000 [...] GFR criteria; nephrology notes as of 10/24/2021. Social History Social History Type Response Smoking Status Never smoker; Tobacc o user in household: No entered on: 05/06/13 Sex Sex Representation Male (finding) Patient Care team information Care Team Personnel Name: Salma Gordon CNM Position: Reference Physician Member Role: Primary Care Nurse Address: [address] [place] [address]- Telecom: Name: Orquidea Brizuela RN Position: [facility] Onco RN Member Role: Primary Care Nurse Name: Junior Artis MD Position: [facility] Physician - Primary Care Member Role: PCP Address: [address] [facility] [place] [address]- Telecom: Name: Santy Jonas MD Position: [facility] Renal MD Member Role: Lifetime Consulting Physician Address: [address] [place] [address] [address] [facility] [address]- [place] Telecom: Name: Irais Bloom NP Position: [facility] Associate Professional Member Role: Primary Care Nurse Address: [address] [place] [address]- [place] Telecom: Name: Mane Taylor RN Position: [facility] RN Member Role: Primary Care Nurse Name: Tiffany Sheehan Position: [facility] AMB Nurse Member Role: Lifetime Consulting Physician Name: Candy Boothe RN Position: [facility] RN Member Role: Primary Care Nurse Name: Artem Uriarte MD Position: S Outreach Member Role: Lifetime Consulting Physician Address: [address] [facility] [place] [address]- [place] Telecom: Name: Alton Pineda MD Position: [facility] Renal MD Member Role: Lifetime Consulting Physician Address: [address] [facility] [place] [address]- [place] Telecom: Name: Nayeli Iglesias RN Position: [facility] RN Member Role: Primary Care Nurse Care Team Related Persons Name: CASEY Name: FELISA SALAZAR Insurance Providers Guarantor name: CASEY Health Plan Information #: 1 Payer: [facility] ADVANT[employer] REPLC Member Number: NA Policy Number: NA Group Number: NA
--- OUTSIDE RECORDS SUMMARY | 2024-05-19 11:36 | XMS_ITS | Continuity of Care Document ---
Author Organization [facility] Address [address] [place] [address]- Care Team Providers Care Destaticizer Feeder Name Role Phone Chandra GIBBONS, Junior Jeffries Primary Care Physician [phone] [facility]counter [facility] Date(s): 04/16/24 - 05/16/24 [facility] [address] [place], [place] [email or web address] Encounter Type: Triage Allergies, Adverse Reactions, Alerts [...] virus vaccine, inactivated 01/25/10 Give n SARS-CoV-2(COVID-19)mRNA-LNP vac(gsz206) 03/07/24 Recorded SARS-CoV-2(COVID-19)mRNA-LNP vac(hdr863) 04/04/23 Recorded pneumococcal 20-valent conjugate vaccine 01/22/24 Recorded RSV vaccine preF3, recombinant 05/13/23 Recorded zoster vaccine, inactivated 04/21/23 Recorded zoster vaccine, inactivated 06/27/22 Recorded tetanus-diphtheria toxoids (Td) 03/09/23 Given tetanus-diphtheria toxoids (Td) 02/22/99 Given [id number] bivalent booster vax 03/17/22 Recorded SARS-CoV-2 (COVID-19) [...] Pneumococcal Vaccine (oldterm) 06/27/97 Given 1Result Comment: [id number] 2Result Comment: [02/24/2013] given w/o incidense...mh 3Admin Note: SONOFI-given without incident- PT MEETS CRITERIA 4Result Comment: [01/04/2015] DONE AT [facility] FORM RECEIVED Medications apixaban 2.5 mg oral tablet 1 tablet = 2.5 mg, By Mouth, 2 times a day, # 180 tablet, 3 Refills, Maintenance, 09/05/22 3:45:00 PM EDT, Tablet, [facility] #[id number], Partial fill upon patient request if the [...] Refills, Maintenance, 01/22/24 11:40:00 AM EDT, Tablet, [facility] #[id number], 175, cm, 01/22/24 10:57:00 EDT, Height, 76.8, kg, 01/22/24 10:57:00 EDT, Dry Weight Start Date: 01/22/24 Stop Date: 01/16/25 Status: Ordered Quantity: 90.0 Unit: tablet Repeat number: 4 clopidogrel 75 mg oral tablet 1, tablet, By Mouth, Daily, # 90 tablet, Refills 3, Tot. Refills 3, Maintenance, 01/12/24 11:16:00 AMEDT, Route to Pharmacy Electronically, [facility] #[id number], 175, cm, 10/14/23 11:40:00 EDT,Height, 72, kg, 10/14/23 11:40:00 EDT, Dry Weight Start Date: 01/12/24 Status: Ordered Quantity: 90.0 Unit: tablet Repeat number: 4 Coreg 12.5 mg oral tablet 12.5 mg, 1, tablet, By Mouth, 2 times a day, PLEASE DISCONTINUE PREVIOUS METOPROLOL AND TAKE COREG/CARVEDILOL, # 180 tablet, Refills 3, Tot. Refills 3, Maintenance, 01/22/24 11:42:00 AM EDT, Route to Pharmacy Electronically, [facility] #[id number], Partial fill upon patient request if the [...] 11:41:00 AM EDT, Route to Pharmacy Electronically, [facility] #[id number], Partial fill upon patient request if the prescription is for a schedule II opioid drug., 175, cm, 01/22/24 10:57:00 EDT, Height, 76.8, kg, 01/22/24 10:57:00 EDT, Dry Weight Start Date: 01/22/24 Stop Date: 01/16/25 Status: Ordered Quantity: 180.0 Unit: tablet Repeat number: 4 fenofibrate 54 mg oral tablet 1 tablet, By Mouth, Daily, # 90 tablet, 3 Refills, Maintenance, 04/11/24 12:17:00 PM EST, [facility] #65292, 175, cm, 04/11/24 12:13:00 EST, Height, 72.8, [...] 12:18:00 PM EDT, Route to Pharmacy Electronically, [facility] #[id number], Partial fill upon patient request if the prescription is for a schedule II opioid drug., 175, cm, 10/14/23 11:40:00 EDT, Height, 72, kg, 10/14/23 11:40:00 EDT, Dry Weight Start Date: 10/14/23 Status: Ordered Quantity: 90.0 Unit: tablet Repeat number: 4 hydrALAZINE 50 mg oral tablet 1 tablet, By Mouth, 3 times a day, # 270 tablet, 3 Refills, Maintenance, 01/22/24 11:39:00 AM EDT, [facility] #09307, 175, cm, 01/22/24 10:57:00 EDT, Height, 76.8, kg, 01/22/24 10:57:00 EDT,Dry Weight Start Date: 01/22/24 Status: Ordered Quantity: 270.0 Unit: tablet Repeat number: 4 isosorbide mononitrate 60 mg oral tablet, extended release 2 tablet = 120 mg, By Mouth, Daily in AM, # 180 tablet, 3 Refills, Maintenance, 01/22/24 11:38:00 AMEDT, ER Tablet, [facility] #[id number], Partial fill upon patient request if the [...] Refills, Maintenance, 12/02/22 2:07:00 PM EDT, Tablet, [facility] #42346, 175, cm, 08/26/22 10:20:00 EDT, Height, 70.5, [...] 11 Refills, Maintenance, 09/22/23 5:27:00 PM EDT, [facility] #[id number], Partial fill upon patient request if the [...] Unit: tablet Repeat number: 1 Vitamin D 04934 iu oral capsule 1 capsule = 50,000 [...] Member Role: Primary Care Nurse Address: [address] [place] [address]- Telecom: Name: Orquidea Brizuela RN Position: [facility] Onco RN Member Role: Primary Care Nurse Name: Junior Artis MD Position: [facility] Physician - Primary Care Member Role: PCP Address: [address] [facility] [place] [address]- Telecom: Name: Santy Jonas MD Position: [facility] Renal MD Member Role: Lifetime Consulting Physician Address: [address] [place] [address] [address] [facility] [address]- [place] Telecom: Name: Irais Bloom NP Position: [facility] Associate Professional Member Role: Primary Care Nurse Address: [address] [place] [address]- [place] Telecom: Name: Mane Taylor RN Position: [facility] RN Member Role: Primary Care Nurse Name: Tiffany Sheehan Position: [facility] AMB Nurse Member Role: Lifetime Consulting Physician Name: Candy Boothe RN Position: [facility] RN Member Role: Primary Care Nurse Name: Artem Uriarte MD Position: S Outreach Member Role: Lifetime Consulting Physician Address: [address] [facility] [place] [address]- [place] Telecom: Name: Alton Pineda MD Position: [facility] Renal MD Member Role: Lifetime Consulting Physician Address: [address] [facility] [place] [address]- [place] Telecom: Name: Nayeli Iglesias RN Position: [facility] RN Member Role: Primary Care Nurse Care Team Related Persons Name: CASEY Name: FELISA SALAZAR Insurance Providers Guarantor name: CASEY Health Plan Information #: 1 Payer: [facility] ADVANTAGE REPLC Member Number: NA Policy Number: NA Group Number: NA
--- OUTSIDE RECORDS SUMMARY | 2024-05-19 11:36 | XMS_ITS | Continuity of Care Document ---
Author Organization [facility] Address [address] [place] [address]- Care Team Providers Care Double Corner Cutter Name Role Phone Chandra GIBBONS, Junior Jeffries Primary Care Physician Encounter [facility] Date(s): 03/29/24 - 04/28/24 [facility] [address] [place], [place] [address] Encounter Type: Triage Allergies, Adverse Reactions, Alerts [...] virus vaccine, inactivated 01/25/10 Give n SARS-CoV-2(COVID-19)mRNA-LNP vac(ijb160) 03/07/24 Recorded SARS-CoV-2(COVID-19)mRNA-LNP vac(dga206) 04/04/23 Recorded pneumococcal 20-valent conjugate vaccine 01/22/24 Recorded RSV vaccine preF3, recombinant 05/13/23 Recorded zoster vaccine, inactivated 04/21/23 Recorded zoster vaccine, inactivated 06/27/22 Recorded tetanus-diphtheria toxoids (Td) 03/09/23 Given tetanus-diphtheria toxoids (Td) 02/22/99 Given [id number] bivalent booster vax 03/17/22 Recorded SARS-CoV-2 (COVID-19) [...] Pneumococcal Vaccine (oldterm) 06/27/97 Given 1Result Comment: [id number] 2Result Comment: [02/24/2013] given w/o incidense...mh 3Admin Note: SONOFI-given without incident- PT MEETS CRITERIA 4Result Comment: [01/04/2015] DONE AT [facility] FORM RECEIVED Medications apixaban 2.5 mg oral tablet 1 tablet = 2.5 mg, By Mouth, 2 times a day, # 180 tablet, 3 Refills, Maintenance, 09/05/22 3:45:00 PM EDT, Tablet, [facility] #85272, Partial fill upon patient request if the [...] Refills, Maintenance, 01/22/24 11:40:00 AM EDT, Tablet, [facility] #[id number], 175, cm, 01/22/24 10:57:00 EDT, Height, 76.8, kg, 01/22/24 10:57:00 EDT, Dry Weight Start Date: 01/22/24 Stop Date: 01/16/25 Status: Ordered Quantity: 90.0 Unit: tablet Repeat number: 4 clopidogrel 75 mg oral tablet 1, tablet, By Mouth, Daily, # 90 tablet, Refills 3, Tot. Refills 3, Maintenance, 01/12/24 11:16:00 AMEDT, Route to Pharmacy Electronically, [facility] #17735, 175, cm, 10/14/23 11:40:00 EDT,Height, 72, kg, 10/14/23 11:40:00 EDT, Dry Weight Start Date: 01/12/24 Status: Ordered Quantity: 90.0 Unit: tablet Repeat number: 4 Coreg 12.5 mg oral tablet 12.5 mg, 1, tablet, By Mouth, 2 times a day, PLEASE DISCONTINUE PREVIOUS METOPROLOL AND TAKE COREG/CARVEDILOL, # 180 tablet, Refills 3, Tot. Refills 3, Maintenance, 01/22/24 11:42:00 AM EDT, Route to Pharmacy Electronically, [facility] #[id number], Partial fill upon patient request if the [...] 11:41:00 AM EDT, Route to Pharmacy Electronically, [facility] #25452, Partial fill upon patient request if the prescription is for a schedule II opioid drug., 175, cm, 01/22/24 10:57:00 EDT, Height, 76.8, kg, 01/22/24 10:57:00 EDT, Dry Weight Start Date: 01/22/24 Stop Date: 01/16/25 Status: Ordered Quantity: 180.0 Unit: tablet Repeat number: 4 fenofibrate 54 mg oral tablet 1 tablet, By Mouth, Daily, # 90 tablet, 3 Refills, Maintenance, 04/11/24 12:17:00 PM EST, [facility] #51421, 175, cm, 04/11/24 12:13:00 EST, Height, 72.8, [...] 12:18:00 PM EDT, Route to Pharmacy Electronically, [facility] #05246, Partial fill upon patient request if the prescription is for a schedule II opioid drug., 175, cm, 10/14/23 11:40:00 EDT, Height, 72, kg, 10/14/23 11:40:00 EDT, Dry Weight Start Date: 10/14/23 Status: Ordered Quantity: 90.0 Unit: tablet Repeat number: 4 hydrALAZINE 50 mg oral tablet 1 tablet, By Mouth, 3 times a day, # 270 tablet, 3 Refills, Maintenance, 01/22/24 11:39:00 AM EDT, [facility] #[id number], 175, cm, 01/22/24 10:57:00 EDT, Height, 76.8, kg, 01/22/24 10:57:00 EDT,Dry Weight Start Date: 01/22/24 Status: Ordered Quantity: 270.0 Unit: tablet Repeat number: 4 isosorbide mononitrate 60 mg oral tablet, extended release 2 tablet = 120 mg, By Mouth, Daily in AM, # 180 tablet, 3 Refills, Maintenance, 01/22/24 11:38:00 AMEDT, ER Tablet, [facility] #28559, Partial fill upon patient request if the [...] Refills, Maintenance, 12/02/22 2:07:00 PM EDT, Tablet, [facility] #[id number], 175, cm, 08/26/22 10:20:00 EDT, Height, 70.5, [...] 11 Refills, Maintenance, 09/22/23 5:27:00 PM EDT, [facility] #[id number], Partial fill upon patient request if the [...] Unit: tablet Repeat number: 1 Vitamin D 57359 iu oral capsule 1 capsule = 50,000 [...] Member Role: Primary Care Nurse Address: [address] [place] [address]- Telecom: Name: Orquidea Brizuela RN Position: [facility] Onco RN Member Role: Primary Care Nurse Name: Junior Artis MD Position: [facility] Physician - Primary Care Member Role: PCP Address: [address] [facility] [place] [address]- Telecom: Name: Santy Jonas MD Position: [facility] Renal MD Member Role: Lifetime Consulting Physician Address: [address] [place] [address] [address] [place] [address]- [place] Telecom: Name: Irais Bloom NP Position: [facility] Associate Professional Member Role: Primary Care Nurse Address: [address] [place] [address]- [place] Telecom: Name: Mane Taylor RN Position: [facility] RN Member Role: Primary Care Nurse Name: Tiffany Sheehan Position: [facility] AMB Nurse Member Role: Lifetime Consulting Physician Name: Candy Boothe RN Position: [facility] RN Member Role: Primary Care Nurse Name: Artem Uriarte MD Position: [facility] Member Role: Lifetime Consulting Physician Address: [address] [facility] [place] [address]- [place] Telecom: Name: Alton Pineda MD Position: [facility] Renal MD Member Role: Lifetime Consulting Physician Address: [address] [facility] [place] [address]- [place] Telecom: Name: Nayeli Iglesias RN Position: [facility] RN Member Role: Primary Care Nurse Care Team Related Persons Name: CASEY Name: FELISA SALAZAR Insurance Providers Guarantor name: CASEY Health Plan Information #: 1 Payer: [facility] ADVANTAGE REPLC Member Number: NA Policy Number: NA Group Number: NA
--- OUTSIDE RECORDS SUMMARY | 2024-05-19 11:37 | XMS_ITS | Continuity of Care Document ---
Author Organization [place] - [facility], [facility] Address [address] [place] [address] Care Team Providers Care Hybrid Powertrain Development Engineer Name Role Phone ROD STERLING Primary Care Provider [phone] Assessment No assessment recorded. 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 Medical Equipment None Reported. Allergies Allergen ID Allergen Name Allergen Category Reaction Reaction Severity Criticality Documentation Date Start Date Code Code System Note Provider Name and Address Organization Details Recorded Time 77900 Zithromax medicatio n other Not available Not available 09/22/202319637 4 RxNorm React ion: Unkno wn; Not Available [facility] 4 00:48:42 40958 lisinopri l medicatio n other Not available Not available 09/22/2023 35247 RxNorm React ion: Unkno wn; Not Available [facility] 4 00:48:46 Medications Name Sig Start [...] release 24 hr active Medicati on ID: [id number] B rand Name: metoprol ol succinat e [...] mcg tablet 2023 active Medicati on ID: [id number] B rand Name: Thera Se nd Method: [...] mg tablet 03/01 completed Medicati on ID: [id number] B rand Name: hydralaz ine Send Method: E-Prescr ibed Sub s Allowed: subs OK Medic ationGen ericName : hydralaz ine Not Available Not Available Not Available nitroglyc roger 0.4 mg sublingua l tablet active Not Available Not Available Not Available omeprazol e 20 mg capsule,d elayed release 03/01 completed Medicati on ID: [id number] B rand Name: omeprazo le Send Method: E-Prescr ibed Sub s Allowed: subs OK Speci al Instruct ion: take 1 capsule by mouth twice a day Medi cationGe nericNam e: omeprazo le Not Available Not Available Not Available aspirin 81 mg chewable tablet active Medicati on ID: [id number] B rand Name: aspirin Send Method: E-Prescr [...] mg iron) tablet active Medicati on ID: [id number] B rand Name: Sam Send Method: E-Prescr [...] High Cholesterol Y GERD/Reflux Y Heart Attack (HI) Y Cancer Y Hypertension Y Past Encounters Encounter ID Performer Location Encounter Start Date Encounter Closed Date Diagnosis/Indication Diagnosis SNOMED-CT Code Diagnosis ICD10 Code Diagnosis Note [id number] DEV FITZGERALD MD [facility] of [address] [address] 03/01/2024 10:50:40 03/01/2024 11:31:11 Disorder of right Eustachian tube [id number] 623857 H69.81 Right-side d T-tube remains in good position and patent with some peripheral crusting. Follow-up with PA in 6 months. Sensorineu ral hearing loss of bilateral ears 594641204 H90.3 Patient still remains a good candidate [...] Mccullough Member ID Guarantor Name 03/01/2024 1 [facility] [id number] Alireza Kyle [id number] Alireza Kyle Notes Date Note Type Note [...] accompanied by his . DEV FITZGERALD MD [address] [place] [address], [place], [address], [facility] - [facility] 03/01/2024 11:31:24
--- NOTE | 2024-05-19 11:40 | HO.NEPHOV ---
Vital Signs 05/19/24 11:41 Height 5 ft 9 in Weight 158 lb 4 oz BMI 23.4 BP 122/60 Blood Pressure Location Lt brachial Position Sitting Pulse 66 Pulse Source Pulse Oximeter Pulse Oximetry (%) 97 Oxygen Delivery Method Room Air Intake Visit Reasons: Follow up 1 mo-Conf Director New Product Required: No Accompanied by: Spouse Allergies lisinopril Allergy (Verified 05/19/24 11:41) Unknown Macrolides and Ketolides Allergy (Uncoded 03/18/23 13:49) Unknown HPI Comments Details: Alireza Kyle was seen in the office, accompanied by his Jane, in follow-up of his chronic kidney disease and management of his anemia. 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 He has hypertension which is well controlled. He has anemia chronic disease for which he had been getting Procrit . He denies taking any nonsteroidal anti-inflammatory medications. He does not have any chest pain, shortness of breath, nausea vomiting, diarrhea, orthostatic symptoms, edema. His serum creatinine is stable at baseline. He does not feel tired. His appetite is better. 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, stage 4 (severe) Family History Mother Cancer Child No Financial Resp Cancer Social History Alcohol intake: never Patient Tobacco Use Status: Never used Tobacco Review of Systems Const All systems reviewed & are unremarkable except as noted in HPI and below Physical Exam Vital Signs: Last Vital Signs Pulse 66 05/19/24 11:41 BP 122/60 05/19/24 11:41 Pulse Ox 97 05/19/24 11:41 Oxygen Delivery Method Room Air 05/19/24 11:41 BMI result Body Mass Index 23.4 Const General: comfortable and no acute distress Orientation/consciousness: patient oriented x3 HEENT Head: Yes normocephalic Mouth: Normal oral and palatal mucosa present Eyes EOM: EOMs intact bilaterally Neck Neck: Yes supple Resp Auscultation: clear to auscultation bilaterally Cardio Jugular venous distension: no JVD Rate: regular rate GI Palpation (GI): Soft to palpation Auscultation: normal bowel sounds General: Yes no CVA tenderness Back/Spine/Pelvis Back: no CVA tenderness Skin General skin exam: no rashes or lesions noted Neuro General: patient oriented x3 and moves all extremities Extrem General: Yes no pedal edema Office Meds epoetin lizet-epbx 10,000 unit/mL injection solution Performing Provider: Santy Jonas MD Performing Location: [facility] Administered by: Santy Jonas MD on 05/19/24 11:58 Dose Route Admin Location Dispensed Lot Number Expiration Date [facility] [employer] [place] 40,000 unit subcut 4 mL [id number] 09/08/25 5029-9327-42 [facility] Assessment & Plan Assessment & Plan (1) Chronic kidney disease, stage 4 (severe): Code(s): N18.4 - Chronic kidney disease, stage 4 (severe) Category: Medical (2) Anemia in chronic kidney disease: Code(s): N18.9 - Chronic kidney disease, unspecified; D63.1 - Anemia in chronic kidney disease Category: Medical Qualifiers: Chronic kidney disease stage: stage 4 (severe) Qualified Code(s): N18.4 - Chronic kidney disease, stage 4 (severe); D63.1 - Anemia in chronic kidney disease (3) Hypertension: Code(s): I10 - Essential (primary) hypertension Category: Medical Qualifiers: Hypertension type: primary hypertension Qualified Code(s): I10 - Essential (primary) hypertension Plan Alireza has history of minimal change disease with nephrotic syndrome. He had been on losartan which has been put on hold for a long time. He can continue on his current dose of diuretics. His renal function is close to baseline. I administered 92573 Units Procrit in my office today. I did not make any other medication changes. Labs ordered for F/U .All his questions were answered Orders: Orders Blood Urea Nitrogen 1 Month D63.1 - Anemia in chronic kidney disease, I10 - Essential (primary) hypertension, N18.4 - Chronic kidney disease, stage 4 (severe) Electrolytes 1 Month D63.1 - Anemia in chronic kidney disease, I10 - Essential (primary) hypertension, N18.4 - Chronic kidney disease, stage 4 (severe) AMB Epoetin Injection Practice Supplied Today D63.1 - Anemia in chronic kidney disease, N18.4 - Chronic kidney disease, stage 4 (severe) Complete Blood Count Auto Diff 1 Month D63.1 - Anemia in chronic kidney disease, I10 - Essential (primary) hypertension, N18.4 - Chronic kidney disease, stage 4 (severe) Creatinine 1 Month D63.1 - Anemia in chronic kidney disease, I10 - Essential (primary) hypertension, N18.4 - Chronic kidney disease, stage 4 (severe) Ferritin 1 Month D63.1 - Anemia in chronic kidney disease, I10 - Essential (primary) hypertension, N18.4 - Chronic kidney disease, stage 4 (severe) IRON PROFILE 1 Month D63.1 - Anemia in chronic kidney disease, I10 - Essential (primary) hypertension, N18.4 - Chronic kidney disease, stage 4 (severe) Medications: New epoetin lizet-epbx 40,000 units (4 mL) subcut ONCE 4 mL 0RF D63.1 - Anemia in chronic kidney disease, N18.4 - Chronic kidney disease, stage 4 (severe) Coding Level of Care Code Est Pt Level 4 (54107) Diagnoses Chronic kidney disease, stage 4 (severe) N18.4 Anemia in stage 4 chronic kidney disease N18.4; D63.1 Chronic kidney disease stage: stage 4 (severe) Primary hypertension I10 Hypertension type: primary hypertension
[2024-05-19 11:41] VITALS: BP 122/60; PULSE 66; O2SAT 97; BMI 23.4
== END 2024-05-19 12:05 | disposition home or self-care (01) ==
PROVIDERS: PCP Internal Medicine; Visit Provider Internal Medicine Nephrology
DX: I12.9 Hypertensive chronic kidney disease with stage 1 through stage 4 chronic kidney disease, or unspecified chronic kidney disease (principal); N18.4 Chronic kidney disease, stage 4 (severe); D63.1 Anemia in chronic kidney disease
CPT/HCPCS: 99214

== ENCOUNTER → 2024-05-19 10:53 | Outpatient (BNVA) | payer MEDICARE, SELFPAY | PROVIDERS: PCP Internal Medicine; Visit Provider Internal Medicine Nephrology | DX: I12.9 Hypertensive chronic kidney disease with stage 1 through stage 4 chronic kidney disease, or unspecified chronic kidney disease (principal); N18.4 Chronic kidney disease, stage 4 (severe); D63.1 Anemia in chronic kidney disease | CPT/HCPCS: 96372; 99212; Q5106 ==

== ENCOUNTER 2024-06-21 10:56 | Outpatient (REF) | payer MEDICARE, SELFPAY ==
--- OUTSIDE RECORDS SUMMARY | 2024-06-21 12:21 | XMS_ITS | Encounter Summary ---
Author Organization [facility] Address [address] [place] [address] Phone Care Team Providers Care Child Adolescent Care Name Role Phone Junior Artis MD Primary Care Provider Reason for Visit * Reason Comments Med Refill Encounter Details Date Type Department Care Team (Late st Contact Info) Description 10/05/2022 Refill [facility] [address] [place] [address] Santy Jonas MD Social History Tobacco Use Types Packs/Day Years Used Date Smoking Tobacco: Never Smokeless Tobacco: Never Alcohol Use Standard Drinks/Week Comments Yes 0 (1 standard drink = 0.6 oz pure alcohol) Alcoholic Drinks/day: Occasional social drink Sex and Gender Information Value Date Recorded Sex Assigned at Not on file Legal Sex Male 5:06 PM EST Gender Identity Not on file Sexual Orientation Not on file documented as of this encounter Plan of Treatment Not on file documented as of this encounter Visit Diagnoses Not on filedocumented in this encounter Care Teams Child Adolescent Care Relationship Specialty Start Date End Date Junior Artis MD [address] [place], [place] PCP - General Internal Medicine 09/10/20 documented as of this encounter
--- OUTSIDE RECORDS SUMMARY | 2024-06-21 12:21 | XMS_ITS | Encounter Summary ---
Author Organization [facility] Address [address] [place] [address] Care Team Providers Care Loftsman Name Role Phone Jb Artis MD Primary Care Provider [phone] Encounter Details Date Type Department Care Team (Late st Contact Info) Description 11/15/2021 Erroneous Encounter [facility] [address] [place] [address] Provider, MD Madeline Social History Tobacco Use Types Packs/Day Years Used Date Smoking Tobacco: Never Smokeless Tobacco: Never Sex and Gender Information Value Date Recorded Sex Assigned at Not on file Gender Identity Not on file Sexual Orientation Not on file documented as of this encounter Plan of Treatment Not on file documented as of this encounter Visit Diagnoses Not on filedocumented in this encounter Care Teams Loftsman Relationship Specialty Start Date End Date Jb Artis MD [address] [place] [address] PCP - General Internal Medicine 11/29/21 documented as of this encounter
--- OUTSIDE RECORDS SUMMARY | 2024-06-21 12:21 | XMS_ITS | Clinical Summary ---
Author Organization [facility] Address [address] [facility] [address] [address] [place] [address] Phone Care Team Providers Care Financial Coordinator Name Role Phone Junior Artis MD Primary Care Provider Allergies Active Allergy Reactions Criticality Noted Date Comments Lisinopril Other (see comments) Medium 09/22/2018 Macrolides And Ketolides Other (see comments) 0 09/05/2020 Medications atorvastatin (LIPITOR) 80 MG tablet Take 1 tablet by mouth 1 (one) time each day Active clopidogrel (PLAVIX) 75 MG tablet Take 1 tablet by mouth 1 (one) time each day 07/07/2019 Active fenofibrate (TRICOR) 54 MG tablet Take 1 tablet by mouth 1 (one) time each day Active Multiple Vitamin (Thera) tablet Take 1 tablet by mouth daily Active nitroglycerin (NITROSTAT) 0.[address] 1 tablet (0.4 mg total) under the tongue every 5 (five) minutes if needed for chest pain 90 tablet 3 12/17/2020 Active apixaban (ELIQUIS) 2.5 MG tablet Take 2.5 mg by mouth in the morning and 2.5 mg in the evening. Active carvedilol (COREG) 12.5 MG tablet Take 12.5 mg by mouth in the morning and 12.5 mg in the evening. Take with meals. Active furosemide (LASIX) 20 MG tablet Take 20 mg by mouth every other day Active famotidine (PEPCID) 20 MG tablet Take 20 mg by mouth in the morning and 20 mg in the evening. Active omeprazole (PriLOSEC) [address] capsule Take 20 mg by mouth in the morning and 20 mg in the evening. 02/01/2022 Active ergocalciferol 1.25 MG (97968 UT) capsule TAKE 1 CAPSULE BY MOUTH EVERY MONTH 4 capsule 11 10/06/2022 Active isosorbide mononitrate (IMDUR) 60 MG 24 hr tablet Take 120 mg by mouth 1 (one) time each day Do not crush or chew. Active doxazosin (CARDURA) 8 MG tablet Take 8 mg by mouth every night Active hydrALAZINE 50 MG tablet Take 50 mg by mouth in the morning and 50 mg in the evening and 50 mg before bedtime. Active ferrous sulfate 325 (65 Fe) MG tablet Take 325 mg by mouth in the morning and 325 mg in the evening. Active Hospital, Clinic, or Other Facility Administered Medication Ordered Dose Route Frequency Start Date End Date Status Epoetin Lizet-epbx solution 30,000 UnitsIndications:Anemia in chronic kidney disease,Chronic kidney disease stage 4 (HCC),Hypertension 65757 Units IJ Every 14 days 02/21/2021 Ac tive epoetin lizet (EPOGEN,PROCRIT) injection 20,000 UnitsIndications:Anemia due to Renal Failure 73618 Units IV Every 14 days 03/19/2022 Active epoetin lizet (EPOGEN,PROCRIT) injection 30,000 UnitsIndications:Anemia due to Renal Failure 06790 Units IV Every 14 days 04/02/2022 Active epoetin lizet (EPOGEN,PROCRIT) injection 20,000 UnitsIndications:Anemia due to Renal Failure 99458 Units IV Every 14 days 05/01/2022 Active Epoetin Lizet-epbx solution 40,000 UnitsIndications:Chronic kidney disease stage 4 (HCC),Anemia in chronic kidney disease 17399 Units IJ Once 07/30/2022 Active Epoetin Lizet-epbx solution 20,000 UnitsIndications:Anemia in chronic kidney disease,Chronic kidney disease stage 4 (HCC) 65698 Units IJ Once 09/10/2022 Ac tive Epoetin Lizet-epbx solution 20,000 UnitsIndications:Chronic kidney disease, not otherwise specified,Anemia in chronic kidney disease 50867 Units IJ Once 12/08/2022 A ctive Active Problems Problem Noted Date Diagnosed Date 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 Vitamin D deficiency, not otherwise specified Anemia 06/21/2021 Hypertension 12/17/2020 Acute nontraumatic kidney injury 09/05/2020 Anemia in chronic kidney disease 09/05/2020 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 Chronic kidney disease stage 4 09/05/2020 Hyperkalemia 09/05/2020 Resolved Problems Problem Noted Date Diagnosed Date Resolved Date Acute myocardial infarction 06/21/2021 06/21/2021 Atrial fibrillation 06/21/2021 06/21/19 Cervical spondylosis 06/21/2021 022 Disorder of carotid artery 06/21/2021 0 06/21/2021 Family history of cancer of colon 06/21/2021 06/21/2021 Hiatal hernia with gastroesophageal reflux 06/21/2021 06/21/2021 Lacunar infarction 06/21/2021 Lumbago 06/21/2021 06/21/2021 Peptic ulcer 06/21/2021 06/21/2021 Tonsillectomy and adenoidectomy 06/21/2021 06/21/2021 Total replacement of hip 06/21/202103/2022 Biliary calculus 04/05/2019 06/21/2021 Diastolic heart failure 11/15/201206/11 Minimal change disease 07/24/201106/21 Hyperlipidemia 05/17/2007 06/21/2021 Immunizations Name Administration Dates Next Due Influenza Whole 02/20/2019,02/27/2009,05/17/2007 ,04/17/2006 Moderna SARS-COV-2 08/28/2021 Pfizer SARS-COV-2 02/26/2021,08/07/2020,07/19/19 21,06/18/2020 Pneumococcal Conjugate 13-Valent 01/03/2015 Pneumococcal Polysaccharide 08/05/2013, 7,06/27/1997 Td, Unspecified 09/29/2008,02/22/1999 Tdap 11/15/2012 Zoster 09/06/2009 Family History Medical History Relation Comments Cancer Mother Hypertension Mother Hypertension Sibling 1 Cancer Sibling 2 Relation Status Comments Father Mother Sibling 1 Sibling 2 Social History Tobacco Use Types Packs/Day Years Used Date Smoking Tobacco: Never Smokeless Tobacco: Never Tobacco Cessation:Counseling Given: Not Answered Alcohol Use Standard Drinks/Week Comments Yes 0 (1 standard drink = 0.6 oz pure alcohol) Alcoholic Drinks/day: Occasional social drink Sex and Gender Information Value Date Recorded Sex Assigned at Not on file Legal Sex Male 5:06 PM EST Gender Identity Not on file Sexual Orientation Not on file Last Filed Vital Signs Vital Sign Reading Time Taken Comments Blood Pressure 128/52 03/03/2023 3:24 PM EDT Pulse 67 01/01/2023 2:22 PM EDT Temperature - - Respiratory Rate - - Oxygen Saturation 98% 04/02/2022 12:52 PM EST Inhaled Oxygen Concentration - - Weight 73.7 kg (162 lb 6.4 oz) 01/01/2023 2:22 P M EDT Height 175.3 cm (5' 9 ) 03/18/2021 3:45 PM EST Body Mass Index 23.98 03/18/2021 3:45 PM EST Plan of Treatment Health Maintenance Due Date Last Done Comments Influenza Vaccine (#1) 2024 9, 02/27/2009, 05/17/2007, Additional history exists Pneumococcal Vaccine: 65+ Years Completed 01/03/2015, 08/05/2013, 05/18/2006, Additional history exists Hepatitis B Vaccine Aged Out No longe r eligible based on patient's age to complete this topic [place] [address] [place] [address] Care Teams Financial Coordinator Relationship Specialty Start Date End Date Junior Artis MD [facility] [place], [place] PCP - General Internal Medicine 09/10/20
--- OUTSIDE RECORDS SUMMARY | 2024-06-21 12:21 | XMS_ITS | Encounter Summary ---
Author Organization [facility] Address [address] [place] [address] Phone Care Team Providers Care Heat Treater Name Role Phone Junior Artis MD Primary Care Provider Reason for Visit * Reason Comments Med Refill Encounter Details Date Type Department Care Team (Late st Contact Info) Description 11/30/2022 Refill [facility] [address] [place] [address] Santy Jonas MD Social History [...] on filedocumented in this encounter Care Teams Heat Treater Relationship Specialty Start Date End Date Junior Artis MD [address] [place], [place] PCP - General Internal Medicine 09/10/20 documented as of this encounter
--- OUTSIDE RECORDS SUMMARY | 2024-06-21 12:21 | XMS_ITS | Clinical Summary ---
Author Organization [facility] Address [address] [place] [address] Care Team Providers Care Supervisor Home Restoration Service Name Role Phone Jb Artis MD Primary Care Provider + [phone] Allergies Active Allergy Reactions Criticality Noted Date Comments Lisinopril Unknown/Patient and Family Unable to Define Medium 09/22/2018 Medications Medication Sig Dispensed Refills Start Date End Date Status doxazosin (CARDURA) 8 MG tablet 05/30/2019 Active ergocalciferol (VITAMIN D2,DRISDOL) 16657 units Cap Take 50,000 Units by mouth every 30 days (once a month). 06/09/2019 Active furosemide (LASIX) 40 MG tablet TK 1 T PO QD 07/07/2019 Active isosorbide mononitrate (IMDUR) 30 MG 24 hr tablet Take 90 mg by mouth daily. 06/30/2019 Active OMEprazole (PriLOSEC) 20 MG capsule Take 20 mg by mouth 2 (two) times a day. 07/07/2019 Active aspirin enteric coated (ECOTRIN LOW STRENGTH) 81 MG EC tablet Take 81 mg by mouth daily. Active metroNIDAZOLE (METROCREAM) 0.75 % cream Apply topically 2 (two) times a day. Active multivitamin Tab tablet Take 1 tablet by mouth daily. Active nitroglycerin (NITROSTAT) 0.[address] 0.4 mg under the tongue every 5 (five) minutes as needed for chest pain. Active atorvastatin (LIPITOR) 80 MG tablet Take 80 mg by mouth daily. 04/25/2020 Active hydrALAZINE (APRESOLINE) 100 MG tablet Take 100 mg by mouth 3 (three) times a day. 04/25/2020 Active chlorthalidone (HYGROTON) 25 MG tablet Take 25 mg by mouth daily. 04/17/2020 Active fenofibrate (LOFIBRA) 54 MG tablet Take 54 mg by mouth daily. 03/05/2020 Active apixaban (ELIQUIS) 2.5 MG tablet Take 2.5 mg by mouth. 07/05/2021 Active carvedilol (COREG) 12.5 MG tablet Take 12.5 mg by mouth. 06/04/2021 Active ferrous sulfate 325 (65 FE) MG tablet Take 1 tablet by mouth 2 (two) times a day. 03/26/2021 Active famotidine (PEPCID) 20 MG tabletIndications:Na usea TAKE 1 TABLET(20 MG) BY MOUTH TWICE DAILY 180 tablet 03/17/2024 Active Active Problems No known active problems Social History Tobacco Use Types Packs/Day Years Used Date Smoking Tobacco: Never Smokeless Tobacco: Never Sex and Gender Information Value Date Recorded Sex Assigned at Not on file Gender Identity Not on file Sexual Orientation Not on file Last Filed Vital Signs Vital Sign Reading Time Taken Comments Blood Pressure 122/60 12/18/2021 1:02 PM EDT Pulse - - Temperature 37.1 ??C (98.7 ??F) 12/18/2021 1:02 PM ED T Respiratory Rate - - Oxygen Saturation - - Inhaled Oxygen Concentration - - Weight 68 kg (150 lb) 12/18/2021 1:02 PM EDT Height 175.3 cm (5' 9 ) 12/18/2021 1:02 PM EDT Body Mass Index 22.15 12/18/2021 1:02 PM EDT Plan of Treatment Health Maintenance Due Date Last Done Comments DTaP/Tdap/Td Vaccines (1 - Tdap) 11/28/1954 Pneumococcal Vaccines 50+ (1 of 1 - PCV) 11/28/1985 Zoster (Shingles) Vaccine (1 of 2) 11/28/1985 RSV Vaccine 60 years and older and Patients (1 - 1-dose 75+ series) 11/28/2010 Influenza Vaccine 12/10/2023 02/14/2021, , 02/20/2019, Additional history exists COVID-19 Vaccine ( - season) 2024 08/28/2021, 02/26/2021, 08/07/2020, Additional history exists Hepatitis B Vaccines Aged Out No long er eligible based on patient's age to complete this topic Care Teams Supervisor Home Restoration Service Relationship Specialty Start Date End Date Jb Artis MD [address] [place] [address] PCP - General Internal Medicine 11/29/21
--- OUTSIDE RECORDS SUMMARY | 2024-06-21 12:21 | XMS_ITS | Encounter Summary ---
Author Organization [facility] Address [address] [place] [address] Care Team Providers Care Tube Mounter Name Role Phone Jb Artis MD Primary Care Provider + [phone] Encounter Details Date Type Department Care Team (Late st Contact Info) Description 12/06/2021 Scanned Document [facility] [address] [place] [address] Melinda Becerril PA [address] [facility] [address] [place] [address] Social History Tobacco Use Types Packs/Day Years Used Date Smoking Tobacco: Never Smokeless Tobacco: Never Sex and Gender Information Value Date Recorded Sex Assigned at Not on file Gender Identity Not on file Sexual Orientation Not on file COVID-19 Exposure Response Date Recorded In the last 10 days, have yo u been in contact with someone who was confirmed or suspected to have Coronavirus/COVID-19? No / Unsure 12/03/2021 8:03 AM EDT documented as of this encounter Plan of Treatment Not on file documented as of this encounter Visit Diagnoses Not on filedocumented in this encounter Care Teams Tube Mounter Relationship Specialty Start Date End Date Jb Artis MD [address] [place] [address] PCP - General Internal Medicine 11/29/21 documented as of this encounter
--- OUTSIDE RECORDS SUMMARY | 2024-06-21 12:21 | XMS_ITS | Clinical Summary ---
Author Organization [facility] Address [address] [place] [address] Care Team Providers Care It Intern Name Role Phone Junior Artis MD Primary Care Provider [phone] Allergies Active Allergy Reactions Criticality Noted Date Comments Azithromycin Diarrhea,GI intolerance 10/02/2020 Other reaction(s): diarrhea and upset stomach Lisinopril Swelling 10/02/2020 Other reaction(s): swelling of face Medications atorvastatin (LIPITOR) 80 mg tablet Take 1 tablet by mouth daily. Active carvediloL (COREG) 12.5 mg tablet Take 1 Tablet by mouth 2 times daily (with meals). 02/16/2024 Active clopidogreL (PLAVIX) 75 mg tablet Take 1 Tablet by mouth daily. Active doxazosin (CARDURA) 8 mg tablet Take 8 mg by mouth at bedtime. Active epoetin lizet (Epogen) 20,000 unit/2 mL injection Inject 10,000 Units into the skin every 14 days. As needed Active ergocalciferol (VITAMIN D-2) 1,250 mcg (50,000 unit) capsule Take 50,000 Units by mouth every 30 days. Active famotidine (PEPCID) 20 mg tablet Take 20 mg by mouth 2 times daily. Active fenofibrate (LOFIBRA) 54 mg tablet Take 1 tablet by mouth daily. Active ferrous sulfate 325 mg (65 mg elemental iron) tablet Take 325 mg by mouth daily. Active furosemide (LASIX) 40 mg tablet Take 0.5 Tablets by mouth daily. Active hydrALAZINE (APRESOLINE) 50 mg tablet Take 50 mg by mouth 3 times daily. Active isosorbide mononitrate (IMDUR) 120 mg 24 hr tablet Take 1 tablet by mouth daily. Active nitroglycerin (NITROSTAT) 0.[address] 1 tablet under the tongue every 5 minutes as needed. Active omeprazole (PRILOSEC) 20 mg tablet,delayed release (DR/EC) Take 1 tablet by mouth 2 times daily. Active MULTIVITAMIN ORAL Take 1 tablet by mouth daily. Active apixaban (ELIQUIS) 2.5 mg tablet Take 1 tablet (2.5 mg total) by mouth 2 (two) times a day. 180 tablet 1 05/12/2024 Active Active Problems Problem Noted Date Diagnosed Date Atrial fibrillation 07/01/2021 Overview (04/26/2024): Last Assessment & Plan: Patient has atrial fibrillation which is relatively well rate controlled on his present dose of carvedilol. He has been on renally dosed Eliquis 2.5 mg twice a day. He denies any overt bleeding however he has had difficulties with anemia for quite some time. He states that he had an endoscopy and colonoscopy approximately 1 year ago and no evidence of bleeding was identified. He has remained on Eliquis 2.5 mg twice a day. If he continues to have significant trouble with anemia we could consider the possibility of a left atrial appendage occlusion device. CAD (coronary artery disease) 07/01/2021 Overview (04/26/2024): Last Assessment & Plan: Patient has history of coronary artery disease, he had PCI 1996. He has no signs or symptoms of unstable angina at this time. He will continue on his beta-nadeem and statin. He had been on Plavix with his Eliquis but with his history of anemia he has been on Eliquis only. We will continue to monitor. HLD (hyperlipidemia) 07/01/2021 Overview (04/26/2024): Last Assessment & Plan: Patient continues on atorvastatin 80 mg once a day. Goal LDL is less than 70. Bilateral carotid artery stenosis 10/02/2020 Overview (04/26/2024): 07/14/19 - Carotid US 50-69% stenosis in bilateral carotid arteries Last Assessment & Plan: He does have bilateral carotid artery stenosis. We will continue him on his current medications. He is asymptomatic from these. We will continue to monitor for any symptoms. There is no indication at this time for intervention on these. Essential hypertension 10/02/2020 Overview (04/26/2024): Last Assessment & Plan: His blood pressure is under good control. Again he is doing well on hydralazine and Coreg. He will continue on these. He will continue to work on diet and exercise. We did discuss exercises that he can do to improve his strength and his balance as well. History of [place] (myocardial infarction) 10/02/2020 Overview (04/26/2024): 1996 -Cath and stent Last Assessment & Plan: Patient has history of coronary artery disease with history of PCI in 1996. He denies any exertional anginal symptoms at this time. Patient had a dobutamine stress echo completed 12/2021. He will continue on cardioprotective medical therapy with Plavix, carvedilol and atorvastatin. I have reviewed with the patient the importance of a heart healthy lifestyle which includes eating a low-fat low-salt diet, getting regular exercise, maintaining a healthy weight, not smoking, and following up with routine medical care. Unspecified diastolic (congestive) heart failure 10/02/2020 Overview (04/26/2024): 10/25/19 ECHO EF = 50-55% Last Assessment & Plan: Patient has history of diastolic heart failure with history of leg edema in the past. He is doing well on his present dose of furosemide 40 mg once a day. He does have an elevated creatinine of about 3.2 on most recent lab work available for my review. He follows closely with nephrology. He has issues with anemia and is on Procrit injections. He denies any clinical symptoms of heart failure and appears euvolemic on examination today. Encounters Date Type Department Care Team Description 05/12/2024 Telephone [facility] [address] [place] [address] Blaire Crowell NP Med Refill from Last 3 Months Surgical History Surgery Date Site/Laterality Comments HIP ARTHROPLASTY Bilateral PROCEDURE: HISTORICAL HIP REPLACEMENT TONSILLECTOMY PROCEDURE: HISTORICAL TONSILLECTOMY ADENOIDECTOMY PROCEDURE: HISTORICAL ADENOIDECTOMY Medical History Medical History Date Comments Peptic ulcer disease DX:Peptic u lcer disease GERD (gastroesophageal reflux disease) DX:GERD (gastroesophageal reflux disease) Arthritis DX:Arthritis Anemia DX:Anemia Cervical osteoarthritis DX:Cervi ary osteoarthritis Cholelithiasis DX:Cholelithiasi s Hiatal hernia DX:Hiatal hernia Lacunar infarction (CMS/HCC) DX: Lacunar infarction (HCC); COMMENT: silent on left Low back pain DX:Low back pain Family history of colon cancer D X:Family history of colon cancer History of total hip replace ment, bilateral DX:History of total hip repl acement, bilateral Family History Medical History Relation Name Comments Abdominal Aortic Anuerysm (AAA) Brother Colon cancer Other Relation Name Status Comments Brother Other Social History Tobacco Use Types Packs/Day Years Used Date Smoking Tobacco: Never Smokeless Tobacco: Never Alcohol Use Standard Drinks/Week Comments Never 0 (1 standard drink = 0.6 oz pur e alcohol) Sex and Gender Information Value Date Recorded Sex Assigned at Not on file Legal Sex Male 11:33 PM EST Gender Identity Not on file Sexual Orientation Not on file Obstetrics History Last Filed Vital Signs Vital Sign Reading Time Taken Comments Blood Pressure 128/52 12/03/2023 10:39 AM EDT Si tting L Arm Pulse 77 12/03/2023 10:39 AM EDT Temperature - - Respiratory Rate - - Oxygen Saturation - - Inhaled Oxygen Concentration - - Weight 71.2 kg (157 lb) 12/03/2023 10:39 AM EDT Height 175.3 cm (5' 9 ) 12/03/2023 10:39 AM EDT Body Mass Index 23.18 12/03/2023 10:39 AM EDT Plan of Treatment Upcoming Encounters Date Type Department Care Team (Late st Contact Info) Description 08/22/2024 2:10 PM EDT Office Visit [facility] [address] [facility] [address] [phone] Blaire Crowell NP [address] [place] [address] [place] [address] Health Maintenance Due Date Last Done Comments DTaP,Tdap,and Td Vaccines (1 - Tdap) 11/28/1942 Pneumococcal Vaccine: 50+ Ye ars (1 of 2 - PCV) 11/28/1954 Zoster Vaccines (1 of 2) 11/28/1985 RSV Immunization Patients 60 + Years Old (1 - 1-dose 75+ series) 11/28/2010 Cholesterol Screening (Lipid Panel) 04/13/2022 Depression Screening 04/13/2022 Falls Risk Assessment 04/13/2022 Medicare Annual Wellness Visit 04/13/2022 Social Influencers of Health Screening 04/13/2022 Hypertension/CHF/CAD Annual BMP Blood Test 04/19/2022 COVID-19 Vaccine (1 - 2023-2 5 season) 2024 Influenza Vaccine (#1) 2024 HIB Vaccines Aged Out No longer eligi ble based on patient's age to complete this topic HPV Vaccines Aged Out No longer eligi ble based on patient's age to complete this topic Hepatitis A Vaccines Aged Out No long er eligible based on patient's age to complete this topic Hepatitis B Vaccines Aged Out No long er eligible based on patient's age to complete this topic IPV Vaccines Aged Out No longer eligi ble based on patient's age to complete this topic MMR Vaccines Aged Out No longer eligi ble based on patient's age to complete this topic Meningococcal ACWY Vaccine Aged Out N o longer eligible based on patient's age to complete this topic Meningococcal B Vacine Aged Out No lo nger eligible based on patient's age to complete this topic RSV Immunization Patients Un eloise 20 months Aged Out No longer eligible b ased on patient's age to complete this topic Varicella Vaccines Aged Out No longer eligible based on patient's age to complete this topic Insurance [employer] Care Teams It Intern Relationship Specialty Start Date End Date Junior Artis MD [facility] [place] [phone] PCP - General 06/17/19
--- OUTSIDE RECORDS SUMMARY | 2024-06-21 12:21 | XMS_ITS | Encounter Summary ---
Author Organization [facility] Address [address] [place] [address] Care Team Providers Care Eyelet Maker Name Role Phone Jb Artis MD Primary Care Provider [phone] Encounter Details Date Type Department Care Team (Late st Contact Info) Description 01/20/2022 Scanned Document [facility] [address] [place] [phone] Melinda Becerril PA [address] [facility] [address] [place] [address] Social History Tobacco Use Types Packs/Day Years [...] on filedocumented in this encounter Care Teams Eyelet Maker Relationship Specialty Start Date End Date Jb Artis MD [address] [place] [address] PCP - General Internal Medicine 11/29/21 documented as of this encounter
--- OUTSIDE RECORDS SUMMARY | 2024-06-21 12:22 | XMS_ITS | Data Portability ---
Author Organization [place] [facility] Address [address] [address] Care Team Providers Care Gaming Table Operator Name Role Phone TAIROD FLOWERS Primary Care Provider [phone] Assessment Encounter Date Assessment Date Assessment LastModified [...] update HT and complete paperwork to order. 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 [...] Name and Address Organization Details Recorded Time 87910 Zithromax medicatio n other Not available Not available 09/22/202319637 4 RxNorm React ion: Unkno wn; Not Available [facility] 4 00:48:42 39827 lisinopri l medicatio n other Not available Not available 09/22/2023 73573 RxNorm React ion: Unkno wn; Not Available [facility] 4 00:48:46 Medications Name Sig Start Date [...] release 24 hr active Medicati on ID: [id number] B rand Name: metoprol ol succinat e [...] mcg tablet 2023 active Medicati on ID: 649717 B rand Name: Thera Se nd Method: [...] mg tablet 03/01 completed Medicati on ID: 123567 B rand Name: hydralaz ine Send Method: E-Prescr ibed Sub s Allowed: subs OK Medic ationGen ericName : hydralaz ine Not Available Not Available Not Available nitroglyc roger 0.4 mg sublingua l tablet active Not Available Not Available Not Available omeprazol e 20 mg capsule,d elayed release 03/01 completed Medicati on ID: [id number] B rand Name: omeprazo le Send Method: E-Prescr ibed Sub s Allowed: subs OK Speci al Instruct ion: take 1 capsule by mouth twice a day Medi cationGe nericNam e: omeprazo le Not Available Not Available Not Available aspirin 81 mg chewable tablet active Medicati on ID: 668206 B rand Name: aspirin Send Method: E-Prescr [...] mg iron) tablet active Medicati on ID: 663064 B rand Name: FeroSul Send Method: E-Prescr ibed Sub s Allowed: subs [place] [facility] FeroSul Not Available Not Available Not Available fenofibra te 54 mg tablet TAKE 1 TABLET BY MOUTH DAILY active Not Available Not Available No t Available Vitals None Recorded Social History None recorded. Functional Status None recorded. Mental Status None recorded. Family History Nothing Reported. Medical History Condition Response Anemia Y High Cholesterol Y GERD/Reflux Y Heart Attack (MD) Y Cancer Y Hypertension Y Past Encounters Encounter ID Performer Location Encounter Start Date Encounter Closed Date Diagnosis/Indication Diagnosis SNOMED-CT Code Diagnosis ICD10 Code Diagnosis Note [id number] [facility] [place] [address] [place] [address] [address] 10/29/2023 09:42:53 10/30/2023 11:32:39 Mixed conductive and sensorineural hearing loss, bilateral 051519383 H90.6 [id number] DEV BRICE MD [facility] [address] [address] 03/01/2024 10:50:40 03/01/2024 11:31:11 Disorder of right Eustachian tube 9416067366 312146 H69.81 Right-side d T-tube remains in good position and patent with some peripheral crusting. Follow-up with PA in 6 months. Sensorineu ral hearing loss of bilateral ears 121081975 H90.3 Patient still remains a good candidate [...] Mccullough Member ID Guarantor Name 10/29/2023 1 [facility] [id number] 4 Alireza Kyle [id number] Alireza Kyle 03/01/2024 1 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 Was cleared for amplification by Dr Brice. NAVARRO AIKEN, AUD [address], [address], [place] - [facility] 10/29/2023 10:52:09 03/01/2024 text/html Patient with [...] by his . DEV BRICE MD [address], [address], [place] - [facility] 03/01/2024 11:31:24
[2024-06-21 18:15] LABS: MANUAL DIFF FLAG NO
[2024-06-21 18:48] LABS: Anion Gap 11 (12-20); Basophils Percent Auto 0.5 % (0-2); Blood Urea Nitrogen 73 mg/dL (9-16); Carbon Dioxide 21 mmol/L (22-29); Chloride 114 mmol/L (96-108); Eosinophils Absolute Auto 0.1 X10*3/uL (0.0-0.4); Eosinophils Percent Auto 2.2 % (0-4); Estimated Glomerular Filt Rate 19; Hematocrit 28.1 % (42.0-52.0); Imm Gran Abs Auto 0.03 X10*3/uL (0.00-0.03); Imm Gran Pct Auto 0.5 % (0.0-0.4); Iron 86 mcg/dL (45-160); Lymphocytes Absolute Auto 1.3 X10*3/uL (1.2-4.9); Lymphocytes Percent Auto 21.8 % (20-40); Mean Corpuscular Hemoglobin 31.7 pg (27.0-33.0); Mean Corpuscular Volume 98.9 fL (80.0-98.0); Mean Platelet Volume 10.5 fL (9.4-12.4); Monocytes Absolute Auto 0.5 X10*3/uL (0.1-1.2); Percent Iron Saturation 37 % (15-50); Platelet Count 238 X10*3/uL (160-400); Potassium 3.9 mmol/L (3.3-5.1); Red Blood Count 2.84 X10*6/uL (4.60-5.80); Red Cell Distribution Width 15.4 % (11.0-16.0); Sodium 142 mmol/L (135-145); Total Iron Binding Capacity 232 mcg/dL (228-428); Unsaturated Iron Binding 146 ug/dL
[2024-06-21 18:53] LABS: Ferritin 463 ng/mL (20-250)
== END 2024-06-21 10:57 | disposition home or self-care (01) ==
LOC: HO.HKASLDS 10:56
PROVIDERS: Visit Provider Internal Medicine Nephrology
DX: N18.4 Chronic kidney disease, stage 4 (severe) (principal); I10 Essential (primary) hypertension; D63.1 Anemia in chronic kidney disease
CPT/HCPCS: 36415; 80051; 82565; 82728; 83540; 84520; 85025

== ENCOUNTER 2024-06-23 13:38 | Outpatient (AMB) | payer MEDICARE, SELFPAY ==
--- NOTE | 2024-06-23 13:46 | HO.NEPHOV_ITS ---
Vital Signs 06/23/24 13:48 Height 5 ft 9 in Weight 158 lb 4 oz BMI 23.4 BP 130/60 Blood Pressure Location Lt brachial Position Sitting Pulse 64 Pulse Source Pulse Oximeter Pulse Oximetry (%) 98 Oxygen Delivery Method Room Air Intake Visit Reasons: 1mon follow-up/ Conf [employer] Clippings Required: No Accompanied by: Spouse Allergies lisinopril Allergy (Verified 06/23/24 13:48) Unknown Macrolides and Ketolides Allergy (Uncoded 03/18/23 13:49) Unknown HPI Comments Details: Alireza Kyle was seen in the office, accompanied by his Jane, in follow- up of his chronic kidney disease and management of his anemia. 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 He has hypertension which is well controlled. He has anemia chronic disease for which he had been getting Procrit . He denies taking any nonsteroidal anti- inflammatory medications. He does not have any chest pain, shortness of breath, nausea vomiting, diarrhea, orthostatic symptoms, edema. His serum creatinine is stable at baseline. He does not feel tired. His appetite is better. [facility] Medical History Proteinuria Hypertension Anemia in chronic kidney disease Chronic kidney disease, stage 4 (severe) Family History Mother Cancer Child No Financial Resp Cancer Social History Alcohol intake: never Patient Tobacco Use Status: Never used Tobacco Review of Systems Const All systems reviewed & are unremarkable except as noted in HPI and below Physical Exam Vital Signs: Last Vital Signs Pulse 64 06/23/24 13:48 BP 130/60 06/23/24 13:48 Pulse Ox 98 06/23/24 13:48 Oxygen Delivery Method Room Air 06/23/24 13:48 BMI result Body Mass Index 23.4 Const General: comfortable and no acute distress Orientation/consciousness: patient oriented x3 HEENT Head: Yes normocephalic Mouth: Normal oral and palatal mucosa present Eyes EOM: EOMs intact bilaterally Neck Neck: Yes supple Resp Auscultation: clear to auscultation bilaterally Cardio Jugular venous distension: no JVD Rate: regular rate GI Palpation (GI): Soft to palpation Auscultation: normal bowel sounds General: Yes no CVA tenderness Back/Spine/Pelvis Back: no CVA tenderness Skin General skin exam: no rashes or lesions noted Neuro General: patient oriented x3 and moves all extremities Extrem General: Yes no pedal edema Office Meds epoetin lizet-epbx 10,000 unit/mL injection solution Performing Provider: Santy Jonas MD Performing Location: [facility] Administered by: Santy Jonas MD on 06/23/24 13:57 Dose Route Admin Location Dispensed Lot Number Expiration Date [facility] Animal Treatment Investigator 40,000 unit subcut LUE 4 mL [id number] 09/08/25 1397-3919-64 [employer] Results Reviewed Nephrology Results: Hgb 9.0 g/dl (14.0-18.0) L 06/21/24 WBC 6.0 X10*3/uL (4.8-10.8) 06/21/24 Plt Count 238 X10*3/uL (160-400) 06/21/24 Sodium 142 mmol/L (135-145) 06/21/24 Potassium 3.9 mmol/L (3.3-5.1) 06/21/24 Chloride 114 mmol/L (96-108) H 06/21/24 Carbon Dioxide 21 mmol/L (22-29) L 06/21/24 BUN 73 mg/dL (9-16) H 06/21/24 Creatinine 3.09 mg/dL (0.5-1.4) H 06/21/24 Assessment & Plan Assessment & Plan (1) Anemia in chronic kidney disease: Code(s): N18.9 - Chronic kidney disease, unspecified; D63.1 - Anemia in chronic kidney disease Category: Medical Qualifiers: Chronic kidney disease stage: stage 4 (severe) Qualified Code(s): N18.4 - Chronic kidney disease, stage 4 (severe); D63.1 - Anemia in chronic kidney d isease (2) Chronic kidney disease, stage 4 (severe): Code(s): N18.4 - Chronic kidney disease, stage 4 (severe) Category: Medical (3) Hypertension: Code(s): I10 - Essential (primary) hypertension Category: Medical Qualifiers: Hypertension type: primary hypertension Qualified Code(s): I10 - Essential (primary) hypertension Plan Alireza has history of minimal change disease with nephrotic syndrome. He had been on losartan which has been put on hold for a long time. He can continue on his current dose of diuretics. His renal function is close to baseline. I administered 08475 Units Procrit in my office today. I did not make any other medication changes. 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
--- OUTSIDE RECORDS SUMMARY | 2024-06-23 13:47 | XMS_ITS | Encounter Summary ---
Author Organization [facility] Address [address] [place] [address] Care Team Providers Care Svp Name Role Phone Jb Artis MD Primary Care Provider [phone] Encounter Details Date Type Department Care Team (Late st Contact Info) Description 01/20/2022 Scanned Document [facility] [address] [place] [address] Melinda Becerril PA [address] [facility] [address] [place] [address] Social History Tobacco Use Types Packs/Day Years [...] on filedocumented in this encounter Care Teams Svp Relationship Specialty Start Date End Date Jb Artis MD [address] [place] [address] PCP - General Internal Medicine 11/29/21 documented as of this encounter
--- OUTSIDE RECORDS SUMMARY | 2024-06-23 13:47 | XMS_ITS | Encounter Summary ---
Author Organization [facility] Address [address] [place] [address] Care Team Providers Care Automobile Body Repair Supervisor Name Role Phone Jb Artis MD Primary Care Provider [phone] Encounter Details Date Type Department Care Team (Late st Contact Info) Description 11/15/2021 Erroneous Encounter [facility]PT [address] [place] [phone] Provider, MD Madeline Social History Tobacco Use [...] on filedocumented in this encounter Care Teams Automobile Body Repair Supervisor Relationship Specialty Start Date End Date Jb Artis MD [address] [place] [address] PCP - General Internal Medicine 11/29/21 documented as of this encounter
--- OUTSIDE RECORDS SUMMARY | 2024-06-23 13:47 | XMS_ITS | Encounter Summary ---
Author Organization [facility] Address [address] [place] [address] Phone Care Team Providers Care Spring Production Supervisor Name Role Phone Junior Artis MD Primary Care Provider Reason for Visit * Reason Comments Med Refill Encounter Details Date Type Department Care Team (Late st Contact Info) Description 10/05/2022 Refill [facility] [address] [place] [address] Santy Jonas MD Social History [...] on filedocumented in this encounter Care Teams Spring Production Supervisor Relationship Specialty Start Date End Date Junior Artis MD [address] [place], [place] PCP - General Internal Medicine 09/10/20 documented as of this encounter
--- OUTSIDE RECORDS SUMMARY | 2024-06-23 13:47 | XMS_ITS | Clinical Summary ---
Author Organization [facility] Address [address] [place] [address] Care Team Providers Care Envelope Stuffer Name Role Phone Junior Artis MD Primary Care Provider [phone] Allergies Active Allergy Reactions Criticality Noted Date [...] and his balance as well. History of [place] (myocardial infarction) 10/02/2020 Overview (04/26/2024): 1996 -Cath [...] Type Department Care Team Description 05/12/2024 Telephone [facility] [address] [facility] [address] [place] [address] Blaire Crowell NP Med Refill [...] Description 08/22/2024 2:10 PM EDT Office Visit [facility] [address] [phone] Blaire Crowell NP [address] [place] [address] [place] [address] Health Maintenance Due Date Last Done Comments [...] [employer] Care Teams Envelope Stuffer Relationship Specialty Start Date End Date Junior Artis MD [facility] [place] [phone] PCP - General 06/17/19
--- OUTSIDE RECORDS SUMMARY | 2024-06-23 13:47 | XMS_ITS | Encounter Summary ---
Author Organization [facility] Address [address] [place] [address] Care Team Providers Care Last Ironer Name Role Phone Jb Artis MD Primary Care Provider + [phone] Encounter Details Date Type Department Care Team (Late st Contact Info) Description 12/06/2021 Scanned Document [facility] [address] [place] [phone] Melinda Becerril PA [address] [facility] [address] [place] [address] Social History Tobacco Use Types Packs/Day Years [...] on filedocumented in this encounter Care Teams Last Ironer Relationship Specialty Start Date End Date Jb Artis MD [address] [place] [address] PCP - General Internal Medicine 11/29/21 documented as of this encounter
--- OUTSIDE RECORDS SUMMARY | 2024-06-23 13:47 | XMS_ITS | Encounter Summary ---
Author Organization [facility] Address [address] [place] [address] Phone Care Team Providers Care Certified Nursing Assistant Name Role Phone Junior Artis MD Primary Care Provider Reason for Visit * Reason Comments Med Refill Encounter Details Date Type Department Care Team (Late st Contact Info) Description 11/30/2022 Refill [facility] [address] [place] [address] Santy Jonas MD Social [...] on filedocumented in this encounter Care Teams Certified Nursing Assistant Relationship Specialty Start Date End Date Junior Artis MD [address] [place], [place] PCP - General Internal Medicine 09/10/20 documented as of this encounter
--- OUTSIDE RECORDS SUMMARY | 2024-06-23 13:47 | XMS_ITS | Clinical Summary ---
Author Organization [facility] Address [address] [facility] [address] [place] [address] Phone Care Team Providers Care Supervisor Model Making Name Role Phone Junior Artis MD Primary [...] the evening. 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 03840 Units IV Every 14 days 05/01/2022 Active Epoetin Lizet-epbx solution 40,000 UnitsIndications:Chronic kidney disease stage 4 (HCC),Anemia in chronic kidney disease 37442 Units IJ Once 07/30/2022 Active Epoetin Lizet-epbx solution 20,000 UnitsIndications:Anemia in chronic kidney disease,Chronic kidney disease stage 4 (HCC) 60711 Units IJ Once 09/10/2022 Ac tive Epoetin Lizet-epbx solution 20,000 UnitsIndications:Chronic kidney disease, not otherwise specified,Anemia in chronic kidney disease 16743 Units IJ Once 12/08/2022 A ctive Active [...] patient's age to complete this topic Insurance [place] [address] Care Teams Supervisor Model Making Relationship Specialty Start Date End Date Junior Artis MD [facility] [place], [place] PCP - General Internal Medicine 09/10/20
[2024-06-23 13:48] VITALS: BP 130/60; PULSE 64; O2SAT 98; BMI 23.4
--- OUTSIDE RECORDS SUMMARY | 2024-06-23 13:48 | XMS_ITS | Data Portability ---
Author Organization [place] - [facility] Address [address] [address] Care Team Providers Care Computing Consultant Name Role Phone TAIROD FLOWERS Primary Care [...] update HT and complete paperwork to order. 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 092955868 Active 2020 Chronic serous otitis media, right ear; Note: Date Diagnosed : 05/24/2020 10:11 AM (H65.21) Not Available [facility] 4 02:14:59 Sensorine ural hearing loss of bilateral ears 598249580 Active 2023 NAVARRO AIKEN, AUD [address] [address], [place], [address] , [facility] 4 10:46:20 Problem Notes None [...] Name and Address Organization Details Recorded Time 13043 Zithromax medicatio n other Not available Not available 09/22/202319637 4 RxNorm React ion: Unkno wn; Not Available [facility] 4 00:48:42 98493 lisinopri l medicatio n other Not available Not available 09/22/2023 02227 RxNorm React ion: Unkno wn; Not Available [facility] 4 00:48:46 Medications Name Sig [...] release 24 hr active Medicati on ID: [id number] B rand Name: metoprol ol succinat e [...] mcg tablet 2023 active Medicati on ID: 993931 B rand Name: Thera Se nd Method: [...] mg tablet 03/01 completed Medicati on ID: 282834 B rand Name: hydralaz ine Send Method: E-Prescr ibed Sub s Allowed: subs OK Medic ationGen ericName : hydralaz ine Not Available Not Available Not Available nitroglyc roger 0.4 mg sublingua l tablet active Not Available Not Available Not Available omeprazol e 20 mg capsule,d elayed release 03/01 completed Medicati on ID: [id number] B rand Name: omeprazo le Send Method: E-Prescr ibed Sub s Allowed: subs [place] Speci al Instruct ion: take 1 capsule by mouth twice a day Medi cationGe nericNam e: omeprazo le Not Available Not Available Not Available aspirin 81 mg chewable tablet active Medicati on ID: 451913 B rand Name: aspirin Send Method: E-Prescr [...] mg iron) tablet active Medicati on ID: 828709 B rand Name: FeroSul Send Method: E-Prescr ibed Sub s Allowed: subs [place] [facility] : FeroSul Not Available Not Available Not Available fenofibra te 54 mg tablet TAKE 1 TABLET BY MOUTH DAILY active Not Available Not Available No t Available Vitals None Recorded Social History None recorded. Functional Status None recorded. Mental Status None recorded. Family History Nothing Reported. Medical History Condition Response Anemia Y GERD/Reflux Y High Cholesterol Y Heart Attack ([place]) Y Cancer Y Hypertension Y Past Encounters Encounter ID Performer Location Encounter Start Date Encounter Closed Date Diagnosis/Indication Diagnosis SNOMED-CT Code Diagnosis ICD10 Code Diagnosis Note [id number] [facility] [place] [address] [place] [address] [address] 10/29/2023 09:42:53 10/30/2023 11:32:39 Mixed conductive and sensorineural hearing loss, bilateral 933463320 H90.6 [id number] DEV BRICE MD [facility] [address] [address] 03/01/2024 10:50:40 03/01/2024 11:31:11 Disorder of right Eustachian tube 0118259896 885583 H69.81 Right-side d T-tube remains in good position and patent with some peripheral crusting. Follow-up with PA in 6 months. 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 Was cleared for amplification by Dr Brice. NAVARRO AIKEN, AUD [address], [address], [place] - [facility] 10/29/2023 10:52:09 03/01/2024 text/html Patient [...] by his . DEV BRICE MD [address], [address], [place] - [facility] 03/01/2024 11:31:24
--- OUTSIDE RECORDS SUMMARY | 2024-06-23 13:48 | XMS_ITS | Clinical Summary ---
Author Organization [facility] Address [address] [place] [address] Care Team Providers Care Water Manager Name Role Phone Jb Artis MD Primary Care Provider + [phone] Allergies Active Allergy Reactions Criticality Noted Date Comments Lisinopril Unknown/Patient and Family Unable to Define Medium 09/22/2018 Medications Medication Sig Dispensed Refills Start Date End Date Status doxazosin (CARDURA) 8 MG tablet 05/30/2019 Active ergocalciferol (VITAMIN D2,DRISDOL) 64440 units Cap Take 50,000 Units by mouth [...] age to complete this topic Care Teams Water Manager Relationship Specialty Start Date End Date Jb Artis MD [address] [place] [address] PCP - General Internal Medicine 11/29/21
== END 2024-06-23 14:12 | disposition home or self-care (01) ==
PROVIDERS: PCP Internal Medicine; Visit Provider Internal Medicine Nephrology
DX: I12.9 Hypertensive chronic kidney disease with stage 1 through stage 4 chronic kidney disease, or unspecified chronic kidney disease (principal); N18.4 Chronic kidney disease, stage 4 (severe); D63.1 Anemia in chronic kidney disease
CPT/HCPCS: 99214

== ENCOUNTER → 2024-06-23 13:38 | Outpatient (BNVA) | payer MEDICARE, SELFPAY | PROVIDERS: PCP Internal Medicine; Visit Provider Internal Medicine Nephrology | DX: I12.9 Hypertensive chronic kidney disease with stage 1 through stage 4 chronic kidney disease, or unspecified chronic kidney disease (principal); N18.4 Chronic kidney disease, stage 4 (severe); D63.1 Anemia in chronic kidney disease | CPT/HCPCS: 96372; 99212; Q5106 ==

== ENCOUNTER 2024-07-21 11:33 | Outpatient (REF) | payer MEDICARE, SELFPAY ==
--- OUTSIDE RECORDS SUMMARY | 2024-07-21 15:01 | XMS_ITS | Encounter Summary ---
Author Organization [facility] Address [address] [place] [address] Care Team Providers Care Bus Inspector Name Role Phone Jb Artis MD Primary Care Provider [phone] Encounter Details Date Type Department Care Team (Late st Contact Info) Description 11/15/2021 Erroneous Encounter [facility] [address] [place] [phone] Provider, MD Madeline Social History Tobacco Use [...] on filedocumented in this encounter Care Teams Bus Inspector Relationship Specialty Start Date End Date Jb Artis MD [address] [place] [address] PCP - General Internal Medicine 11/29/21 documented as of this encounter
--- OUTSIDE RECORDS SUMMARY | 2024-07-21 15:01 | XMS_ITS | Encounter Summary ---
Author Organization [facility] Address [address] [place] [address] Care Team Providers Care Business Continuity Global Director Name Role Phone Jb Artis MD Primary Care Provider + [phone] Encounter Details Date Type Department Care Team (Late st Contact Info) Description 01/20/2022 Scanned Document [facility] [address] [place] [address] Melinda Becerril PA 85 [facility] [address] [place] [address] Social History Tobacco Use Types Packs/Day Years [...] on filedocumented in this encounter Care Teams Business Continuity Global Director Relationship Specialty Start Date End Date Jb Artis MD [address] [place] [address] PCP - General Internal Medicine 11/29/21 documented as of this encounter
--- OUTSIDE RECORDS SUMMARY | 2024-07-21 15:01 | XMS_ITS | Encounter Summary ---
Author Organization [facility] Address [address] [place] [address] Care Team Providers Care Melt House Supervisor Name Role Phone Jb Artis MD Primary Care Provider + [phone] Encounter Details Date Type Department Care Team (Late st Contact Info) Description 12/06/2021 Scanned Document [facility] [address] [place] [address] Melinda Becerril PA 85 [facility] [address] [place] [address] Social History Tobacco Use Types Packs/Day Years [...] on filedocumented in this encounter Care Teams Melt House Supervisor Relationship Specialty Start Date End Date Jb Artis MD [address] [place] [address] PCP - General Internal Medicine 11/29/21 documented as of this encounter
--- OUTSIDE RECORDS SUMMARY | 2024-07-21 15:01 | XMS_ITS | Clinical Summary ---
Author Organization [facility] Address [address] [place] [address] Care Team Providers Care Stenotype Operator Name Role Phone Jb Artis MD Primary Care Provider + [phone] Allergies Active Allergy Reactions Criticality Noted Date Comments Lisinopril Unknown/Patient and Family Unable to Define Medium 09/22/2018 Medications Medication Sig Dispensed Refills Start Date End Date Status doxazosin (CARDURA) 8 MG tablet 05/30/2019 Active ergocalciferol (VITAMIN D2,DRISDOL) 92007 units Cap Take 50,000 Units by mouth [...] age to complete this topic Care Teams Stenotype Operator Relationship Specialty Start Date End Date Jb Artis MD [address] [place] [address] PCP - General Internal Medicine 11/29/21
--- OUTSIDE RECORDS SUMMARY | 2024-07-21 15:01 | XMS_ITS | Data Portability ---
Author Organization [place] [facility] Address [address] [address] Care Team Providers Care Patient Care Nursing Assistant Name Role Phone TAIROD FLOWERS Primary Care [...] update HT and complete paperwork to order. 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 [...] Name and Address Organization Details Recorded Time 52499 Zithromax medicatio n other Not available Not available 09/22/202319637 4 RxNorm React ion: Unkno wn; Not Available [facility] 4 00:48:42 68685 lisinopri l medicatio n other Not available Not available 09/22/2023 55732 RxNorm React ion: Unkno wn; Not Available [facility] 4 00:48:46 Medications Name Sig Start [...] release 24 hr active Medicati on ID: [id number] B rand Name: metoprol ol succinat e [...] mcg tablet 2023 active Medicati on ID: 142475 B rand Name: Thera Se nd Method: [...] mg tablet 03/01 completed Medicati on ID: 391259 B rand Name: hydralaz ine Send Method: E-Prescr ibed Sub s Allowed: subs OK Medic ationGen ericName : hydralaz ine Not Available Not Available Not Available nitroglyc roger 0.4 mg sublingua l tablet active Not Available Not Available Not Available omeprazol e 20 mg capsule,d elayed release 03/01 completed Medicati on ID: 631870 B rand Name: omeprazo le Send Method: E-Prescr ibed Sub s Allowed: subs [place] Speci al Instruct ion: take 1 capsule by mouth twice a day Medi cationGe nericNam e: omeprazo le Not Available Not Available Not Available aspirin 81 mg chewable tablet active Medicati on ID: 030970 B rand Name: aspirin Send Method: E-Prescr [...] mg iron) tablet active Medicati on ID: 753665 B rand Name: FeroSul Send Method: E-Prescr ibed Sub s Allowed: subs [place] [facility] eric[facility] : FeroSul Not Available Not Available Not Available fenofibra te 54 mg tablet TAKE 1 TABLET BY MOUTH DAILY active Not Available Not Available No t Available Vitals None Recorded Social History None recorded. Functional Status None recorded. Mental Status None recorded. Family History Nothing Reported. Medical History Condition Response Anemia Y GERD/Reflux Y High Cholesterol Y Heart Attack ([place]) Y Cancer Y Hypertension Y Past Encounters Encounter ID Performer Location Encounter Start Date Encounter Closed Date Diagnosis/Indication Diagnosis SNOMED-CT Code Diagnosis ICD10 Code Diagnosis Note [id number] [facility] [place] [address] [place] [address] [address] 10/29/2023 09:42:53 10/30/2023 11:32:39 Mixed conductive and sensorineural hearing loss, bilateral 277963683 H90.6 [id number] DEV BRICE MD [facility] of [address] [address] 03/01/2024 10:50:40 03/01/2024 11:31:11 Disorder of right Eustachian tube 9606505328 251363 H69.81 Right-side d T-tube remains in good position and patent with some peripheral crusting. Follow-up with PA in 6 months. 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 Was cleared for amplification by Dr Brice. NAVARRO AIKEN, AUD [address], [address], [place] - [facility] 10/29/2023 10:52:09 03/01/2024 text/html Patient with [...] by his . DEV BRICE MD [address], [address], [place] - [facility] 03/01/2024 11:31:24
--- OUTSIDE RECORDS SUMMARY | 2024-07-21 15:01 | XMS_ITS | Clinical Summary ---
Author Organization [facility] Address [address] [facility] [address] [place] [address] Phone Care Team Providers Care Intensivist Name Role Phone Junior Artis MD Primary [...] the evening. 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 42993 Units IV Every 14 days 05/01/2022 Active Epoetin Lizet-epbx solution 40,000 UnitsIndications:Chronic kidney disease stage 4 (HCC),Anemia in chronic kidney disease 83014 Units IJ Once 07/30/2022 Active Epoetin Lizet-epbx solution 20,000 UnitsIndications:Anemia in chronic kidney disease,Chronic kidney disease stage 4 (HCC) 88210 Units IJ Once 09/10/2022 Ac tive Epoetin Lizet-epbx solution 20,000 UnitsIndications:Chronic kidney disease, not otherwise specified,Anemia in chronic kidney disease 92523 Units IJ Once 12/08/2022 A ctive Active [...] patient's age to complete this topic [place] [address] [place] [address] Care Teams Intensivist Relationship Specialty Start Date End Date Junior Artis MD [facility] [place], [place] PCP - General Internal Medicine 09/10/20
--- OUTSIDE RECORDS SUMMARY | 2024-07-21 15:01 | XMS_ITS | Clinical Summary ---
Author Organization [facility] Address [address] [place] [address] Care Team Providers Care Sheetmetal Trades Worker Name Role Phone Junior Artis MD Primary Care Provider [phone] Allergies Active Allergy Reactions Criticality Noted Date [...] and his balance as well. History of ME (myocardial infarction) 10/02/2020 Overview (04/26/2024): 1996 -Cath [...] Type Department Care Team Description 05/12/2024 Telephone [facility] [address] [facility] [address] [place] [address] Blaire Crowell NP Med Refill [...] Description 08/22/2024 2:10 PM EDT Office Visit [facility] [address] [place] [address] Blaire Crowell NP [address] [place] [address] [address] [place] [address] Health Maintenance Due Date Last Done Comments DTaP,Tdap,and Td Vaccines (1 - Tdap) 11/28/1954 Pneumococcal Vaccine: 50+ Ye ars (1 of [...] [employer] [place] [employer] Care Teams Sheetmetal Trades Worker Relationship Specialty Start Date End Date Junior Artis MD [facility] [place] [address] PCP - General 06/17/19
--- OUTSIDE RECORDS SUMMARY | 2024-07-21 15:01 | XMS_ITS | Encounter Summary ---
Author Organization [facility] Address [address] [place] [address] Phone Care Team Providers Care Hot Plate Plywood Press Operator Name Role Phone Junior Artis MD Primary Care Provider [phone] Reason for Visit * Reason Comments Med Refill Encounter Details Date Type Department Care Team (Late st Contact Info) Description 11/30/2022 Refill [facility] [address] [place] [address] Santy Jonas MD Social History [...] on filedocumented in this encounter Care Teams Hot Plate Plywood Press Operator Relationship Specialty Start Date End Date Junior Artis MD [address] [place], [place] PCP - General Internal Medicine 09/10/20 documented as of this encounter
--- OUTSIDE RECORDS SUMMARY | 2024-07-21 15:01 | XMS_ITS | Encounter Summary ---
Author Organization [facility] Address [address] [place] [address] Phone Care Team Providers Care Inclusion Paraeducator Name Role Phone Junior Artis MD Primary Care Provider Reason for Visit * Reason Comments Med Refill Encounter Details Date Type Department Care Team (Late st Contact Info) Description 10/05/2022 Refill [facility] [address] [place] [address] Santy Jonas MD Social History [...] on filedocumented in this encounter Care Teams Inclusion Paraeducator Relationship Specialty Start Date End Date Junior Artis MD [address] [place], [place] PCP - General Internal Medicine 09/10/20 documented as of this encounter
[2024-07-21 17:33] LABS: MANUAL DIFF FLAG NO
[2024-07-21 18:02] LABS: Basophils Percent Auto 0.5 % (0-2); Eosinophils Absolute Auto 0.2 X10*3/uL (0.0-0.4); Eosinophils Percent Auto 2.4 % (0-4); Hematocrit 27.1 % (42.0-52.0); Hemoglobin 8.5 g/dl (14.0-18.0); Imm Gran Abs Auto 0.03 X10*3/uL (0.00-0.03); Imm Gran Pct Auto 0.5 % (0.0-0.4); Lymphocytes Absolute Auto 1.1 X10*3/uL (1.2-4.9); Lymphocytes Percent Auto 17.4 % (20-40); Mean Corpuscular HGB Conc 31.4 g/dl (31.0-36.0); Mean Corpuscular Hemoglobin 31.3 pg (27.0-33.0); Mean Corpuscular Volume 99.6 fL (80.0-98.0); Mean Platelet Volume 10.6 fL (9.4-12.4); Monocytes Absolute Auto 0.7 X10*3/uL (0.1-1.2); Monocytes Percent Auto 11.3 % (2-11); Neutrophils Absolute Auto 4.2 x10*3/uL (2.0-8.3); Neutrophils Percent Auto 67.9 % (45-73); Platelet Count 237 X10*3/uL (160-400); Red Blood Count 2.72 X10*6/uL (4.60-5.80); Red Cell Distribution Width 15.8 % (11.0-16.0); White Blood Count 6.2 X10*3/uL (4.8-10.8)
[2024-07-21 18:04] LABS: Anion Gap 12 (12-20); Blood Urea Nitrogen 69 mg/dL (9-16); Carbon Dioxide 21 mmol/L (22-29); Chloride 113 mmol/L (96-108); Estimated Glomerular Filt Rate 19; Potassium 4.3 mmol/L (3.3-5.1); Sodium 142 mmol/L (135-145)
== END 2024-07-21 11:34 | disposition home or self-care (01) ==
LOC: HO.HKASLDS 11:33
PROVIDERS: Visit Provider Internal Medicine Nephrology
DX: N18.4 Chronic kidney disease, stage 4 (severe) (principal); D63.1 Anemia in chronic kidney disease; I10 Essential (primary) hypertension
CPT/HCPCS: 36415; 80051; 82565; 84520; 85025

== ENCOUNTER 2024-07-26 11:16 | Outpatient (AMB) | payer MEDICARE, SELFPAY ==
[2024-07-26 11:40] VITALS: BP 124/64; BMI 23.3
--- NOTE | 2024-07-26 11:40 | HO.NEPHOV_ITS ---
Vital Signs 07/26/24 11:40 Height 5 ft 9 in Weight 158 lb 2 oz BMI 23.3 BP 124/64 Blood Pressure Location Lt brachial Position Sitting Intake Visit Reasons: 1mon [id number] [place] Required: No Allergies lisinopril Allergy (Verified 07/26/24 11:43) Unknown Macrolides and Ketolides Allergy (Uncoded 03/18/23 13:49) Unknown Do you need a note to return to daycare/school/sports/work: No HPI Comments Details: Alireza Kyle was seen in the office, accompanied by his Jane, in follow- up of his chronic kidney disease and management of his anemia. 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 He has hypertension which is well controlled. He has anemia chronic disease for which he had been getting Procrit . He denies taking any nonsteroidal anti- inflammatory medications. He does not have any chest pain, shortness of breath, nausea vomiting, diarrhea, orthostatic symptoms, edema. His serum creatinine is stable at baseline. He does not feel tired. His appetite is better. [facility] Medical History Proteinuria Hypertension Anemia in chronic kidney disease Chronic kidney disease, stage 4 (severe) Family History Mother Cancer Child No Financial Resp Cancer Social History Alcohol intake: never Patient Tobacco Use Status: Never used Tobacco Review of Systems Const All systems reviewed & are unremarkable except as noted in HPI and below Physical Exam Vital Signs: BMI result Body Mass Index 23.3 Const General: comfortable and no acute distress Orientation/consciousness: patient oriented x3 HEENT Head: Yes normocephalic Mouth: Normal oral and palatal mucosa present Eyes EOM: EOMs intact bilaterally Neck Neck: Yes supple Resp Auscultation: clear to auscultation bilaterally Cardio Jugular venous distension: no JVD Rate: regular rate GI Palpation (GI): Soft to palpation Auscultation: normal bowel sounds General: Yes no CVA tenderness Back/Spine/Pelvis Back: no CVA tenderness Skin General skin exam: no rashes or lesions noted Neuro General: patient oriented x3 and moves all extremities Extrem General: Yes no pedal edema Office Meds epoetin lizet-epbx 10,000 unit/mL injection solution Performing Provider: Santy Jonas MD [facility] Administered by: Santy Joans MD on 07/26/24 11:48 Dose Route Admin Location Dispensed Lot Number Expiration Date [facility] Guest Service Host 40,000 unit subcut LUE 4 mL [id number] 11/08/25 [id number] [place] [employer] Results Reviewed Nephrology Results: Hgb 8.5 g/dl (14.0-18.0) L 07/21/24 WBC 6.2 X10*3/uL (4.8-10.8) 07/21/24 Plt Count 237 X10*3/uL (160-400) 07/21/24 Sodium 142 mmol/L (135-145) 07/21/24 Potassium 4.3 mmol/L (3.3-5.1) 07/21/24 Chloride 113 mmol/L (96-108) H 07/21/24 Carbon Dioxide 21 mmol/L (22-29) L 07/21/24 BUN 69 mg/dL (9-16) H 07/21/24 Creatinine 3.14 mg/dL (0.5-1.4) H 07/21/24 Assessment & Plan Assessment & Plan (1) Anemia in chronic kidney disease: Code(s): N18.9 - Chronic kidney disease, unspecified; D63.1 - Anemia in chronic kidney disease Category: Medical Qualifiers: Chronic kidney disease stage: stage 4 (severe) Qualified Code(s): N18.4 - Chronic kidney disease, stage 4 (severe); D63.1 - Anemia in chronic kidney disease (2) Chronic kidney disease, stage 4 (severe): Code(s): N18.4 - Chronic kidney disease, stage 4 (severe) Category: Medical (3) Hypertension: Code(s): I10 - Essential (primary) hypertension Category: Medical Qualifiers: Hypertension type: primary hypertension Qualified Code(s): I10 - Essential (primary) hypertension Plan Alireza has history of minimal change disease with nephrotic syndrome. He had been on losartan which has been put on hold for a long time. He can continue on his current dose of diuretics. His renal function is close to baseline. I administered 01391 Units Procrit in my office today. I did not make any other medication changes. Labs ordered for F/U .All his questions were answered Orders: Orders Ferritin 1 Month D63.1 - Anemia in chronic kidney disease, I10 - Essential (primary) hypertension, N18.4 - Chronic kidney disease, stage 4 (severe) IRON PROFILE 1 Month D63.1 - Anemia in chronic kidney disease, I10 - Essential (primary) hypertension, N18.4 - Chronic kidney disease, stage 4 (severe) Creatinine 1 Month D63.1 - Anemia in chronic kidney disease, I10 - Essential (primary) hypertension, N18.4 - Chronic kidney disease, stage 4 (severe) Electrolytes 1 Month D63.1 - Anemia in chronic kidney disease, I10 - Essential (primary) hypertension, N18.4 - Chronic kidney disease, stage 4 (severe) AMB Epoetin Injection Practice Supplied Today D63.1 - Anemia in chronic kidney disease, N18.4 - Chronic kidney disease, stage 4 (severe) Complete Blood Count Auto Diff 1 Month D63.1 - Anemia in chronic kidney disease, I10 - Essential (primary) hypertension, N18.4 - Chronic kidney disease, stage 4 (severe) Blood Urea Nitrogen 1 Month D63.1 - Anemia in chronic kidney disease, I10 - Essential (primary) hypertension, N18.4 - Chronic kidney disease, stage 4 (severe) Coding Level of Care Code Est Pt Level 4 (96615) Diagnoses Anemia in stage 4 chronic kidney disease N18.4; D63.1 Chronic kidney disease stage: stage 4 (severe) Chronic kidney disease, stage 4 (severe) N18.4 Primary hypertension I10 Hypertension type: primary hypertension
== END 2024-07-26 12:16 | disposition home or self-care (01) ==
LOC: HO.HKAS 11:17
PROVIDERS: PCP Internal Medicine; Visit Provider Internal Medicine Nephrology
DX: I12.9 Hypertensive chronic kidney disease with stage 1 through stage 4 chronic kidney disease, or unspecified chronic kidney disease (principal); N18.4 Chronic kidney disease, stage 4 (severe); D63.1 Anemia in chronic kidney disease
CPT/HCPCS: 99214

== ENCOUNTER → 2024-07-26 11:16 | Outpatient (BNVA) | payer MEDICARE, SELFPAY | PROVIDERS: PCP Internal Medicine; Visit Provider Internal Medicine Nephrology | DX: I12.9 Hypertensive chronic kidney disease with stage 1 through stage 4 chronic kidney disease, or unspecified chronic kidney disease (principal); D63.1 Anemia in chronic kidney disease; N18.4 Chronic kidney disease, stage 4 (severe) | CPT/HCPCS: 96372; 99212; Q5106 ==

== ENCOUNTER 2024-08-25 12:51 | Outpatient (REF) | payer MEDICARE, SELFPAY ==
--- OUTSIDE RECORDS SUMMARY | 2024-08-25 15:38 | XMS_ITS | Clinical Summary ---
Author Organization [facility] Address [address] [facility] [address] [facility] [address] [place] [address] Phone Care Team Providers Care Battery Repairer Name Role Phone Junior Artis MD Primary Care Provider [phone] Allergies Active Allergy Reactions Criticality Noted Date [...] the evening. 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 94215 Units IV Every 14 days 05/01/2022 Active Epoetin Lizet-epbx solution 40,000 UnitsIndications:Chronic kidney disease stage 4 (HCC),Anemia in chronic kidney disease 64845 Units IJ Once 07/30/2022 Active Epoetin Lizet-epbx solution 20,000 UnitsIndications:Anemia in chronic kidney disease,Chronic kidney disease stage 4 (HCC) 95176 Units IJ Once 09/10/2022 Ac tive Epoetin Lizet-epbx solution 20,000 UnitsIndications:Chronic kidney disease, not otherwise specified,Anemia in chronic kidney disease 54738 Units IJ Once 12/08/2022 A ctive Active [...] change disease 07/24/201106/21 Hyperlipidemia 05/17/2007 06/21/2021 Immunizations Immunization Administration Dates Next Due Influenza Whole 02/20/2019,02/27/2009,05/17/2007 [...] Due Date Last Done Comments Influenza Vaccine (Season Ended) 2025 02/20/2019, 02/27/2009, 05/17/2007, Additional history exists Pneumococcal Vaccine: 50+ Years Completed 01/03/2015, 08/05/2013, 05/18/2006, Additional history exists Pneumococcal Vaccine: Peds (0 to 5 Years) and At-Risk Patients (6 to 49 Years) Discontinued 01/03/2015, 08/05/2013, 05/18/2006, Additional history exists Hepatitis B Vaccine Aged Out No longe r eligible based on patient's age to complete this topic Insurance [facility] Care Teams Battery Repairer Relationship Specialty Start Date End Date Junior Artis MD [address] [place], [place] PCP - General Internal Medicine 09/10/20
--- OUTSIDE RECORDS SUMMARY | 2024-08-25 15:38 | XMS_ITS | Encounter Summary ---
Author Organization [facility] Address [address] [place] [address] Phone Care Team Providers Care Sed High School Teacher Name Role Phone Junior Artis MD Primary Care Provider Reason for Visit * Reason Comments Med Refill Encounter Details Date Type Department Care Team (Late st Contact Info) Description 11/30/2022 Refill [facility] [address] [place] [address] Santy Jonas MD Social History [...] on filedocumented in this encounter Care Teams Sed [employer] Teacher Relationship Specialty Start Date End Date Junior Artis MD [address] [place], [place] PCP - General Internal Medicine 09/10/20 documented as of this encounter
--- OUTSIDE RECORDS SUMMARY | 2024-08-25 15:38 | XMS_ITS | Encounter Summary ---
Author Organization [facility] Address [address] [place] [address] Care Team Providers Care Floor Covering Layer Name Role Phone Jb Artis MD Primary Care Provider [phone] Encounter Details Date Type Department Care Team (Late st Contact Info) Description 01/20/2022 Scanned Document [facility] [address] [place] [address] Melinda Becerril PA [address] [facility] [address] [place] [address] Social History Tobacco Use Types Packs/Day Years Used Date Smoking Tobacco: Never Smokeless Tobacco: Never Sex and Gender Information Value Date Recorded Sex Assigned at Not on file Legal Sex Male 11:43 AM EDT Gender Identity Not on file Sexual Orientation Not on file documented as of this encounter Plan of Treatment Not on file documented as of this encounter Visit Diagnoses Not on filedocumented in this encounter Care Teams Floor Covering Layer Relationship Specialty Start Date End Date Jb Artis MD [address] [place] [address] PCP - General Internal Medicine 11/29/21 documented as of this encounter
--- OUTSIDE RECORDS SUMMARY | 2024-08-25 15:38 | XMS_ITS | Clinical Summary ---
Author Organization [facility] [employer] Address [address] [place] [address] Phone Care Team Providers Care Gaming Associate Name Role Phone Junior Artis MD Primary Care Provider [phone] Allergies Active Allergy Reactions Criticality Noted Date Comments Azithromycin Diarrhea,GI intolerance 10/02/2020 Other reaction(s): diarrhea and upset stomach Lisinopril Swelling 10/02/2020 Other reaction(s): swelling of face Medications atorvastatin (LIPITOR) 80 mg tablet Take 1 tablet by mouth daily. Active carvediloL (COREG) 12.5 mg tablet Take 1 Tablet by mouth 2 times daily (with meals). 4 Active clopidogreL (PLAVIX) 75 mg tablet Take [...] mg (65 mg elemental iron) tablet Take 1 tablet (325 mg total) by mouth 2 (two) times a day. Active hydrALAZINE (APRESOLINE) 50 mg tablet Take [...] Take 1 tablet by mouth daily. Active furosemide (LASIX) 20 mg tablet Take 1 tablet (20 mg total) by mouth 1 (one) time each day. Active apixaban (ELIQUIS) 2.5 mg tablet Take 1 tablet (2.5 mg total) by mouth 2 (two) times a day. 180 tablet 1 5 Active furosemide (LASIX) 40 mg tablet Take 0.5 Tablets by mouth daily. 08/23/19 25 Discontinue d(Discontin ued by another clinician) apixaban (ELIQUIS) 2.5 mg tablet Take 1 tablet (2.5 mg total) by mouth 2 (two) times a day. 180 tablet 1 5 08/23/19 25 Discontinue d(Reorder) Active Problems Problem Noted Date Diagnosed Date Atrial fibrillation ([facility] V24, CMS/[facility] V28) 0 07/01/2021 Overview (04/26/2024): Last Assessment & Plan: [...] of a left atrial appendage occlusion device. Assessment & Plan (08/22/2024 4:06 PM EDT): Patient's history of atrial fibrillation and continues on low-dose Eliquis given his chronic kidney disease and advanced age. Heart rate is reasonable. Continue with carvedilol 12.5 mg twice daily. CAD (coronary artery disease) 07/01/2021 Overview (04/26/2024): [...] Eliquis only. We will continue to monitor. Assessment & Plan (08/22/2024 4:06 PM EDT): Patient has history of coronary artery disease status post PCI in the past. He denies any exertional anginal symptoms. He continues on cardioprotective medical therapy with Plavix, beta-nadeem, isosorbide atorvastatin. He denies repeating an echocardiogram. He does not wish to have any cardiac testing at this time and then you. I have reviewed with the patient the importance of a heart healthy lifestyle which includes eating a low-fat low-salt diet, getting regular exercise, maintaining a healthy weight, not smoking, and following up with routine medical care. HLD (hyperlipidemia) 07/01/2021 Overview (04/26/2024): Last Assessment [...] and his balance as well. History of GA (myocardial infarction) 10/02/2020 Overview (04/26/2024): 1996 -Cath [...] up with routine medical care. Unspecified diastolic (conge stive) heart failure (CMS/HCC V24, CMS/HCC V28) 10/02/2020 Overview (04/26/2024): 10/25/19 ECHO EF = [...] Encounters Date Type Department Care Team Description 08/22/2024 2:10 PM EDT Office Visit [facility] [address] [facility] [address] [place] [address] Blaire Crowell NP Atrial fibrillation, unspecified type (CMS/HCC V24, CMS/HCC V28) (Primary Dx); Coronary artery disease, unspecified vessel or lesion type, unspecified whether angina present, unspecified whether [place] or transplanted heart 08/04/2024 Telephone [facility] Cardiology [facility] [address] [facility] [address] [place] [address] Blaire Crowell NP from Last 3 Months Surgical History Surgery [...] s Hiatal hernia DX:Hiatal hernia Lacunar infarction (CMS/HCC V24, CMS/HCC V28) DX:Lacunar infarction (HCC); COMMENT: silent on left Low [...] Sign Reading Time Taken Comments Blood Pressure 136/68 08/22/2024 2:06 PM EDT Pulse 75 08/22/2024 2:06 PM EDT Temperature - - Respiratory Rate - - Oxygen Saturation 97% 08/22/2024 2:06 PM EDT Inhaled Oxygen Concentration - - Weight 70.7 kg (155 lb 12.8 oz) 08/22/2024 2:06 PM EDT Height 175.3 cm (5' 9 ) 08/22/2024 2:06 PM EDT Body Mass Index 23.01 08/22/2024 2:06 PM EDT Plan of Treatment Health Maintenance Due Date Last Done Comments Cholesterol Screening (Lipid Panel) 04/13/2022 Depression Screening 04/13/2022 Falls Risk Assessment 04/13/2022 Medicare Annual Wellness Visit 04/13/2022 Social Influencers of Health Screening 04/13/2022 Hypertension/CHF/CAD Annual BMP Blood Test 04/19/2022 COVID-19 Vaccine ( season) 2024 03/07/2024, 04/04/2023, 03/17/2022, Additional history exists DTaP,Tdap,and Td Vaccines (5 - Td or Tdap) 03/09/2033 03/09/2023, 11/15/2012, 09/29/2008, Additional history exists Zoster Vaccines Completed 04/21/2023, 06/11, 09/06/2009 RSV Immunization Adult Patients Completed 05/13/2023 Pneumococcal Vaccine: 50+ Years Completed 01/22/2024, 01/03/2015, 08/05/2013, Additional history exists Influenza Vaccine Completed 03/07/2024, , 02/25/2022, Additional history exists HIB Vaccines Aged Out No longer eligi [...] age to complete this topic Meningococcal B Vaccine Aged Out No l onger eligible based on patient's age to complete this topic RSV Immunization Patients Under 20 months Aged Out No longer eligible based on patient's age to complete this topic Varicella Vaccines Aged Out No longer eligible based on patient's age to complete this topic Procedures Procedure Name Priority Date/Time Associated Diagnosis Comments ECG 12-LEAD Routine 08/22/2024 4:06 PM EDT Atrial fibrillation, unspecified type (CMS/HCC V24, CMS/HCC V28) Coronary artery disease, unspecified vessel or lesion type, unspecified whether angina present, unspecified whether [place] or transplanted heart from Last 3 Months Results * ECG 12 lead (08/22/2024 4:06 PM EDT) 08/22/2024 2:17 PM EDT us Blaire Crowell NP ECG ORDERABLES Final Result [facility] from Last 3 Months Insurance [employer] Care Teams Gaming Associate Relationship Specialty Start Date End Date Junior Artis MD [address] [place] [address] PCP - General 06/17/19
--- OUTSIDE RECORDS SUMMARY | 2024-08-25 15:38 | XMS_ITS | Encounter Summary ---
Author Organization [facility] Address [address] [place] [address] Care Team Providers Care Home Stager Name Role Phone Jb Artis MD Primary Care Provider [phone] Encounter Details Date Type Department Care Team (Late st Contact Info) Description 11/15/2021 Erroneous Encounter [facility] DEPT [address] [place] [phone] Provider, MD Madeline Social History Tobacco Use [...] on filedocumented in this encounter Care Teams Home Stager Relationship Specialty Start Date End Date Jb Artis MD [address] [place] [address] PCP - General Internal Medicine 11/29/21 documented as of this encounter
--- OUTSIDE RECORDS SUMMARY | 2024-08-25 15:38 | XMS_ITS | Clinical Summary ---
Author Organization [facility] Address [address] [place] [address] Care Team Providers Care Shear Scrapman Name Role Phone Jb Artis MD Primary Care Provider [phone] Allergies Active Allergy Reactions Criticality Noted Date Comments Lisinopril Unknown/Patient and Family Unable to Define Medium 09/22/2018 Medications doxazosin (CARDURA) 8 MG tablet 0 Active ergocalciferol (VITAMIN D2,DRISDOL) 44657 units Cap Take 50,000 Units by mouth every 30 days (once a month). 0 Active furosemide (LASIX) 40 MG tablet TK 1 T PO QD 0 Active isosorbide mononitrate (IMDUR) 30 MG 24 hr tablet Take 90 mg by mouth daily. 0 Active OMEprazole (PriLOSEC) 20 MG capsule Take 20 mg by mouth 2 (two) times a day. 0 Active aspirin enteric coated (ECOTRIN LOW STRENGTH) [...] tablet Take 80 mg by mouth daily. 0 Active hydrALAZINE (APRESOLINE) 100 MG tablet Take 100 mg by mouth 3 (three) times a day. 0 Active chlorthalidone (HYGROTON) 25 MG tablet Take 25 mg by mouth daily. 0 Active fenofibrate (LOFIBRA) 54 MG tablet Take 54 mg by mouth daily. 0 Active apixaban (ELIQUIS) 2.5 MG tablet Take 2.5 mg by mouth. 2 Active carvedilol (COREG) 12.5 MG tablet Take 12.5 mg by mouth. 2 Active ferrous sulfate 325 (65 FE) MG tablet Take 1 tablet by mouth 2 (two) times a day. 1 Active famotidine (PEPCID) 20 MG tabletIndication s:Nausea TAKE 1 TABLET(20 MG) BY MOUTH TWICE DAILY 180 tablet 4 Active Active Problems No known active problems [...] patient's age to complete this topic Insurance [facility] MEDICARE [facility] MEDICARE [facility] MEDICARE Care Teams Shear Scrapman Relationship Specialty Start Date End Date Jb Artis MD [address] [place] [address] PCP - General Internal Medicine 11/29/21
--- OUTSIDE RECORDS SUMMARY | 2024-08-25 15:38 | XMS_ITS | Continuity of Care Document ---
Author Organization [facility] Address [address] [place] [address]- Care Team Providers Care Keeper Helper Name Role Phone Junior Artis MD Primary Care Physician [place] [facility] [place]): [place]16[place]24 - 08/23/24 [facility] [address], [place] [address] Attending Physician: Junior Artis MD Encounter Type: [...] virus vaccine, inactivated 01/25/10 Give n SARS-CoV-2(COVID-19)mRNA-LNP vac([id number]) 03/07/24 Recorded SARS-CoV-2(COVID-19)mRNA-LNP vac([id number]) 04/04/23 Recorded pneumococcal 20-valent conjugate vaccine 01/22/24 Recorded RSV vaccine preF3, recombinant 05/13/23 Recorded zoster vaccine, inactivated 04/21/23 Recorded zoster vaccine, inactivated 06/27/22 Recorded tetanus-diphtheria toxoids (Td) 03/09/23 Given tetanus-diphtheria toxoids (Td) 02/22/99 Given [id number] bivalent booster vax 03/17/22 Recorded SARS-CoV-2 (COVID-19) [...] Pneumococcal Vaccine (oldterm) 06/27/97 Given 1Result Comment: [id number] 2Result Comment: [02/24/2013] given w/o incidense...mh 3Admin Note: SONOFI-given without incident- PT MEETS CRITERIA 4Result Comment: [01/04/2015] DONE AT [facility] RECEIVED Medications apixaban 2.5 mg oral tablet 1 tablet = 2.5 mg, By Mouth, 2 times a day, # 180 tablet, 3 Refills, Maintenance, 4/28/23 3:45:00 PM EDT, Tablet, [facility] #[id number], Partial fill upon patient request if the [...] Refills, Maintenance, 01/22/24 11:40:00 AM EDT, Tablet, [facility] #[id number], 175, cm, 01/22/24 10:57:00 EDT, Height, 76.8, kg, 01/22/24 10:57:00 EDT, Dry Weight Start Date: 01/22/24 Stop Date: 01/16/25 Status: Ordered Quantity: 90.0 Unit: tablet Repeat number: 4 clopidogrel 75 mg oral tablet 1, tablet, By Mouth, Daily, # 90 tablet, Refills 3, Tot. Refills 3, Maintenance, 01/12/24 11:16:00 AMEDT, Route to Pharmacy Electronically, [facility] #[id number], 175, cm, 10/14/23 11:40:00 EDT,Height, 72, kg, 10/14/23 11:40:00 EDT, Dry Weight Start Date: 01/12/24 Status: Ordered Quantity: 90.0 Unit: tablet Repeat number: 4 Coreg 12.5 mg oral tablet 12.5 mg, 1, tablet, By Mouth, 2 times a day, PLEASE DISCONTINUE PREVIOUS METOPROLOL AND TAKE COREG/CARVEDILOL, # 180 tablet, Refills 3, Tot. Refills 3, Maintenance, 01/22/24 11:42:00 AM EDT, Route to Pharmacy Electronically, [facility] #[id number], Partial fill upon patient request if the [...] 11:41:00 AM EDT, Route to Pharmacy Electronically, [facility] #[id number], Partial fill upon patient request if the prescription is for a schedule II opioid drug., 175, cm, 01/22/24 10:57:00 EDT, Height, 76.8, kg, 01/22/24 10:57:00 EDT, Dry Weight Start Date: 01/22/24 Stop Date: 01/16/25 Status: Ordered Quantity: 180.0 Unit: tablet Repeat number: 4 fenofibrate 54 mg oral tablet 1 tablet, By Mouth, Daily, # 90 tablet, 3 Refills, Maintenance, 04/11/24 12:17:00 PM EST, [facility] #[id number], 175, cm, 04/11/24 12:13:00 EST, Height, 72.8, [...] tablet, Refills 3, Tot. Refills 3, Maintenance, 08/16/24 2:28:00 PM EDT, Route to Pharmacy Electronically, [facility]/pharmacy #[id number], Partial fill upon patient request if the prescription is for a schedule II opioid drug., 175, cm, 08/16/24 14:00:00 EDT, Height, 70.9,kg, 08/16/24 14:00:00 EDT, Dry Weight Start Date: 08/16/24 Status: Ordered Quantity: 90.0 Unit: tablet Repeat number: 4 hydrALAZINE 50 mg oral tablet 1 tablet, By Mouth, 3 times a day, # 270 tablet, 3 Refills, Maintenance, 01/22/24 11:39:00 AM EDT, [facility] #[id number], 175, cm, 01/22/24 10:57:00 EDT, Height, 76.8, kg, 01/22/24 10:57:00 EDT,Dry Weight Start Date: 01/22/24 Status: Ordered Quantity: 270.0 Unit: tablet Repeat number: 4 isosorbide mononitrate 60 mg oral tablet, extended release 2 tablet = 120 mg, By Mouth, Daily in AM, # 180 tablet, 3 Refills, Maintenance, 01/22/24 11:38:00 AMEDT, ER Tablet, [facility] #[id number], Partial fill upon patient request if the [...] Refills, Maintenance, 12/02/22 2:07:00 PM EDT, Tablet, [facility] #[id number], 175, cm, 08/26/22 10:20:00 EDT, Height, 70.5, [...] 11 Refills, Maintenance, 09/22/23 5:27:00 PM EDT, [facility] #[id number], Partial fill upon patient request if the [...] Unit: tablet Repeat number: 1 Vitamin D 55471 iu oral capsule 1 capsule = 50,000 International_Units, By Mouth, Every 28 days, 0 Refills, Maintenance, 11/15/12 10:33:54 AM EDT Start Date: 11/15/12 Status: Ordered Repeat number: 1 Problem List Condition Confirmation Course Effective Dates Status H ealth Status Informant Acute bronchitis Confirmed Active Anemia of chronic disease Confirmed Active (HCC) [...] [Reference Range]: 1 2 Height 175 cm (08/16/24 2:32 PM) 175 cm (08/16/24 2:00 PM) Weight 70.9 kg (08/16/24 2:00 PM) Oxygen Saturation [94-100 %] 98 % (08/16/24 2:00 PM) Pulse Rate [55-90 bpm] 80 bpm (08/16/24 2:00 PM) Body Mass Index [18.5-24.99 kg/m2] 23.15 kg/m2 (08/16/24 2:00 PM) Blood Pressure [90-138/55-84 mm Hg] 118/ 60mm Hg (08/16/24 2:32 PM) 161/64mm Hg *H* (08/16/24 2:00 PM) Mode of Delivery (Oxygen) Room air (08/16/24 2:00 PM) Blood pressure sites Arm, left (08/16/24 2:00 PM) Dry Weight 70.9 kg (08/16/24 2:00 PM) Weight Obtained Via Standing scale (08/16/24 2:00 PM) Social History Social History Type Response Smoking Status Never smoker; Tobacc o user in household: No entered on: 05/06/13 Sex Sex Representation Male (finding) Note * Fariba Walsh: PERFORM Event Display: Patient Education/Instruction Authored Date: Ambulatory Adult Visit Summary [facility] [address] [place] [address] Name: CASEY SALAZAR : 1935?? Visit: 08/16/2024 13:43?? Ambulatory Visit Instructions ?? Your Care Team Primary Care Provider Junior Artis MD? This Visit Provider Junior Artis MD Your Diagnosis Cough Vitals Signs Pulse Rate: 80 bpm Height: 175 cm Systolic Blood Pressure: 118 mm Hg Weight: 70.9 kg Diastolic Blood Pressure: 60 mm Hg Body Mass Index: 23.15 kg/m2 Oxygen Saturation: 98 % Body surface area: 1.86 What to do next Scheduled Follow-Up Appointments Thursday 11:20 AM EDT ?? With: Chandra GIBBONS, Junior Jeffries Where: [facility] [address] [place] [address]- Status: Pending Future Orders XR Chest 2 Views Frontal and Lat, Routine, Reason for Exam: Cough, C/Q: Pneumonia, Patient Does NotNeed Assistance, Once, *Est. 08/16/24, Single or Recurring Future Order Medications The list below reflects the information in our records and provided by you today along with any changes made during this visit. Please continue your medications until treatment is completed or stopped by your provider. If this is different from the information you have or there are other questions,please contact the prescribing provider. What How Much When Why Instructions Unchanged Acetaminophen (Tylenol 325 mg oral tablet) 2 tab(s) Oral Every 4 hours as needed for Headache Unchanged apixaban (apixaban 2.5 mg oral tablet) 1 tab(s) Oral Twice a day Duration: 90 Days Unchanged Atorvastatin (atorvastatin 80 mg oral tablet) 1 tab(s) Oral Daily Duration: 90 Days Unchanged Benzonatate (benzonatate 100 mg oral capsule) 1 capsule Oral 3 times a day as needed for as needed for cough Acute bronchitis Duration: 14 Days Unchanged Carvedilol (Coreg 12.5 mg oral tablet) 1 tab(s) Oral Twice a day PLEASE DISCONTINUE PREVIOUS METOPROLOL AND TAKE COREG/ CARVEDILOL ?? Unchanged Clopidogrel (clopidogrel 75 mg oral tablet) 1 tab(s) Oral Daily Unchanged Doxazosin (doxazosin 8 mg oral tablet) Unchanged Epoetin Telly 10,000 unit(s) Subcutaneous Injection Every week Unchanged Ergocalciferol (Vitamin D 23374 iu oral capsule) 50,000 International Unit Oral Every 28 days Unchanged Famotidine (famotidine 20 mg oral tablet) 1 tab(s) Oral Twice a day Duration: 90 Days Unchanged Fenofibrate (fenofibrate 54 mg oral tablet) 1 tab(s) Oral Daily Unchanged Ferrous Sulfate (ferrous sulfate 325 mg oral enteric coated tablet) 1 tab(s) Oral Daily Duration: 90 Days Unchanged Furosemide (furosemide 20 mg oral tablet) 1 tab(s) Oral Daily Pickup at [facility]/pharmacy #[id number] Unchanged hydrALAZINE (hydrALAZINE 50 mg oral tablet) [...] min before a meal ?? Pharmacy Information [facility]/pharmacy #[id number]: [address], [place] [id number] [phone] ?? What How Much When Why Comments Stop Taking PredniSONE (predniSONE 10 mg oral tablet) 1 tab(s) Oral Daily Acute bronchitis Duration: 5 Days Medications and Immunizations Administered Medications Given During [...] are strongly encouraged to quit. Please call [facility] at [phone] or [phone]) or log in to [email or web address] for referrals to smoking cessation programs. ?? The National Suicide Prevention Hotline is available 01/12 if you or someone you know needs to find a reason to keep living. By calling 6-027-126-Factyle (2195) you'll be connected to a skilled, trained counselor at a crisis center in your area. [facility] Portal You can view and manage your care through the patient portal or by using a health care taty of your choosing. [employer] is a website that allows you to securely view your medical information including your hospital discharge summary, office visit summaries, medications and follow-up visits. You can also request appointments, renew medications, and request access to your medical information using a health care taty of your choosing, or just ask a question. You can enroll at [email or web address] or register during your next office visit. [facility], in keeping with [facility] guidance, no longer requires face masks [...] primary care provider, you may find a [facility] provider by calling [facility] Link at [phone]. Patient Care team information Care Team Personnel Name: Salma Gordon CNM Position: Reference Physician Member Role: Primary Care Nurse Address: [address] [place] [address]- [place] [employer]: Name: Orquidea Brizuela RN Position: [facility] Onco RN Member Role: Primary Care Nurse Name: Junior Artis MD Position: [facility] Physician - Primary Care Member Role: PCP Address: [address] [facility] [place] [address]- [place] [employer]: Name: Santy Jonas MD Position: [facility] Renal MD Member Role: [employer] Consulting Physician Address: [address] [place] [address] [address] [place] [address]- [place] [employer]: Name: Merle WHITLOCK, Irais Davalos Position: [facility] Associate Professional Member Role: Primary Care Nurse Address: [address] [place] [address]- [place] [employer]: Name: Mane Taylor RN Position: S RN Member Role: Primary Care Nurse Name: Tiffany Sheehan Position: [facility] AMB Nurse Member Role: [employer] Consulting Physician Name: Candy Boothe RN Position: [facility] RN Member Role: Primary Care Nurse Name: Artem Uriarte MD Position: [facility] Outreach Member Role: [employer] Consulting Physician Address: [address] [facility] [address] [facility] [place] [address]- [place] [employer]: Name: Alton Pineda MD Position: [facility] Renal MD Member Role: [employer]etime Consulting Physician Address: [address] [facility] [address] [facility] [place] [address]- [place] [employer]: Name: Nayeli Iglesias RN Position: [facility] RN Member Role: Primary Care Nurse Care Team Related Persons Name: CASEY SALAZAR Name: FELISA SALAZAR Insurance Providers Guarantor name: CASEY SALAZAR Health Plan Information #: 1 Payer: [employer] Member Number: [id number] Policy Number: NA Group Number: [id number] Health Plan Information #: 2 Payer: [employer] Member Number: [id number] Policy Number: NA Group Number: [id number]
--- OUTSIDE RECORDS SUMMARY | 2024-08-25 15:38 | XMS_ITS | Encounter Summary ---
Author Organization [facility] Address [address] [place] [address] Care Team Providers Care Vacuum Caster Name Role Phone Junior Artis MD Primary Care Provider [phone] Reason for Visit * Reason Comments Follow-up Encounter Details Date Type Department Care Team (Late st Contact Info) Description 08/22/2024 2:10 PM EDT Office Visit [facility] [address] [place] [address] Blaire Crowell NP [address] [place] [address] [address] [place] [address] Atrial fibrillation, unspecified type (CMS/HCC V24, CMS/HCC V28) (Primary Dx); Coronary artery disease, unspecified vessel or lesion type, unspecified whether angina present, unspecified whether shoshone-bannock or transplanted heart Social History Tobacco Use Types Packs/Day Years [...] on file documented as of this encounter Last Filed Vital Signs Vital Sign Reading [...] Mass Index 23.01 08/22/2024 2:06 PM EDT documented in this encounter Ordered Prescriptions Prescription Sig Dispense Quantity Refills Last Filled Start Date End Date apixaban (ELIQUIS) 2.5 mg tablet Take 1 tablet (2.5 mg total) by mouth 2 (two) times a day. 180 tablet 1 08/22/2024 documented in this encounter Progress Notes * Blaire Crowell NP - 08/22/2024 2:10 PM EDTAssociated Problem(s): Atrial fibrillation (CMS/HCC V24, CMS/HCC V28) Patient's history of atrial fibrillation and continues on low-dose Eliquis given his chronic kidneydisease and advanced age. Heart rate is reasonable. Continue with carvedilol 12.5 mg twice daily. * Blaire Crowell NP - 08/22/2024 2:10 PM EDTAssociated Problem(s): CAD (coronary artery disease) Patient has history of coronary artery disease status post PCI in the past. He denies any exertional anginal symptoms. He continues on cardioprotective medical therapy with Plavix, beta-nadeem, isosorbide atorvastatin. He denies repeating an echocardiogram. He does not wish to have any cardiac testing at this time and then you. I have reviewed with the patient the importance of a heart healthy li festyle which includes eating a low-fat low-salt diet, getting regular exercise, maintaining a healthy weight, not smoking, and following up with routine medical care. * Blaire Crowell NP - 08/22/2024 2:10 PM EDT [facility] - [address] * Blaire Crowell NP - 08/22/2024 2:10 PM EDT Images from the original note were not included. [facility] PRIMARY VICE [place] POLICE OFFICER: Previously seen by Dr. Anshu Felix PCP: Junior Artis MD HPI: Alireza Kyle is a 88 y.o. old male with hypertension, hyperlipidemia, anemia, bradycardia, coronary artery disease and atrial fibrillation on low-dose Eliquis for anticoagulation. Patient has history of PCI in 1996. Patient also has history of diastolic heart failure and is presently on furosemidefor history of leg edema. Patient follows with nephrology for chronic kidney disease. Last creatinine 3.0. Given his history of chronic kidney disease and his age he remains on Eliquis 2.5 mg twice daily. Last echocardiogram 10/10/2021. This showed normal left ventricular chamber size and systolic function with an LVEF of 50 to 55%. There is moderate concentric left ventricular hypertrophy noted. Left atrium was severely dilated. There is mild to moderate mitral regurgitation noted. When compared to previous echocardiogram there were no significant changes. In the past, we did order a nuclear stress test however this was not done because the patient was extremely claustrophobic and emphatically refused to do the test at that time. Patient had a dobutamine stress echo completed 12/2021 which did not reveal any evidence of ischemia. Patient presents today for routine follow-up. Patient is feeling well and denies any chest pain, palpitations, dyspnea, orthopnea, PND, syncope, near syncope or increased peripheral edema he continues on Eliquis for anticoagulation and denies any bleeding or excessive bruising. ACTIVE MEDICATIONS: Current Outpatient Medications Medication Instructions apixaban (ELIQUIS) 2.5 mg, oral, 2 times daily atorvastatin (LIPITOR) 80 mg tablet Take 1 tablet by mouth daily. carvediloL (COREG) 12.5 mg tablet Take 1 Tablet by mouth 2 times daily (with meals). clopidogreL (PLAVIX) 75 mg tablet Take 1 Tablet by mouth daily. doxazosin (CARDURA) 8 mg tablet Take 8 mg by mouth at bedtime. epoetin lizet (Epogen) 20,000 unit/2 mL injection Inject 10,000 Units into the skin every 14 days. As needed ergocalciferol (VITAMIN D-2) 1,250 mcg (50,000 unit) capsule Take 50,000 Units by mouth every 30 days. famotidine (PEPCID) 20 mg tablet Take 20 mg by mouth 2 times daily. fenofibrate (LOFIBRA) 54 mg tablet Take 1 tablet by mouth daily. ferrous sulfate 325 mg (65 mg elemental iron) tablet Take 1 tablet (325 mg total) by mouth 2 (two) times a day. furosemide (LASIX) 20 mg, Daily hydrALAZINE (APRESOLINE) 50 mg tablet Take 50 mg by mouth 3 times daily. isosorbide mononitrate (IMDUR) 120 mg 24 hr tablet Take 1 tablet by mouth daily. MULTIVITAMIN ORAL Take 1 tablet by mouth daily. nitroglycerin (NITROSTAT) 0.[address] 1 tablet under the tongue every 5 minutes as needed. omeprazole (PRILOSEC) 20 mg tablet,delayed release (DR/EC) Take 1 tablet by mouth 2 times daily. PAST MEDICAL HISTORY: Patient Active Problem List Diagnosis Atrial fibrillation ([facility] V24, [facility] V28) Bilateral carotid artery stenosis CAD (coronary artery disease) Essential hypertension History of NC (myocardial infarction) HLD (hyperlipidemia) Unspecified diastolic (congestive) heart failure ([facility] V24, [facility] V28) ALLERGIES: Allergies Allergen Reactions Azithromycin Diarrhea and GI intolerance Other reaction(s): diarrhea and upset stomach Lisinopril Swelling Other reaction(s): swelling of face SOCIAL HISTORY: Social History Tobacco Use Smoking status: Never Smokeless tobacco: Never Substance Use Topics Alcohol use: Never PHYSICAL EXAM: Vitals: 08/22/24 1406 BP: 136/68 BP Location: Right arm Patient Position: Sitting BP Cuff Size: Adult Pulse: 75 SpO2: 97% Weight: 70.7 kg (155 lb 12.8 oz) Height: 1.753 m (69 ) Physical Exam Constitutional: General: He is not in acute distress. Appearance: He is not diaphoretic. HENT: Head: Normocephalic. Eyes: Pupils: Pupils are equal, round, and reactive to light. Neck: Vascular: No carotid bruit. Cardiovascular: Rate and Rhythm: Normal rate and regular rhythm. Pulses: Normal pulses. Heart sounds: Normal heart sounds. No murmur heard. No friction rub. Pulmonary: Effort: Pulmonary effort is normal. No respiratory distress. Breath sounds: Normal breath sounds. No stridor. No wheezing, rhonchi or rales. Chest: Chest wall: No tenderness. Abdominal: General: Bowel sounds are normal. There is no distension. Palpations: Abdomen is soft. Tenderness: There is no abdominal tenderness. Musculoskeletal: General: No deformity. Cervical back: Normal range of motion. Right lower leg: No edema. Left lower leg: No edema. Skin: General: Skin is warm and dry. Neurological: Mental Status: He is alert and oriented to person, place, and time. Psychiatric: Mood and Affect: Mood normal. EKG: Encounter Date: 08/22/24 ECG 12 lead Result Value Ventricular Rate ECG 74 Atrial Rate 80 QRS Duration 132 Q-T Interval 432 QTc 479 R [place] -24 T [place] -18 ECG Interpretation Atrial fibrillation with premature ventricular or aberrantly conducted complexes Non-specific intra-ventricular conduction block Abnormal ECG No previous ECGs available *Note: Due to a large number of results and/or encounters for the requested time period, some results have not been displayed. A complete set of results can be found in Results Review. TESTING: ASSESSMENT/PLAN: As per AHA guidelines and previously established plan of care, we discussed the following today: Assessment & Plan Atrial fibrillation, unspecified type (CMS/HCC V24, CMS/HCC V28) Patient's history of atrial fibrillation and continues on low-dose Eliquis given his chronic kidneydisease and advanced age. Heart rate is reasonable. Continue with carvedilol 12.5 mg twice daily. Coronary artery disease, unspecified vessel or lesion type, unspecified whether angina present, unspecified whether shoshone-bannock or transplanted heart Patient has history of coronary artery disease status post PCI in the past. He denies any exertional anginal symptoms. He continues on cardioprotective medical therapy with Plavix, beta-nadeem, isosorbide atorvastatin. He denies repeating an echocardiogram. He does not wish to have any cardiac testing at this time and then you. I have reviewed with the patient the importance of a heart healthy li festyle which includes eating a low-fat low-salt diet, getting regular exercise, maintaining a healthy weight, not smoking, and following up with routine medical care. Thank you for allowing us to participate in the care of this patient. The patient will follow up in9 months, sooner PRN. [facility] Cosigned by iTm Bragg MD at 08/22/2024 4:19 PM EDT documented in this encounter Plan of Treatment Not on file documented as of this encounter Procedures Procedure Name Priority Date/Time Associated Diagnosis Comments ECG 12-LEAD Routine 08/22/2024 4:06 PM EDT Atrial fibrillation, unspecified type (CMS/HCC V24, CMS/HCC V28) Coronary artery disease, unspecified vessel or lesion type, unspecified whether angina present, unspecified whether shoshone-bannock or transplanted heart documented in this encounter Results * ECG 12 lead (08/22/2024 4:06 PM EDT) 08/22/2024 2:17 PM EDT us Blaire Crowell NP ECG ORDERABLES Final Result GEMUSE documented in this encounter Visit Diagnoses Diagnosis Atrial fibrillation, unspecified type (CMS/HCC V24, CMS/HCC V28)- Primary Coronary artery disease, unspecified vessel or lesion type, unspecified whether angina present, unspecified whether shoshone-bannock or transplanted heart documented in this encounter Discontinued Medications Medication Sig Discontinue Reason Start Date End Da te furosemide (LASIX) 40 mg tablet Take 0.5 Tablets by mouth daily. Discontinued by another clinician 08/22/2024 apixaban (ELIQUIS) 2.5 mg tablet Take 1 tablet (2.5 mg total) by mouth 2 (two) times a day. Reorder 05/12/2024 08/22/2024 documented as of this encounter Historical Medications * This list may reflect changes made after this encounter. furosemide (LASIX) 20 mg tablet Take 1 tablet (20 mg total) by mouth 1 (one) time each day. added in this encounter Care Teams Vacuum Caster Relationship Specialty [place] [address] [place] [id number] PCP - General 06/17/19 documented as of this encounter
--- OUTSIDE RECORDS SUMMARY | 2024-08-25 15:38 | XMS_ITS | Encounter Summary ---
Author Organization [facility] Address [address] [place] [address] Care Team Providers Care Case Hardener Name Role Phone Jb Artis MD Primary Care Provider [phone] Encounter Details Date Type Department Care Team (Late st Contact Info) Description 12/06/2021 Scanned Document [facility] [address] [place] [id number] Melinda Becerril PA [address] [facility] [address] [place] [address] Social History Tobacco Use Types Packs/Day Years [...] on filedocumented in this encounter Care Teams Case Hardener Relationship Specialty Start Date End Date Jb Artis MD [address] [place] [id number] PCP - General Internal Medicine 11/29/21 documented as of this encounter
--- OUTSIDE RECORDS SUMMARY | 2024-08-25 15:38 | XMS_ITS | Encounter Summary ---
Author Organization [facility] Address [address] [place] [address] Phone Care Team Providers Care Aircraft Refueler Name Role Phone Junior Artis MD Primary Care Provider [phone] Reason for Visit * Reason Comments Med Refill Encounter Details Date Type Department Care Team (Late st Contact Info) Description 10/05/2022 Refill [facility] [address] [place] [address] Santy Jonas MD Social History [...] on filedocumented in this encounter Care Teams Aircraft Refueler Relationship Specialty Start Date End Date Junior Artis MD [address] [place], [place] PCP - General Internal Medicine 09/10/20 documented as of this encounter
[2024-08-25 17:43] LABS: MANUAL DIFF FLAG NO
[2024-08-25 17:49] LABS: Basophils Percent Auto 0.4 % (0-2); Eosinophils Absolute Auto 0.2 X10*3/uL (0.0-0.4); Eosinophils Percent Auto 4.3 % (0-4); Hematocrit 24.1 % (42.0-52.0); Hemoglobin 7.7 g/dl (14.0-18.0); Imm Gran Abs Auto 0.02 X10*3/uL (0.00-0.03); Imm Gran Pct Auto 0.4 % (0.0-0.4); Lymphocytes Absolute Auto 1.3 X10*3/uL (1.2-4.9); Lymphocytes Percent Auto 23.5 % (20-40); Mean Corpuscular Hemoglobin 31.3 pg (27.0-33.0); Mean Platelet Volume 10.8 fL (9.4-12.4); Monocytes Absolute Auto 0.5 X10*3/uL (0.1-1.2); Monocytes Percent Auto 9.6 % (2-11); Neutrophils Absolute Auto 3.4 x10*3/uL (2.0-8.3); Neutrophils Percent Auto 61.8 % (45-73); Platelet Count 242 X10*3/uL (160-400); Red Blood Count 2.46 X10*6/uL (4.60-5.80); Red Cell Distribution Width 15.9 % (11.0-16.0); White Blood Count 5.5 X10*3/uL (4.8-10.8)
[2024-08-25 18:06] LABS: Anion Gap 13 (12-20); Blood Urea Nitrogen 68 mg/dL (9-16); Carbon Dioxide 21 mmol/L (22-29); Chloride 110 mmol/L (96-108); Estimated Glomerular Filt Rate 19; Iron 93 mcg/dL (45-160); Percent Iron Saturation 43 % (15-50); Potassium 4.2 mmol/L (3.3-5.1); Sodium 140 mmol/L (135-145); Total Iron Binding Capacity 214 mcg/dL (228-428); Unsaturated Iron Binding 121 ug/dL
[2024-08-25 18:21] LABS: Ferritin 505 ng/mL (20-250)
== END 2024-08-25 12:52 | disposition home or self-care (01) ==
LOC: HO.HKASLDS 12:51
PROVIDERS: Visit Provider Internal Medicine Nephrology
DX: N18.4 Chronic kidney disease, stage 4 (severe) (principal); D63.1 Anemia in chronic kidney disease; I10 Essential (primary) hypertension
CPT/HCPCS: 36415; 80051; 82565; 82728; 83540; 84520; 85025

== ENCOUNTER 2024-08-30 12:04 | Outpatient (AMB) | payer MEDICARE, SELFPAY ==
--- NOTE | 2024-08-30 12:06 | HO.NEPHOV_ITS ---
Vital Signs 08/30/24 12:09 Height 5 ft 9 in Weight 157 lb BMI 23.2 BP 110/60 Blood Pressure Location Lt brachial Position Sitting Pulse 83 Pulse Source Pulse Oximeter Pulse Oximetry (%) 98 Oxygen Delivery Method Room Air Intake Visit Reasons: 1 [facility] Endless Bed Drum Sander Required: No Accompanied by: Spouse Allergies lisinopril Allergy (Verified 08/30/24 12:09) Unknown Macrolides and Ketolides Allergy (Uncoded 03/18/23 13:49) Unknown HPI Comments Details: Alireza Kyle was seen in the office, accompanied by his Jane, in follow- up of his chronic kidney disease and management of his anemia. 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 He has hypertension which is well controlled. He has anemia chronic disease for which he had been getting Procrit . He denies taking any nonsteroidal anti- inflammatory medications. He does not have any chest pain, shortness of breath, nausea vomiting, diarrhea, orthostatic symptoms, edema. His serum creatinine is stable at baseline. He does not feel tired. His appetite is better. 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, stage 4 (severe) Family History Mother Cancer Child No Financial Resp Cancer Social History Alcohol intake: never Patient Tobacco Use Status: Never used Tobacco Review of Systems Const All systems reviewed & are unremarkable except as noted in HPI and below Physical Exam Vital Signs: Last Vital Signs Pulse 83 08/30/24 12:09 BP 110/60 08/30/24 12:09 Pulse Ox 98 08/30/24 12:09 Oxygen Delivery Method Room Air 08/30/24 12:09 BMI result Body Mass Index 23.2 Const General: comfortable and no acute distress Orientation/consciousness: patient oriented x3 HEENT Head: Yes normocephalic Mouth: Normal oral and palatal mucosa present Eyes EOM: EOMs intact bilaterally Neck Neck: Yes supple Resp Auscultation: clear to auscultation bilaterally Cardio Jugular venous distension: no JVD Rate: regular rate GI Palpation (GI): Soft to palpation Auscultation: normal bowel sounds General: Yes no CVA tenderness Back/Spine/Pelvis Back: no CVA tenderness Skin General skin exam: no rashes or lesions noted Neuro General: patient oriented x3 and moves all extremities Extrem General: Yes no pedal edema Office Meds epoetin lizet-epbx 10,000 unit/mL injection solution Performing Provider: Santy Jonas MD [place] [facility] [place] [facility] Administered by: Santy Jonas MD on 08/30/24 12:44 Dose Route Admin Location Dispensed Lot Number Expiration Date [facility] Medical Claims Representative 40,000 unit subcut LUE 4 mL [id number] 11/08/25 9607-1791-15 [employer] Results Reviewed Nephrology Results: Hgb 7.7 g/dl (14.0-18.0) L 08/25/24 WBC 5.5 X10*3/uL (4.8-10.8) 08/25/24 Plt Count 242 X10*3/uL (160-400) 08/25/24 Sodium 140 mmol/L (135-145) 08/25/24 Potassium 4.2 mmol/L (3.3-5.1) 08/25/24 Chloride 110 mmol/L (96-108) H 08/25/24 Carbon Dioxide 21 mmol/L (22-29) L 08/25/24 BUN 68 mg/dL (9-16) H 08/25/24 Creatinine 3.14 mg/dL (0.5-1.4) H 08/25/24 Assessment & Plan Assessment & Plan (1) Anemia in chronic kidney disease: Code(s): N18.9 - Chronic kidney disease, unspecified; D63.1 - Anemia in chronic kidney disease Category: Medical Qualifiers: Chronic kidney disease stage: stage 4 (severe) Qualified Code(s): N18.4 - Chronic kidney disease, stage 4 (severe); D63.1 - Anemia in chronic kidney disease (2) Chronic kidney disease, stage 4 (severe): Code(s): N18.4 - Chronic kidney disease, stage 4 (severe) Category: Medical (3) Hypertension: Code(s): I10 - Essential (primary) hypertension Category: Medical Qualifiers: Hypertension type: primary hypertension Qualified Code(s): I10 - Essential (primary) hypertension Plan Alireza has history of minimal change disease with nephrotic syndrome. He had been on losartan which has been put on hold for a long time. He can continue on his current dose of diuretics. His renal function is close to baseline. I administered 22464 Units Procrit in my office today. He may need PRBC. I did not make any other medication changes. Labs ordered for F/U .All his questions were answered Orders: Orders Electrolytes 3 Weeks D63.1 - Anemia in chronic kidney disease, I10 - Essential (primary) hypertension, N18.4 - Chronic kidney disease, stage 4 (severe) Ferritin 3 Weeks D63.1 - Anemia in chronic kidney disease, I10 - Essential (primary) hypertension, N18.4 - Chronic kidney disease, stage 4 (severe) IRON PROFILE 3 Weeks D63.1 - Anemia in chronic kidney disease, I10 - Essential (primary) hypertension, N18.4 - Chronic kidney disease, stage 4 (severe) Creatinine 3 Weeks D63.1 - Anemia in chronic kidney disease, I10 - Essential (primary) hypertension, N18.4 - Chronic kidney disease, stage 4 (severe) Blood Urea Nitrogen 3 Weeks D63.1 - Anemia in chronic kidney disease, I10 - Essential (primary) hypertension, N18.4 - Chronic kidney disease, stage 4 (severe) AMB Epoetin Injection Practice Supplied Today D63.1 - Anemia in chronic kidney disease, N18.4 - Chronic kidney disease, stage 4 (severe) Medications: New epoetin lizet-epbx 40,000 units (4 mL) subcut ONCE 4 mL 0RF D63.1 - Anemia in chronic kidney disease, N18.4 - Chronic kidney disease, stage 4 (severe) Coding Level of Care Code Est Pt Level 4 (91942) Diagnoses Anemia in stage 4 chronic kidney disease N18.4; D63.1 Chronic kidney disease stage: stage 4 (severe) Chronic kidney disease, stage 4 (severe) N18.4 Primary hypertension I10 Hypertension type: primary hypertension
[2024-08-30 12:09] VITALS: BP 110/60; PULSE 83; O2SAT 98; BMI 23.2
--- OUTSIDE RECORDS SUMMARY | 2024-08-30 14:27 | XMS_ITS | Encounter Summary ---
Author Organization [facility] Address [address] [place] [address] Phone Care Team Providers Care Salt Plant Operator Name Role Phone Junior Artis MD Primary Care Provider Reason for Visit * Reason Comments Med Refill Encounter Details Date Type Department Care Team (Late st Contact Info) Description 11/30/2022 Refill [facility] [address] [place] [address] Santy Jonas MD Social History [...] on filedocumented in this encounter Care Teams Salt Plant Operator Relationship Specialty Start Date End Date Junior Artis MD [address] [place], [place] PCP - General Internal Medicine 09/10/20 documented as of this encounter
--- OUTSIDE RECORDS SUMMARY | 2024-08-30 14:27 | XMS_ITS | Clinical Summary ---
Author Organization [facility] Address [address] [facility] [address] [facility] [address] [place] [address] Phone Care Team Providers Care Nuclear Medical Technologist Name Role Phone Junior Artis MD Primary [...] the evening. 02/01/2022 Active ergocalciferol 1.25 MG (08448 UT) capsule TAKE 1 CAPSULE BY MOUTH [...] kidney disease,Chronic kidney disease stage 4 (HCC),Hypertension 46656 Units IJ Every 14 days 02/21/2021 Ac tive epoetin lizet (EPOGEN,PROCRIT) injection 20,000 UnitsIndications:Anemia due to Renal Failure 21568 Units IV Every 14 days 03/19/2022 Active epoetin lizet (EPOGEN,PROCRIT) injection 30,000 UnitsIndications:Anemia due to Renal Failure 94048 Units IV Every 14 days 04/02/2022 Active epoetin lizet (EPOGEN,PROCRIT) injection 20,000 UnitsIndications:Anemia due to Renal Failure 29609 Units IV Every 14 days 05/01/2022 Active Epoetin Lizet-epbx solution 40,000 UnitsIndications:Chronic kidney disease stage 4 (HCC),Anemia in chronic kidney disease 18331 Units IJ Once 07/30/2022 Active Epoetin Lizet-epbx solution 20,000 UnitsIndications:Anemia in chronic kidney disease,Chronic kidney disease stage 4 (HCC) 74544 Units IJ Once 09/10/2022 Ac tive Epoetin Lizet-epbx solution 20,000 UnitsIndications:Chronic kidney disease, not otherwise specified,Anemia in chronic kidney disease 62020 Units IJ Once 12/08/2022 A ctive Active [...] patient's age to complete this topic Insurance [facility] Care Teams Nuclear Medical Technologist Relationship Specialty Start Date End Date Junior Artis MD [address] [place], [place] PCP - General Internal Medicine 09/10/20
--- OUTSIDE RECORDS SUMMARY | 2024-08-30 14:27 | XMS_ITS | Encounter Summary ---
Author Organization [facility] Address [address] [place] [address] Phone Care Team Providers Care Watch Adjuster Name Role Phone Junior Artis MD Primary Care Provider Reason for Visit * Reason Comments Med Refill Encounter Details Date Type Department Care Team (Late st Contact Info) Description 10/05/2022 Refill [facility] [address] [place] [address] Santy Jonas MD Social History [...] on filedocumented in this encounter Care Teams Watch Adjuster Relationship Specialty Start Date End Date Junior Artis MD [address] [place], [place] PCP - General Internal Medicine 09/10/20 documented as of this encounter
--- OUTSIDE RECORDS SUMMARY | 2024-08-30 14:27 | XMS_ITS | Encounter Summary ---
Author Organization [facility] Address [address] [place] [address] Care Team Providers Care Tax Preparer Name Role Phone Jb Artis MD Primary Care Provider [phone] Encounter Details Date Type Department Care Team (Late st Contact Info) Description 12/06/2021 Scanned Document [facility] [address] [place] [phone] Melinda Becerril PA [address] [facility] [address] [place] [address] Social History Tobacco Use Types Packs/Day Years [...] on filedocumented in this encounter Care Teams Tax Preparer Relationship Specialty Start Date End Date Jb Artis MD [address] [place] [address] PCP - General Internal Medicine 11/29/21 documented as of this encounter
--- OUTSIDE RECORDS SUMMARY | 2024-08-30 14:27 | XMS_ITS | Encounter Summary ---
Author Organization [facility] Address [address] [place] [address] Care Team Providers Care Deputy Fire Marshal Name Role Phone Jb Artis MD Primary Care Provider [phone] Encounter Details Date Type Department Care Team (Late st Contact Info) Description 01/20/2022 Scanned Document [facility] [address] [place] [address] Melinda Becerril PA [address] [facility] [address] [place] [address] Social History Tobacco Use Types Packs/Day Years [...] on filedocumented in this encounter Care Teams Deputy Fire Marshal Relationship Specialty Start Date End Date Jb Artis MD [address] [place] [address] PCP - General Internal Medicine 11/29/21 documented as of this encounter
--- OUTSIDE RECORDS SUMMARY | 2024-08-30 14:27 | XMS_ITS | Encounter Summary ---
Author Organization [facility] Address [address] [place] [address] Care Team Providers Care Senior Statistical Programmer Name Role Phone Jb Artis MD Primary Care Provider [phone] Encounter Details Date Type Department Care Team (Late st Contact Info) Description 11/15/2021 Erroneous Encounter [facility] DEPT [address] [place] [phone] Provider, MD Madeline Social History Tobacco Use [...] on filedocumented in this encounter Care Teams Senior Statistical Programmer Relationship Specialty Start Date End Date Jb Artis MD [address] [place] [address] PCP - General Internal Medicine 11/29/21 documented as of this encounter
--- OUTSIDE RECORDS SUMMARY | 2024-08-30 14:27 | XMS_ITS | Clinical Summary ---
Author Organization [facility] Address [address] [place] [address] Care Team Providers Care Python Web Developer Name Role Phone Jb Artis MD Primary Care Provider [phone] Allergies Active Allergy Reactions Criticality Noted Date Comments Lisinopril Unknown/Patient and Family Unable to Define Medium 09/22/2018 Medications doxazosin (CARDURA) 8 MG tablet 0 Active ergocalciferol (VITAMIN D2,DRISDOL) 41055 units Cap Take 50,000 Units by mouth [...] patient's age to complete this topic Insurance [facility] MEDICARE [facility] MEDICARE [facility] MEDICARE Care Teams Python Web Developer Relationship Specialty Start Date End Date Jb Artis MD [address] [place] [address] PCP - General Internal Medicine 11/29/21
--- OUTSIDE RECORDS SUMMARY | 2024-08-30 14:27 | XMS_ITS | Clinical Summary ---
Author Organization [facility] Address [address] [facility] [place] [address] Phone Care Team Providers Care Linux Server Engineer Name Role Phone Junior Artis MD Primary Care Provider [phone] Allergies Active Allergy Reactions Criticality Noted Date [...] Problem Noted Date Diagnosed Date Atrial fibrillation ([facility] V24, CMS/[facility] V28) 0 07/01/2021 Overview (04/26/2024): Last Assessment [...] and his balance as well. History of [place] (myocardial infarction) 10/02/2020 Overview (04/26/2024): 1996 -Cath [...] Description 08/22/2024 2:10 PM EDT Office Visit [facility] Cardiology [facility] [address] [facility] [place] [facility] [address] [place] [address] Blaire Crowell NP Atrial fibrillation, unspecified type (CMS/HCC V24, CMS/HCC V28) (Primary Dx); Coronary artery disease, unspecified vessel or lesion type, unspecified whether angina present, unspecified whether [place] or transplanted heart 08/04/2024 Telephone [facility] Cardiology [facility] [address] [facility] [place] [facility] [address] [place] [address] Blaire Crowell NP from Last 3 Months [...] type, unspecified whether angina present, unspecified whether [place] or transplanted heart from Last 3 Months Results * ECG 12 lead (08/22/2024 4:06 PM EDT) 08/22/2024 2:17 PM EDT us Blaire Crowell NP ECG ORDERABLES Final Result GEM[facility] from Last 3 Months Insurance [employer] Care Teams Linux Server Engineer Relationship Specialty Start Date End Date Junior Artis MD [address] [place] [phone] PCP - General 06/17/19
== END 2024-08-30 12:50 | disposition home or self-care (01) ==
LOC: HO.HKAS 12:05
PROVIDERS: PCP Internal Medicine; Visit Provider Internal Medicine Nephrology
DX: I12.9 Hypertensive chronic kidney disease with stage 1 through stage 4 chronic kidney disease, or unspecified chronic kidney disease (principal); N18.4 Chronic kidney disease, stage 4 (severe); D63.1 Anemia in chronic kidney disease
CPT/HCPCS: 99214

== ENCOUNTER → 2024-08-30 12:04 | Outpatient (BNVA) | payer MEDICARE, SELFPAY | PROVIDERS: PCP Internal Medicine; Visit Provider Internal Medicine Nephrology | DX: I12.9 Hypertensive chronic kidney disease with stage 1 through stage 4 chronic kidney disease, or unspecified chronic kidney disease (principal); N18.4 Chronic kidney disease, stage 4 (severe); D63.1 Anemia in chronic kidney disease | CPT/HCPCS: 96372; 99212; Q5106 ==

== ENCOUNTER 2024-09-20 10:28 | Outpatient (REF) | payer MEDICARE, SELFPAY ==
--- OUTSIDE RECORDS SUMMARY | 2024-09-20 11:34 | XMS_ITS | Encounter Summary ---
Author Organization [facility] Address [address] [place] [address] Phone Care Team Providers Care Emt Paramedic Name Role Phone Junior Artis MD Primary Care Provider Reason for Visit * Reason Comments Med Refill Encounter Details Date Type Department Care Team (Late st Contact Info) Description 11/30/2022 Refill [facility] [address] [place] [address] Santy Jonas MD Social History [...] on filedocumented in this encounter Care Teams Emt Paramedic Relationship Specialty Start Date End Date Junior Artis MD [address] [place], [place] PCP - General Internal Medicine 09/10/20 documented as of this encounter
--- OUTSIDE RECORDS SUMMARY | 2024-09-20 11:34 | XMS_ITS | Clinical Summary ---
Author Organization [facility] Address [address] [facility] [place] [address] Phone Care Team Providers Care Duty Manager Name Role Phone Junior Artis MD Primary Care Provider [phone] Allergies Active Allergy Reactions Criticality Noted Date [...] Problem Noted Date Diagnosed Date Atrial fibrillation ([facility] V24, CMS/[facility] V28) 0 07/01/2021 Overview (04/26/2024): Last Assessment [...] and his balance as well. History of [place] (myocardial infarction) 10/02/2020 Overview (04/26/2024): 1996 -Cath [...] Description 08/22/2024 2:10 PM EDT Office Visit [facility] Cardiology [facility] [address] [facility] [address] [place] [address] Blaire Crowell NP Atrial fibrillation, unspecified type (CMS/HCC V24, CMS/HCC V28) (Primary Dx); Coronary artery disease, unspecified vessel or lesion type, unspecified whether angina present, unspecified whether [place] or transplanted heart 08/04/2024 Telephone [facility] Cardiology [facility] [address] [facility] [address] [place] [address] Blaire Crowell NP from Last 3 Months [...] type, unspecified whether angina present, unspecified whether [place] or transplanted heart from Last 3 Months Results * ECG 12 lead (08/22/2024 4:06 PM EDT) Ventricular Rate ECG 74 BPM GEMUSE Atrial Rate 80 BPM GEM[facility] QRS Duration 132 ms GEMUSE Q-T Interval 432 ms GEMUSE QTc 479 ms GEMUSE R [place] -24 degrees GEMUSE T [place] -18 degrees GEMUSE ECG Interpretation Atrial fibrillation with premature ventricular or aberrantly conducted complexes Non-specific intra-ventricul ar conduction block Abnormal ECG No previous ECGs available Confirmed by CATARINO TEJADA ([id number]) on 09/06/2024 11:09:25 AM GEMUSE 08/22/2024 2:17 PM EDT 09/06/2024 11:09 AM EDT us Blaire Crowell HONEY BLENDER ECG ORDERABLES Edited Resul t - Final GEMUSE from Last 3 Months Insurance [employer] Care Teams Duty Manager Relationship Specialty [place] [address] [place] [phone] PCP - General 06/17/19
--- OUTSIDE RECORDS SUMMARY | 2024-09-20 11:34 | XMS_ITS | Continuity of Care Document ---
Author Organization [facility] Address [address] [place] [address]- Care Team Providers Care Actionscript Developer Name Role Phone Chandra GIBBONS, Junior Jeffries Primary Care Physician [phone] Encounter [facility] Date(s): 08/16/24 - 09/15/24 [facility] [address], [place] [address] [place] Attending Physician: AdmGini sanchez Admitting Physician: AdmtrGini Referring Physician: Admtr, Ar8 Encounter Type: Triage Allergies, Adverse Reactions, Alerts [...] virus vaccine, inactivated 01/25/10 Give n SARS-CoV-2(COVID-19)mRNA-LNP vac([id number]) 03/07/24 Recorded SARS-CoV-2(COVID-19)mRNA-LNP vac([id number]) 04/04/23 Recorded pneumococcal 20-valent conjugate vaccine 01/22/24 Recorded RSV vaccine preF3, recombinant 05/13/23 Recorded zoster vaccine, inactivated 04/21/23 Recorded zoster vaccine, inactivated 06/27/22 Recorded tetanus-diphtheria toxoids (Td) 03/09/23 Given tetanus-diphtheria toxoids (Td) 02/22/99 Given [id number] bivalent booster vax 03/17/22 Recorded SARS-CoV-2 (COVID-19) [...] Pneumococcal Vaccine (oldterm) 06/27/97 Given 1Result Comment: [id number] 2Result Comment: [02/24/2013] given w/o incidense...mh 3Admin Note: SONOFI-given without incident- PT MEETS CRITERIA 4Result Comment: [01/04/2015] DONE AT [facility] FORM RECEIVED Medications apixaban 2.5 mg oral tablet 1 tablet = 2.5 mg, By Mouth, 2 times a day, # 180 tablet, 3 Refills, Maintenance, 09/05/22 3:45:00 PM EDT, Tablet, [facility] #[id number], Partial fill upon patient request if the [...] Refills, Maintenance, 01/22/24 11:40:00 AM EDT, Tablet, [facility] #[id number], 175, cm, 01/22/24 10:57:00 EDT, Height, 76.8, kg, 01/22/24 10:57:00 EDT, Dry Weight Start Date: 01/22/24 Stop Date: 01/16/25 Status: Ordered Quantity: 90.0 Unit: tablet Repeat number: 4 clopidogrel 75 mg oral tablet 1, tablet, By Mouth, Daily, # 90 tablet, Refills 3, Tot. Refills 3, Maintenance, 01/12/24 11:16:00 AMEDT, Route to Pharmacy Electronically, [facility] #[id number], 175, cm, 10/14/23 11:40:00 EDT,Height, 72, kg, 10/14/23 11:40:00 EDT, Dry Weight Start Date: 01/12/24 Status: Ordered Quantity: 90.0 Unit: tablet Repeat number: 4 Coreg 12.5 mg oral tablet 12.5 mg, 1, tablet, By Mouth, 2 times a day, PLEASE DISCONTINUE PREVIOUS METOPROLOL AND TAKE COREG/CARVEDILOL, # 180 tablet, Refills 3, Tot. Refills 3, Maintenance, 01/22/24 11:42:00 AM EDT, Route to Pharmacy Electronically, [facility] #[id number], Partial fill upon patient request if the [...] 11:41:00 AM EDT, Route to Pharmacy Electronically, [facility] #[id number], Partial fill upon patient request if the prescription is for a schedule II opioid drug., 175, cm, 01/22/24 10:57:00 EDT, Height, 76.8, kg, 01/22/24 10:57:00 EDT, Dry Weight Start Date: 01/22/24 Stop Date: 01/16/25 Status: Ordered Quantity: 180.0 Unit: tablet Repeat number: 4 fenofibrate 54 mg oral tablet 1 tablet, By Mouth, Daily, # 90 tablet, 3 Refills, Maintenance, 04/11/24 12:17:00 PM EST, [facility] #[id number], 175, cm, 04/11/24 12:13:00 EST, Height, 72.8, [...] 2:28:00 PM EDT, Route to Pharmacy Electronically, [facility]/pharmacy #[id number], Partial fill upon patient request [...] 3 Refills, Maintenance, 01/22/24 11:39:00 AM EDT, [facility] #[id number], 175, cm, 01/22/24 10:57:00 EDT, Height, 76.8, kg, 01/22/24 10:57:00 EDT,Dry Weight Start Date: 01/22/24 Status: Ordered Quantity: 270.0 Unit: tablet Repeat number: 4 isosorbide mononitrate 60 mg oral tablet, extended release 2 tablet = 120 mg, By Mouth, Daily in AM, # 180 tablet, 3 Refills, Maintenance, 01/22/24 11:38:00 AMEDT, ER Tablet, [facility] #[id number], Partial fill upon patient request if the [...] Refills, Maintenance, 12/02/22 2:07:00 PM EDT, Tablet, [facility] #[id number], 175, cm, 08/26/22 10:20:00 EDT, Height, 70.5, [...] 11 Refills, Maintenance, 09/22/23 5:27:00 PM EDT, [facility] #[id number], Partial fill upon patient request if the [...] Unit: tablet Repeat number: 1 Vitamin D 22196 iu oral capsule 1 capsule = 50,000 [...] on: 05/06/13 Sex Sex Representation Male (finding) Cardiology * Event Display: EKG Non BH Authored Date: * Event Display: Non BH Cardiovascular Results Authored Date: * Event Display: Holter Monitor Non BH Authored Date: Laboratory * Event Display: Laboratory Result Scanned Authored Date: * Event Display: Non BH Lab Results Authored Date: * Paty Whittaker: PERFORM Event Display: Laboratory Results Scanned Authored Date: Cardiology Consult note * Event Display: Consult Note Cardiology Authored Date: * Event Display: Consult Note Cardiology Authored Date: * Event Display: Consult Note Cardiology Authored Date: Radiology * Event Display: Ultrasound Abdomen, Non-BH Authored Date: * Paty Whittaker: PERFORM Event Display: Radiology Results Scanned Authored Date: Note * Doron Dubois: PERFORM, SIGN, VERIFY Event Display: Patient Education/Instruction Authored Date: [facility] Adt Clinical Summary Person Information Name CASEY SALAZAR Age 77 Years 1935 12:00 AM PCP Chandra GIBBONS, Junior Jeffries PCP Reason for Visit: Allergy Info: Zithromax; lisinopril Vital Signs Height Weight BMI Blood Pressure / Temperature Pulse Rate Respiratory Rate 02 Sat Mode of Delivery / Medication Information Acetaminophen (Tylenol 325 mg oral tablet) 2 tablet, Oral, every 4 hours, As Needed, Headache, Refills: 0 Amlodipine (amlodipine 10 mg oral tablet) 0.5 tablet, Oral, Daily, 7 days, Refills: 0 Aspirin 81 mg, Oral, Daily, Refills: 0 Atorvastatin (atorvastatin 80 mg oral tablet) 1 tablet, Oral, Daily, 90 days, Refills: 3 Calcium Carbonate (calcium carbonate 500 mg oral tablet, chewable) 1 tablet, Daily, Refills: 0 CycloSPORINE (cyclosporine 100 mg oral capsule) 1 capsule, Oral, every 12 hours, Refills: 0 Ergocalciferol (Vitamin D 26844 iu oral capsule) 1 capsule, Oral, Every 28 days, Refills: 0 Esomeprazole (Nexium 40 mg oral enteric coated capsule) 1 capsule, Oral, Daily, 90 days, Refills: 3 Fenofibrate (fenofibrate 50 mg oral tablet) 1 tablet, Oral, Daily, Refills: 5 Furosemide (Lasix 40 mg oral tablet) 1 tablet, Oral, every other day, Refills: 0 Labetalol (labetalol 200 mg oral tablet) 1 tablet, Oral, twice a day, Refills: 0 Metronidazole Topical (MetroCream 0.75% topical cream) 1 application, Topically, twice a day, Refills: 1 Multivitamin (Multivitamin Tablet) 1 tablet, Oral, Daily, Refills: 0 Multivitamin With Minerals (Ocuvite Lutein oral capsule) 1 capsule, Oral, Daily, Refills: 0 Nitroglycerin (nitroglycerin 0.4 mg sublingual tablet) , See Instructions, one Sublingual prn for chest pain or dyspnea. 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 Diagnostic Results Lab Result Value Date Lead Hemoglobin A1C LDL LDL CHOLESTEROL NOT CALCULATED WHEN TRIGLYCERIDES ARE GREATER THAN OR 10/31/13 HDL 33 10/31/13 Triglycerides 522 10/31/13 Total Cholesterol 221 10/31/13 Disclaimer: The information provided is of a [...] different or additional instructions may be required. If you have questions, please consult with your primary care provider or pharmacist, as appropriate. This information is not intended to serve as substitution for assessment and evaluation by a qualified health care provider. If you do not have a primary care provider, you may find a [facility] provider by calling [facility] at [phone]. Patient Education Information Follow-up Details: Patient Education Material: Patient Care team information Care Team Personnel Name: Salma Gordon CNM Position: Reference Physician Member Role: Primary Care Nurse Address: [address] [place] [address] [place] Telecom: Name: Orquidea Brizuela RN Position: [facility] Onco RN Member Role: Primary Care Nurse Name: Junior Artis MD Position: [facility] Physician - Primary Care Member Role: PCP Address: [address] [place] [address] Adult [place] [address]- [place] Telecom: Name: Santy Jonas MD Position: [facility] Renal MD Member Role: Lifetime Consulting Physician Address: [address] [place] [address] [address] [facility] [place] [address]- [place] Telecom: Name: Irais Bloom NP Position: [facility] Associate Professional Member Role: Primary Care Nurse Address: [address] [place] [address]- [place] Telecom: Name: Mane Taylor RN Position: [facility] RN Member Role: Primary Care Nurse Name: Tiffany Sheehan Position: [facility] AMB Nurse Member Role: Lifetime Consulting Physician Name: Candy Boothe RN Position: [facility] RN Member Role: Primary Care Nurse Name: Artem Uriarte MD Position: [facility] Outreach Member Role: Lifetime Consulting Physician Address: [address] [facility], [address] Telecom: Name: Alton Pineda MD Position: [facility] Renal MD Member Role: Lifetime Consulting Physician Address: [address] [facility] [place], [place] [address] Telecom: Name: Nayeli Iglesias RN Position: S RN Member Role: Primary Care Nurse Care Team Related Persons Name: CASEY SALAZAR Name: FELISA SALAZAR Insurance Providers Guarantor name: CASEY SALAZAR Health Plan Information #: 1 Payer: [employer] ADV HMO Member Number: NA Policy Number: NA Group Number: NA
--- OUTSIDE RECORDS SUMMARY | 2024-09-20 11:34 | XMS_ITS | Encounter Summary ---
Author Organization [facility] Address [address] [place] [address] Care Team Providers Care Pipe Foreman Name Role Phone Jb Artis MD Primary Care Provider + [phone] Encounter Details Date Type Department Care Team (Late st Contact Info) Description 12/06/2021 Scanned Document [facility] [address] [place] [phone] Melinda Becerril PA [address] [facility] [address] [place] [address] Social History Tobacco Use Types Packs/Day Years [...] on filedocumented in this encounter Care Teams Pipe Foreman Relationship Specialty Start Date End Date Jb Artis MD [address] [place] [address] PCP - General Internal Medicine 11/29/21 documented as of this encounter
--- OUTSIDE RECORDS SUMMARY | 2024-09-20 11:34 | XMS_ITS | Encounter Summary ---
Author Organization [facility] Address [address] [place] [address] Care Team Providers Care Service Person Name Role Phone Jb Artis MD Primary Care Provider + [phone] Encounter Details Date Type Department Care Team (Late st Contact Info) Description 01/20/2022 Scanned Document [facility] [address] [place] [address] Melinda Becerril PA [address] [facility] [address] [place] [address] Social History Tobacco Use Types Packs/Day Years [...] on filedocumented in this encounter Care Teams Service Person Relationship Specialty Start Date End Date Jb Artis MD [address] [place] [address] PCP - General Internal Medicine 11/29/21 documented as of this encounter
--- OUTSIDE RECORDS SUMMARY | 2024-09-20 11:34 | XMS_ITS | Encounter Summary ---
Author Organization [facility] Address [address] [place] [address] Phone Care Team Providers Care Throat Cutter Name Role Phone Junior Artis MD Primary Care Provider Reason for Visit * Reason Comments Med Refill Encounter Details Date Type Department Care Team (Late st Contact Info) Description 10/05/2022 Refill [facility] [address] [place] [address] Santy Jonas MD Social History [...] on filedocumented in this encounter Care Teams Throat Cutter Relationship Specialty Start Date End Date Junior Artis MD [address] [place], [place] PCP - General Internal Medicine 09/10/20 documented as of this encounter
--- OUTSIDE RECORDS SUMMARY | 2024-09-20 11:34 | XMS_ITS | Continuity of Care Document ---
Author Organization [facility] Address [address] [place] [address]- Care Team Providers Care Periodicals Library Assistant Name Role Phone Chandra GIBBONS, Junior Jeffries Primary Care Physician Encounter [facility] Date(s): 08/15/24 - 09/14/24 [facility] [address] [place], [place] [address] Encounter Type: Triage Allergies, Adverse Reactions, Alerts [...] virus vaccine, inactivated 01/25/10 Give n SARS-CoV-2(COVID-19)mRNA-LNP vac([id number]) 03/07/24 Recorded SARS-CoV-2(COVID-19)mRNA-LNP vac([id number]) 04/04/23 Recorded pneumococcal 20-valent conjugate vaccine 01/22/24 Recorded RSV vaccine preF3, recombinant 05/13/23 Recorded zoster vaccine, inactivated 04/21/23 Recorded zoster vaccine, inactivated 06/27/22 Recorded tetanus-diphtheria toxoids (Td) 03/09/23 Given tetanus-diphtheria toxoids (Td) 02/22/99 Given [id number] bivalent booster vax 03/17/22 Recorded SARS-CoV-2 (COVID-19) [...] Pneumococcal Vaccine (oldterm) 06/27/97 Given 1Result Comment: [id number] 2Result Comment: [02/24/2013] given w/o incidense...mh 3Admin Note: SONOFI-given without incident- PT MEETS CRITERIA 4Result Comment: [01/04/2015] DONE AT [facility] FORM RECEIVED Medications apixaban 2.5 mg oral tablet 1 tablet = 2.5 mg, By Mouth, 2 times a day, # 180 tablet, 3 Refills, Maintenance, 09/05/22 3:45:00 PM EDT, Tablet, [facility] #[id number], Partial fill upon patient request if the [...] Refills, Maintenance, 01/22/24 11:40:00 AM EDT, Tablet, [facility] #[id number], 175, cm, 01/22/24 10:57:00 EDT, Height, 76.8, kg, 01/22/24 10:57:00 EDT, Dry Weight Start Date: 01/22/24 Stop Date: 01/16/25 Status: Ordered Quantity: 90.0 Unit: tablet Repeat number: 4 clopidogrel 75 mg oral tablet 1, tablet, By Mouth, Daily, # 90 tablet, Refills 3, Tot. Refills 3, Maintenance, 01/12/24 11:16:00 AMEDT, Route to Pharmacy Electronically, [facility] #[id number], 175, cm, 10/14/23 11:40:00 EDT,Height, 72, kg, 10/14/23 11:40:00 EDT, Dry Weight Start Date: 01/12/24 Status: Ordered Quantity: 90.0 Unit: tablet Repeat number: 4 Coreg 12.5 mg oral tablet 12.5 mg, 1, tablet, By Mouth, 2 times a day, PLEASE DISCONTINUE PREVIOUS METOPROLOL AND TAKE COREG/CARVEDILOL, # 180 tablet, Refills 3, Tot. Refills 3, Maintenance, 01/22/24 11:42:00 AM EDT, Route to Pharmacy Electronically, [facility] #[id number], Partial fill upon patient request if the [...] 11:41:00 AM EDT, Route to Pharmacy Electronically, [facility] #[id number], Partial fill upon patient request if the prescription is for a schedule II opioid drug., 175, cm, 01/22/24 10:57:00 EDT, Height, 76.8, kg, 01/22/24 10:57:00 EDT, Dry Weight Start Date: 01/22/24 Stop Date: 01/16/25 Status: Ordered Quantity: 180.0 Unit: tablet Repeat number: 4 fenofibrate 54 mg oral tablet 1 tablet, By Mouth, Daily, # 90 tablet, 3 Refills, Maintenance, 04/11/24 12:17:00 PM EST, [facility] #[id number], 175, cm, 04/11/24 12:13:00 EST, Height, 72.8, [...] 2:28:00 PM EDT, Route to Pharmacy Electronically, [facility]/pharmacy #[id number], Partial fill upon patient request if the prescription is for a schedule II opioid drug., 175, cm, 08/16/24 14:00:00 EDT, Height, 70.9,kg, 08/16/24 14:00:00 EDT, Dry Weight Start Date: 08/16/24 Status: Ordered Quantity: 90.0 Unit: tablet Repeat number: 4 hydrALAZINE 50 mg oral tablet 1 tablet, By Mouth, 3 times a day, # 270 tablet, 3 Refills, Maintenance, 01/22/24 11:39:00 AM EDT, [facility] #[id number], 175, cm, 01/22/24 10:57:00 EDT, Height, 76.8, kg, 01/22/24 10:57:00 EDT,Dry Weight Start Date: 01/22/24 Status: Ordered Quantity: 270.0 Unit: tablet Repeat number: 4 isosorbide mononitrate 60 mg oral tablet, extended release 2 tablet = 120 mg, By Mouth, Daily in AM, # 180 tablet, 3 Refills, Maintenance, 01/22/24 11:38:00 AMEDT, ER Tablet, [facility] #[id number], Partial fill upon patient request if the [...] Refills, Maintenance, 12/02/22 2:07:00 PM EDT, Tablet, [facility] #[id number], 175, cm, 08/26/22 10:20:00 EDT, Height, 70.5, [...] 11 Refills, Maintenance, 09/22/23 5:27:00 PM EDT, [facility] #[id number], Partial fill upon patient request if the [...] Unit: tablet Repeat number: 1 Vitamin D 27270 iu oral capsule 1 capsule = 50,000 [...] Member Role: Primary Care Nurse Address: [address] [place] [address]- Telecom: Name: Orquidea Brizuela RN Position: [facility] Onco RN Member Role: Primary Care Nurse Name: Junior Artis MD Position: [facility] Physician - Primary Care Member Role: PCP Address: [address] [facility] [place] [address]- Telecom: Name: Santy Jonas MD Position: [facility] Renal MD Member Role: Lifetime Consulting Physician Address: [address] [place] [address] [address] [facility] [address]- [place] Telecom: Name: Irais Bloom NP Position: [facility] Associate Professional Member Role: Primary Care Nurse Address: [address] [place] [address]- [place] Telecom: Name: Mane Taylor RN Position: [facility] RN Member Role: Primary Care Nurse Name: Tiffany Sheehan Position: [facility] AMB Nurse Member Role: Lifetime Consulting Physician Name: Candy Boothe RN Position: [facility] RN Member Role: Primary Care Nurse Name: Artem Uriarte MD Position: [facility] Outreach Member Role: Lifetime Consulting Physician Address: [address] [facility] [address] [facility] [place], [place] [address]- [place] Telecom: Name: Alton Pineda MD Position: [facility] Renal MD Member Role: Lifetime Consulting Physician Address: [address] [facility] [place] [address]- [place] Telecom: Name: Nayeli Iglesias RN Position: [facility] RN Member Role: Primary Care Nurse Care Team Related Persons Name: CASEY Name: FELISA SALAZAR Insurance Providers Guarantor name: CASEY SALAZAR [facility] Plan Information #: 1 Payer: [employer] ADV HMO Member Number: NA Policy Number: NA Group Number: NA
--- OUTSIDE RECORDS SUMMARY | 2024-09-20 11:34 | XMS_ITS | Clinical Summary ---
Author Organization [facility] Address [address] [place] [address] Care Team Providers Care Cable Driller Name Role Phone Jb Artis MD Primary Care Provider [phone] Allergies Active Allergy Reactions Criticality Noted Date Comments Lisinopril Unknown/Patient and Family Unable to Define Medium 09/22/2018 Medications doxazosin (CARDURA) 8 MG tablet 0 Active ergocalciferol (VITAMIN D2,DRISDOL) 59391 units Cap Take 50,000 Units by mouth [...] Patients (1 - 1-dose 75+ series) 11/28/2010 COVID-19 Vaccine ( - season) 2024 08/28/2021, 02/26/2021, 08/07/2020, Additional history exists Influenza Vaccine 12/09/2024 02/14/2021, , 02/20/2019, Additional history exists Hepatitis B Vaccines Aged Out No long er eligible based on patient's age to complete this topic [place] [address] [place] [address] MEDICARE [facility] MEDICARE [facility] MEDICARE Care Teams Cable Driller Relationship Specialty Start Date End Date Jb Artis MD [address] [place] [address] PCP - General Internal Medicine 11/29/21
--- OUTSIDE RECORDS SUMMARY | 2024-09-20 11:34 | XMS_ITS | Encounter Summary ---
Author Organization [facility] Address [address] [place] [address] Care Team Providers Care Adjunct Psychology Professor Name Role Phone Jb Artis MD Primary Care Provider [phone] Encounter Details Date Type Department Care Team (Late st Contact Info) Description 11/15/2021 Erroneous Encounter [facility] [address] [place] [address] Provider, MD Madeline Social History Tobacco Use [...] on filedocumented in this encounter Care Teams Adjunct Psychology Professor Relationship Specialty Start Date End Date Jb Artis MD [address] [place] [address] PCP - General Internal Medicine 11/29/21 documented as of this encounter
--- OUTSIDE RECORDS SUMMARY | 2024-09-20 11:34 | XMS_ITS | Clinical Summary ---
Author Organization [facility] Address [address] [facility] [address] [facility] [address] [place] [address] Phone Care Team Providers Care Shipping Packer Name Role Phone Junior Artis MD Primary Care Provider [phone] Allergies Active Allergy Reactions Criticality Noted Date [...] the evening. 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 63478 Units IV Every 14 days 05/01/2022 Active Epoetin Lizet-epbx solution 40,000 UnitsIndications:Chronic kidney disease stage 4 (HCC),Anemia in chronic kidney disease 38949 Units IJ Once 07/30/2022 Active Epoetin Lizet-epbx solution 20,000 UnitsIndications:Anemia in chronic kidney disease,Chronic kidney disease stage 4 (HCC) 21211 Units IJ Once 09/10/2022 Ac tive Epoetin Lizet-epbx solution 20,000 UnitsIndications:Chronic kidney disease, not otherwise specified,Anemia in chronic kidney disease 92267 Units IJ Once 12/08/2022 A ctive Active [...] patient's age to complete this topic Insurance [facility] Care Teams Shipping Packer Relationship Specialty Start Date End Date Junior Artis MD [address] [place], [place] PCP - General Internal Medicine 09/10/20
[2024-09-20 18:06] LABS: MANUAL DIFF FLAG NO
[2024-09-20 18:10] LABS: Basophils Percent Auto 0.6 % (0-2); Eosinophils Absolute Auto 0.1 X10*3/uL (0.0-0.4); Eosinophils Percent Auto 2.5 % (0-4); Hematocrit 25.5 % (42.0-52.0); Imm Gran Abs Auto 0.01 X10*3/uL (0.00-0.03); Imm Gran Pct Auto 0.2 % (0.0-0.4); Lymphocytes Absolute Auto 1.2 X10*3/uL (1.2-4.9); Lymphocytes Percent Auto 22.2 % (20-40); Mean Corpuscular HGB Conc 31.4 g/dl (31.0-36.0); Mean Corpuscular Hemoglobin 31.6 pg (27.0-33.0); Mean Corpuscular Volume 100.8 fL (80.0-98.0); Mean Platelet Volume 10.5 fL (9.4-12.4); Monocytes Absolute Auto 0.6 X10*3/uL (0.1-1.2); Neutrophils Absolute Auto 3.3 x10*3/uL (2.0-8.3); Neutrophils Percent Auto 62.5 % (45-73); Platelet Count 268 X10*3/uL (160-400); Red Blood Count 2.53 X10*6/uL (4.60-5.80); Red Cell Distribution Width 16.7 % (11.0-16.0); White Blood Count 5.3 X10*3/uL (4.8-10.8)
[2024-09-20 18:36] LABS: Anion Gap 14 (12-20); Blood Urea Nitrogen 67 mg/dL (9-16); Carbon Dioxide 18 mmol/L (22-29); Chloride 112 mmol/L (96-108); Estimated Glomerular Filt Rate 18; Iron 85 mcg/dL (45-160); Percent Iron Saturation 37 % (15-50); Potassium 3.8 mmol/L (3.3-5.1); Sodium 140 mmol/L (135-145); Total Iron Binding Capacity 229 mcg/dL (228-428); Unsaturated Iron Binding 144 ug/dL
[2024-09-20 18:51] LABS: Ferritin 418 ng/mL (20-250)
== END 2024-09-20 10:29 | disposition home or self-care (01) ==
LOC: HO.HKASLDS 10:28
PROVIDERS: Visit Provider Internal Medicine Nephrology
DX: I10 Essential (primary) hypertension (principal); N18.4 Chronic kidney disease, stage 4 (severe); D63.1 Anemia in chronic kidney disease
CPT/HCPCS: 36415; 80051; 82565; 82728; 83540; 84520; 85025

== ENCOUNTER 2024-09-22 11:51 | Outpatient (AMB) | payer MEDICARE, SELFPAY ==
--- NOTE | 2024-09-22 11:59 | HO.NEPHOV_ITS ---
Vital Signs 09/22/24 12:06 Height 5 ft 9 in Weight 158 lb 8 oz BMI 23.4 BP 110/60 Blood Pressure Location Lt brachial Position Sitting Pulse 66 Pulse Source Pulse Oximeter Pulse Oximetry (%) 97 Oxygen Delivery Method Room Air Intake Visit Reasons: 3wks follow-up w/labs-LVM Power Barker Operator Required: No Accompanied by: Spouse Allergies lisinopril Allergy (Verified 09/22/24 12:06) Unknown Macrolides and Ketolides Allergy (Uncoded 03/18/23 13:49) Unknown HPI Comments Details: Alireza Kyle was seen in the office, accompanied by his Jane, in follow- up of his chronic kidney disease and management of his anemia. 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 He has hypertension which is well controlled. He has anemia chronic disease for which he had been getting Procrit . He denies taking any nonsteroidal anti- inflammatory medications. He does not have any chest pain, shortness of breath, nausea vomiting, diarrhea, orthostatic symptoms, edema. His serum creatinine is stable at baseline. He does not feel tired. His appetite is better. 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, stage 4 (severe) Family History Mother Cancer Child No Financial Resp Cancer Social History Alcohol intake: never Patient Tobacco Use Status: Never used Tobacco Review of Systems Const All systems reviewed & are unremarkable except as noted in HPI and below Physical Exam Const General: comfortable and no acute distress Orientation/consciousness: patient oriented x3 HEENT Head: Yes normocephalic Mouth: Normal oral and palatal mucosa present Eyes EOM: EOMs intact bilaterally Neck Neck: Yes supple Resp Auscultation: clear to auscultation bilaterally Cardio Jugular venous distension: no JVD Rate: regular rate GI Palpation (GI): Soft to palpation Auscultation: normal bowel sounds General: Yes no CVA tenderness Back/Spine/Pelvis Back: no CVA tenderness Skin General skin exam: no rashes or lesions noted Neuro General: patient oriented x3 and moves all extremities Extrem General: Yes no pedal edema Office Meds epoetin lizet-epbx 10,000 unit/mL injection solution Performing Provider: Santy Jonas MD Performing Location: [facility] Administered by: Santy Jonas MD on 09/22/24 12:07 Dose Route Admin Location Dispensed Lot Number Expiration Date [facility] [employer] 20,000 unit subcut LUE 2 mL [id number] 11/08/25 0019-8358-52 [employer] Results Reviewed Nephrology Results: Hgb 8.0 g/dl (14.0-18.0) L 09/20/24 WBC 5.3 X10*3/uL (4.8-10.8) 09/20/24 Plt Count 268 X10*3/uL (160-400) 09/20/24 Sodium 140 mmol/L (135-145) 09/20/24 Potassium 3.8 mmol/L (3.3-5.1) 09/20/24 Chloride 112 mmol/L (96-108) H 09/20/24 Carbon Dioxide 18 mmol/L (22-29) L 09/20/24 BUN 67 mg/dL (9-16) H 09/20/24 Creatinine 3.23 mg/dL (0.5-1.4) H 09/20/24 Assessment & Plan Assessment & Plan (1) Chronic kidney disease, stage 4 (severe): Code(s): N18.4 - Chronic kidney disease, stage 4 (severe) Category: Medical (2) Anemia in chronic kidney disease: Code(s): N18.9 - Chronic kidney disease, unspecified; D63.1 - Anemia in chronic kidney disease Category: Medical Qualifiers: Chronic kidney disease stage: stage 4 (severe) Qualified Code(s): N18.4 - Chronic kidney disease, stage 4 (severe); D63.1 - Anemia in chronic kidney disease (3) Hypertension: Code(s): I10 - Essential (primary) hypertension Category: Medical Qualifiers: Hypertension type: primary hypertension Qualified Code(s): I10 - Essential (primary) hypertension Plan Alireza has history of minimal change disease with nephrotic syndrome. He had been on losartan which has been put on hold for a long time. He can continue on his current dose of diuretics. His renal function is close to baseline. I administered 22963 Units Procrit in my office today. I did not make any other medication changes. Labs ordered for F/U .All his questions were answered Orders: Orders AMB Epoetin Injection Practice Supplied Today D63.1 - Anemia in chronic kidney disease, N18.4 - Chronic kidney disease, stage 4 (severe) Complete Blood Count Auto Diff 2 Weeks D63.1 - Anemia in chronic kidney disease, N18.4 - Chronic kidney disease, stage 4 (severe) Coding Level of Care Code Est Pt Level 4 (08934) Diagnoses Chronic kidney disease, stage 4 (severe) N18.4 Anemia in stage 4 chronic kidney disease N18.4; D63.1 Chronic kidney disease stage: stage 4 (severe) Primary hypertension I10 Hypertension type: primary hypertension
[2024-09-22 12:06] VITALS: BP 110/60; PULSE 66; O2SAT 97; BMI 23.4
--- OUTSIDE RECORDS SUMMARY | 2024-09-22 12:55 | XMS_ITS | Encounter Summary ---
Author Organization [facility] Address [address] [place] [address] Phone Care Team Providers Care Tablet Making Machine Operator Helper Name Role Phone Junior Artis MD Primary Care Provider [phone] Reason for Visit * Reason Comments Med Refill Encounter Details Date Type Department Care Team (Late st Contact Info) Description 11/30/2022 Refill [facility] [address] [place] [address] Santy Jonas MD Social History [...] on filedocumented in this encounter Care Teams Tablet Making Machine Operator Helper Relationship Specialty Start Date End Date Junior Artis MD [address] [place], [place] PCP - General Internal Medicine 09/10/20 documented as of this encounter
--- OUTSIDE RECORDS SUMMARY | 2024-09-22 12:55 | XMS_ITS | Encounter Summary ---
Author Organization [facility] Address [address] [place] [address] Phone Care Team Providers Care Associate Professor Of Theology Name Role Phone Junior Artis MD Primary Care Provider Reason for Visit * Reason Comments Med Refill Encounter Details Date Type Department Care Team (Late st Contact Info) Description 10/05/2022 Refill [facility] [address] [place] [address] Santy Jonas MD Social History [...] on filedocumented in this encounter Care Teams Associate Professor Of Theology Relationship Specialty Start Date End Date Junior Artis MD [address] [place], [place] PCP - General Internal Medicine 09/10/20 documented as of this encounter
--- OUTSIDE RECORDS SUMMARY | 2024-09-22 12:55 | XMS_ITS | Encounter Summary ---
Author Organization [facility] Address [address] [place] [address] Care Team Providers Care Agriculture Intern Name Role Phone Jb Artis MD Primary Care Provider [phone] Encounter Details Date Type Department Care Team (Late st Contact Info) Description 12/06/2021 Scanned Document [facility] [address] [place] [phone] Melinda Becerril PA [address] [facility] [address] [place] [address] Social History Tobacco Use Types Packs/Day Years [...] on filedocumented in this encounter Care Teams Agriculture Intern Relationship Specialty Start Date End Date Jb Artis MD [address] [place] [address] PCP - General Internal Medicine 11/29/21 documented as of this encounter
--- OUTSIDE RECORDS SUMMARY | 2024-09-22 12:55 | XMS_ITS | Clinical Summary ---
Author Organization [facility] Address [address] [place] [address] Care Team Providers Care Microelectronics Assembler Name Role Phone Jb Artis MD Primary Care Provider [phone] Allergies Active Allergy Reactions Criticality Noted Date Comments Lisinopril Unknown/Patient and Family Unable to Define Medium 09/22/2018 Medications doxazosin (CARDURA) 8 MG tablet 0 Active ergocalciferol (VITAMIN D2,DRISDOL) 14605 units Cap Take 50,000 Units by mouth [...] patient's age to complete this topic [place] [place] [address] MEDICARE [facility] MEDICARE [facility] MEDICARE Care Teams Microelectronics Assembler Relationship Specialty Start Date End Date Jb Artis MD [address] [place] [address] PCP - General Internal Medicine 11/29/21
--- OUTSIDE RECORDS SUMMARY | 2024-09-22 12:55 | XMS_ITS | Encounter Summary ---
Author Organization [facility] Address [address] [place] [address] Care Team Providers Care Gaming Dealer Name Role Phone Jb Artis MD Primary Care Provider [phone] Encounter Details Date Type Department Care Team (Late st Contact Info) Description 01/20/2022 Scanned Document [facility] [address] [place] [address] Melinda Becerril PA [address] [facility] [address] [place] [address] Social History Tobacco Use Types Packs/Day Years [...] on filedocumented in this encounter Care Teams Gaming Dealer Relationship Specialty Start Date End Date Jb Artis MD [address] [place] [address] PCP - General Internal Medicine 11/29/21 documented as of this encounter
--- OUTSIDE RECORDS SUMMARY | 2024-09-22 12:55 | XMS_ITS | Clinical Summary ---
Author Organization [facility] Address [address] [facility] [address] [facility] [address] [place] [address] Phone Care Team Providers Care Rolled Materials Worker Name Role Phone Junior Artis MD [...] the evening. 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 55850 Units IV Every 14 days 05/01/2022 Active Epoetin Lizet-epbx solution 40,000 UnitsIndications:Chronic kidney disease stage 4 (HCC),Anemia in chronic kidney disease 59573 Units IJ Once 07/30/2022 Active Epoetin Lizet-epbx solution 20,000 UnitsIndications:Anemia in chronic kidney disease,Chronic kidney disease stage 4 (HCC) 11824 Units IJ Once 09/10/2022 Ac tive Epoetin Lizet-epbx solution 20,000 UnitsIndications:Chronic kidney disease, not otherwise specified,Anemia in chronic kidney disease 00840 Units IJ Once 12/08/2022 A ctive Active [...] patient's age to complete this topic Insurance [facility] Care Teams Rolled Materials Worker Relationship Specialty Start Date End Date Junior Artis MD [address] [place], [place] PCP - General Internal Medicine 09/10/20
--- OUTSIDE RECORDS SUMMARY | 2024-09-22 12:55 | XMS_ITS | Encounter Summary ---
Author Organization [facility] Address [address] [place] [address] Care Team Providers Care Marketing Traffic Manager Name Role Phone Jb Artis MD Primary Care Provider [phone] Encounter Details Date Type Department Care Team (Late st Contact Info) Description 11/15/2021 Erroneous Encounter [facility] [address] [place] [phone] Provider, MD Madeline Social History Tobacco Use [...] on filedocumented in this encounter Care Teams Marketing Traffic Manager Relationship Specialty Start Date End Date Jb Artis MD [address] [place] [address] PCP - General Internal Medicine 11/29/21 documented as of this encounter
--- OUTSIDE RECORDS SUMMARY | 2024-09-22 12:55 | XMS_ITS | Clinical Summary ---
Author Organization [facility] Address [address] [facility] [place] [address] Phone Care Team Providers Care Radio Frequency Technician Name Role Phone Junior Artis MD Primary Care Provider [phone] Allergies Active Allergy Reactions Criticality Noted Date [...] times a day. 180 tablet 1 08/22/2024 Active Active Problems Problem Noted Date Diagnosed Date Atrial fibrillation ([facility] V24, [facility] V28) 0 07/01/2021 Overview (04/26/2024): [...] and his balance as well. History of IA (myocardial infarction) 10/02/2020 Overview (04/26/2024): 1996 -Cath [...] Description 08/22/2024 2:10 PM EDT Office Visit [facility] [address] [facility] [address] [place] [address] Blaire Crowell NP Atrial fibrillation, unspecified type (CMS/HCC V24, CMS/HCC V28) (Primary Dx); Coronary artery disease, unspecified vessel or lesion type, unspecified whether angina present, unspecified whether [place] or transplanted heart 08/04/2024 Telephone [facility]iology [facility] [address] [facility] [address] [place] [address] Blaire Crowell NP from Last 3 Months [...] type, unspecified whether angina present, unspecified whether [place] or transplanted heart from Last 3 Months Results * ECG 12 lead (08/22/2024 4:06 PM EDT) Ventricular Rate ECG 74 BPM GEMUSE Atrial Rate 80 BPM GEMUSE QRS Duration 132 ms GEMUSE Q-T Interval 432 ms GEMUSE QTc 479 ms GEMUSE R [place] -24 degrees GEMUSE T [place] -18 degrees GEMUSE ECG Interpretation Atrial fibrillation with premature ventricular or aberrantly conducted complexes Non-specific intra-ventricul ar conduction block Abnormal ECG No previous ECGs available Confirmed by CATARINO TEJADA ([id number]) on 09/06/2024 11:09:25 AM GEMUSE 08/22/2024 2:17 PM EDT 09/06/2024 11:09 AM EDT us Blaire Crowell CHIROPRACTIC ASSISTANT ECG ORDERABLES Edited Resul t - Final GEMUSE from Last 3 Months Insurance [employer] Care Teams Radio Frequency Technician Relationship Specialty Start Date End Date Junior Artis MD [facility] [place] [address] PCP - General 06/17/19
== END 2024-09-22 12:30 | disposition home or self-care (01) ==
LOC: HO.HKAS 11:51
PROVIDERS: PCP Internal Medicine; Visit Provider Internal Medicine Nephrology
DX: I12.9 Hypertensive chronic kidney disease with stage 1 through stage 4 chronic kidney disease, or unspecified chronic kidney disease (principal); N18.4 Chronic kidney disease, stage 4 (severe); D63.1 Anemia in chronic kidney disease
CPT/HCPCS: 99214

== ENCOUNTER → 2024-09-22 11:51 | Outpatient (BNVA) | payer MEDICARE, SELFPAY | PROVIDERS: PCP Internal Medicine; Visit Provider Internal Medicine Nephrology | DX: I12.9 Hypertensive chronic kidney disease with stage 1 through stage 4 chronic kidney disease, or unspecified chronic kidney disease (principal); D63.1 Anemia in chronic kidney disease; N18.4 Chronic kidney disease, stage 4 (severe) | CPT/HCPCS: 96372; 99212; Q5106 ==

== ENCOUNTER 2024-10-04 12:45 | Outpatient (REF) | payer MEDICARE, SELFPAY ==
--- OUTSIDE RECORDS SUMMARY | 2024-10-04 12:48 | XMS_ITS | Clinical Summary ---
Author Organization [facility] Address [address] [facility] [address] [place] [address] Phone Care Team Providers Care Fruit Or Nut Grower Name Role Phone Junior Artis MD Primary [...] the evening. 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 18368 Units IV Every 14 days 05/01/2022 Active Epoetin Lizet-epbx solution 40,000 UnitsIndications:Chronic kidney disease stage 4 (HCC),Anemia in chronic kidney disease 73897 Units IJ Once 07/30/2022 Active Epoetin Lizet-epbx solution 20,000 UnitsIndications:Anemia in chronic kidney disease,Chronic kidney disease stage 4 (HCC) 13394 Units IJ Once 09/10/2022 Ac tive Epoetin Lizet-epbx solution 20,000 UnitsIndications:Chronic kidney disease, not otherwise specified,Anemia in chronic kidney disease 71645 Units IJ Once 12/08/2022 A ctive Active [...] patient's age to complete this topic Insurance [facility] Care Teams Fruit Or Nut Grower Relationship Specialty Start Date End Date Junior Artis MD [address] [place], [place] PCP - General Internal Medicine 09/10/20
[2024-10-04 17:47] LABS: MANUAL DIFF FLAG NO
[2024-10-04 18:05] LABS: Basophils Percent Auto 0.6 % (0-2); Eosinophils Absolute Auto 0.2 X10*3/uL (0.0-0.4); Eosinophils Percent Auto 3.2 % (0-4); Hematocrit 25.7 % (42.0-52.0); Hemoglobin 8.3 g/dl (14.0-18.0); Imm Gran Abs Auto 0.02 X10*3/uL (0.00-0.03); Imm Gran Pct Auto 0.4 % (0.0-0.4); Lymphocytes Absolute Auto 1.1 X10*3/uL (1.2-4.9); Lymphocytes Percent Auto 21.6 % (20-40); Mean Corpuscular HGB Conc 32.3 g/dl (31.0-36.0); Mean Corpuscular Hemoglobin 32.3 pg (27.0-33.0); Mean Platelet Volume 10.5 fL (9.4-12.4); Monocytes Absolute Auto 0.7 X10*3/uL (0.1-1.2); Monocytes Percent Auto 13.4 % (2-11); Neutrophils Absolute Auto 3.2 x10*3/uL (2.0-8.3); Neutrophils Percent Auto 60.8 % (45-73); Platelet Count 248 X10*3/uL (160-400); Red Blood Count 2.57 X10*6/uL (4.60-5.80); Red Cell Distribution Width 17.4 % (11.0-16.0); White Blood Count 5.3 X10*3/uL (4.8-10.8)
== END 2024-10-04 12:46 | disposition home or self-care (01) ==
LOC: HO.HKASLDS 12:45
PROVIDERS: Visit Provider Internal Medicine Nephrology
DX: N18.4 Chronic kidney disease, stage 4 (severe) (principal); D63.1 Anemia in chronic kidney disease
CPT/HCPCS: 36415; 85025

== ENCOUNTER 2024-10-06 11:55 | Outpatient (AMB) | payer MEDICARE, SELFPAY ==
--- NOTE | 2024-10-06 12:13 | HO.NEPHOV ---
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, stage 4 (severe) Family History Mother Cancer Child No Financial Resp Cancer Social History Alcohol intake: never Patient Tobacco Use Status: Never used Tobacco Physical Exam Vital Signs: Last Vital Signs Pulse 57 10/06/24 12:14 BP 130/60 10/06/24 12:14 Pulse Ox 97 10/06/24 12:14 Oxygen Delivery Method Room Air 10/06/24 12:14 BMI result Body Mass Index 23.7 Office Meds epoetin lizet-epbx 10,000 unit/mL injection solution Performing Provider: Santy Jonas MD Performing Location: [facility] Administered by: Santy Jonas MD on 10/06/24 12:25 Dose Route Admin Location Dispensed Lot Number Expiration Date [facility] [place] Postal Inspector 20,000 unit subcut LUE 2 mL [id number] 03/11/26 9772-9679-88 [employer] Results Reviewed Nephrology Results: Hgb 8.3 g/dl (14.0-18.0) L 10/04/24 WBC 5.3 X10*3/uL (4.8-10.8) 10/04/24 Plt Count 248 X10*3/uL (160-400) 10/04/24 Sodium 140 mmol/L (135-145) 09/20/24 Potassium 3.8 mmol/L (3.3-5.1) 09/20/24 Chloride 112 mmol/L (96-108) H 09/20/24 Carbon Dioxide 18 mmol/L (22-29) L 09/20/24 BUN 67 mg/dL (9-16) H 09/20/24 Creatinine 3.23 mg/dL (0.5-1.4) H 09/20/24 Assessment & Plan Assessment & Plan (1) Anemia in chronic kidney disease: Code(s): N18.9 - Chronic kidney disease, unspecified; D63.1 - Anemia in chronic kidney disease Category: Medical Qualifiers: Chronic kidney disease stage: stage 4 (severe) Qualified Code(s): N18.4 - Chronic kidney disease, stage 4 (severe); D63.1 - Anemia in chronic kidney disease (2) Chronic kidney disease, stage 4 (severe): Code(s): N18.4 - Chronic kidney disease, stage 4 (severe) Category: Medical (3) Hypertension: Code(s): I10 - Essential (primary) hypertension Category: Medical Qualifiers: Hypertension type: primary hypertension Qualified Code(s): I10 - Essential (primary) hypertension Orders: Orders AMB Epoetin Injection Practice Supplied Today D63.1 - Anemia in chronic kidney disease, N18.4 - Chronic kidney disease, stage 4 (severe) Electrolytes 3 Weeks D63.1 - Anemia in chronic kidney disease, I10 - Essential (primary) hypertension, N18.4 - Chronic kidney disease, stage 4 (severe) Calcium 3 Weeks D63.1 - Anemia in chronic kidney disease, I10 - Essential (primary) hypertension, N18.4 - Chronic kidney disease, stage 4 (severe) Creatinine 3 Weeks D63.1 - Anemia in chronic kidney disease, I10 - Essential (primary) hypertension, N18.4 - Chronic kidney disease, stage 4 (severe) Complete Blood Count Auto Diff 3 Weeks D63.1 - Anemia in chronic kidney disease, I10 - Essential (primary) hypertension, N18.4 - Chronic kidney disease, stage 4 (severe) Blood Urea Nitrogen 3 Weeks D63.1 - Anemia in chronic kidney disease, I10 - Essential (primary) hypertension, N18.4 - Chronic kidney disease, stage 4 (severe) Medications: New carvedilol 12.5 mg PO BID 60 tabs 3RF Coding Diagnoses Anemia in stage 4 chronic kidney disease N18.4; D63.1 Chronic kidney disease stage: stage 4 (severe) Chronic kidney disease, stage 4 (severe) N18.4 Primary hypertension I10 Hypertension type: primary hypertension
[2024-10-06 12:14] VITALS: BP 130/60; PULSE 57; O2SAT 97; BMI 23.7
== END 2024-10-06 12:33 | disposition home or self-care (01) ==
LOC: HO.HKAS 11:56
PROVIDERS: PCP Internal Medicine; Visit Provider Internal Medicine Nephrology
DX: N18.4 Chronic kidney disease, stage 4 (severe) (principal); D63.1 Anemia in chronic kidney disease

== ENCOUNTER → 2024-10-06 11:55 | Outpatient (BNVA) | payer MEDICARE, SELFPAY | PROVIDERS: PCP Internal Medicine; Visit Provider Internal Medicine Nephrology | DX: I12.9 Hypertensive chronic kidney disease with stage 1 through stage 4 chronic kidney disease, or unspecified chronic kidney disease (principal); N18.4 Chronic kidney disease, stage 4 (severe); D63.1 Anemia in chronic kidney disease | CPT/HCPCS: 96372; 99212; Q5106 ==

== ENCOUNTER 2024-10-25 13:17 | Outpatient (REF) | payer MEDICARE, SELFPAY ==
[2024-10-25 17:38] LABS: MANUAL DIFF FLAG NO
[2024-10-25 17:55] LABS: Basophils Percent Auto 0.4 % (0-2); Eosinophils Absolute Auto 0.1 X10*3/uL (0.0-0.4); Eosinophils Percent Auto 2.2 % (0-4); Hematocrit 29.8 % (42.0-52.0); Hemoglobin 9.2 g/dl (14.0-18.0); Imm Gran Abs Auto 0.01 X10*3/uL (0.00-0.03); Imm Gran Pct Auto 0.2 % (0.0-0.4); Lymphocytes Absolute Auto 1.3 X10*3/uL (1.2-4.9); Lymphocytes Percent Auto 24.6 % (20-40); Mean Corpuscular HGB Conc 30.9 g/dl (31.0-36.0); Mean Corpuscular Hemoglobin 31.3 pg (27.0-33.0); Mean Corpuscular Volume 101.4 fL (80.0-98.0); Mean Platelet Volume 10.8 fL (9.4-12.4); Monocytes Absolute Auto 0.7 X10*3/uL (0.1-1.2); Monocytes Percent Auto 11.9 % (2-11); Neutrophils Absolute Auto 3.3 x10*3/uL (2.0-8.3); Neutrophils Percent Auto 60.7 % (45-73); Platelet Count 235 X10*3/uL (160-400); Red Blood Count 2.94 X10*6/uL (4.60-5.80); Red Cell Distribution Width 15.9 % (11.0-16.0); White Blood Count 5.5 X10*3/uL (4.8-10.8)
[2024-10-25 18:00] LABS: Anion Gap 11 (12-20); Blood Urea Nitrogen 64 mg/dL (9-16); Calcium 8.9 mg/dL (8.4-10.2); Carbon Dioxide 25 mmol/L (22-29); Chloride 111 mmol/L (96-108); Estimated Glomerular Filt Rate 23; Potassium 4.3 mmol/L (3.3-5.1); Sodium 143 mmol/L (135-145)
== END 2024-10-25 13:18 | disposition home or self-care (01) ==
LOC: HO.HKASLDS 13:17
PROVIDERS: Visit Provider Internal Medicine Nephrology
DX: N18.4 Chronic kidney disease, stage 4 (severe) (principal); D63.1 Anemia in chronic kidney disease; I10 Essential (primary) hypertension
CPT/HCPCS: 36415; 80051; 82310; 82565; 84520; 85025

== ENCOUNTER 2024-10-27 11:42 | Outpatient (AMB) | payer MEDICARE, SELFPAY ==
--- NOTE | 2024-10-27 12:34 | HO.NEPHOV ---
Vital Signs 10/27/24 12:35 Height 5 ft 9 in Weight 159 lb 8 oz BMI 23.6 BP 110/50 L Blood Pressure Location Lt brachial Position Sitting Intake Visit Reasons: 3wk Procrit follow-up w/labs-Conf Motorcycle Subassembler Required: No Accompanied by: Spouse Allergies lisinopril Allergy (Verified 10/27/24 12:34) Unknown Macrolides and Ketolides Allergy (Uncoded 03/18/23 13:49) Unknown HPI Comments Details: Alireza Kyle was seen in the office in follow-up of his chronic kidney disease and management of his anemia. 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 He has hypertension which is well controlled. He has anemia chronic disease for which he had been getting Procrit . He denies taking any nonsteroidal anti-inflammatory medications. He does not have any chest pain, shortness of breath, nausea vomiting, diarrhea, orthostatic symptoms, edema. His serum creatinine is stable . He does not feel tired. His appetite is better. 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, stage 4 (severe) Family History Mother Cancer Child No Financial Resp Cancer Social History Alcohol intake: never Patient Tobacco Use Status: Never used Tobacco Review of Systems Const All systems reviewed & are unremarkable except as noted in HPI and below Physical Exam Vital Signs: Last Vital Signs BP 110/50 L 10/27/24 12:35 BMI result Body Mass Index 23.6 Const General: comfortable and no acute distress Orientation/consciousness: patient oriented x3 HEENT Head: Yes normocephalic Mouth: Normal oral and palatal mucosa present Eyes EOM: EOMs intact bilaterally Neck Neck: Yes supple Resp Auscultation: clear to auscultation bilaterally Cardio Jugular venous distension: no JVD Rate: regular rate GI Palpation (GI): Soft to palpation Auscultation: normal bowel sounds General: Yes no CVA tenderness Back/Spine/Pelvis Back: no CVA tenderness Skin General skin exam: no rashes or lesions noted Neuro General: patient oriented x3 and moves all extremities Extrem General: Yes no pedal edema Office Meds epoetin lizet-epbx 10,000 unit/mL injection solution Performing Provider: Santy Jonas MD [place]forming [place] [facility] Administered by: Santy Jonas MD on 10/27/24 12:43 Dose Route Admin Location Dispensed Lot Number Expiration Date [facility] Steam Tank Operator 20,000 unit subcut LUE 2 mL [id number] 06/11/26 3472-8910-77 [employer] Total Dispensed Waste 2 mL 0 % Results Reviewed Nephrology Results: Hgb, (14.0-18.0) 9.2 g/dl L 10/25/24 WBC, (4.8-10.8) 5.5 X10*3/uL 10/25/24 Plt Count, (160-400) 235 X10*3/uL 10/25/24 Sodium, (135-145) 143 mmol/L 10/25/24 Potassium, (3.3-5.1) 4.3 mmol/L 10/25/24 Chloride, (96-108) 111 mmol/L H 10/25/24 Carbon Dioxide, (22-29) 25 mmol/L 10/25/24 BUN, (9-16) 64 mg/dL H 10/25/24 Creatinine, (0.5-1.4) 2.65 mg/dL H 10/25/24 Calcium, (8.4-10.2) 8.9 mg/dL 10/25/24 Assessment & Plan Assessment & Plan (1) Chronic kidney disease, stage 4 (severe): Code(s): N18.4 - Chronic kidney disease, stage 4 (severe) Category: Medical (2) Anemia in chronic kidney disease: Code(s): N18.9 - Chronic kidney disease, unspecified; D63.1 - Anemia in chronic kidney disease Category: Medical Qualifiers: Chronic kidney disease stage: stage 4 (severe) Qualified Code(s): N18.4 - Chronic kidney disease, stage 4 (severe); D63.1 - Anemia in chronic kidney disease (3) Hypertension: Code(s): I10 - Essential (primary) hypertension Category: Medical Qualifiers: Hypertension type: primary hypertension Qualified Code(s): I10 - Essential (primary) hypertension Plan Alireza has history of minimal change disease with nephrotic syndrome. He had been on losartan which has been put on hold for a long time. He can continue on his current dose of diuretics. His renal function is close to baseline. I administered 69262 Units Procrit in my office today. I did not make any other medication changes. Labs ordered for F/U .All his questions were answered Orders: Orders AMB Epoetin Injection Practice Supplied Today N18.4 - Chronic kidney disease, stage 4 (severe) Creatinine 3 Weeks D63.1 - Anemia in chronic kidney disease, I10 - Essential (primary) hypertension, N18.4 - Chronic kidney disease, stage 4 (severe) Blood Urea Nitrogen 3 Weeks D63.1 - Anemia in chronic kidney disease, I10 - Essential (primary) hypertension, N18.4 - Chronic kidney disease, stage 4 (severe) Complete Blood Count Auto Diff 3 Weeks D63.1 - Anemia in chronic kidney disease, I10 - Essential (primary) hypertension, N18.4 - Chronic kidney disease, stage 4 (severe) Electrolytes 3 Weeks D63.1 - Anemia in chronic kidney disease, I10 - Essential (primary) hypertension, N18.4 - Chronic kidney disease, stage 4 (severe) Calcium 3 Weeks D63.1 - Anemia in chronic kidney disease, I10 - Essential (primary) hypertension, N18.4 - Chronic kidney disease, stage 4 (severe) Coding Level of Care Code Est Pt Level 4 (33748) Diagnoses Chronic kidney disease, stage 4 (severe) N18.4 Anemia in stage 4 chronic kidney disease N18.4; D63.1 Chronic kidney disease stage: stage 4 (severe) Primary hypertension I10 Hypertension type: primary hypertension
[2024-10-27 12:35] VITALS: BP 110/50; BMI 23.6
--- OUTSIDE RECORDS SUMMARY | 2024-10-27 13:13 | XMS_ITS | Clinical Summary ---
Author Organization [facility] Address [address] [facility] [address] [place] [address] Phone Care Team Providers Care Aegis Console Operator Track Name Role Phone Junior Artis MD Primary Care Provider [phone] Allergies Active Allergy Reactions Criticality Noted Date [...] the evening. 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 Failure 66814 Units IV Every 14 days 05/01/2022 Active Epoetin Lizet-epbx solution 40,000 UnitsIndications:Chronic kidney disease stage 4 (HCC),Anemia in chronic kidney disease 46418 Units IJ Once 07/30/2022 Active Epoetin Lizet-epbx solution 20,000 UnitsIndications:Anemia in chronic kidney disease,Chronic kidney disease stage 4 (HCC) 35409 Units IJ Once 09/10/2022 Ac tive Epoetin Lizet-epbx solution 20,000 UnitsIndications:Chronic kidney disease, not otherwise specified,Anemia in chronic kidney disease 16855 Units IJ Once 12/08/2022 A ctive Active [...] patient's age to complete this topic Insurance [facility] Care Teams Aegis Console Operator Track Relationship Specialty Start Date End Date Junior Artis MD [address] [place], [place] PCP - General Internal Medicine 09/10/20
== END 2024-10-27 12:51 | disposition home or self-care (01) ==
LOC: HO.HKAS 11:42
PROVIDERS: PCP Internal Medicine; Visit Provider Internal Medicine Nephrology
DX: I12.9 Hypertensive chronic kidney disease with stage 1 through stage 4 chronic kidney disease, or unspecified chronic kidney disease (principal); N18.4 Chronic kidney disease, stage 4 (severe); D63.1 Anemia in chronic kidney disease
CPT/HCPCS: 99214

== ENCOUNTER → 2024-10-27 11:42 | Outpatient (BNVA) | payer MEDICARE, SELFPAY | PROVIDERS: PCP Internal Medicine; Visit Provider Internal Medicine Nephrology | DX: N18.4 Chronic kidney disease, stage 4 (severe) (principal); D63.1 Anemia in chronic kidney disease; I10 Essential (primary) hypertension | CPT/HCPCS: 96372; 99212; Q5106 ==

== ENCOUNTER 2024-11-15 11:34 | Outpatient (REF) | payer MEDICARE, SELFPAY ==
--- OUTSIDE RECORDS SUMMARY | 2024-11-15 12:38 | XMS_ITS | Clinical Summary ---
Author Organization [facility] Address [address] [facility] [address] [place] [address] Phone Care Team Providers Care Qc Tech Name Role Phone Junior Artis MD Primary [...] the evening. 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 Failure 87453 Units IV Every 14 days 04/02/2022 Active epoetin lizet (EPOGEN,PROCRIT) injection 20,000 UnitsIndications:Anemia due to Renal Failure 02503 Units IV Every 14 days 05/01/2022 Active Epoetin Lizet-epbx solution 40,000 UnitsIndications:Chronic kidney disease stage 4 (HCC),Anemia in chronic kidney disease 38908 Units IJ Once 07/30/2022 Active Epoetin Lizet-epbx solution 20,000 UnitsIndications:Anemia in chronic kidney disease,Chronic kidney disease stage 4 (HCC) 71064 Units IJ Once 09/10/2022 Ac tive Epoetin Lizet-epbx solution 20,000 UnitsIndications:Chronic kidney disease, not otherwise specified,Anemia in chronic kidney disease 65224 Units IJ Once 12/08/2022 A ctive Active [...] Date Last Done Comments Influenza Vaccine (#1) 2025 9, 02/27/2009, 05/17/2007, Additional history exists Pneumococcal Vaccine: 50+ Years Completed 01/03/2015, 08/05/2013, 05/18/2006, Additional history exists Pneumococcal Vaccine: Peds (0 to 5 Years) and At-Risk Patients (6 to 49 Years) Discontinued 01/03/2015, 08/05/2013, 05/18/2006, Additional history exists Hepatitis B Vaccine Aged Out No longe r eligible based on patient's age to complete this topic Insurance [facility] Care Teams Qc Tech Relationship Specialty Start Date End Date Junior Artis MD [address] [place], [place] PCP - General Internal Medicine 09/10/20
--- OUTSIDE RECORDS SUMMARY | 2024-11-15 12:38 | XMS_ITS | Encounter Summary ---
Author Organization [facility] Address [address] [place] [address] Care Team Providers Care Search Developer Name Role Phone Jb Artis MD Primary Care Provider [phone] Encounter Details Date Type Department Care Team (Late st Contact Info) Description 11/15/2021 Erroneous Encounter [facility] CONVERSION DEPT [address] [place] [id number] Provider, MD Madeline Social History Tobacco Use [...] on filedocumented in this encounter Care Teams Search Developer Relationship Specialty Start Date End Date Jb Artis MD [address] [place] [address] PCP - General Internal Medicine 11/29/21 documented as of this encounter
--- OUTSIDE RECORDS SUMMARY | 2024-11-15 12:39 | XMS_ITS | Clinical Summary ---
Author Organization [facility] [employer] [facility] Address [address] [place] [address] Phone Care Team Providers Care Brush Washer Name Role Phone Junior Artis MD Primary Care Provider [phone] Allergies Active Allergy Reactions Criticality Noted Date [...] Problem Noted Date Diagnosed Date Atrial fibrillation ([facility] V24, [facility] V28) 0 07/01/2021 Overview (04/26/2024): Last Assessment [...] and his balance as well. History of [place] (myocardial infarction) 10/02/2020 Overview (04/26/2024): 1996 -Cath [...] Description 08/22/2024 2:10 PM EDT Office Visit [facility] [address] [facility] [address] [place] [address] Blaire Crowell NP Atrial fibrillation, unspecified type (CMS/HCC V24, CMS/HCC V28) (Primary Dx); Coronary artery disease, unspecified vessel or lesion type, unspecified whether angina present, unspecified whether [place] or transplanted heart from Last 3 Months Surgical History Surgery [...] 2024 03/07/2024, 04/04/2023, 03/17/2022, Additional history exists Influenza Vaccine (#1) 2025 , 02/13/2023, 02/25/2022, Additional history exists DTaP,Tdap,and Td Vaccines (5 - Td or Tdap) 03/09/2033 03/09/2023, 11/15/2012, 09/29/2008, Additional history exists Zoster Vaccines Completed 04/21/2023, 06/11, 09/06/2009 RSV Immunization Adult Patients Completed 05/13/2023 Pneumococcal Vaccine: 50+ Years Completed 01/22/2024, 01/03/2015, 08/05/2013, Additional history exists HIB Vaccines Aged Out [...] type, unspecified whether angina present, unspecified whether [place] or transplanted heart from Last 3 Months Results * ECG 12 lead (08/22/2024 4:06 PM EDT) Ventricular Rate ECG 74 BPM GEMUSE Atrial Rate 80 BPM GEMUSE QRS Duration 132 ms GEMUSE Q-T Interval 432 ms GEMUSE QTc 479 ms GEMUSE R Davis -24 degrees GEMUSE T [place] -18 degrees GEMUSE ECG Interpretation Atrial fibrillation with premature ventricular or aberrantly conducted complexes Non-specific intra-ventricul ar conduction block Abnormal ECG No previous ECGs available Confirmed by CATARINO TEJADA ([id number]) on 09/06/2024 11:09:25 AM GEMUSE 08/22/2024 2:17 PM EDT 09/06/2024 11:09 AM EDT Blaire Crowell NP ECG ORDERABLES Edited Resul t - Final GEMUSE from Last 3 Months Insurance [employer] Care Teams Brush Washer Relationship Specialty [place] [address] [place] [phone] PCP - General 06/17/19
--- OUTSIDE RECORDS SUMMARY | 2024-11-15 12:39 | XMS_ITS ---
Author Name [facility] Organization Unknown History of Medication Use Medication Directions Dispensed Refills Start Date End Date Stat us ferrous sulfate 325 (65 FE) MG tablet Take 1 tablet by mouth 2 (two) times a day. 03/26/2021 active atorvastatin (LIPITOR) 80 MG tablet Take 80 mg by mouth daily. 04/25/2020 active hydrALAZINE (APRESOLINE) 100 MG tablet Take 100 mg by mouth 3 (three) times a day. 04/25/2020 active furosemide (LASIX) 40 MG tablet TK 1 T PO QD 07/07/2019 active multivitamin Tab tablet Take 1 tablet by mouth daily. active Allergies Allergen Reaction Severity Comment Documented Date Source Statu s LISINOPRIL UNKNOWN/PATIENT AND FAMILY UNABLE TO DEFINE 09/22/2018 [facility] active Problems Problem Status Onset Date Problem Type Date of Resoluti on Source Nausea active EncounterDiagnosisAct [facility] Encounters Encounter Type Encounter Reason Primary Diagnosis Location Date Ambulatory Right upper quad rant pain [email or web address] 12/18/2021 Ambulatory [facility] [employer] 12/03/2021 Ambulatory Nausea [facility] [employer] [facility] [employer] 12/02/2021 Care Team Organization Name Specialty Phone Email Start Date End Da te [email or web address] 12/18/2021 [facility] [employer] [facility] 12/02/2021 022
[2024-11-15 15:07] LABS: MANUAL DIFF FLAG NO
[2024-11-15 15:16] LABS: Hematocrit 27.1 % (42.0-52.0); Hemoglobin 8.4 g/dl (14.0-18.0); Imm Gran Abs Auto 0.02 X10*3/uL (0.00-0.03); Imm Gran Pct Auto 0.4 % (0.0-0.4); Lymphocytes Absolute Auto 1.2 X10*3/uL (1.2-4.9); Mean Corpuscular HGB Conc 31.0 g/dl (31.0-36.0); Mean Corpuscular Hemoglobin 31.1 pg (27.0-33.0); Mean Corpuscular Volume 100.4 fL (80.0-98.0); NRBC Abs Auto 0.000 X10*3/uL (0.0-0.012); NRBC Pct Auto 0.0 /100WBC (0.0-0.2); Platelet Count 229 X10*3/uL (160-400); Red Blood Count 2.70 X10*6/uL (4.60-5.80); White Blood Count 4.7 X10*3/uL (4.8-10.8)
[2024-11-15 15:17] LABS: Hematocrit 26.6 % (42.0-52.0); Hemoglobin 8.5 g/dl (14.0-18.0); Imm Gran Abs Auto 0.01 X10*3/uL (0.00-0.03); Imm Gran Pct Auto 0.2 % (0.0-0.4); Lymphocytes Absolute Auto 1.3 X10*3/uL (1.2-4.9); Mean Corpuscular HGB Conc 32.0 g/dl (31.0-36.0); Mean Corpuscular Hemoglobin 31.6 pg (27.0-33.0); Mean Corpuscular Volume 98.9 fL (80.0-98.0); NRBC Abs Auto 0.000 X10*3/uL (0.0-0.012); NRBC Pct Auto 0.0 /100WBC (0.0-0.2); Platelet Count 227 X10*3/uL (160-400); Red Blood Count 2.69 X10*6/uL (4.60-5.80); White Blood Count 4.8 X10*3/uL (4.8-10.8)
[2024-11-15 15:27] LABS: Anion Gap 11 (12-20); Blood Urea Nitrogen 63 mg/dL (9-16); Calcium 8.4 mg/dL (8.4-10.2); Carbon Dioxide 24 mmol/L (22-29); Chloride 112 mmol/L (96-108); Estimated Glomerular Filt Rate 21; Potassium 3.8 mmol/L (3.3-5.1); Sodium 143 mmol/L (135-145)
[2024-11-15 15:35] LABS: Anion Gap 11 (12-20); Blood Urea Nitrogen 63 mg/dL (9-16); Calcium 8.3 mg/dL (8.4-10.2); Carbon Dioxide 24 mmol/L (22-29); Chloride 111 mmol/L (96-108); Estimated Glomerular Filt Rate 21; Iron 82 mcg/dL (45-160); Percent Iron Saturation 36 % (15-50); Potassium 3.7 mmol/L (3.3-5.1); Sodium 142 mmol/L (135-145); Total Iron Binding Capacity 227 mcg/dL (228-428); Unsaturated Iron Binding 145 ug/dL
[2024-11-15 15:52] LABS: Parathyroid Hormone Intact 162.5 pg/mL (8.7-77.1)
== END 2024-11-15 11:35 | disposition home or self-care (01) ==
LOC: HO.HKASLDS 11:34
PROVIDERS: Visit Provider Internal Medicine Nephrology
DX: I12.9 Hypertensive chronic kidney disease with stage 1 through stage 4 chronic kidney disease, or unspecified chronic kidney disease (principal); N18.4 Chronic kidney disease, stage 4 (severe); D63.1 Anemia in chronic kidney disease
CPT/HCPCS: 36415; 80051; 82310; 82565; 83540; 83970; 84100; 84520; 85025

== ENCOUNTER 2024-11-17 10:52 | Outpatient (AMB) | payer MEDICARE, SELFPAY ==
[2024-11-17 11:03] VITALS: BP 128/62; PULSE 63; O2SAT 94; BMI 23.8
--- NOTE | 2024-11-17 11:03 | HO.NEPHOV_ITS ---
Vital Signs 11/17/24 11:03 Height 5 ft 9 in Weight 161 lb BMI 23.8 BP 128/62 Blood Pressure Location Lt brachial Position Sitting Pulse 63 Pulse Source Pulse Oximeter Pulse Oximetry (%) 94 Oxygen Delivery Method Room Air Intake Visit Reasons: 3wks Procrit follow-up w/labs-Conf [employer] Labor Required: No Accompanied by: Spouse Allergies lisinopril Allergy (Verified 11/17/24 11:08) Unknown Macrolides and Ketolides Allergy (Uncoded 03/18/23 13:49) Unknown HPI Comments Details: Alireza Kyle was seen in the office in follow-up of his chronic kidney disease and management of his anemia. 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 He has hypertension which is well controlled. He has anemia chronic disease for which he had been getting Procrit . He denies taking any nonsteroidal anti-inflammatory medications. He does not have any chest pain, shortness of breath, nausea vomiting, diarrhea, orthostatic symptoms, edema. His serum creatinine is stable . He does not feel tired. His appetite is better. 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, stage 4 (severe) Family History Mother Cancer Child No Financial Resp Cancer Social History Alcohol intake: never Patient Tobacco Use Status: Never used Tobacco Review of Systems Const All systems reviewed & are unremarkable except as noted in HPI and below Physical Exam Vital Signs: Last Vital Signs Pulse 63 11/17/24 11:03 BP 128/62 11/17/24 11:03 Pulse Ox 94 11/17/24 11:03 Oxygen Delivery Method Room Air 11/17/24 11:03 BMI result Body Mass Index 23.8 Const General: comfortable and no acute distress Orientation/consciousness: patient oriented x3 HEENT Head: Yes normocephalic Mouth: Normal oral and palatal mucosa present Eyes EOM: EOMs intact bilaterally Neck Neck: Yes supple Resp Auscultation: clear to auscultation bilaterally Cardio Jugular venous distension: no JVD Rate: regular rate GI Palpation (GI): Soft to palpation Auscultation: normal bowel sounds General: Yes no CVA tenderness Back/Spine/Pelvis Back: no CVA tenderness Skin General skin exam: no rashes or lesions noted Neuro General: patient oriented x3 and moves all extremities Extrem General: Yes no pedal edema Office Meds epoetin lizet-epbx 10,000 unit/mL injection solution Performing Provider: Santy Jonas MD Performing Location: [facility] Administered by: Santy Jonas MD on 11/17/24 11:16 Dose Route Admin Location Dispensed Lot Number Expiration Date [facility] [employer] Equipment Operator 40,000 unit subcut LUE 4 mL [id number] 06/11/26 3061-3281-22 [employer] [facility] [employer] [facility] Total Dispensed Waste 4 mL 0 % Results Reviewed Nephrology Results: Hgb, (14.0-18.0) 8.5 g/dl L 11/15/24 WBC, (4.8-10.8) 4.8 X10*3/uL 11/15/24 Plt Count, (160-400) 227 X10*3/uL 11/15/24 Sodium, (135-145) 143 mmol/L 11/15/24 Potassium, (3.3-5.1) 3.8 mmol/L 11/15/24 Chloride, (96-108) 112 mmol/L H 11/15/24 Carbon Dioxide, (22-29) 24 mmol/L 11/15/24 BUN, (9-16) 63 mg/dL H 11/15/24 Creatinine, (0.5-1.4) 2.82 mg/dL H 11/15/24 Calcium, (8.4-10.2) 8.4 mg/dL 11/15/24 Phosphorus, (2.7-4.5) 3.3 mg/dL 11/15/24 PTH Intact, (8.7-77.1) 162.5 pg/mL H 11/15/24 Assessment & Plan Assessment & Plan (1) Chronic kidney disease, stage 4 (severe): Code(s): N18.4 - Chronic kidney disease, stage 4 (severe) Category: Medical (2) Anemia in chronic kidney disease: Code(s): N18.9 - Chronic kidney disease, unspecified; D63.1 - Anemia in chronic kidney disease Category: Medical Qualifiers: Chronic kidney disease stage: stage 4 (severe) Qualified Code(s): N18.4 - Chronic kidney disease, stage 4 (severe); D63.1 - Anemia in chronic kidney disease (3) Hypertension: Code(s): I10 - Essential (primary) hypertension Category: Medical Qualifiers: Hypertension type: primary hypertension Qualified Code(s): I10 - Essential (primary) hypertension Plan Alireza has history of minimal change disease with nephrotic syndrome. He had been on losartan which has been put on hold for a long time. He can continue on his current dose of diuretics. His renal function is close to baseline. I administered 52662 Units Procrit in my office today. I did not make any other medication changes. Labs ordered for F/U .All his questions were answered Orders: Orders AMB Epoetin Injection Practice Supplied Today D63.1 - Anemia in chronic kidney disease, N18.4 - Chronic kidney disease, stage 4 (severe) Complete Blood Count Auto Diff 4 Weeks D63.1 - Anemia in chronic kidney disease, I10 - Essential (primary) hypertension, N18.4 - Chronic kidney disease, stage 4 (severe) Coding Level of Care Code Est Pt Level 4 (57498) Diagnoses Chronic kidney disease, stage 4 (severe) N18.4 Anemia in stage 4 chronic kidney disease N18.4; D63.1 Chronic kidney disease stage: stage 4 (severe) Primary hypertension I10 Hypertension type: primary hypertension
--- OUTSIDE RECORDS SUMMARY | 2024-11-17 11:33 | XMS_ITS | Clinical Summary ---
Author Organization [facility] [employer] [facility] Address [address] [place] [address] Phone Care Team Providers Care Inspector Machine Cut Glass Name Role Phone Junior Artis MD Primary Care Provider [phone] Allergies Active Allergy Reactions Criticality Noted Date [...] Problem Noted Date Diagnosed Date Atrial fibrillation ([facility] V24, [facility] V28) 0 07/01/2021 Overview (04/26/2024): Last Assessment [...] and his balance as well. History of [place] (myocardial infarction) 10/02/2020 Overview (04/26/2024): 1996 -Cath [...] Description 08/22/2024 2:10 PM EDT Office Visit [facility] [address] [facility] [facility] [address] [place] [address] Blaire Crowell NP Atrial fibrillation, unspecified type (CMS/HCC V24, CMS/HCC V28) (Primary Dx); Coronary artery disease, unspecified vessel or lesion type, unspecified whether angina present, unspecified whether [place] or transplanted heart from Last 3 Months [...] type, unspecified whether angina present, unspecified whether [place] or transplanted heart from Last 3 Months Results * ECG 12 lead (08/22/2024 4:06 PM EDT) Ventricular Rate ECG 74 BPM GEMUSE Atrial Rate 80 BPM GEMUSE QRS Duration 132 ms GEMUSE Q-T Interval 432 ms GEMUSE QTc 479 ms GEMUSE R [place] -24 degrees GEMUSE T [place] -18 degrees GEMUSE ECG Interpretation Atrial fibrillation [...] [employer] Care Teams Inspector Machine Cut Glass Relationship Specialty [place] [address] [place] [phone] PCP - General 06/17/19
--- OUTSIDE RECORDS SUMMARY | 2024-11-17 11:33 | XMS_ITS | Encounter Summary ---
Author Organization [facility] Address [address] [place] [address] Care Team Providers Care Refinery Operator Polymerization Plant Name Role Phone Jb Artis MD Primary Care Provider [phone] Encounter Details Date Type Department Care Team (Late st Contact Info) Description 11/15/2021 Erroneous Encounter [facility] CONVERSION DEPT [address] [place] [id number] Provider, MD Madeline Social History Tobacco Use [...] on filedocumented in this encounter Care Teams Refinery Operator Polymerization Plant Relationship Specialty Start Date End Date Jb Artis MD [address] [place] [address] PCP - General Internal Medicine 11/29/21 documented as of this encounter
--- OUTSIDE RECORDS SUMMARY | 2024-11-17 11:33 | XMS_ITS | Clinical Summary ---
Author Organization [facility] Address [address] [facility] [address] [facility] [address] [place] [address] Phone Care Team Providers Care Vehicle Dynamics Engineer Name Role Phone Junior Artis MD Primary Care Provider [phone] Allergies Active Allergy Reactions Criticality Noted Date [...] the evening. 02/01/2022 Active ergocalciferol 1.25 MG (60862 UT) capsule TAKE 1 CAPSULE BY MOUTH [...] kidney disease,Chronic kidney disease stage 4 (HCC),Hypertension 52968 Units IJ Every 14 days 02/21/2021 Ac tive epoetin lizet (EPOGEN,PROCRIT) injection 20,000 UnitsIndications:Anemia due to Renal Failure 93843 Units IV Every 14 days 03/19/2022 Active epoetin lizet (EPOGEN,PROCRIT) injection 30,000 UnitsIndications:Anemia due to Renal Failure 98565 Units IV Every 14 days 04/02/2022 Active epoetin lizet (EPOGEN,PROCRIT) injection 20,000 UnitsIndications:Anemia due to Renal Failure 27074 Units IV Every 14 days 05/01/2022 Active Epoetin Lizet-epbx solution 40,000 UnitsIndications:Chronic kidney disease stage 4 (HCC),Anemia in chronic kidney disease 68877 Units IJ Once 07/30/2022 Active Epoetin Lizet-epbx solution 20,000 UnitsIndications:Anemia in chronic kidney disease,Chronic kidney disease stage 4 (HCC) 33782 Units IJ Once 09/10/2022 Ac tive Epoetin Lizet-epbx solution 20,000 UnitsIndications:Chronic kidney disease, not otherwise specified,Anemia in chronic kidney disease 97729 Units IJ Once 12/08/2022 A ctive Active [...] patient's age to complete this topic Insurance [facility] Care Teams Vehicle Dynamics Engineer Relationship Specialty Start Date End Date Junior Artis MD [address] [place], [place] PCP - General Internal Medicine 09/10/20
== END 2024-11-17 11:45 | disposition home or self-care (01) ==
LOC: HO.HKAS 10:52
PROVIDERS: PCP Internal Medicine; Visit Provider Internal Medicine Nephrology
DX: I12.9 Hypertensive chronic kidney disease with stage 1 through stage 4 chronic kidney disease, or unspecified chronic kidney disease (principal); N18.4 Chronic kidney disease, stage 4 (severe); D63.1 Anemia in chronic kidney disease
CPT/HCPCS: 99214

== ENCOUNTER → 2024-11-17 10:52 | Outpatient (BNVA) | payer MEDICARE, SELFPAY | PROVIDERS: PCP Internal Medicine; Visit Provider Internal Medicine Nephrology | DX: I12.9 Hypertensive chronic kidney disease with stage 1 through stage 4 chronic kidney disease, or unspecified chronic kidney disease (principal); N18.4 Chronic kidney disease, stage 4 (severe); D63.1 Anemia in chronic kidney disease | CPT/HCPCS: 96372; 99212; Q5106 ==

== ENCOUNTER 2024-12-27 10:42 | Outpatient (REF) | payer MEDICARE, SELFPAY ==
--- OUTSIDE RECORDS SUMMARY | 2024-12-27 12:10 | XMS_ITS | Clinical Summary ---
Author Organization [facility] [employer] [facility] Address [address] [place] [address] Phone Care Team Providers Care Seat Builder Name Role Phone Junior Artis MD Primary [...] Problem Noted Date Diagnosed Date Atrial fibrillation ([facility] V24, [facility] V28) 0 07/01/2021 Overview (04/26/2024): [...] and his balance as well. History of [place] (myocardial infarction) 10/02/2020 Overview (04/26/2024): 1996 -Cath [...] care. Unspecified diastolic (conge stive) heart failure ([facility] V24, [facility] V28) 10/02/2020 Overview (04/26/2024): 10/25/19 ECHO EF [...] failure and appears euvolemic on examination today. Surgical History Surgery Date Site/Laterality Comments HIP ARTHROPLASTY Bilateral PROCEDURE: HISTORICAL HIP REPLACEMENT TONSILLECTOMY PROCEDURE: HISTORICAL TONSILLECTOMY ADENOIDECTOMY PROCEDURE: HISTORICAL ADENOIDECTOMY Medical History Medical History Date Comments Peptic ulcer disease DX:Peptic u lcer disease GERD (gastroesophageal reflux disease) DX:GERD (gastroesophageal reflux disease) Arthritis DX:Arthritis Anemia DX:Anemia Cervical osteoarthritis DX:Cervi ary osteoarthritis Cholelithiasis DX:Cholelithiasi s Hiatal hernia DX:Hiatal hernia Lacunar infarction ([facility] V24, [facility] V28) DX:Lacunar infarction (HCC); COMMENT: silent on [...] Done Comments Cholesterol Screening (Lipid Panel) 04/13/2022 Falls Risk Assessment 04/13/2022 Medicare Annual Wellness Visit 04/13/2022 Social Influencers of Health Screening 04/13/2022 Hypertension/CHF/CAD Annual BMP Blood Test 04/19/2022 Depression Screening 05/11/2024 COVID-19 Vaccine ( season) 2024 03/07/2024, 04/04/2023, [...] [employer] [place] [employer] Care Teams Seat Builder Relationship Specialty Start Date End Date Junior Artis MD [facility] [place] [address] PCP - General 06/17/19
--- OUTSIDE RECORDS SUMMARY | 2024-12-27 12:10 | XMS_ITS | Encounter Summary ---
Author Organization [facility] Address [address] [place] [address] Care Team Providers Care National Sales Manager Name Role Phone Jb Artis MD Primary Care Provider [phone] Encounter Details Date Type Department Care Team (Late st Contact Info) Description 11/15/2021 Erroneous Encounter [facility] CONVERSION DEPT [address] [place] [phone] Provider, MD Madeline Social History Tobacco Use [...] on filedocumented in this encounter Care Teams National Sales Manager Relationship Specialty Start Date End Date Jb Artis MD [address] [place] [address] PCP - General Internal Medicine 11/29/21 documented as of this encounter
--- OUTSIDE RECORDS SUMMARY | 2024-12-27 12:10 | XMS_ITS | Clinical Summary ---
Author Organization [facility] Address [address] [facility] [address] [facility] [address] [place] [address] Phone Care Team Providers Care Floor Inspector Name Role Phone Junior Artis MD Primary [...] the evening. 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 43993 Units IV Every 14 days 04/02/2022 Active epoetin lizet (EPOGEN,PROCRIT) injection 20,000 UnitsIndications:Anemia due to Renal Failure 90573 Units IV Every 14 days 05/01/2022 Active Epoetin Lizet-epbx solution 40,000 UnitsIndications:Chronic kidney disease stage 4 (HCC),Anemia in chronic kidney disease 44655 Units IJ Once 07/30/2022 Active Epoetin Lizet-epbx solution 20,000 UnitsIndications:Anemia in chronic kidney disease,Chronic kidney disease stage 4 (HCC) 92969 Units IJ Once 09/10/2022 Ac tive Epoetin Lizet-epbx solution 20,000 UnitsIndications:Chronic kidney disease, not otherwise specified,Anemia in chronic kidney disease 31322 Units IJ Once 12/08/2022 A ctive Active [...] patient's age to complete this topic Insurance [facility] Care Teams Floor Inspector Relationship Specialty Start Date End Date Junior Artis MD [address] [place], [place] PCP - General Internal Medicine 09/10/20
[2024-12-27 13:04] LABS: MANUAL DIFF FLAG NO
[2024-12-27 13:28] LABS: Hematocrit 27.2 % (42.0-52.0); Hemoglobin 8.7 g/dl (14.0-18.0); Imm Gran Abs Auto 0.03 X10*3/uL (0.00-0.03); Imm Gran Pct Auto 0.4 % (0.0-0.4); Lymphocytes Absolute Auto 0.9 X10*3/uL (1.2-4.9); Mean Corpuscular HGB Conc 32.0 g/dl (31.0-36.0); Mean Corpuscular Hemoglobin 31.0 pg (27.0-33.0); Mean Corpuscular Volume 96.8 fL (80.0-98.0); NRBC Abs Auto 0.000 X10*3/uL (0.0-0.012); NRBC Pct Auto 0.0 /100WBC (0.0-0.2); Platelet Count 220 X10*3/uL (160-400); Red Blood Count 2.81 X10*6/uL (4.60-5.80); White Blood Count 6.7 X10*3/uL (4.8-10.8)
[2024-12-27 13:47] LABS: Anion Gap 13 (12-20); Blood Urea Nitrogen 63 mg/dL (9-16); Carbon Dioxide 24 mmol/L (22-29); Chloride 111 mmol/L (96-108); Potassium 3.9 mmol/L (3.3-5.1); Sodium 144 mmol/L (135-145)
== END 2024-12-27 10:43 | disposition home or self-care (01) ==
LOC: HO.HKASLDS 10:42
PROVIDERS: Visit Provider Internal Medicine Nephrology
DX: I12.9 Hypertensive chronic kidney disease with stage 1 through stage 4 chronic kidney disease, or unspecified chronic kidney disease (principal); N18.4 Chronic kidney disease, stage 4 (severe); D63.1 Anemia in chronic kidney disease
CPT/HCPCS: 36415; 80051; 84520; 85025

== ENCOUNTER 2024-12-29 11:24 | Outpatient (AMB) | payer MEDICARE, SELFPAY ==
--- NOTE | 2024-12-29 12:06 | HO.NEPHOV ---
Vital Signs 12/29/24 12:07 Height 5 ft 9 in Weight 157 lb BMI 23.2 BP 120/60 Blood Pressure Location Lt brachial Position Sitting Pulse 75 Pulse Source Pulse Oximeter Pulse Oximetry (%) 96 Oxygen Delivery Method Room Air Intake Visit Reasons: 4wk Retacrit follow-up w/labs-Conf Geological Sample Tester Required: No Accompanied by: Self / Same As Patient Allergies lisinopril Allergy (Verified 12/29/24 12:07) Unknown Macrolides and Ketolides Allergy (Uncoded 03/18/23 13:49) Unknown HPI Comments Details: Alireza Kyle was seen in the office in follow-up of his chronic kidney disease and management of his anemia. 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 He has hypertension which is well controlled. He has anemia chronic disease for which he had been getting Procrit . He denies taking any nonsteroidal anti-inflammatory medications. He does not have any chest pain, shortness of breath, nausea vomiting, diarrhea, orthostatic symptoms, edema. His serum creatinine is stable . He does not feel tired. His appetite is better. 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, stage 4 (severe) Family History Mother Cancer Child No Financial Resp Cancer Social History Alcohol intake: never Patient Tobacco Use Status: Never used Tobacco Review of Systems Const All systems reviewed & are unremarkable except as noted in HPI and below Physical Exam Vital Signs: Last Vital Signs Pulse 75 12/29/24 12:07 BP 120/60 12/29/24 12:07 Pulse Ox 96 12/29/24 12:07 Oxygen Delivery Method Room Air 12/29/24 12:07 BMI result Body Mass Index 23.2 Const General: comfortable and no acute distress Orientation/consciousness: patient oriented x3 HEENT Head: Yes normocephalic Mouth: Normal oral and palatal mucosa present Eyes EOM: EOMs intact bilaterally Neck Neck: Yes supple Resp Auscultation: clear to auscultation bilaterally Cardio Jugular venous distension: no JVD Rate: regular rate GI Palpation (GI): Soft to palpation Auscultation: normal bowel sounds General: Yes no CVA tenderness Back/Spine/Pelvis Back: no CVA tenderness Skin General skin exam: no rashes or lesions noted Neuro General: patient oriented x3 and moves all extremities Extrem General: Yes no pedal edema Office Meds epoetin lizet-epbx 10,000 unit/mL injection solution Performing Provider: Santy Jonas MD Performing Location: [facility] [place] [facility] Administered by: Santy Jonas MD on 12/29/24 12:24 Dose Route Admin Location Dispensed Lot Number Expiration Date [facility] Master Sheet Clerk 40,000 unit subcut LUE 4 mL [id number] 06/11/26 9964-5709-03 [employer] Total Dispensed Waste 4 mL 0 % Results Reviewed Nephrology Results: Hgb, (14.0-18.0) 8.7 g/dl L 12/27/24 WBC, (4.8-10.8) 6.7 X10*3/uL 12/27/24 Plt Count, (160-400) 220 X10*3/uL 12/27/24 Sodium, (135-145) 144 mmol/L 12/27/24 Potassium, (3.3-5.1) 3.9 mmol/L 12/27/24 Chloride, (96-108) 111 mmol/L H 12/27/24 Carbon Dioxide, (22-29) 24 mmol/L 12/27/24 BUN, (9-16) 63 mg/dL H 12/27/24 Creatinine, (0.5-1.4) 2.82 mg/dL H 11/15/24 Calcium, (8.4-10.2) 8.4 mg/dL 11/15/24 Phosphorus, (2.7-4.5) 3.3 mg/dL 11/15/24 PTH Intact, (8.7-77.1) 162.5 pg/mL H 11/15/24 Assessment & Plan Assessment & Plan (1) Anemia in chronic kidney disease: Code(s): N18.9 - Chronic kidney disease, unspecified; D63.1 - Anemia in chronic kidney disease Category: Medical Qualifiers: Chronic kidney disease stage: stage 4 (severe) Qualified Code(s): N18.4 - Chronic kidney disease, stage 4 (severe); D63.1 - Anemia in chronic kidney disease (2) Chronic kidney disease, stage 4 (severe): Code(s): N18.4 - Chronic kidney disease, stage 4 (severe) Category: Medical (3) Hypertension: Code(s): I10 - Essential (primary) hypertension Category: Medical Qualifiers: Hypertension type: primary hypertension Qualified Code(s): I10 - Essential (primary) hypertension Plan Alireza has history of minimal change disease with nephrotic syndrome. He had been on losartan which has been put on hold for a long time. He can continue on his current dose of diuretics. His renal function is close to baseline. I administered 67613 Units Procrit in my office today. I did not make any other medication changes. Labs ordered for F/U .All his questions were answered Orders: Orders Blood Urea Nitrogen 1 Month D63.1 - Anemia in chronic kidney disease, I10 - Essential (primary) hypertension, N18.4 - Chronic kidney disease, stage 4 (severe) Calcium 1 Month D63.1 - Anemia in chronic kidney disease, I10 - Essential (primary) hypertension, N18.4 - Chronic kidney disease, stage 4 (severe) AMB Epoetin Injection Practice Supplied Today D63.1 - Anemia in chronic kidney disease, N18.4 - Chronic kidney disease, stage 4 (severe) Creatinine 1 Month D63.1 - Anemia in chronic kidney disease, I10 - Essential (primary) hypertension, N18.4 - Chronic kidney disease, stage 4 (severe) Electrolytes 1 Month D63.1 - Anemia in chronic kidney disease, I10 - Essential (primary) hypertension, N18.4 - Chronic kidney disease, stage 4 (severe) Complete Blood Count Auto Diff 1 Month D63.1 - Anemia in chronic kidney disease, I10 - Essential (primary) hypertension, N18.4 - Chronic kidney disease, stage 4 (severe) Coding Level of Care Code Est Pt Level 4 (46590) Diagnoses Anemia in stage 4 chronic kidney disease N18.4; D63.1 Chronic kidney disease stage: stage 4 (severe) Chronic kidney disease, stage 4 (severe) N18.4 Primary hypertension I10 Hypertension type: primary hypertension
[2024-12-29 12:07] VITALS: BP 120/60; PULSE 75; O2SAT 96; BMI 23.2
== END 2024-12-29 12:34 | disposition home or self-care (01) ==
LOC: HO.HKAS 11:25
PROVIDERS: PCP Internal Medicine; Visit Provider Internal Medicine Nephrology
DX: I12.9 Hypertensive chronic kidney disease with stage 1 through stage 4 chronic kidney disease, or unspecified chronic kidney disease (principal); N18.4 Chronic kidney disease, stage 4 (severe); D63.1 Anemia in chronic kidney disease
CPT/HCPCS: 99214

== ENCOUNTER → 2024-12-29 11:24 | Outpatient (BNVA) | payer MEDICARE, SELFPAY | PROVIDERS: PCP Internal Medicine; Visit Provider Internal Medicine Nephrology | DX: N18.4 Chronic kidney disease, stage 4 (severe) (principal); I10 Essential (primary) hypertension; D63.1 Anemia in chronic kidney disease | CPT/HCPCS: 96372; 99212; Q5106 ==

== ENCOUNTER 2025-01-24 11:46 | Outpatient (REF) | payer MEDICARE, SELFPAY ==
--- OUTSIDE RECORDS SUMMARY | 2025-01-24 15:59 | XMS_ITS | Encounter Summary ---
Author Organization [facility] Address [address] [place] [address] Care Team Providers Care General Worker Name Role Phone Jb Artis MD Primary Care Provider + [phone] Encounter Details Date Type Department Care Team (Late st Contact Info) Description 12/06/2021 Scanned Document [facility] [address] [place] [id number] Melinda Becerril PA [address] [facility] [address] [place] [address] Social History Tobacco Use Types Packs/Day Years [...] on filedocumented in this encounter Care Teams General Worker Relationship Specialty Start Date End Date Jb Artis MD [address] [place] [address] PCP - General Internal Medicine 11/29/21 documented as of this encounter
--- OUTSIDE RECORDS SUMMARY | 2025-01-24 15:59 | XMS_ITS | Clinical Summary ---
Author Organization [facility] [employer] [facility] Address [address] [place] [address] Phone Care Team Providers Care Elementary Tutor Name Role Phone Junior Artis MD Primary Care Provider [phone] Allergies Active Allergy Reactions Criticality Noted Date [...] mouth 1 (one) time each day. Active Eliquis 2.5 mg tablet TAKE 1 TABLET BY MOUTH TWICE DAILY 180 tablet 1 5 Active apixaban (ELIQUIS) 2.5 mg tablet Take 1 tablet (2.5 mg total) by mouth 2 (two) times a day. 180 tablet 1 5 025 Discontinued Active Problems Problem Noted Date Diagnosed Date Atrial fibrillation ([facility] V24, [facility] V28) 0 07/01/2021 Overview (04/26/2024): [...] and his balance as well. History of [place] (myocardial infarction) 10/02/2020 Overview (04/26/2024): 1996 -Cath [...] care. Unspecified diastolic (conge stive) heart failure ([facility] V24, [facility] V28) 10/02/2020 Overview (04/26/2024): 10/25/19 [...] s Hiatal hernia DX:Hiatal hernia Lacunar infarction ([facility] V24, [facility] V28) DX:Lacunar infarction (HCC); COMMENT: [...] Depression Screening 05/11/2024 COVID-19 Vaccine ( season) 2025 03/07/2024, 04/04/2023, 03/17/2022, Additional history exists Influenza [...] [employer] [place] [employer] Care Teams Elementary Tutor Relationship Specialty Start Date End Date Junior Artis MD [address] [place] [phone] PCP - General 06/17/19
--- OUTSIDE RECORDS SUMMARY | 2025-01-24 15:59 | XMS_ITS | Encounter Summary ---
Author Organization [facility] Address [address] [place] [address] Care Team Providers Care Corking Machine Operator Name Role Phone Jb Artis MD Primary Care Provider + [phone] Encounter Details Date Type Department Care Team (Late st Contact Info) Description 01/20/2022 Scanned Document [facility] [address] [place] [address] Melinda Becerril PA [address] [facility] [address] [place] [address] Social History Tobacco Use Types Packs/Day Years [...] on filedocumented in this encounter Care Teams Corking Machine Operator Relationship Specialty Start Date End Date Jb Artis MD [address] [place] [id number] PCP - General Internal Medicine 11/29/21 documented as of this encounter
--- OUTSIDE RECORDS SUMMARY | 2025-01-24 15:59 | XMS_ITS | Clinical Summary ---
Author Organization [facility] Address [address] [facility] [address] [place] [address] Phone Care Team Providers Care Broomcorn Press Feeder Name Role Phone Junior Artis MD Primary [...] the evening. 02/01/2022 Active ergocalciferol 1.25 MG (34035 UT) capsule TAKE 1 CAPSULE BY MOUTH [...] kidney disease,Chronic kidney disease stage 4 (HCC),Hypertension 31456 Units IJ Every 14 days 02/21/2021 Ac tive epoetin lizet (EPOGEN,PROCRIT) injection 20,000 UnitsIndications:Anemia due to Renal Failure 33922 Units IV Every 14 days 03/19/2022 Active epoetin lizet (EPOGEN,PROCRIT) injection 30,000 UnitsIndications:Anemia due to Renal Failure 70086 Units IV Every 14 days 04/02/2022 Active epoetin lizet (EPOGEN,PROCRIT) injection 20,000 UnitsIndications:Anemia due to Renal Failure 53538 Units IV Every 14 days 05/01/2022 Active Epoetin Lizet-epbx solution 40,000 UnitsIndications:Chronic kidney disease stage 4 (HCC),Anemia in chronic kidney disease 13439 Units IJ Once 07/30/2022 Active Epoetin Lizet-epbx solution 20,000 UnitsIndications:Anemia in chronic kidney disease,Chronic kidney disease stage 4 (HCC) 26450 Units IJ Once 09/10/2022 Ac tive Epoetin Lizet-epbx solution 20,000 UnitsIndications:Chronic kidney disease, not otherwise specified,Anemia in chronic kidney disease 48937 Units IJ Once 12/08/2022 A ctive Active [...] patient's age to complete this topic Insurance [facility] Care Teams Broomcorn Press Feeder Relationship Specialty Start Date End Date Junior Artis MD [address] [place], [place] PCP - General Internal Medicine 09/10/20
--- OUTSIDE RECORDS SUMMARY | 2025-01-24 15:59 | XMS_ITS | Clinical Summary ---
Author Organization [facility] Address [address] [place] [address] Care Team Providers Care Hand Presser Name Role Phone Jb Artis MD Primary Care Provider [phone] Allergies Active Allergy Reactions Criticality Noted Date Comments Lisinopril Unknown/Patient and Family Unable to Define Medium 09/22/2018 Medications doxazosin (CARDURA) 8 MG tablet 0 Active ergocalciferol (VITAMIN D2,DRISDOL) 61560 units Cap Take 50,000 Units by mouth [...] PM EDT Pulse - - Temperature 37.1 C (98.7 F) 12/18/2021 1:02 PM EDT Respiratory Rate - - Oxygen Saturation - - Inhaled Oxygen Concentration - - Weight 68 kg (150 lb) 12/18/2021 1:02 PM EDT Height 175.3 cm (5' 9 ) 12/18/2021 1:02 PM EDT Body Mass Index 22.15 12/18/2021 1:02 PM EDT Plan of Treatment Health Maintenance Due Date Last Done Comments Advance Care Planning 1935 DTaP/Tdap/Td Vaccines (1 - Tdap) 11/28/1954 Pneumococcal Vaccines 50+ (1 of 1 - PCV) 11/28/1985 Zoster (Shingles) Vaccine (1 of 2) 11/28/1985 RSV Vaccine 60 years and older and Patients (1 - 1-dose 75+ series) 11/28/2010 Influenza Vaccine 12/09/2024 02/14/2021, , 02/20/2019, Additional history exists COVID-19 Vaccine ( - 2024- season) 2025 08/28/2021, 02/26/2021, 08/07/2020, Additional history exists Hepatitis B Vaccines Aged Out No long er eligible based on patient's age to complete this topic Insurance [facility] MEDICARE [facility] MEDICARE Care Teams Hand Presser Relationship Specialty Start Date End Date Jb Artis MD [address] [place] [address] PCP - General Internal Medicine 11/29/21
--- OUTSIDE RECORDS SUMMARY | 2025-01-24 15:59 | XMS_ITS | Encounter Summary ---
Author Organization [facility] Address [address] [place] [address] Phone Care Team Providers Care Impregnator Name Role Phone Junior Artis MD Primary Care Provider Reason for Visit * Reason Comments Med Refill Encounter Details Date Type Department Care Team (Late st Contact Info) Description 10/05/2022 Refill [facility] [address] [place] [address] Santy Jonas MD Social History [...] on filedocumented in this encounter Care Teams Impregnator Relationship Specialty Start Date End Date Junior Artis MD [address] [place], [place] PCP - General Internal Medicine 09/10/20 documented as of this encounter
--- OUTSIDE RECORDS SUMMARY | 2025-01-24 15:59 | XMS_ITS | Encounter Summary ---
Author Organization [facility] Address [address] [place] [address] Phone Care Team Providers Care Coil Machine Operator Name Role Phone Junior Artis MD Primary Care Provider Reason for Visit * Reason Comments Med Refill Encounter Details Date Type Department Care Team (Late st Contact Info) Description 11/30/2022 Refill [facility] [address] [place] [address] Santy Jonas MD Social History [...] on filedocumented in this encounter Care Teams Coil Machine Operator Relationship Specialty Start Date End Date Junior Artis MD [address] [place], [place] PCP - General Internal Medicine 09/10/20 documented as of this encounter
--- OUTSIDE RECORDS SUMMARY | 2025-01-24 15:59 | XMS_ITS | Encounter Summary ---
Author Organization [facility] Address [address] [place] [address] Care Team Providers Care Retail Buyer Name Role Phone Jb Artis MD Primary Care Provider [phone] Encounter Details Date Type Department Care Team (Late st Contact Info) Description 11/15/2021 Erroneous Encounter [facility] CONVERSION DEPT [address] [place] [phone] Provider, MD Madeline Social History Tobacco Use [...] on filedocumented in this encounter Care Teams Retail Buyer Relationship Specialty Start Date End Date Jb Artis MD [address] [place] [address] PCP - General Internal Medicine 11/29/21 documented as of this encounter
[2025-01-24 17:41] LABS: MANUAL DIFF FLAG NO
[2025-01-24 17:47] LABS: Hematocrit 25.2 % (42.0-52.0); Hemoglobin 8.1 g/dl (14.0-18.0); Imm Gran Abs Auto 0.02 X10*3/uL (0.00-0.03); Imm Gran Pct Auto 0.4 % (0.0-0.4); Lymphocytes Absolute Auto 1.1 X10*3/uL (1.2-4.9); Mean Corpuscular HGB Conc 32.1 g/dl (31.0-36.0); Mean Corpuscular Hemoglobin 32.0 pg (27.0-33.0); Mean Corpuscular Volume 99.6 fL (80.0-98.0); NRBC Abs Auto 0.000 X10*3/uL (0.0-0.012); NRBC Pct Auto 0.0 /100WBC (0.0-0.2); Platelet Count 207 X10*3/uL (160-400); Red Blood Count 2.53 X10*6/uL (4.60-5.80); White Blood Count 5.0 X10*3/uL (4.8-10.8)
[2025-01-24 18:02] LABS: Anion Gap 13 (12-20); Blood Urea Nitrogen 72 mg/dL (9-16); Calcium 8.7 mg/dL (8.4-10.2); Carbon Dioxide 24 mmol/L (22-29); Chloride 110 mmol/L (96-108); Estimated Glomerular Filt Rate 22; Potassium 4.0 mmol/L (3.3-5.1); Sodium 143 mmol/L (135-145)
== END 2025-01-24 11:47 | disposition home or self-care (01) ==
LOC: HO.HKASLDS 11:46
PROVIDERS: Visit Provider Internal Medicine Nephrology
DX: I12.9 Hypertensive chronic kidney disease with stage 1 through stage 4 chronic kidney disease, or unspecified chronic kidney disease (principal); N18.4 Chronic kidney disease, stage 4 (severe); D63.1 Anemia in chronic kidney disease
CPT/HCPCS: 36415; 80051; 82310; 82565; 84520; 85025

== ENCOUNTER 2025-01-26 11:19 | Outpatient (AMB) | payer MEDICARE, SELFPAY ==
--- NOTE | 2025-01-26 11:49 | HO.NEPHOV_ITS ---
Vital Signs 01/26/25 11:50 Height 5 ft 9 in Weight 160 lb BMI 23.6 BP 114/70 Blood Pressure Location Lt brachial Position Sitting Pulse 57 Pulse Source Pulse Oximeter Pulse Oximetry (%) 98 Oxygen Delivery Method Room Air Intake Visit Reasons: 1mon Retacrit f/u w/labs-Conf Global Lead Required: No Accompanied by: Spouse Allergies lisinopril Allergy (Verified 01/26/25 11:49) Unknown Macrolides and Ketolides Allergy (Uncoded 03/18/23 13:49) Unknown HPI Comments Details: Alireza Klye was seen in the office in follow-up of his chronic kidney disease and management of his anemia. 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 He has hypertension which is well controlled. He has anemia chronic disease for which he had been getting Procrit . He denies taking any nonsteroidal anti-inflammatory medications. He does not have any sultana st pain, shortness of breath, nausea vomiting, diarrhea, orthostatic symptoms, edema. His serum creatinine is stable . He does not feel tired. There were no complaints at the time of this office visit. [facility] Medical History Proteinuria Hypertension Anemia in chronic kidney disease Chronic kidney disease, stage 4 (severe) Family History Mother Cancer Child No Financial Resp Cancer Social History Alcohol intake: never Patient Tobacco Use Status: Never used Tobacco Review of Systems Const All systems reviewed & are unremarkable except as noted in HPI and below Physical Exam Vital Signs: Last Vital Signs Pulse 57 01/26/25 11:50 BP 114/70 01/26/25 11:50 Pulse Ox 98 01/26/25 11:50 Oxygen Delivery Method Room Air 01/26/25 11:50 BMI result Body Mass Index 23.6 Const General: comfortable and no acute distress Orientation/consciousness: patient oriented x3 HEENT Head: Yes normocephalic Mouth: Normal oral and palatal mucosa present Eyes EOM: EOMs intact bilaterally Neck Neck: Yes supple Resp Auscultation: clear to auscultation bilaterally Cardio Jugular venous distension: no JVD Rate: regular rate Heart sounds: Murmur heart sound present GI Palpation (GI): Soft to palpation Auscultation: normal bowel sounds General: Yes no CVA tenderness Back/Spine/Pelvis Back: no CVA tenderness Skin General skin exam: no rashes or lesions noted Neuro General: patient oriented x3 and moves all extremities Extrem General: Yes no pedal edema Office Meds epoetin lizet-epbx 10,000 unit/mL injection solution Performing Provider: Santy Jonas MD Performing [place] [facility] Administered by: Santy Jonas MD on 01/26/25 11:54 Dose Route Admin Location Dispensed Lot Number Expiration Date [facility] Organizational Development Manager 40,000 unit subcut LUE 4 mL [id number] 06/11/26 2424-3244-24 [employer] Total Dispensed Waste 4 mL 0 % Results Reviewed Nephrology Results: Hgb, (14.0-18.0) 8.1 g/dl L 01/24/25 WBC, (4.8-10.8) 5.0 X10*3/uL 01/24/25 Plt Count, (160-400) 207 X10*3/uL 01/24/25 Sodium, (135-145) 143 mmol/L 01/24/25 Potassium, (3.3-5.1) 4.0 mmol/L 01/24/25 Chloride, (96-108) 110 mmol/L H 01/24/25 Carbon Dioxide, (22-29) 24 mmol/L 01/24/25 BUN, (9-16) 72 mg/dL H 01/24/25 Creatinine, (0.5-1.4) 2.72 mg/dL H 01/24/25 Calcium, (8.4-10.2) 8.7 mg/dL 01/24/25 Phosphorus, (2.7-4.5) 3.3 mg/dL 11/15/24 PTH Intact, (8.7-77.1) 162.5 pg/mL H 11/15/24 Assessment & Plan Assessment & Plan (1) Chronic kidney disease, stage 4 (severe): Code(s): N18.4 - Chronic kidney disease, stage 4 (severe) Category: Medical (2) Anemia in chronic kidney disease: Code(s): N18.9 - Chronic kidney disease, unspecified; D63.1 - Anemia in chronic kidney disease Category: Medical Qualifiers: Chronic kidney disease stage: stage 4 (severe) Qualified Code(s): N18.4 - Chronic kidney disease, stage 4 (severe); D63.1 - Anemia in chronic kidney disease (3) Hypertension: Code(s): I10 - Essential (primary) hypertension Category: Medical Qualifiers: Hypertension type: primary hypertension Qualified Code(s): I10 - Essential (primary) hypertension Plan Alireza has history of minimal change disease with nephrotic syndrome. He had been on losartan which has been put on hold for a long time. He can continue on his current dose of diuretics. His renal function is close to baseline. I administered 37000 Units Procrit in my office today. I did not make any other medication changes. Labs ordered for F/U .All his questions were answered Orders: Orders Creatinine 3 Weeks D63.1 - Anemia in chronic kidney disease, I10 - Essential (primary) hypertension, N18.4 - Chronic kidney disease, stage 4 (severe) Blood Urea Nitrogen 3 Weeks D63.1 - Anemia in chronic kidney disease, I10 - Essential (primary) hypertension, N18.4 - Chronic kidney disease, stage 4 (severe) Electrolytes 3 Weeks D63.1 - Anemia in chronic kidney disease, I10 - Essential (primary) hypertension, N18.4 - Chronic kidney disease, stage 4 (severe) Vitamin D 25-OH Total 3 Weeks D63.1 - Anemia in chronic kidney disease, I10 - Essential (primary) hypertension, N18.4 - Chronic kidney disease, stage 4 (severe) AMB Epoetin Injection Practice Supplied 01/26/25 D63.1 - Anemia in chronic kidney disease, I10 - Essential (primary) hypertension, N18.4 - Chronic kidney disease, stage 4 (severe) Complete Blood Count Auto Diff 3 Weeks D63.1 - Anemia in chronic kidney disease, I10 - Essential (primary) hypertension, N18.4 - Chronic kidney disease, stage 4 (severe) Calcium 3 Weeks D63.1 - Anemia in chronic kidney disease, I10 - Essential (primary) hypertension, N18.4 - Chronic kidney disease, stage 4 (severe) Parathyroid Hormone Intact 3 Weeks D63.1 - Anemia in chronic kidney disease, I10 - Essential (primary) hypertension, N18.4 - Chronic kidney disease, stage 4 (severe) Coding Level of Care Code Est Pt Level 4 (05795) Diagnoses Chronic kidney disease, stage 4 (severe) N18.4 Anemia in stage 4 chronic kidney disease N18.4; D63.1 Chronic kidney disease stage: stage 4 (severe) Primary hypertension I10 Hypertension type: primary hypertension
[2025-01-26 11:50] VITALS: BP 114/70; PULSE 57; O2SAT 98; BMI 23.6
--- OUTSIDE RECORDS SUMMARY | 2025-01-26 13:36 | XMS_ITS | Clinical Summary ---
Author Organization [facility] Address [address] [place] [address] Care Team Providers Care Wood Boring Machine Operator Name Role Phone Jb Artis MD Primary Care Provider [phone] Allergies Active Allergy Reactions Criticality Noted Date Comments Lisinopril Unknown/Patient and Family Unable to Define Medium 09/22/2018 Medications doxazosin (CARDURA) 8 MG tablet 0 Active ergocalciferol (VITAMIN D2,DRISDOL) 84667 units Cap Take 50,000 Units by mouth [...] to complete this topic Insurance [facility] MEDICARE [facility] MEDICARE Care Teams Wood Boring Machine Operator Relationship Specialty Start Date End Date Jb Artis MD [address] [place] [address] PCP - General Internal Medicine 11/29/21
--- OUTSIDE RECORDS SUMMARY | 2025-01-26 13:36 | XMS_ITS | Clinical Summary ---
Author Organization [facility] [facility] Address [address] [place] [address] Phone Care Team Providers Care Post Office Markup Clerk Name Role Phone Junior Artis MD Primary Care Provider [phone] Allergies Active Allergy Reactions Criticality Noted Date [...] Problem Noted Date Diagnosed Date Atrial fibrillation ([facility] V24, [facility] V28) 0 07/01/2021 Overview (04/26/2024): Last [...] and his balance as well. History of [place] (myocardial infarction) 10/02/2020 Overview (04/26/2024): 1996 -Cath [...] care. Unspecified diastolic (conge stive) heart failure ([facility] V24, [facility] V28) 10/02/2020 Overview (04/26/2024): 10/25/19 ECHO EF [...] s Hiatal hernia DX:Hiatal hernia Lacunar infarction ([facility] V24, [facility] V28) DX:Lacunar infarction (HCC); COMMENT: silent on [...] [employer] [place] [employer]VANT[employer] Care Teams Post Office Markup Clerk Relationship Specialty Start Date End Date Junior Artis MD [address] [place] [address] PCP - General 06/17/19
--- OUTSIDE RECORDS SUMMARY | 2025-01-26 13:36 | XMS_ITS | Encounter Summary ---
Author Organization [facility] Address [address] [place] [address] Care Team Providers Care Director Home Name Role Phone Jb Artis MD Primary Care Provider [phone] Encounter Details Date Type Department Care Team (Late st Contact Info) Description 11/15/2021 Erroneous Encounter [facility] CONVERSION DEPT [address] [place] [phone] Provider, MD Madeline Social History Tobacco Use [...] on filedocumented in this encounter Care Teams Director Home Relationship Specialty Start Date End Date Jb Artis MD [address] [place] [address] PCP - General Internal Medicine 11/29/21 documented as of this encounter
--- OUTSIDE RECORDS SUMMARY | 2025-01-26 13:36 | XMS_ITS | Encounter Summary ---
Author Organization [facility] Address [address] [place] [address] Care Team Providers Care Clinical Support Associate Name Role Phone Jb Artis MD Primary Care Provider + [phone] Encounter Details Date Type Department Care Team (Late st Contact Info) Description 12/06/2021 Scanned Document [facility] [address] [place] [phone] Melinda Becerril PA [address] [facility] [address] [place] [address] Social History Tobacco Use Types Packs/Day Years [...] on filedocumented in this encounter Care Teams Clinical Support Associate Relationship Specialty Start Date End Date Jb Artis MD [address] [place] [address] PCP - General Internal Medicine 11/29/21 documented as of this encounter
--- OUTSIDE RECORDS SUMMARY | 2025-01-26 13:36 | XMS_ITS | Encounter Summary ---
Author Organization [facility] Address [address] [place] [address] Care Team Providers Care International Trade Teacher Name Role Phone Jb Artis MD Primary Care Provider + [phone] Encounter Details Date Type Department Care Team (Late st Contact Info) Description 01/20/2022 Scanned Document [facility] [address] [place] [address] Melinda Becerril PA [address] [facility] [address] [place] [address] Social History Tobacco Use Types Packs/Day Years [...] on filedocumented in this encounter Care Teams International Trade Teacher Relationship Specialty Start Date End Date Jb Artis MD [address] [place] [address] PCP - General Internal Medicine 11/29/21 documented as of this encounter
--- OUTSIDE RECORDS SUMMARY | 2025-01-26 13:36 | XMS_ITS | Encounter Summary ---
Author Organization [facility] Address [address] [place] [address] Phone Care Team Providers Care Coffee Farmer Name Role Phone Junior Artis MD Primary Care Provider Reason for Visit * Reason Comments Med Refill Encounter Details Date Type Department Care Team (Late st Contact Info) Description 11/30/2022 Refill [facility] [address] [place] [address] Santy Jonas MD Social History [...] on filedocumented in this encounter Care Teams Coffee Farmer Relationship Specialty Start Date End Date Junior Artis MD [address] [place], [place] PCP - General Internal Medicine 09/10/20 documented as of this encounter
--- OUTSIDE RECORDS SUMMARY | 2025-01-26 13:36 | XMS_ITS | Clinical Summary ---
Author Organization [facility] Address [address] [facility] [address] [address] [place] [address] Phone Care Team Providers Care Senior Clerk Name Role Phone Junior Artis MD [...] the evening. 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 Failure 95606 Units IV Every 14 days 04/02/2022 Active epoetin lizet (EPOGEN,PROCRIT) injection 20,000 UnitsIndications:Anemia due to Renal Failure 66270 Units IV Every 14 days 05/01/2022 Active Epoetin Lizet-epbx solution 40,000 UnitsIndications:Chronic kidney disease stage 4 (HCC),Anemia in chronic kidney disease 03735 Units IJ Once 07/30/2022 Active Epoetin Lizet-epbx solution 20,000 UnitsIndications: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
--- OUTSIDE RECORDS SUMMARY | 2025-01-26 13:36 | XMS_ITS | Encounter Summary ---
Author Organization [facility] Address [address] [place] [address] Phone Care Team Providers Care Machine Joint Cutter Name Role Phone Junior Artis MD Primary Care Provider Reason for Visit * Reason Comments Med Refill Encounter Details Date Type Department Care Team (Late st Contact Info) Description 10/05/2022 Refill [facility] [address] [place] [address] Santy Jonas MD Social History [...] on filedocumented in this encounter Care Teams Machine Joint Cutter Relationship Specialty Start Date End Date Junior Artis MD [address] [place], [place] PCP - General Internal Medicine 09/10/20 documented as of this encounter
== END 2025-01-26 12:08 | disposition home or self-care (01) ==
LOC: HO.HKAS 11:20
PROVIDERS: PCP Internal Medicine; Visit Provider Internal Medicine Nephrology
DX: I12.9 Hypertensive chronic kidney disease with stage 1 through stage 4 chronic kidney disease, or unspecified chronic kidney disease (principal); N18.4 Chronic kidney disease, stage 4 (severe); D63.1 Anemia in chronic kidney disease
CPT/HCPCS: 99214

== ENCOUNTER → 2025-01-26 11:19 | Outpatient (BNVA) | payer MEDICARE, SELFPAY | PROVIDERS: PCP Internal Medicine; Visit Provider Internal Medicine Nephrology | DX: I12.9 Hypertensive chronic kidney disease with stage 1 through stage 4 chronic kidney disease, or unspecified chronic kidney disease (principal); N18.4 Chronic kidney disease, stage 4 (severe); D63.1 Anemia in chronic kidney disease | CPT/HCPCS: 96372; 99212; Q5106 ==

== ENCOUNTER 2025-02-21 11:38 | Outpatient (REF) | payer MEDICARE, SELFPAY ==
--- OUTSIDE RECORDS SUMMARY | 2025-02-21 14:15 | XMS_ITS | Encounter Summary ---
Author Organization [facility] Address [address] [place] [address] Care Team Providers Care Smoke Room Operator Name Role Phone Jb Artis MD Primary Care Provider [phone] Encounter Details Date Type Department Care Team (Late st Contact Info) Description 11/15/2021 Erroneous Encounter [facility] CONVERSION DEPT [address] [place] [phone] Provider, MD Madeline Social History Tobacco Use [...] on filedocumented in this encounter Care Teams Smoke Room Operator Relationship Specialty Start Date End Date Jb Artis MD [address] [place] [address] PCP - General Internal Medicine 11/29/21 documented as of this encounter
--- OUTSIDE RECORDS SUMMARY | 2025-02-21 14:16 | XMS_ITS | Clinical Summary ---
Author Organization [facility] [employer] [facility] Address [address] [place] [address] Phone Care Team Providers Care Efficiency Analyst Name Role Phone Junior Artis MD Primary Care Provider [phone] Allergies Active Allergy Reactions Criticality Noted Date [...] BY MOUTH TWICE DAILY 180 tablet 1 01/20/2025 Active Active Problems Problem Noted Date Diagnosed Date Atrial fibrillation ([facility] V24, [facility] V28) 0 07/01/2021 Overview (04/26/2024): Last [...] care. Unspecified diastolic (conge stive) heart failure ([facility] V24, [facility] V28) 10/02/2020 Overview (04/26/2024): 10/25/19 ECHO [...] s Hiatal hernia DX:Hiatal hernia Lacunar infarction ([facility] V24, [facility] V28) DX:Lacunar infarction (HCC); COMMENT: silent [...] 08/22/2024 2:06 PM EDT Plan of Treatment Upcoming Encounters Date Type Department Care Team (Late st Contact Info) Description 06/06/2025 2:00 PM EST Office Visit [facility] [address] [place] [address] Marco Antonio Acosta MD [address] [place] [address] [address] [place] [address] Health Maintenance Due Date Last Done Comments Cholesterol Screening (Lipid Panel) 04/13/2022 Falls Risk Assessment 04/13/2022 Medicare Annual Wellness Visit 04/13/2022 Social Influencers of Health Screening 04/13/2022 Hypertension/CHF/CAD Annual BMP Blood Test 04/19/2022 Depression Screening 05/11/2024 COVID-19 Vaccine (2023- season) 2025 03/07/2024, 04/04/2023, 03/17/2022, Additional history [...] [employer] [place] [employer]VANTAGE Care Teams Efficiency Analyst Relationship Specialty Start Date End Date Junior Artis MD [address] [place] [phone] PCP - General 06/17/19
--- OUTSIDE RECORDS SUMMARY | 2025-02-21 14:16 | XMS_ITS | Encounter Summary ---
Author Organization [facility] Address [address] [place] [address] Care Team Providers Care Ethylene Compressor Operator Name Role Phone Jb Artis MD Primary Care Provider + [phone] Encounter Details Date Type Department Care Team (Late st Contact Info) Description 01/20/2022 Scanned Document [facility] [address] [place] [address] Melinda Becerril PA [address] [facility] [address] [place] [address] Social History Tobacco Use Types Packs/Day Years [...] on filedocumented in this encounter Care Teams Ethylene Compressor Operator Relationship Specialty Start Date End Date Jb Artis MD [address] [place] [address] PCP - General Internal Medicine 11/29/21 documented as of this encounter
--- OUTSIDE RECORDS SUMMARY | 2025-02-21 14:16 | XMS_ITS | Encounter Summary ---
Author Organization [facility] Address [address] [place] [address] Care Team Providers Care Adult Education Teacher Name Role Phone Jb Artis MD Primary Care Provider + [phone] Encounter Details Date Type Department Care Team (Late st Contact Info) Description 12/06/2021 Scanned Document [facility] [address] [place] [phone] Melinda Becerril PA [address] [facility] [address] [place] [address] Social History Tobacco Use Types Packs/Day Years [...] on filedocumented in this encounter Care Teams Adult Education Teacher Relationship Specialty Start Date End Date Jb Artis MD [address] [place] [address] PCP - General Internal Medicine 11/29/21 documented as of this encounter
--- OUTSIDE RECORDS SUMMARY | 2025-02-21 14:16 | XMS_ITS | Clinical Summary ---
Author Organization [facility] Address [address] [place] [address] Care Team Providers Care Entry Level Civil Engineer Name Role Phone Jb Artis MD Primary Care Provider [phone] Allergies Active Allergy Reactions Criticality Noted Date Comments Lisinopril Unknown/Patient and Family Unable to Define Medium 09/22/2018 Medications doxazosin (CARDURA) 8 MG tablet 0 Active ergocalciferol (VITAMIN D2,DRISDOL) 85257 units Cap Take 50,000 Units by mouth [...] patient's age to complete this topic Insurance [facility] MEDICARE [facility] MEDIC[facility] Care Teams Entry Level Civil Engineer Relationship Specialty Start Date End Date Jb Artis MD [address] [place] [address] PCP - General Internal Medicine 11/29/21
[2025-02-21 18:11] LABS: MANUAL DIFF FLAG NO
[2025-02-21 18:18] LABS: Hematocrit 24.9 % (42.0-52.0); Hemoglobin 7.7 g/dl (14.0-18.0); Imm Gran Abs Auto 0.02 X10*3/uL (0.00-0.03); Imm Gran Pct Auto 0.4 % (0.0-0.4); Lymphocytes Absolute Auto 1.0 X10*3/uL (1.2-4.9); Mean Corpuscular HGB Conc 30.9 g/dl (31.0-36.0); Mean Corpuscular Hemoglobin 31.2 pg (27.0-33.0); Mean Corpuscular Volume 100.8 fL (80.0-98.0); NRBC Abs Auto 0.020 X10*3/uL (0.0-0.012); NRBC Pct Auto 0.4 /100WBC (0.0-0.2); Platelet Count 224 X10*3/uL (160-400); Red Blood Count 2.47 X10*6/uL (4.60-5.80); White Blood Count 4.7 X10*3/uL (4.8-10.8)
[2025-02-21 18:38] LABS: Anion Gap 12 (12-20); Blood Urea Nitrogen 78 mg/dL (9-16); Calcium 8.8 mg/dL (8.4-10.2); Carbon Dioxide 23 mmol/L (22-29); Chloride 112 mmol/L (96-108); Estimated Glomerular Filt Rate 22; Potassium 4.1 mmol/L (3.3-5.1); Sodium 143 mmol/L (135-145)
[2025-02-21 18:44] LABS: Parathyroid Hormone Intact 133.7 pg/mL (8.7-77.1)
== END 2025-02-21 11:39 | disposition home or self-care (01) ==
LOC: HO.HKASLDS 11:38
PROVIDERS: PCP Internal Medicine; Visit Provider Internal Medicine Nephrology
DX: I12.9 Hypertensive chronic kidney disease with stage 1 through stage 4 chronic kidney disease, or unspecified chronic kidney disease (principal); N18.4 Chronic kidney disease, stage 4 (severe); D63.1 Anemia in chronic kidney disease
CPT/HCPCS: 36415; 80051; 82306; 82310; 82565; 83970; 84520; 85025

== ENCOUNTER 2025-02-23 15:17 | Outpatient (AMB) | payer MEDICARE, SELFPAY ==
--- NOTE | 2025-02-23 15:30 | HO.NEPHOV_ITS ---
Vital Signs 02/23/25 15:31 Height 5 ft 9 in Weight 159 lb 6 oz BMI 23.5 BP 124/50 L Blood Pressure Location Lt brachial Position Sitting Pulse 56 Pulse Source Pulse Oximeter Pulse Oximetry (%) 98 Oxygen Delivery Method Room Air Intake Visit Reasons: 3wk-Conf Display Associate Required: No Accompanied by: Spouse Allergies lisinopril Allergy (Verified 02/23/25 15:30) Unknown Macrolides and Ketolides Allergy (Uncoded 03/18/23 13:49) Unknown HPI Comments Details: Alireza Kyle was seen in the office in follow-up of his chronic kidney disease and management of his anemia. 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 He has hypertension which is well controlled. He has anemia chronic disease for which he had been getting Procrit . He denies taking any nonsteroidal anti-inflammatory medications. He does not have any chest pain, shortness of breath, nausea vomiting, diarrhea, orthostatic symptoms, edema. His serum creatinine is stable . He does not feel tired. There were no complaints at the time of this office visit. [facility] Medical History Proteinuria Hypertension Anemia in chronic kidney disease Chronic kidney disease, stage 4 (severe) Family History Mother Cancer Child No Financial Resp Cancer Social History Alcohol intake: never Patient Tobacco Use Status: Never used Tobacco Review of Systems Const All systems reviewed & are unremarkable except as noted in HPI and below Physical Exam Vital Signs: Last Vital Signs Pulse 56 02/23/25 15:31 BP 124/50 L 02/23/25 15:31 Pulse Ox 98 02/23/25 15:31 Oxygen Delivery Method Room Air 02/23/25 15:31 BMI result Body Mass Index 23.5 Const General: comfortable and no acute distress Orientation/consciousness: patient oriented x3 HEENT Head: Yes normocephalic Mouth: Normal oral and palatal mucosa present Eyes EOM: EOMs intact bilaterally Neck Neck: Yes supple Resp Auscultation: clear to auscultation bilaterally Cardio Jugular venous distension: no JVD Rate: regular rate GI Palpation (GI): Soft to palpation Auscultation: normal bowel sounds General: Yes no CVA tenderness Back/Spine/Pelvis Back: no CVA tenderness Skin General skin exam: no rashes or lesions noted Neuro General: patient oriented x3 and moves all extremities Extrem General: Yes no pedal edema Office Meds epoetin lizet-epbx 10,000 unit/mL injection solution Performing Provider: Santy Jonas MD Performing Location: [facility] [place] [facility] Administered by: Santy Jonas MD on 02/23/25 15:40 Dose Route Admin Location Dispensed Lot Number Expiration Date [facility] [place]NOTE 2] [employer] 40,000 unit subcut LUE 4 mL [id number] 06/11/26 3317-7880-12 [employer] Total Dispensed Waste 4 mL 0 % Results Reviewed Nephrology Results: Hgb, (14.0-18.0) 7.7 g/dl L 02/21/25 WBC, (4.8-10.8) 4.7 X10*3/uL L 02/21/25 Plt Count, (160-400) 224 X10*3/uL 02/21/25 Sodium, (135-145) 143 mmol/L 02/21/25 Potassium, (3.3-5.1) 4.1 mmol/L 02/21/25 Chloride, (96-108) 112 mmol/L H 02/21/25 Carbon Dioxide, (22-29) 23 mmol/L 02/21/25 BUN, (9-16) 78 mg/dL H 02/21/25 Creatinine, (0.5-1.4) 2.75 mg/dL H 02/21/25 Calcium, (8.4-10.2) 8.8 mg/dL 02/21/25 Phosphorus, (2.7-4.5) 3.3 mg/dL 11/15/24 PTH Intact, (8.7-77.1) 133.7 pg/mL H 02/21/25 Assessment & Plan Assessment & Plan (1) Anemia in chronic kidney disease: Code(s): N18.9 - Chronic kidney disease, unspecified; D63.1 - Anemia in chronic kidney disease Category: Medical Qualifiers: Chronic kidney disease stage: stage 4 (severe) Qualified Code(s): N18.4 - Chronic kidney disease, stage 4 (severe); D63.1 - Anemia in chronic kidney disease (2) Chronic kidney disease, stage 4 (severe): Code(s): N18.4 - Chronic kidney disease, stage 4 (severe) Category: Medical (3) Hypertension: Code(s): I10 - Essential (primary) hypertension Category: Medical Qualifiers: Hypertension type: primary hypertension Qualified Code(s): I10 - Essential (primary) hypertension Plan Alireza has history of minimal change disease with nephrotic syndrome. He had been on losartan which has been put on hold for a long time. He can continue on his current dose of diuretics. His renal function is close to baseline. I administered 50019 Units Procrit in my office today. I did not make any other medication changes. Labs ordered for F/U .All his questions were answered Orders: Orders AMB Epoetin Injection Practice Supplied Today D63.1 - Anemia in chronic kidney disease, N18.4 - Chronic kidney disease, stage 4 (severe) Complete Blood Count Auto Diff 4 Weeks D63.1 - Anemia in chronic kidney disease, N18.4 - Chronic kidney disease, stage 4 (severe) IRON PROFILE 4 Weeks D63.1 - Anemia in chronic kidney disease, N18.4 - Chronic kidney disease, stage 4 (severe) Ferritin 4 Weeks D63.1 - Anemia in chronic kidney disease, N18.4 - Chronic kidney disease, stage 4 (severe) Coding Level of Care Code Est Pt Level 4 (27553) Diagnoses Anemia in stage 4 chronic kidney disease N18.4; D63.1 Chronic kidney disease stage: stage 4 (severe) Chronic kidney disease, stage 4 (severe) N18.4 Primary hypertension I10 Hypertension type: primary hypertension
[2025-02-23 15:31] VITALS: BP 124/50; PULSE 56; O2SAT 98; BMI 23.5
--- OUTSIDE RECORDS SUMMARY | 2025-02-23 19:07 | XMS_ITS | Clinical Summary ---
Author Organization [facility] Address [address] [place] [address] Care Team Providers Care Life Skills Worker Name Role Phone Jb Artis MD Primary Care Provider [phone] Allergies Active Allergy Reactions Criticality Noted Date Comments Lisinopril Unknown/Patient and Family Unable to Define Medium 09/22/2018 Medications doxazosin (CARDURA) 8 MG tablet 0 Active ergocalciferol (VITAMIN D2,DRISDOL) 16947 units Cap Take 50,000 Units by mouth [...] Vaccine (1 of 2) 11/28/1985 RSV Vaccine 50 years and older and Patients (1 - 1-dose 75+ series) 11/28/2010 Influenza Vaccine 12/09/2024 02/14/2021, , 02/20/2019, Additional history exists COVID-19 Vaccine ( - 2024- season) 2025 08/28/2021, 02/26/2021, 08/07/2020, Additional history exists Hepatitis B Vaccines Aged Out No long er eligible based on patient's age to complete this topic Insurance [facility] MEDICARE [facility] MEDICARE Care Teams Life Skills Worker Relationship Specialty Start Date End Date Jb Artis MD [address] [place] [address] PCP - General Internal Medicine 11/29/21
--- OUTSIDE RECORDS SUMMARY | 2025-02-23 19:07 | XMS_ITS | Encounter Summary ---
Author Organization [facility] Address [address] [place] [address] Care Team Providers Care Magnetic Resonance Imaging Coordinator Name Role Phone Jb Artis MD Primary Care Provider [phone] Encounter Details Date Type Department Care Team (Late st Contact Info) Description 11/15/2021 Erroneous Encounter [facility] DEPT [address] [place] [phone] Provider, MD Madeline Social History Tobacco Use [...] on filedocumented in this encounter Care Teams Magnetic Resonance Imaging Coordinator Relationship Specialty Start Date End Date Jb Artis MD [address] [place] [address] PCP - General Internal Medicine 11/29/21 documented as of this encounter
--- OUTSIDE RECORDS SUMMARY | 2025-02-23 19:07 | XMS_ITS | Encounter Summary ---
Author Organization [facility] Address [address] [place] [address] Care Team Providers Care Color Checker Name Role Phone Jb Artis MD Primary Care Provider + [phone] Encounter Details Date Type Department Care Team (Late st Contact Info) Description 01/20/2022 Scanned Document [facility] [address] [place] [address] Melinda Becerril PA [address] [facility] [address] [place] [address] Social History Tobacco Use Types Packs/Day Years [...] on filedocumented in this encounter Care Teams Color Checker Relationship Specialty Start Date End Date Jb Artis MD [address] [place] [address] PCP - General Internal Medicine 11/29/21 documented as of this encounter
--- OUTSIDE RECORDS SUMMARY | 2025-02-23 19:07 | XMS_ITS | Clinical Summary ---
Author Organization [facility] Address [address] [facility] [place] [address] Phone Care Team Providers Care Onion Topper Name Role Phone Junior Artis MD Primary Care Provider [phone] Allergies Active Allergy Reactions Criticality Noted Date [...] Problem Noted Date Diagnosed Date Atrial fibrillation ([facility] V24, [facility] V28) 0 07/01/2021 Overview (04/26/2024): [...] care. Unspecified diastolic (conge stive) heart failure ([facility] V24, [facility] V28) 10/02/2020 Overview (04/26/2024): 10/25/19 [...] s Hiatal hernia DX:Hiatal hernia Lacunar infarction ([facility] V24, [facility] V28) DX:Lacunar infarction (HCC); COMMENT: [...] Description 06/06/2025 2:00 PM EST Office Visit [facility] [address] [place] [address] Marco Antonio Acosta MD [address] [place] [address] [address] [place] [address] Health Maintenance Due Date Last [...] [employer] MED[employer]AGE Care Teams Onion Topper Relationship Specialty Start Date End Date Junior Artis MD [address] [place] [phone] PCP - General 06/17/19
--- OUTSIDE RECORDS SUMMARY | 2025-02-23 19:07 | XMS_ITS | Encounter Summary ---
Author Organization [facility] Address [address] [place] [address] Care Team Providers Care Sweeper Brush Maker Machine Name Role Phone Jb Artis MD Primary Care Provider + [phone] Encounter Details Date Type Department Care Team (Late st Contact Info) Description 12/06/2021 Scanned Document [facility] [address] [place] [phone] Melinda Becerril PA [address] [facility] [address] [place] [address] Social History Tobacco Use Types Packs/Day Years [...] on filedocumented in this encounter Care Teams Sweeper Brush Maker Machine Relationship Specialty Start Date End Date Jb Artis MD [address] [place] [address] PCP - General Internal Medicine 11/29/21 documented as of this encounter
--- OUTSIDE RECORDS SUMMARY | 2025-02-23 19:07 | XMS_ITS | Data Portability ---
Author Organization [place] [facility] Address [address] [address] Care Team Providers Care Last Inserter Name Role Phone ROD STERLING Primary Care Provider Assessment Encounter Date Assessment [...] update HT and complete paperwork to order. [email or web address] Not available 10/29/2023 10:52:03 08/31/2024 08/31/2024 88 year old male with history of asymmetric sensorineural hearing loss and chronic right-sided eustachian tube dysfunction, status post right T-tube placement back in May 2020 presents for follow up of ETD. Right T tube is patent and in good position. Left TM is intact and scarred. Audiometric testing was offered, but patient declined. We will continue to observe and plan for follow up in 6 months. [email or web address] Not available 08/31/2024 11:38:45 Plan of Treatment Reminders Order Date Submit [...] Abnormal Flag Note LastModifiedBy Organization Detail LastModifiedTime 12/30/19 24 05/24/2020 imagi ng/di agnos tic resul t No [...] ation record ed. 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 230084836 Active 2020 Chronic serous otitis media, right ear; Note: Date Diagnosed : 05/24/2020 10:11 AM (H65.21) Not Available [facility] 4 02:14:59 Tinnitus of right ear 50777507391 08 Active 2022 Tinnitus, right ear; Note: Date Diagnosed : 08/26/2022 9:28 AM (H93.11) Not Available [facility] 4 02:14:19 Sensorine ural hearing loss of bilateral ears 377399388 Active 2023 NAVARRO AIKEN, [facility] [address] [facility] [address], [place], [address] , [facility] - [facility] 4 10:46:20 Problem Notes None recorded. Medical Equipment None Reported. Allergies Allergen ID Allergen Name Allergen Category Reaction Reaction Severity Criticality Documentation Date Start Date Code Code System Note Provider Name and Address Organization Details Recorded Time 44250 Zithromax medicatio n other Not available Not available 09/22/202319637 4 RxNorm React ion: Unkno wn; Not Available [facility] 4 00:48:42 71245 lisinopri l medicatio n other Not available Not available 09/22/2023 38331 RxNorm React ion: Unkno wn; Not Available [facility] 4 00:48:46 Medications Name Sig Start Date Stop Date Status Note LastModified by Organization Details LastModified Time atorvasta tin 80 mg tablet TAKE 1 TABLET BY MOUTH EVERY DAY active Not Available Not Available No t Available prednison e 10 mg tablet TAKE 1 TABLET BY MOUTH EVERY DAY FOR 5 DAYS active Not Available Not Available No t Available carvedilo l 12.5 mg tablet TAKE 1 TABLET BY MOUTH TWICE A DAY active Not Available Not Available No t Available ondansetr on HCl 4 mg tablet TAKE 1 TABLET BY MOUTH EVERY 8 HOURS FOR 3 DAYS NEEDED NAUSEA 03/01 completed Not Available Not Available Not Available metoprolo l succinate ER 100 mg tablet,ex tended release 24 hr active Medicati on ID: [id number] B rand Name: metoprol ol succinat e Send Method: E-Prescr ibed Sub s Allowed: subs OK Medic ationGen ericName : metoprol ol succinat e Not Available Not Available Not Available clopidogr el 75 mg tablet TAKE 1 TABLET BY MOUTH DAILY active Not Available Not Available No t Available omeprazol e 40 mg capsule,d elayed release TAKE 1 CAPSULE BY MOUTH TWICE A DAY 30MIN BEFORE A MEAL active Not Available Not Available No t Available amoxicill in 500 mg tablet 1 TABLET BY MOUTH EVERY 8 HOURS,X7 DAYS active Not Available Not Available No t Available Thera 400 mcg tablet 2023 active Medicati on ID: [id number] B rand Name: Thera Se nd Method: E-Prescr ibed Sub s Allowed: subs OK [facility] Thera Not Available Not Available Not Available isosorbid e mononitra te ER 60 mg tablet,ex tended release 24 hr TAKE 2 TABLETS BY MOUTH EVERY MORNING active Not Available Not Available No t Available doxazosin 8 mg tablet TAKE 1 TABLET BY MOUTH DAILY active Not Available Not Available No t Available famotidin e 20 mg tablet TAKE 1 TABLET BY MOUTH TWICE DAILY active Not Available Not Available No t Available benzonata te 100 mg capsule 1 CAPSULE BY MOUTH 3 TIMES A DAY,X14 DAYS, NEEDED FOR COUGH active Not Available Not Available No t Available hydralazi ne 100 mg tablet 03/01 completed Medicati on ID: [id number] B rand Name: hydralaz ine Send Method: E-Prescr ibed Sub s Allowed: subs OK [facility] : hydralaz ine Not Available Not Available Not Available nitroglyc roger 0.4 mg sublingua l tablet active Not Available Not Available Not Available omeprazol e 20 mg capsule,d elayed release 03/01 completed Medicati on ID: [id number] B rand Name: omeprazo le Send Method: E-Prescr ibed Sub s Allowed: subs OK Speci al Instruct ion: take 1 capsule by mouth twice a day Medi cationGe nericNam e: omeprazo le Not Available Not Available Not Available aspirin 81 mg chewable tablet active Medicati on ID: [id number] B rand Name: aspirin Send Method: E-Prescr ibed Sub s Allowed: subs OK Medic ationGen ericName : aspirin Not Available Not Available Not Available hydralazi ne 50 mg tablet TAKE 1 TABLET BY MOUTH 3 TIMES A DAY active Not Available Not Available No t Available furosemid e 20 mg tablet TAKE 1 TABLET BY MOUTH DAILY active Not Available Not Available No t Available ergocalci ferol (vitamin D2) 1,250 mcg (50,000 unit) capsule TAKE 1 CAPSULE BY MOUTH ONCE A MONTH active Not Available Not Available No t Available betametha sone dipropion ate 0.05 % lotion APPLY TOPICALL Y TO THE SCALP RASH EVERY DAY TO TWICE DAILY NEEDED FOR RASH OR ITCHING active Not Available Not Available No t Available doxycycli ne hyclate 100 mg tablet TAKE 1 TABLET BY MOUTH TWICE DAILY FOR 7 DAYS 03/01 completed Not Available Not Available Not Available finasteri de 5 mg tablet TAKE 1 TABLET BY MOUTH EVERY DAY active Not Available Not Available No t Available amoxicill in 500 mg-potass ium clavulana te 125 mg tablet TAKE 1/2 TABLET BY MOUTH EVERY 12 HOURS FOR 7 DAYS 03/01 completed Not Available Not Available Not Available FeroSul 325 mg (65 mg iron) tablet active Medicati on ID: [id number] B rand Name: HowieoSclemente Send Method: E-Prescr ibed Sub s Allowed: subs OK Medic ationGen ericName : FeroSul Not Available Not Available Not Available fenofibra te 54 mg tablet TAKE 1 TABLET BY MOUTH DAILY active Not Available Not Available No t Available Vitals Date Recorded Body weight Body mass index (BMI) Body height Provider Name and Address Organization Details Last Updated DateTime 08/31/2024 49373.59 g 23.3 kg/m2 175.26 cm Naty Ramires [place] - [facility] 08/31/2024 11:14:44 Social History None recorded. Functional Status None recorded. Mental Status None recorded. Family History Nothing Reported. Medical History Condition Response Heart Attack ([place]) Y Cancer Y Anemia Y Hypertension Y GERD/Reflux Y High Cholesterol Y Past Encounters Encounter ID Performer Location Encounter Start Date Encounter Closed Date Diagnosis/Indication Diagnosis SNOMED-CT Code Diagnosis ICD10 Code Diagnosis IMO Codes Diagnosis Note [id number] PAT [facility] [address] [address] 10/29/2023 09:42:53 10/30/2023 11:32:39 Mixed conductive and sensorineural hearing loss, bilateral 668607170 H90.6 [id number] DEV FITZGERALD MD [facility] [address] [address] 03/01/2024 10:50:40 03/01/2024 11:31:11 Disorder of right Eustachian tube 6630542368 782188 H69.81 Right-side d T-tube remains in good position and patent with some peripheral crusting. Follow-up with PA in 6 months. Sensorineu ral hearing loss of bilateral ears 018192807 H90.3 Patient still remains a good candidate for patient still remains a good candidate for binaural amplificat ion versus BiCROS amplificat ion. I encouraged him to further consider this, but he feels like he cannot afford it. He is always welcome to come back to see our audiologis ts to discuss this further if he desires. [id number] LIGIA PERKINS PA-C [facility] [address] [address] 08/31/2024 11:04:43 08/31/2024 11:25:42 Disorder of right Eustachian tube 6098717228 223404 H69.81 Health Concerns Section Related Observation LastModified by Organization Detai ls LastModified Time None Recorded Concern Status LastModified by Organization Details LastModified Time None Recorded Advance Directives Directive None Recorded Payers Insurance Date Sequence Insurance Name Policy Number Policy Mccullough Covered Member ID Mccullough Member ID Guarantor Name 08/31/2024 1 [facility] [id number] 4 Alireza Kyle [id number] Alireza Kyle Notes Date Note Type Note Provider Name and Address Organization Details Recorded Time 10/29/2023 text/html 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 Was cleared for amplification by Dr Fitzgerald. NAVARRO AIKEN, [facility] [address] [facility],[place] [address], [place], [address], [facility] - [facility] 10/29/2023 10:52:09 03/01/2024 text/html Patient with [...] accompanied by his . DEV FITZGERALD MD [address] [facility],[address], [address], [facility] 03/01/2024 11:31:24 08/31/2024 text/html ROS as noted in the HPI 88 year old male with history of asymmetric sensorineural hearing loss and chronic right-sided eustachian tube dysfunction, status post right T-tube placement back in May 2020 presents for follow up of ETD. Denies otalgia and otorrhea. Reports intermittent ear blockage and muffled hearing on the right x 2 weeks since having bronchitis. Symptoms are improving. Was treated with prednisone and antibiotics. Not interested in hearing aids. ZHENG SIMS MD [address] [facility] [address], [place], [address], [facility] 08/31/2024 12:23:23
== END 2025-02-23 15:50 | disposition home or self-care (01) ==
LOC: HO.HKAS 15:18
PROVIDERS: PCP Internal Medicine; Visit Provider Internal Medicine Nephrology
DX: I12.9 Hypertensive chronic kidney disease with stage 1 through stage 4 chronic kidney disease, or unspecified chronic kidney disease (principal); N18.4 Chronic kidney disease, stage 4 (severe); D63.1 Anemia in chronic kidney disease
CPT/HCPCS: 99214

== ENCOUNTER → 2025-02-23 15:17 | Outpatient (BNVA) | payer MEDICARE, SELFPAY | PROVIDERS: PCP Internal Medicine; Visit Provider Internal Medicine Nephrology | DX: I10 Essential (primary) hypertension (principal); N18.4 Chronic kidney disease, stage 4 (severe); D63.1 Anemia in chronic kidney disease | CPT/HCPCS: 96372; 99212; Q5106 ==

== ENCOUNTER 2025-03-24 10:49 | Outpatient (REF) | payer MEDICARE, SELFPAY ==
[2025-03-24 13:29] LABS: MANUAL DIFF FLAG NO
[2025-03-24 13:38] LABS: Hematocrit 22.9 % (42.0-52.0); Hemoglobin 7.4 g/dl (14.0-18.0); Imm Gran Abs Auto 0.02 X10*3/uL (0.00-0.03); Imm Gran Pct Auto 0.4 % (0.0-0.4); Lymphocytes Absolute Auto 1.0 X10*3/uL (1.2-4.9); Mean Corpuscular HGB Conc 32.3 g/dl (31.0-36.0); Mean Corpuscular Hemoglobin 32.7 pg (27.0-33.0); Mean Corpuscular Volume 101.3 fL (80.0-98.0); NRBC Abs Auto 0.000 X10*3/uL (0.0-0.012); NRBC Pct Auto 0.0 /100WBC (0.0-0.2); Platelet Count 232 X10*3/uL (160-400); Red Blood Count 2.26 X10*6/uL (4.60-5.80); White Blood Count 5.6 X10*3/uL (4.8-10.8)
[2025-03-24 14:23] LABS: Ferritin 445 ng/mL (20-250); Iron 56 mcg/dL (45-160); Percent Iron Saturation 22 % (15-50); Total Iron Binding Capacity 253 mcg/dL (228-428); Unsaturated Iron Binding 197 ug/dL
== END 2025-03-24 10:50 | disposition home or self-care (01) ==
LOC: HO.HKASLDS 10:49
PROVIDERS: PCP Internal Medicine; Visit Provider Internal Medicine Nephrology
DX: N18.4 Chronic kidney disease, stage 4 (severe) (principal); D63.1 Anemia in chronic kidney disease
CPT/HCPCS: 36415; 82728; 83540; 85025

== ENCOUNTER 2025-03-27 12:10 | Outpatient (AMB) | payer MEDICARE, SELFPAY ==
--- NOTE | 2025-03-27 12:11 | HO.NEPHOV_ITS ---
Vital Signs 03/27/25 12:14 Height 5 ft 9 in Weight 160 lb BMI 23.6 BP 130/60 Blood Pressure Location Lt brachial Position Sitting Intake Visit Reasons: Retacrit Diversified Crops Supervisor Required: No Accompanied by: Spouse Allergies lisinopril Allergy (Verified 03/27/25 12:14) Unknown Macrolides and Ketolides Allergy (Uncoded 03/18/23 13:49) Unknown HPI Comments Details: 89-year-old gentleman usually followed up with Dr. 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 He is here for his Procrit shots [facility] Medical History Proteinuria Hypertension Anemia in chronic kidney disease Chronic kidney disease, stage 4 (severe) Family History Mother Cancer Child No Financial Resp Cancer Social History Alcohol intake: never Patient Tobacco Use Status: Never used Tobacco Review of Systems Const Details: Const : no body aches, no chills, no excessive sweating and no fatigue Eyes: no blurry vision and no change in vision ENT: no bleeding gums and no change in voice, no dizziness Card: no chest pain, no shortness of breath, no orthopnea, no PND Resp: no cough, no excessive phlegm production, no SOB GI: no abdominal pain and no nausea, no vomiting : no hematuria, no urinary frequency and no difficulty voiding Musc: no abnormal gait, no bone pain Neuro: no abnormal movements, no weakness, no dizziness, no abnormal gait and no behavioral changes Psych: no behavioral changes and no change in appetite Endo: no change in body appearance, no cold intolerance, no excessive sweating and no fatigue Physical Exam Vital Signs: Last Vital Signs BP 130/60 03/27/25 12:14 BMI result Body Mass Index 23.6 General: not in any acute distress, comfortable, sitting on the chair Nutritional Appearance: Okay nourished and normal weight Eyes: normal position, no icterus Neck: No lymphadenopathy, no thyromegaly Resp: bilateral air entry equal, no added sounds present Cardio: normal S1, S2 heard, no murmur heard, no edema GI: soft, nontender, no guarding, no hepatosplenomegaly : bladder normal to inspection, bladder normal to palpation, no renal angle tenderness Skin: no rashes or lesions noted and elasticity normal Neuro: oriented to person, oriented to place, oriented to time and moves all extremities Results Reviewed Nephrology Results: Hgb, (14.0-18.0) 7.4 g/dl L 03/24/25 WBC, (4.8-10.8) 5.6 X10*3/uL 03/24/25 Plt Count, (160-400) 232 X10*3/uL 03/24/25 Sodium, (135-145) 143 mmol/L 02/21/25 Potassium, (3.3-5.1) 4.1 mmol/L 02/21/25 Chloride, (96-108) 112 mmol/L H 02/21/25 Carbon Dioxide, (22-29) 23 mmol/L 02/21/25 BUN, (9-16) 78 mg/dL H 02/21/25 Creatinine, (0.5-1.4) 2.75 mg/dL H 02/21/25 Calcium, (8.4-10.2) 8.8 mg/dL 02/21/25 Phosphorus, (2.7-4.5) 3.3 mg/dL 11/15/24 PTH Intact, (8.7-77.1) 133.7 pg/mL H 02/21/25 Assessment & Plan Assessment & Plan (1) Hypertension: Code(s): I10 - Essential (primary) hypertension Category: Medical Qualifiers: Hypertension type: primary hypertension Qualified Code(s): I10 - Essential (primary) hypertension Plan: Blood pressure is well controlled, 130/60 this morning Continue carvedilol 12.5 b.i.d., hydralazine 50 mg t.i.d., isosorbide mononitrate 120 mg daily (2) Chronic kidney disease, stage 4 (severe): Code(s): N18.4 - Chronic kidney disease, stage 4 (severe) Category: Medical Plan: 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 Importance of LPD protein about 0.6mg/kg/day, benefits of plant based diet, weight loss, adequate blood pressure control, stop smoking well explained to patient (3) Anemia in chronic kidney disease: Code(s): N18.9 - Chronic kidney disease, unspecified; D63.1 - Anemia in chronic kidney disease Category: Medical Qualifiers: Chronic kidney disease stage: stage 4 (severe) Qualified Code(s): N18.4 - Chronic kidney disease, stage 4 (severe); D63.1 - Anemia in chronic kidney dis ease Plan: He has anemia secondary to CKD, receiving Procrit shots His last hemoglobin was 7.4 on 03/24/2025 Ferritin 445, TSH 22 Will give him 57795 units of Procrit today in the clinic (4) Metabolic bone disease: Code(s): M89.8X9 - Other specified disorders of bone, unspecified site Category: Medical Plan: Vitamin-D 27.9, PTH 133.7 Continue ergocalciferol Coding Level of Care Code Est Pt Level 4 (78828) Diagnoses Primary hypertension I10 Hypertension type: primary hypertension Chronic kidney disease, stage 4 (severe) N18.4 Anemia in stage 4 chronic kidney disease N18.4; D63.1 Chronic kidney disease stage: stage 4 (severe) Metabolic bone disease M89.8X9
[2025-03-27 12:14] VITALS: BP 130/60; BMI 23.6
--- OUTSIDE RECORDS SUMMARY | 2025-03-28 00:42 | XMS_ITS | Data Portability ---
Author Organization [place] [facility], Allergy Address [address] [address] Care Team Providers Care Hair Spinner Name Role Phone ROD STERLING Primary Care [...] update HT and complete paperwork to order. [email or web address] Not available 10/29/2023 10:52:03 08/31/2024 08/31/2024 88 [...] plan for follow up in 6 months. [email or web address] Not available 08/31/2024 11:38:45 03/03/2025 03/03/2025 89 year old male with history of asymmetric sensorineural hearing loss and chronic right-sided eustachian tube dysfunction, status post right T-tube placement back in May 2020 presents for follow up of ETD. Right T tube is patent and in good position. Left TM is intact and scarred. We will continue to observe and plan for follow up in 6 months, or sooner with concerns. 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 Medical Equipment None Reported. Allergies Allergen ID Allergen Name Allergen Category Reaction Reaction Severity Criticality Documentation Date Start Date Code Code System Note Provider Name and Address Organization Details Recorded Time 78472 Zithromax medicatio n other Not available Not available 09/22/2023 95729 4 RxNorm React ion: Unkno wn; Not Available [facility] 4 00:48:42 30581 lisinopri l medicatio n other Not available Not available 09/22/2023 41089 RxNorm React ion: Unkno wn; Not Available [facility] 4 00:48:46 Medications Name Sig Start Date Stop Date Status Note LastModified by Organization Details LastModified Time atorvasta tin 80 mg tablet TAKE 1 TABLET BY MOUTH EVERY DAY active Not Available Not Available No t Available prednison e 10 mg tablet TAKE 1 TABLET BY MOUTH EVERY DAY FOR 5 DAYS 03/03 completed Not Available Not Available Not Available carvedilo l 12.5 mg tablet TAKE [...] release 24 hr active Medicati on ID: [id number] B rand Name: metoprol ol succinat e [...] mcg tablet 2023 active Medicati on ID: 222329 B rand Name: Thera Se nd Method: E-Prescr ibed Sub s Allowed: subs OK Medic ationGen ericName : Thera Not Available Not Available Not Available isosorbid e mononitra te ER 60 mg tablet,ex tended release 24 hr TAKE 2 TABLETS BY MOUTH IN THE MORNING active Not Available Not [...] mg tablet 03/01 completed Medicati on ID: 886374 B rand Name: hydralaz ine Send Method: E-Prescr ibed Sub s Allowed: subs OK Medic ationGen ericName : hydralaz ine Not Available Not Available Not Available pantopraz ole 40 mg tablet,de layed release TAKE 1 TABLET BY MOUTH TWICE A DAY active Not Available Not Available No t Available nitroglyc roger 0.4 mg sublingua l tablet active Not Available Not Available Not Available omeprazol e 20 mg capsule,d elayed release 03/01 completed Medicati on ID: [id number] B rand Name: omeprazo le Send Method: E-Prescr ibed Sub s Allowed: subs OK Speci al Instruct ion: take 1 capsule by mouth twice a day Medi cationGe nericNam e: omeprazo le Not Available Not Available Not Available aspirin 81 mg chewable tablet active Medicati on ID: [id number] B rand Name: aspirin Send Method: E-Prescr ibed Sub s Allowed: subs OK Medic ationGen ericName : aspirin Not Available Not Available Not Available hydralazi ne 50 mg tablet TAKE 1 TABLET BY MOUTH THREE TIMES A DAY active Not Available Not Available No t Available furosemid e 20 mg tablet TAKE 1 TABLET BY MOUTH EVERY DAY active Not Available Not Available No t Available ergocalci ferol (vitamin D2) 1,250 mcg (50,000 unit) capsule TAKE 1 CAPSULE BY MOUTH MONTHLY active Not Available Not Available No t [...] mg iron) tablet active Medicati on ID: [id number] B rand Name: FeroSul Send Method: E-Prescr [...] Address Organization Details Last Updated DateTime 08/31/2024 12596.59 g 23.3 kg/m2 175.26 cm Naty Ramires [place] [facility] 08/31/2024 11:14:44 Date Recorded Body height Body mass index (BMI) Body weight Provider Name and Address Organization Details Last Updated DateTime 03/03/2025 175.26 cm 23.5 kg/m2 67698.19 g JUVENAL ROLAND, [facility] 100 [facility],[address], [address], [place] - [facility] 03/03/2025 11:03:59 Social History None recorded. Functional Status None recorded. Mental Status None recorded. Family History Nothing Reported. Medical History Condition Response Heart Attack ([place]) Y Cancer Y Anemia Y Hypertension Y GERD/Reflux Y High Cholesterol Y Past Encounters Encounter ID Performer Location Encounter Start Date Encounter Closed Date Diagnosis/Indication Diagnosis SNOMED-CT Code Diagnosis ICD10 Code Diagnosis IMO Codes Diagnosis Note [id number] PAT M[place] 100 [facility] it 100 [place] [address] 10/29/2023 09:42:53 10/30/2023 11:32:39 Mixed conductive and sensorineural hearing loss, bilateral 868863389 H90.6 [id number] DEV FITZGERALD MD [facility] [address] [address] 03/01/2024 10:50:40 03/01/2024 11:31:11 Disorder of right Eustachian tube 9054219647 688353 H69.81 Right-side d T-tube remains in good position and patent with some peripheral crusting. Follow-up with PA in 6 months. Sensorineu ral hearing loss of bilateral ears 933038593 H90.3 Patient still remains a good candidate for patient still remains a good candidate for binaural amplificat ion versus BiCROS amplificat ion. I encouraged him to further consider this, but he feels like he cannot afford it. He is always welcome to come back to see our audiologis ts to discuss this further if he desires. [id number] LIGIA PERKINS PA-C [facility] [address] [address] 08/31/2024 11:04:43 08/31/2024 11:25:42 Disorder of right Eustachian tube 4870933017 353351 H69.81 [id number] LIGIA PERKINS PA-C [facility] 100 [place] [address] 03/03/2025 10:58:09 03/03/2025 11:40:14 Disorder of right Eustachian tube 4016882383 381818 H69.81 Health Concerns Section Related Observation LastModified by Organization Detai ls LastModified Time None Recorded Concern Status LastModified by Organization Details LastModified Time None Recorded Advance Directives Directive None Recorded Payers Insurance Date Sequence Insurance Name Policy Number Policy Mccullough Covered Member ID Mccullough Member ID Guarantor Name 03/03/2025 1 [facility] [id number] Alireza Kyle [id number] Alireza Kyle Notes Date Note Type Note Provider Name and Address Organization Details Recorded Time 10/29/2023 text/html 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 Was cleared for amplification by Dr Fitzgerald. NAVARRO AIKEN, PAT [address] [place] [address], [address], [facility] - [facility] 10/29/2023 10:52:09 03/01/2024 text/html Patient with history [...] accompanied by his . DEV FITZGERALD MD [address] [place] [address], [address], [facility] 03/01/2024 11:31:24 08/31/2024 text/html ROS as noted [...] in hearing aids. ZHENG SIMS MD [address], [address], [facility] - [facility] 08/31/2024 12:23:23 03/03/2025 text/html ROS as noted in the HPI 89 year old male with history of asymmetric sensorineural hearing loss and chronic right-sided eustachian tube dysfunction, status post right T-tube placement back in May 2020 presents for follow up of ETD. Denies changes in his hearing, otalgia, and otorrhea. Not interested in hearing aids. ZHENG SIMS MD [address], [address], [facility] 03/03/2025 12:33:00
--- OUTSIDE RECORDS SUMMARY | 2025-03-28 00:42 | XMS_ITS | Continuity of Care Document ---
Author Organization [place] - [facility], [facility] Address [address] [place] [address] Care Team Providers Care Security Solutions Architect Name Role Phone TAIROD FLOWERS Primary Care Provider [phone] Assessment Encounter Date Assessment Date Assessment LastModified by Organization Details LastModified Time 03/03/2025 03/03/2025 89 year old male with [...] in 6 months, or sooner with concerns. 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 757639007 Active 2020 Chronic serous otitis media, right ear; Note: Date Diagnosed : 05/24/2020 10:11 AM (H65.21) Not Available [facility] 4 02:14:59 Tinnitus of right ear 33030526306 08 Active 2022 Tinnitus, right ear; Note: Date Diagnosed : 08/26/2022 9:28 AM (H93.11) Not Available [facility] 4 02:14:19 Sensorine ural hearing loss of bilateral ears 909032328 Active 2023 NAVARRO AIKEN, [facility] 100 [facility], [place], [address] , [facility] - [facility] 4 10:46:20 Problem Notes None recorded. Medical Equipment None Reported. Allergies Allergen ID Allergen Name Allergen Category Reaction Reaction Severity Criticality Documentation Date Start Date Code Code System Note Provider Name and Address Organization Details Recorded Time 08455 Zithromax medicatio n other Not available Not available 09/22/202319637 4 RxNorm React ion: Unkno wn; Not Available [facility] 4 00:48:42 03126 lisinopri l medicatio n other Not available Not available 09/22/2023 09612 RxNorm React ion: Unkno wn; Not Available [facility] 4 00:48:46 Medications Name Sig Start Date [...] release 24 hr active Medicati on ID: [id number] B rand Name: metoprol ol succinat e [...] mcg tablet 2023 active Medicati on ID: 967787 B rand Name: Thera Se nd Method: [...] mg tablet 03/01 completed Medicati on ID: 258378 B rand Name: hydralaz ine Send Method: [...] elayed release 03/01 completed Medicati on ID: [id number] B rand Name: omeprazo le Send Method: E-Prescr ibed Sub s Allowed: subs OK Speci al Instruct ion: take 1 capsule by mouth twice a day Medi cationGe nericNam e: omeprazo le Not Available Not Available Not Available aspirin 81 mg chewable tablet active Medicati on ID: 859294 B rand Name: aspirin Send Method: E-Prescr [...] mg iron) tablet active Medicati on ID: 314006 B rand Name: FeroSul Send Method: E-Prescr ibed Sub s Allowed: subs OK Medic ationGen ericName : FeroSul Not Available Not Available Not Available fenofibra te 54 mg tablet TAKE 1 TABLET BY MOUTH EVERY DAY active Not Available Not Available No t Available Vitals Date Recorded Body height Body mass index (BMI) Body weight Provider Name and Address Organization Details Last Updated DateTime 03/03/2025 175.26 cm 23.5 kg/m2 [address]46.[address], [address], [place] - [facility] 03/03/2025 11:03:59 Social History None recorded. Functional Status None recorded. Mental Status None recorded. Family History Nothing Reported. Medical History Condition Response Anemia Y GERD/Reflux Y High Cholesterol Y Heart Attack ([place]) Y Cancer Y Hypertension Y Past Encounters Encounter ID Performer Location Encounter Start Date Encounter Closed Date Diagnosis/Indication Diagnosis SNOMED-CT Code Diagnosis ICD10 Code Diagnosis IMO Codes Diagnosis Note [id number] LIGIA PERKINS PA-C [facility] 100 [place] [address] 03/03/2025 10:58:09 03/03/2025 11:40:14 Disorder of right Eustachian tube 0738074325 677306 H69.81 Health Concerns Section Related Observation LastModified by Organization Detai ls LastModified Time None Recorded Concern Status LastModified by Organization Details LastModified Time None Recorded Payers Encounter Date Sequence Insurance Name Policy Number Policy Mccullough Covered Member ID Mccullough Member ID Guarantor Name 03/03/2025 1 [facility] [id number] Alireza Kyle [id number] Alireza Kyle Notes Date Note Type Note Provider Name and Address Organization Details Recorded Time 03/03/2025 text/html ROS as noted in the HPI 89 year old male with history of asymmetric sensorineural hearing loss and chronic right-sided eustachian tube dysfunction, status post right T-tube placement back in May 2020 presents for follow up of ETD. Denies changes in his hearing, otalgia, and otorrhea. Not interested in hearing aids. ZHENG SIMS MD [address] [place] [address], [address], [facility] - [facility] 03/03/2025 12:33:00
== END 2025-03-27 12:43 | disposition home or self-care (01) ==
LOC: HO.HKAS 12:10
PROVIDERS: PCP Internal Medicine; Visit Provider Internal Medicine Critical Care Medicine
DX: I12.9 Hypertensive chronic kidney disease with stage 1 through stage 4 chronic kidney disease, or unspecified chronic kidney disease (principal); N18.4 Chronic kidney disease, stage 4 (severe); D63.1 Anemia in chronic kidney disease; M89.8X9 Other specified disorders of bone, unspecified site
CPT/HCPCS: 99214

== ENCOUNTER → 2025-03-27 12:10 | Outpatient (BNVA) | payer MEDICARE, SELFPAY | PROVIDERS: PCP Internal Medicine; Visit Provider Internal Medicine Critical Care Medicine | DX: I10 Essential (primary) hypertension (principal); N18.4 Chronic kidney disease, stage 4 (severe); D63.1 Anemia in chronic kidney disease; M89.8X9 Other specified disorders of bone, unspecified site | CPT/HCPCS: 99212 ==

== ENCOUNTER 2025-04-10 11:23 | Outpatient (REF) | payer MEDICARE, SELFPAY ==
[2025-04-10 13:19] LABS: MANUAL DIFF FLAG NO
[2025-04-10 13:44] LABS: Hematocrit 25.2 % (42.0-52.0); Hemoglobin 7.9 g/dl (14.0-18.0); Imm Gran Abs Auto 0.03 X10*3/uL (0.00-0.03); Imm Gran Pct Auto 0.6 % (0.0-0.4); Lymphocytes Absolute Auto 1.0 X10*3/uL (1.2-4.9); Mean Corpuscular HGB Conc 31.3 g/dl (31.0-36.0); Mean Corpuscular Hemoglobin 31.9 pg (27.0-33.0); Mean Corpuscular Volume 101.6 fL (80.0-98.0); NRBC Abs Auto 0.000 X10*3/uL (0.0-0.012); NRBC Pct Auto 0.0 /100WBC (0.0-0.2); Platelet Count 243 X10*3/uL (160-400); Red Blood Count 2.48 X10*6/uL (4.60-5.80); White Blood Count 4.8 X10*3/uL (4.8-10.8)
--- OUTSIDE RECORDS SUMMARY | 2025-04-10 15:04 | XMS_ITS | Clinical Summary ---
Author Organization Formerly [facility] Address [address] [place] [address] Care Team Providers Care Gameplay Engineer Name Role Phone Jb Artis MD Primary Care Provider [phone] Allergies Active Allergy Reactions Criticality Noted Date Comments Lisinopril Unknown/Patient and Family Unable to Define Medium 09/22/2018 Medications doxazosin (CARDURA) 8 MG tablet 0 Active ergocalciferol (VITAMIN D2,DRISDOL) 61998 units Cap Take 50,000 Units by mouth [...] patient's age to complete this topic Insurance [facility] MEDICARE [facility] MEDICARE Care Teams Gameplay Engineer Relationship Specialty Start Date End Date Jb Artis MD [address] [place] [address] PCP - General Internal Medicine 11/29/21
--- OUTSIDE RECORDS SUMMARY | 2025-04-10 15:04 | XMS_ITS | Encounter Summary ---
Author Organization [facility] Address [address] [place] [address] Phone Care Team Providers Care Data Quality Consultant Name Role Phone Junior Artis MD Primary Care Provider [phone] Reason for Visit * Reason Comments Med Refill Encounter Details Date Type Department Care Team (Late st Contact Info) Description 10/05/2022 Refill [facility] [address] [place] [address] Santy Jonas MD [address] [place] [address] Social History Tobacco Use Types Packs/Day Years [...] on file documented as of this encounter Functional Status * Question Answer Date of Assessment Author BP 130/62 10/08/2022 4:09 PM EDT Latoya Blancas RN * BP Location Answer Date of Assessment Author Right upper arm 10/08/2022 4:09 PM EDT Latoya Franks RN * Question Answer Date of Assessment Author BP 130/62 10/08/2022 4:09 PM Latoya Gallegos RN * BP Location Answer Date of Assessment Author Right upper arm 10/08/2022 4:09 PM Latoya Wright RN documented as of this encounter Plan of Treatment Not on file documented as of this encounter Visit Diagnoses Not on filedocumented in this encounter Care Teams Data Quality Consultant Relationship Specialty Start Date End Date Junior Artis MD [address] [place], [place] PCP - General Internal Medicine 09/10/20 documented as of this encounter
--- OUTSIDE RECORDS SUMMARY | 2025-04-10 15:04 | XMS_ITS | Clinical Summary ---
Author Organization [facility] Address [address] [facility] [place] [address] Phone Care Team Providers Care Bath Solution Maker Name Role Phone Junior Artis MD Primary Care Provider [phone] Allergies Active Allergy Reactions Criticality Noted Date [...] Problem Noted Date Diagnosed Date Atrial fibrillation ([facility] V24, [facility] V28) 0 07/01/2021 Overview (04/26/2024): Last Assessment [...] care. Unspecified diastolic (conge stive) heart failure ([facility] V24, [facility] V28) 10/02/2020 Overview (04/26/2024): 10/25/19 ECHO EF [...] s Hiatal hernia DX:Hiatal hernia Lacunar infarction ([facility] V24, [facility] V28) DX:Lacunar infarction (HCC); COMMENT: silent on [...] 2:00 PM EST Office Visit [facility] [address] [place] [address] Marco Antonio Acosta MD [address] [place] [address] [address] [place] [address] Health Maintenance Due Date Last Done Comments Cholesterol Screening (Lipid Panel) 04/13/2022 Falls Risk Assessment 04/13/2022 Medicare Annual Wellness Visit 04/13/2022 Social Influencers of Health Screening 04/13/2022 Hypertension/CHF/CAD Annual BMP Blood Test 04/19/2022 Depression Screening 05/11/2024 COVID-19 Vaccine (2024- season) 2025 03/07/2024, 04/04/2023, 03/17/2022, Additional history [...] [employer] [place] MEDICARE ADVANTAGE Care Teams Bath Solution Maker Relationship Specialty Start Date End Date Junior Artis MD [address] [place] [phone] PCP - General 06/17/19
--- OUTSIDE RECORDS SUMMARY | 2025-04-10 15:04 | XMS_ITS | Encounter Summary ---
Author Organization [facility] Address [address] [place] [address] Phone Care Team Providers Care Commercial Manager Name Role Phone Junior Artis MD Primary Care Provider [phone] Reason for Visit * Reason Comments Med Refill Encounter Details Date Type Department Care Team ([facility] st Contact Info) Description 11/30/2022 Refill [facility] [address] [place] [address] Santy Jonas MD [address] [place] [address] Social History Tobacco Use Types Packs/Day Years [...] on filedocumented in this encounter Care Teams Commercial Manager Relationship Specialty Start Date End Date Junior Artis MD [address] [place], [place] PCP - General Internal Medicine 09/10/20 documented as of this encounter
--- OUTSIDE RECORDS SUMMARY | 2025-04-10 15:04 | XMS_ITS | Encounter Summary ---
Author Organization [facility] Address [address] [place] [address] Care Team Providers Care Erp Analyst Name Role Phone Jb Artis MD Primary Care Provider + [phone] Encounter Details Date Type Department Care Team (Late st Contact Info) Description 01/20/2022 Scanned Document [facility] [address] [place] [address] Melinda Becerril PA 85 [facility] [address] [place] [address] Social History Tobacco Use Types Packs/Day Years [...] on filedocumented in this encounter Care Teams Erp Analyst Relationship Specialty Start Date End Date Jb Artis MD [address] [place] [address] PCP - General Internal Medicine 11/29/21 documented as of this encounter
--- OUTSIDE RECORDS SUMMARY | 2025-04-10 15:04 | XMS_ITS | Encounter Summary ---
Author Organization [facility] Address [address] [place] [address] Care Team Providers Care Creative Assistant Name Role Phone Jb Artis MD Primary Care Provider + [phone] Encounter Details Date Type Department Care Team (Late st Contact Info) Description 12/06/2021 Scanned Document [facility] [address] [place] [address] Melinda Becerril PA 85 [facility] [address] [place] [address] Social History Tobacco Use Types Packs/Day Years [...] on filedocumented in this encounter Care Teams Creative Assistant Relationship Specialty Start Date End Date Jb Artis MD [address] [place] [address] PCP - General Internal Medicine 11/29/21 documented as of this encounter
--- OUTSIDE RECORDS SUMMARY | 2025-04-10 15:04 | XMS_ITS | Clinical Summary ---
Author Organization [facility] Address [address] [facility] [address] [place] [address] Phone Care Team Providers Care Billing Auditor Name Role Phone Junior Artis MD Primary [...] the evening. 02/01/2022 Active ergocalciferol 1.25 MG (03258 UT) capsule TAKE 1 CAPSULE BY MOUTH [...] kidney disease,Chronic kidney disease stage 4 (HCC),Hypertension 40019 Units IJ Every 14 days 02/21/2021 Ac tive epoetin lizet (EPOGEN,PROCRIT) injection 20,000 UnitsIndications:Anemia due to Renal Failure 75399 Units IV Every 14 days 03/19/2022 Active epoetin lizet (EPOGEN,PROCRIT) injection 30,000 UnitsIndications:Anemia due to Renal Failure 57354 Units IV Every 14 days 04/02/2022 Active epoetin lizet (EPOGEN,PROCRIT) injection 20,000 UnitsIndications:Anemia due to Renal Failure 78291 Units IV Every 14 days 05/01/2022 Active Epoetin Lizet-epbx solution 40,000 UnitsIndications:Chronic kidney disease stage 4 (HCC),Anemia in chronic kidney disease 23961 Units IJ Once 07/30/2022 Active Epoetin Lizet-epbx solution 20,000 UnitsIndications:Anemia in chronic kidney disease,Chronic kidney disease stage 4 (HCC) 43912 Units IJ Once 09/10/2022 Ac tive Epoetin Lizet-epbx solution 20,000 UnitsIndications:Chronic kidney disease, not otherwise specified,Anemia in chronic kidney disease 58049 Units IJ Once 12/08/2022 A ctive Active [...] patient's age to complete this topic Insurance [facility] Care Teams Billing Auditor Relationship Specialty Start Date End Date Junior Artis MD [address] [place], [place] PCP - General Internal Medicine 09/10/20
[2025-04-10 19:57] LABS: Anion Gap 12 (12-20); Blood Urea Nitrogen 69 mg/dL (9-16); Carbon Dioxide 22 mmol/L (22-29); Chloride 114 mmol/L (96-108); Potassium 4.1 mmol/L (3.3-5.1); Sodium 144 mmol/L (135-145)
[2025-04-12 10:44] LABS: Estimated Glomerular Filt Rate 21
== END 2025-04-10 11:24 | disposition home or self-care (01) ==
LOC: HO.HKASLDS 11:23
PROVIDERS: PCP Internal Medicine; Visit Provider Internal Medicine Nephrology
DX: I12.9 Hypertensive chronic kidney disease with stage 1 through stage 4 chronic kidney disease, or unspecified chronic kidney disease (principal); N18.4 Chronic kidney disease, stage 4 (severe); D63.1 Anemia in chronic kidney disease
CPT/HCPCS: 36415; 80051; 82565; 84520; 85025

== ENCOUNTER 2025-04-13 12:12 | Outpatient (AMB) | payer MEDICARE, SELFPAY ==
--- NOTE | 2025-04-13 12:23 | HO.NEPHOV ---
Vital Signs 04/13/25 12:24 Height 5 ft 9 in Weight 157 lb BMI 23.2 BP 140/60 H Blood Pressure Location Lt brachial Position Sitting Intake Visit Reasons: 1mon f/u w/labs-Conf Configuration Consultant Required: No Accompanied by: Spouse Allergies lisinopril Allergy (Verified 04/13/25 12:24) Unknown Macrolides and Ketolides Allergy (Uncoded 03/18/23 13:49) Unknown HPI Comments Details: Alireza Kyle was seen in the office in follow-up of his chronic kidney disease and management of his anemia. 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 He has hypertension which is well controlled. He has anemia chronic disease for which he had been getting Procrit . He denies taking any nonsteroidal anti-inflammatory medications. He does not have any chest pain, shortness of breath, nausea vomiting, diarrhea, orthostatic symptoms, edema. His serum creatinine has been stable . He does not feel tired. There were no complaints at the time of this office visit. REPLACED BY [facility] Medical History Proteinuria Hypertension Anemia in chronic kidney disease Chronic kidney disease, stage 4 (severe) Family History Mother Cancer Child No Financial Resp Cancer Social History Alcohol intake: never Patient Tobacco Use Status: Never used Tobacco Review of Systems Const All systems reviewed & are unremarkable except as noted in HPI and below Physical Exam Vital Signs: Last Vital Signs BP 140/60 H 04/13/25 12:24 BMI result Body Mass Index 23.2 Const General: comfortable and no acute distress Orientation/consciousness: patient oriented x3 HEENT Head: Yes normocephalic Mouth: Normal oral and palatal mucosa present Eyes EOM: EOMs intact bilaterally Neck Neck: Yes supple Resp Auscultation: clear to auscultation bilaterally Cardio Jugular venous distension: no JVD Rate: regular rate GI Palpation (GI): Soft to palpation Auscultation: normal bowel sounds General: Yes no CVA tenderness Back/Spine/Pelvis Back: no CVA tenderness Skin General skin exam: no rashes or lesions noted Neuro General: patient oriented x3 and moves all extremities Extrem General: Yes no pedal edema Office Meds epoetin lizet-epbx 10,000 unit/mL injection solution Performing Provider: Santy Jonas MD Performing Location[facility] Administered by: Santy Jonas MD on 04/13/25 12:30 Dose Route Admin Location Dispensed Lot Number Expiration Date [facility] Assistant Shift Supervisor 40,000 unit subcut LUE 4 mL [id number] 09/08/26 4525-5458-97 [employer] Total Dispensed Waste 4 mL 0 % Results Reviewed Nephrology Results: Hgb, (14.0-18.0) 7.9 g/dl L 04/10/25 WBC, (4.8-10.8) 4.8 X10*3/uL 04/10/25 Plt Count, (160-400) 243 X10*3/uL 04/10/25 Sodium, (135-145) 144 mmol/L 04/10/25 Potassium, (3.3-5.1) 4.1 mmol/L 04/10/25 Chloride, (96-108) 114 mmol/L H 04/10/25 Carbon Dioxide, (22-29) 22 mmol/L 04/10/25 BUN, (9-16) 69 mg/dL H 04/10/25 Creatinine, (0.5-1.4) 2.87 mg/dL H 04/10/25 Calcium, (8.4-10.2) 8.8 mg/dL 02/21/25 PTH Intact, (8.7-77.1) 133.7 pg/mL H 02/21/25 Assessment & Plan Assessment & Plan (1) Anemia in chronic kidney disease: Code(s): N18.9 - Chronic kidney disease, unspecified; D63.1 - Anemia in chronic kidney disease Category: Medical Qualifiers: Chronic kidney disease stage: stage 4 (severe) Qualified Code(s): N18.4 - Chronic kidney disease, stage 4 (severe); D63.1 - Anemia in chronic kidney disease (2) Chronic kidney disease, stage 4 (severe): Code(s): N18.4 - Chronic kidney disease, stage 4 (severe) Category: Medical (3) Hypertension: Code(s): I10 - Essential (primary) hypertension Category: Medical Qualifiers: Hypertension type: primary hypertension Qualified Code(s): I10 - Essential (primary) hypertension Plan Alireza has history of minimal change disease with nephrotic syndrome. He had been on losartan which has been put on hold for a long time. He can continue on his current dose of diuretics. His renal function is close to baseline. I administered 49283 Units Procrit in my office today. I did not make any other medication changes. Labs ordered for F/U .All his questions were answered Orders: Orders AMB Epoetin Injection Practice Supplied Today D63.1 - Anemia in chronic kidney disease, N18.4 - Chronic kidney disease, stage 4 (severe) Complete Blood Count Auto Diff 2 Weeks D63.1 - Anemia in chronic kidney disease, N18.4 - Chronic kidney disease, stage 4 (severe) Coding Level of Care Code Est Pt Level 4 (45706) Diagnoses Anemia in stage 4 chronic kidney disease N18.4; D63.1 Chronic kidney disease stage: stage 4 (severe) Chronic kidney disease, stage 4 (severe) N18.4 Primary hypertension I10 Hypertension type: primary hypertension
[2025-04-13 12:24] VITALS: BP 140/60; BMI 23.2
== END 2025-04-13 12:58 | disposition home or self-care (01) ==
PROVIDERS: PCP Internal Medicine; Visit Provider Internal Medicine Nephrology
DX: I12.9 Hypertensive chronic kidney disease with stage 1 through stage 4 chronic kidney disease, or unspecified chronic kidney disease (principal); N18.4 Chronic kidney disease, stage 4 (severe); D63.1 Anemia in chronic kidney disease
CPT/HCPCS: 99214

== ENCOUNTER → 2025-04-13 12:12 | Outpatient (BNVA) | payer MEDICARE, SELFPAY | PROVIDERS: PCP Internal Medicine; Visit Provider Internal Medicine Nephrology | DX: I12.9 Hypertensive chronic kidney disease with stage 1 through stage 4 chronic kidney disease, or unspecified chronic kidney disease (principal); D63.1 Anemia in chronic kidney disease; N18.4 Chronic kidney disease, stage 4 (severe) | CPT/HCPCS: 96372; 99212; Q5106 ==

== ENCOUNTER 2025-04-25 11:34 | Outpatient (REF) | payer MEDICARE, SELFPAY ==
[2025-04-25 14:40] LABS: MANUAL DIFF FLAG NO
[2025-04-25 14:47] LABS: Hematocrit 29.1 % (42.0-52.0); Hemoglobin 9.0 g/dl (14.0-18.0); Imm Gran Abs Auto 0.02 X10*3/uL (0.00-0.03); Imm Gran Pct Auto 0.4 % (0.0-0.4); Lymphocytes Absolute Auto 1.2 X10*3/uL (1.2-4.9); Mean Corpuscular HGB Conc 30.9 g/dl (31.0-36.0); Mean Corpuscular Hemoglobin 31.5 pg (27.0-33.0); Mean Corpuscular Volume 101.7 fL (80.0-98.0); NRBC Abs Auto 0.000 X10*3/uL (0.0-0.012); NRBC Pct Auto 0.0 /100WBC (0.0-0.2); Platelet Count 262 X10*3/uL (160-400); Red Blood Count 2.86 X10*6/uL (4.60-5.80); White Blood Count 5.6 X10*3/uL (4.8-10.8)
--- OUTSIDE RECORDS SUMMARY | 2025-04-25 15:23 | XMS_ITS | Continuity of Care Document ---
Author Organization [place] [facility], [facility] Address [address] [place] [address] Care Team Providers Care Derrick Boat Operator Name Role Phone TAIROD FLOWERS Primary Care Provider [phone] Assessment Encounter Date Assessment Date Assessment LastModified [...] in 6 months, or sooner with concerns. 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 100 [facility] [address], [place], [address] , [facility] - [facility] 4 10:46:20 Problem Notes None recorded. Medical Equipment None Reported. Allergies Allergen ID Allergen Name Allergen Category Reaction Reaction Severity Criticality Documentation Date Start Date Code Code System Note Provider Name and Address Organization Details Recorded Time 22849 Zithromax medicatio n other Not available Not available 09/22/202319637 4 RxNorm React ion: Unkno wn; Not Available [facility] 4 00:48:42 21867 lisinopri l medicatio n other Not available Not available 09/22/2023 42704 RxNorm React ion: Unkno wn; Not Available [facility] 4 00:48:46 Medications Name Sig Start Date [...] release 24 hr active Medicati on ID: 763669 B rand Name: metoprol ol succinat e [...] mcg tablet 2023 active Medicati on ID: 114055 B rand Name: Thera Se nd Method: [...] mg tablet 03/01 completed Medicati on ID: 694979 B rand Name: hydralaz ine Send Method: [...] elayed release 03/01 completed Medicati on ID: 447374 B rand Name: omeprazo le Send Method: E-Prescr ibed Sub s Allowed: subs OK Speci al Instruct ion: take 1 capsule by mouth twice a day Medi cationGe nericNam e: omeprazo le Not Available Not Available Not Available aspirin 81 mg chewable tablet active Medicati on ID: 676141 B rand Name: aspirin Send Method: E-Prescr [...] mg iron) tablet active Medicati on ID: 318543 B rand Name: FeroSul Send Method: E-Prescr [...] Updated DateTime 03/03/2025 175.26 cm 23.5 kg/m2 [address]01.[address], [address], [place] - [facility] 03/03/2025 11:03:59 Social History None recorded. Functional Status None recorded. Mental Status None recorded. Family History Nothing Reported. Medical History Condition Response Cancer Y Anemia Y High Cholesterol Y GERD/Reflux Y Heart Attack ([place]) Y Hypertension Y Past Encounters Encounter ID Performer Location Encounter Start Date Encounter Closed Date Diagnosis/Indication Diagnosis SNOMED-CT Code Diagnosis ICD10 Code Diagnosis IMO Codes Diagnosis Note [id number] LIGIA PERKINS PA-C [facility] [address] [place] [address] 03/03/2025 10:58:09 03/03/2025 11:40:14 Disorder of right Eustachian tube 9538775066 175463 H69.81 Health Concerns Section Related Observation LastModified by Organization Detai ls LastModified Time None Recorded Concern Status LastModified by Organization Details LastModified Time None Recorded Payers Encounter Date Sequence Insurance Name Policy Number Policy Mccullough Covered Member ID Mccullough Member ID Guarantor Name 03/03/2025 1 [facility] [id number] Alireza Kyle [id number] Alireza Kyle Notes Date Note Type Note [...] interested in hearing aids. ZHENG SIMS MD [address] [place] [address], [phone], [facility] - [facility] 03/03/2025 12:33:00
--- OUTSIDE RECORDS SUMMARY | 2025-04-25 15:24 | XMS_ITS | Encounter Summary ---
Author Organization [facility] Address [address] [place] [address] Care Team Providers Care Duck Bill Operator Name Role Phone Jb Artis MD Primary Care Provider + [phone] Encounter Details Date Type Department Care Team (Late st Contact Info) Description 12/06/2021 Scanned Document [facility] [address] [place] [phone] Melinda Becerril PA 85 [facility] [address] [place] [address] Social History Tobacco Use Types Packs/Day Years [...] on filedocumented in this encounter Care Teams Duck Bill Operator Relationship Specialty Start Date End Date Jb Artis MD [address] [place] [address] PCP - General Internal Medicine 11/29/21 documented as of this encounter
--- OUTSIDE RECORDS SUMMARY | 2025-04-25 15:24 | XMS_ITS | Clinical Summary ---
Author Organization [facility] Address 2 [facility] [place] [address] Phone Care Team Providers Care Chucking Lathe Operator Name Role Phone Junior Artis MD Primary Care Provider [phone] Allergies Active Allergy Reactions Criticality Noted Date [...] Description 06/06/2025 2:00 PM EST Office Visit [facility] [address] [place] [address] Marco Antonio Acosta MD [address] [place] [address] [address] [place] [address] Health Maintenance Due Date Last [...] [employer] [place] MED[employer]AGE Care Teams Chucking Lathe Operator Relationship Specialty Start Date End Date Junior Artis MD [address] [place] [phone] PCP - General 06/17/19
--- OUTSIDE RECORDS SUMMARY | 2025-04-25 15:24 | XMS_ITS | Clinical Summary ---
Author Organization [facility] Address [address] [place] [address] Care Team Providers Care Bible Teacher Name Role Phone Jb Artis MD Primary Care Provider [phone] Allergies Active Allergy Reactions Criticality Noted Date Comments Lisinopril Unknown/Patient and Family Unable to Define Medium 09/22/2018 Medications doxazosin (CARDURA) 8 MG tablet 0 Active ergocalciferol (VITAMIN D2,DRISDOL) 02799 units Cap Take 50,000 Units by mouth [...] patient's age to complete this topic Insurance [facility] MEDICARE [facility] MED[facility] Care Teams Bible Teacher Relationship Specialty Start Date End Date Jb Artis MD [address] [place] [address] PCP - General Internal Medicine 11/29/21
--- OUTSIDE RECORDS SUMMARY | 2025-04-25 15:24 | XMS_ITS | Encounter Summary ---
Author Organization [facility] Address [address] [place] [address] Care Team Providers Care Animal Humane Agent Supervisor Name Role Phone Jb Artis MD Primary Care Provider + [phone] Encounter Details Date Type Department Care Team (Late st Contact Info) Description 01/20/2022 Scanned Document [facility] [address] [place] [address] Melinda Becerril PA 85 [facility] [address] [place] [address] Social History Tobacco Use Types Packs/Day Years [...] on filedocumented in this encounter Care Teams Animal Humane Agent Supervisor Relationship Specialty Start Date End Date Jb Artis MD [address] [place] [address] PCP - General Internal Medicine 11/29/21 documented as of this encounter
--- OUTSIDE RECORDS SUMMARY | 2025-04-25 15:24 | XMS_ITS | Data Portability ---
Author Organization [place] - [facility] Address [address] [address] Care Team Providers Care Shell Press Operator Name Role Phone ROD STERLING Primary Care Provider [phone] Assessment Encounter Date Assessment Date Assessment LastModified [...] update HT and complete paperwork to order. [email or web address] Not available 10/29/2023 10:52:03 08/31/2024 08/31/2024 88 [...] plan for follow up in 6 months. 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 613964815 Active 2020 Chronic serous otitis media, right ear; Note: Date Diagnosed : 05/24/2020 10:11 AM (H65.21) Not Available [facility] 4 02:14:59 Tinnitus of right ear 30946138972 08 Active 2022 Tinnitus, right ear; Note: Date Diagnosed : 08/26/2022 9:28 AM (H93.11) Not Available [facility] 4 02:14:19 Sensorine ural hearing loss of bilateral ears 869087985 Active 2023 NAVARRO AIKEN, [place] [address], [place], [address] , [facility] - [facility] 4 10:46:20 Problem Notes None recorded. Medical Equipment None Reported. Allergies Allergen ID Allergen Name Allergen Category Reaction Reaction Severity Criticality Documentation Date Start Date Code Code System Note Provider Name and Address Organization Details Recorded Time 33920 Zithromax medicatio n other Not available Not available 09/22/2023 37124 4 RxNorm React ion: Unkno wn; Not Available [facility] 4 00:48:42 61214 lisinopri l medicatio n other Not available Not available 09/22/2023 97426 RxNorm React ion: Unkno wn; Not Available [facility] 4 00:48:46 Medications Name Sig [...] release 24 hr active Medicati on ID: 252544 B rand Name: metoprol ol succinat e [...] mcg tablet 2023 active Medicati on ID: 385834 B rand Name: Thera Se nd Method: [...] mg tablet 03/01 completed Medicati on ID: 344762 B rand Name: hydralaz ine Send Method: [...] elayed release 03/01 completed Medicati on ID: 762481 B rand Name: omeprazo le Send Method: E-Prescr ibed Sub s Allowed: subs OK Speci al Instruct ion: take 1 capsule by mouth twice a day Medi cationGe nericNam e: omeprazo le Not Available Not Available Not Available aspirin 81 mg chewable tablet active Medicati on ID: 189292 B rand Name: aspirin Send Method: E-Prescr [...] mg iron) tablet active Medicati on ID: 195177 B rand Name: FeroSul Send Method: E-Prescr [...] Address Organization Details Last Updated DateTime 08/31/2024 28147.59 g 23.3 kg/m2 175.26 cm Naty Ramires [place] - [facility] 08/31/2024 11:14:44 Date Recorded Body height Body mass index (BMI) Body weight Provider Name and Address Organization Details Last Updated DateTime 03/03/2025 175.26 cm 23.5 kg/m2 02032.19 g JUVENAL ROLAND, [facility] 100 [facility],[address], [address], [place] - [facility] 03/03/2025 11:03:59 Social History None recorded. Functional Status None recorded. Mental Status None recorded. Family History Nothing Reported. Medical History Condition Response Anemia Y GERD/Reflux Y High Cholesterol Y Heart Attack ([place]) Y Cancer Y Hypertension Y Past Encounters Encounter ID Performer Location Encounter Start Date Encounter Closed Date Diagnosis/Indication Diagnosis SNOMED-CT Code Diagnosis ICD10 Code Diagnosis IMO Codes Diagnosis Note [id number] PAT M[facility]ULLOUGH [place] 100 [facility] it [address] [place] [address] 10/29/2023 09:42:53 10/30/2023 11:32:39 Mixed conductive and sensorineural hearing loss, bilateral 378239666 H90.6 [id number] DEV FITZGERALD MD [facility] [address] [address] 03/01/2024 10:50:40 03/01/2024 11:31:11 Disorder of right Eustachian tube 5461390209 682119 H69.81 Right-side d T-tube remains in good position and patent with some peripheral crusting. Follow-up with PA in 6 months. Sensorineu ral hearing loss of bilateral ears 764862512 H90.3 Patient still remains a good candidate for patient still remains a good candidate for binaural amplificat ion versus BiCROS amplificat ion. I encouraged him to further consider this, but he feels like he cannot afford it. He is always welcome to come back to see our audiologis ts to discuss this further if he desires. [id number] LIGIA PERKINS PA-C [facility] of [address] [address] 08/31/2024 11:04:43 08/31/2024 11:25:42 Disorder of right Eustachian tube 9919621495 318542 H69.81 [id number] LIGIA PERKINS PA-C [facility] [address] [place] [address] 03/03/2025 10:58:09 03/03/2025 11:40:14 Disorder of right Eustachian tube 4068944275 142529 H69.81 Health Concerns Section Related Observation LastModified by Organization Detai ls LastModified Time None Recorded Concern Status LastModified by Organization Details LastModified Time None Recorded Advance Directives Directive None Recorded Payers Insurance Date Sequence Insurance Name Policy Number Policy Mccullough Covered Member ID Mccullough Member ID Guarantor Name 03/03/2025 1 [facility] [id number] 4 Alireza Kyle [id number] Alireza Kyle Notes Date Note Type Note Provider Name and Address Organization Details Recorded Time 10/29/2023 text/html 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 Was cleared for amplification by Dr Fitzgerald. NAVARRO AIKEN, PAT [address] [place] [address], [phone], [facility] - [facility] 10/29/2023 10:52:09 03/01/2024 text/html Patient with [...] accompanied by his . DEV FITZGERALD MD [address] [place] [address], [phone], [facility] 03/01/2024 11:31:24 08/31/2024 text/html ROS as [...] in hearing aids. ZHENG SIMS MD [address], [address], [facility] - [facility] 08/31/2024 12:23:23 03/03/2025 text/html ROS as noted in the HPI 89 year old male with history of asymmetric sensorineural hearing loss and chronic right-sided eustachian tube dysfunction, status post right T-tube placement back in May 2020 presents for follow up of ETD. Denies changes in his hearing, otalgia, and otorrhea. Not interested in hearing aids. ZHENG SIMS MD [address], [address], [facility] 03/03/2025 12:33:00
[2025-04-25 15:45] LABS: Estimated Glomerular Filt Rate 19
== END 2025-04-25 11:35 | disposition home or self-care (01) ==
LOC: HO.HKASLDS 11:34
PROVIDERS: PCP Internal Medicine; Visit Provider Internal Medicine Nephrology
DX: N18.4 Chronic kidney disease, stage 4 (severe) (principal); D63.1 Anemia in chronic kidney disease
CPT/HCPCS: 36415; 82565; 85025

== ENCOUNTER 2025-04-27 13:28 | Outpatient (AMB) | payer MEDICARE, SELFPAY ==
--- NOTE | 2025-04-27 13:34 | HO.NEPHOV_ITS ---
Vital Signs 04/27/25 13:43 Height 5 ft 9 in Weight 155 lb BMI 22.9 BP 130/60 Blood Pressure Location Lt brachial Position Sitting Pulse 52 Pulse Source Pulse Oximeter Pulse Oximetry (%) 98 Oxygen Delivery Method Room Air Intake Visit Reasons: 2 weeks f/u-[employer] Supervisor Required: No Accompanied by: Spouse Allergies lisinopril Allergy (Verified 04/27/25 13:43) Unknown Macrolides and Ketolides Allergy (Uncoded 03/18/23 13:49) Unknown HPI Comments Details: Alireza Kyle was seen in the office in follow-up of his chronic kidney disease and management of his anemia. 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 He has hypertension which is well controlled. He has anemia chronic disease for which he had been getting Procrit . He denies taking any nonsteroidal anti-inflammatory medications. He does not have any chest pain, shortness of breath, nausea vomiting, diarrhea, orthostatic symptoms, edema. His serum creatinine has been stable . He does not feel tired. There were no complaints at the time of this office visit. [facility] Medical History Proteinuria Hypertension Anemia in chronic kidney disease Chronic kidney disease, stage 4 (severe) Family History Mother Cancer Child No Financial Resp Cancer Social History Alcohol intake: never Patient Tobacco Use Status: Never used Tobacco Review of Systems Const All systems reviewed & are unremarkable except as noted in HPI and below Physical Exam Const General: comfortable and no acute distress Orientation/consciousness: patient oriented x3 HEENT Head: Yes normocephalic Mouth: Normal oral and palatal mucosa present Eyes EOM: EOMs intact bilaterally Neck Neck: Yes supple Resp Auscultation: clear to auscultation bilaterally Cardio Jugular venous distension: no JVD Rate: regular rate GI Palpation (GI): Soft to palpation Auscultation: normal bowel sounds General: Yes no CVA tenderness Back/Spine/Pelvis Back: no CVA tenderness Skin General skin exam: no rashes or lesions noted Neuro General: patient oriented x3 and moves all extremities Extrem General: Yes no pedal edema Office Meds epoetin lizet-epbx 10,000 unit/mL injection solution Performing Provider: Santy Jonas MD [facility] Administered by: Santy Jonas MD on 04/27/25 13:50 Dose Route Admin Location Dispensed Lot Number Expiration Date [facility] [employer] 40,000 unit subcut LUE 4 mL [id number] 09/08/26 0113-6856-87 [facility] [employer] [facility] Total Dispensed Waste 4 mL 0 % Results Reviewed Nephrology Results: Hgb, (14.0-18.0) 9.0 g/dl L 04/25/25 WBC, (4.8-10.8) 5.6 X10*3/uL 04/25/25 Plt Count, (160-400) 262 X10*3/uL 04/25/25 Sodium, (135-145) 144 mmol/L 04/10/25 Potassium, (3.3-5.1) 4.1 mmol/L 04/10/25 Chloride, (96-108) 114 mmol/L H 04/10/25 Carbon Dioxide, (22-29) 22 mmol/L 04/10/25 BUN, (9-16) 69 mg/dL H 04/10/25 Creatinine, (0.5-1.4) 3.05 mg/dL H 04/25/25 Calcium, (8.4-10.2) 8.8 mg/dL 02/21/25 PTH Intact, (8.7-77.1) 133.7 pg/mL H 02/21/25 Assessment & Plan Assessment & Plan (1) Anemia in chronic kidney disease: Code(s): N18.9 - Chronic kidney disease, unspecified; D63.1 - Anemia in chronic kidney disease Category: Medical Qualifiers: Chronic kidney disease stage: stage 4 (severe) Qualified Code(s): N18.4 - Chronic kidney disease, stage 4 (severe); D63.1 - Anemia in chronic kidney disease (2) Chronic kidney disease, stage 4 (severe): Code(s): N18.4 - Chronic kidney disease, stage 4 (severe) Category: Medical (3) Hypertension: Code(s): I10 - Essential (primary) hypertension Category: Medical Qualifiers: Hypertension type: primary hypertension Qualified Code(s): I10 - Essential (primary) hypertension Plan Alireza has history of minimal change disease with nephrotic syndrome. He had been on losartan which has been put on hold for a long time. He can continue on his current dose of diuretics. His renal function is close to baseline. I administered 08733 Units Procrit in my office today. I did not make any other medication changes. Labs ordered for F/U .All his questions were answered Orders: Orders AMB Epoetin Injection Practice Supplied Today D63.1 - Anemia in chronic kidney disease, N18.4 - Chronic kidney disease, stage 4 (severe) Electrolytes 1 Month D63.1 - Anemia in chronic kidney disease, I10 - Essential (primary) hypertension, N18.4 - Chronic kidney disease, stage 4 (severe) Blood Urea Nitrogen 1 Month D63.1 - Anemia in chronic kidney disease, I10 - Essential (primary) hypertension, N18.4 - Chronic kidney disease, stage 4 (severe) Creatinine 1 Month D63.1 - Anemia in chronic kidney disease, I10 - Essential (primary) hypertension, N18.4 - Chronic kidney disease, stage 4 (severe) Complete Blood Count Auto Diff 1 Month D63.1 - Anemia in chronic kidney disease, I10 - Essential (primary) hypertension, N18.4 - Chronic kidney disease, stage 4 (severe) Coding Level of Care Code Est Pt Level 4 (22973) Diagnoses Anemia in stage 4 chronic kidney disease N18.4; D63.1 Chronic kidney disease stage: stage 4 (severe) Chronic kidney disease, stage 4 (severe) N18.4 Primary hypertension I10 Hypertension type: primary hypertension
[2025-04-27 13:43] VITALS: BP 130/60; PULSE 52; O2SAT 98; BMI 22.9
--- OUTSIDE RECORDS SUMMARY | 2025-04-27 17:36 | XMS_ITS | Clinical Summary ---
Author Organization [facility] Address [address] [facility] [address] [place] [address] Phone Care Team Providers Care Centerless Grinder Operator Name Role Phone Junior Artis MD [...] the evening. 02/01/2022 Active ergocalciferol 1.25 MG (35609 UT) capsule TAKE 1 CAPSULE BY MOUTH [...] kidney disease,Chronic kidney disease stage 4 (HCC),Hypertension 32543 Units IJ Every 14 days 02/21/2021 Ac tive epoetin lizet (EPOGEN,PROCRIT) injection 20,000 UnitsIndications:Anemia due to Renal Failure 36601 Units IV Every 14 days 03/19/2022 Active epoetin lizet (EPOGEN,PROCRIT) injection 30,000 UnitsIndications:Anemia due to Renal Failure 11819 Units IV Every 14 days 04/02/2022 Active epoetin lizet (EPOGEN,PROCRIT) injection 20,000 UnitsIndications:Anemia due to Renal Failure 70640 Units IV Every 14 days 05/01/2022 Active Epoetin Lizet-epbx solution 40,000 UnitsIndications:Chronic kidney disease stage 4 (HCC),Anemia in chronic kidney disease 27687 Units IJ Once 07/30/2022 Active Epoetin Lizet-epbx solution 20,000 UnitsIndications:Anemia in chronic kidney disease,Chronic kidney disease stage 4 (HCC) 56257 Units IJ Once 09/10/2022 Ac tive Epoetin Lizet-epbx solution 20,000 UnitsIndications:Chronic kidney disease, not otherwise specified,Anemia in chronic kidney disease 65852 Units IJ Once 12/08/2022 A ctive Active [...] patient's age to complete this topic Insurance [facility] Care Teams Centerless Grinder Operator Relationship Specialty Start Date End Date Junior Artis MD [address], [place] PCP - General Internal Medicine 09/10/20
--- OUTSIDE RECORDS SUMMARY | 2025-04-27 17:36 | XMS_ITS | Encounter Summary ---
Author Organization [facility] Address [address] [place] [address] Care Team Providers Care Pillowcase Cutter Name Role Phone Jb Artis MD Primary Care Provider + [phone] Encounter Details Date Type Department Care Team (Late st Contact Info) Description 01/20/2022 Scanned Document [facility] [address] [place] [address] Melinda Becerril PA [address] [facility] [address] [place] [address] Social History Tobacco Use Types Packs/Day Years [...] on filedocumented in this encounter Care Teams Pillowcase Cutter Relationship Specialty Start Date End Date Jb Artis MD [address] [place] [address] PCP - General Internal Medicine 11/29/21 documented as of this encounter
--- OUTSIDE RECORDS SUMMARY | 2025-04-27 17:36 | XMS_ITS | Clinical Summary ---
Author Organization [facility] Address [address] [place] [address] Care Team Providers Care Lna Name Role Phone Jb Artis MD Primary Care Provider [phone] Allergies Active Allergy Reactions Criticality Noted Date Comments Lisinopril Unknown/Patient and Family Unable to Define Medium 09/22/2018 Medications doxazosin (CARDURA) 8 MG tablet 0 Active ergocalciferol (VITAMIN D2,DRISDOL) 65435 units Cap Take 50,000 Units by mouth [...] patient's age to complete this topic Insurance [facility] MEDICARE [facility] MEDICARE Care Teams Lna Relationship Specialty Start Date End Date Jb Artis MD [address] [place] [address] PCP - General Internal Medicine 11/29/21
--- OUTSIDE RECORDS SUMMARY | 2025-04-27 17:36 | XMS_ITS | Clinical Summary ---
Author Organization [facility] [employer] [facility] Address [address] [facility] [place] [address] Phone Care Team Providers Care Script Editor Name Role Phone Junior Artis MD Primary Care Provider [phone] Allergies Active Allergy Reactions Criticality Noted Date [...] and his balance as well. History of VT (myocardial infarction) 10/02/2020 Overview (04/26/2024): 1996 -Cath [...] Description 06/06/2025 2:00 PM EST Office Visit [facility] [address] [place] [address] Marco Antonio Acosta MD [address] [place] [address] [address] [place] [address] Health Maintenance Due Date Last [...] [employer] [place] [employer] Care Teams Script Editor Relationship Specialty Start Date End Date Junior Artis MD [address] [place] [phone] PCP - General 06/17/19
--- OUTSIDE RECORDS SUMMARY | 2025-04-27 17:36 | XMS_ITS | Encounter Summary ---
Author Organization [facility] Address [address] [place] [address] Phone Care Team Providers Care Nursing Officer Name Role Phone Junior Artis MD Primary Care Provider Reason for Visit * Reason Comments Med Refill Encounter Details Date Type Department Care Team ([facility] st Contact Info) Description 11/30/2022 Refill [facility] [address] [place] [address] Santy Jonas MD [address] [place] [address] Social History Tobacco Use Types Packs/Day Years [...] on filedocumented in this encounter Care Teams Nursing Officer Relationship Specialty Start Date End Date Junior Artis MD [address] [place], [place] PCP - General Internal Medicine 09/10/20 documented as of this encounter
--- OUTSIDE RECORDS SUMMARY | 2025-04-27 17:36 | XMS_ITS | Data Portability ---
Author Organization [place] [facility], All[facility] Address [address] [address] Care Team Providers Care Master Cosmetologist Name Role Phone ROD STERLING Primary Care Provider [phone] Assessment Encounter Date Assessment Date Assessment LastModified [...] update HT and complete paperwork to order. [email or web address] Not available 10/29/2023 10:52:03 08/31/2024 08/31/2024 88 [...] plan for follow up in 6 months. 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 - [facility] 4 10:46:20 Problem Notes None recorded. Medical Equipment None Reported. Allergies Allergen ID Allergen Name Allergen Category Reaction Reaction Severity Criticality Documentation Date Start Date Code Code System Note Provider Name and Address Organization Details Recorded Time 33095 Zithromax medicatio n other Not available Not available 09/22/2023 65358 4 RxNorm React ion: Unkno wn; Not Available [facility] 4 00:48:42 96533 lisinopri l medicatio n other Not available Not available 09/22/2023 40749 RxNorm React ion: Unkno wn; Not Available [facility] 4 00:48:46 Medications Name Sig Start Date [...] release 24 hr active Medicati on ID: 982389 B rand Name: metoprol ol succinat e [...] mcg tablet 2023 active Medicati on ID: 855366 B rand Name: Thera Se nd Method: [...] mg tablet 03/01 completed Medicati on ID: 717184 B rand Name: hydralaz ine Send Method: [...] elayed release 03/01 completed Medicati on ID: 619473 B rand Name: omeprazo le Send Method: E-Prescr ibed Sub s Allowed: subs OK Speci al Instruct ion: take 1 capsule by mouth twice a day Medi cationGe nericNam e: omeprazo le Not Available Not Available Not Available aspirin 81 mg chewable tablet active Medicati on ID: 229382 B rand Name: aspirin Send Method: E-Prescr [...] mg iron) tablet active Medicati on ID: 875764 B rand Name: FeroSul Send Method: E-Prescr [...] Address Organization Details Last Updated DateTime 08/31/2024 72003.59 g 23.3 kg/m2 175.26 cm Naty Ramires [place] [facility] 08/31/2024 11:14:44 Date Recorded Body height Body mass index (BMI) Body weight Provider Name and Address Organization Details Last Updated DateTime 03/03/2025 175.26 cm 23.5 kg/m2 11728.19 g JUVENAL ROLAND, [facility] 100 [facility],[address], [address], [place] [facility] 03/03/2025 11:03:59 Social History None recorded. Functional Status None recorded. Mental Status None recorded. Family History Nothing Reported. Medical History Condition Response Anemia Y GERD/Reflux Y High Cholesterol Y Heart Attack ([place]) Y Cancer Y Hypertension Y Past Encounters Encounter ID Performer Location Encounter Start Date Encounter Closed Date Diagnosis/Indication Diagnosis SNOMED-CT Code Diagnosis ICD10 Code Diagnosis IMO Codes Diagnosis Note [id number] PAT [facility] [place] [facility] [place] 100 [facility] it [address] [place] [address] 10/29/2023 09:42:53 10/30/2023 11:32:39 Mixed conductive and sensorineural hearing loss, bilateral 488747899 H90.6 [id number] DEV FITZGERALD MD [facility] [address] [address] 03/01/2024 10:50:40 03/01/2024 11:31:11 Disorder of right Eustachian tube 7654194816 408808 H69.81 Right-side d T-tube remains in good position and patent with some peripheral crusting. Follow-up with PA in 6 months. Sensorineu ral hearing loss of bilateral ears 005845202 H90.3 Patient still remains a good candidate for patient still remains a good candidate for binaural amplificat ion versus BiCROS amplificat ion. I encouraged him to further consider this, but he feels like he cannot afford it. He is always welcome to come back to see our audiologis ts to discuss this further if he desires. [id number] LIGIA PERKINS PA-C [facility] [address] [address] 08/31/2024 11:04:43 08/31/2024 11:25:42 Disorder of right Eustachian tube 4942703744 969342 H69.81 [id number] LIGIA PERKINS PA-C [facility] [address] [place] [address] 03/03/2025 10:58:09 03/03/2025 11:40:14 Disorder of right Eustachian tube 5680265289 947229 H69.81 Health Concerns Section Related Observation LastModified by Organization Detai ls LastModified Time None Recorded Concern Status LastModified by Organization Details LastModified Time None Recorded Advance Directives Directive None Recorded Payers Insurance Date Sequence Insurance Name Policy Number Policy Mccullough Covered Member ID Mccullough Member ID Guarantor Name 03/03/2025 1 [facility] [id number] Alireza Kyle [id number] Alireza Kyle Notes Date Note Type Note Provider Name and Address Organization Details Recorded Time 10/29/2023 text/html 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 Was cleared for amplification by Dr Fitzgerald. NAVARRO AIKEN, PAT [address] [place] [address], [phone], [facility] - [facility] 10/29/2023 10:52:09 03/01/2024 text/html Patient with [...] accompanied by his . DEV FITZGERALD MD [address] [place] [address], [phone], [facility] 03/01/2024 11:31:24 08/31/2024 text/html ROS as [...] in hearing aids. ZHENG SIMS MD [address], [address], [facility] - [facility] 08/31/2024 12:23:23 03/03/2025 text/html ROS as noted in the HPI 89 year old male with history of asymmetric sensorineural hearing loss and chronic right-sided eustachian tube dysfunction, status post right T-tube placement back in May 2020 presents for follow up of ETD. Denies changes in his hearing, otalgia, and otorrhea. Not interested in hearing aids. ZHENG SIMS MD [address], [address], [facility] 03/03/2025 12:33:00
--- OUTSIDE RECORDS SUMMARY | 2025-04-27 17:36 | XMS_ITS | Encounter Summary ---
Author Organization [facility] Address [address] [place] [address] Care Team Providers Care Screen Cleaner Name Role Phone Jb Artis MD Primary Care Provider + [phone] Encounter Details Date Type Department Care Team (Late st Contact Info) Description 12/06/2021 Scanned Document [facility] [address] [place] [address] Melinda Becerril PA [address] [facility] [address] [place] [address] Social History Tobacco Use Types Packs/Day Years [...] on filedocumented in this encounter Care Teams Screen Cleaner Relationship Specialty Start Date End Date Jb Artis MD [address] [place] [address] PCP - General Internal Medicine 11/29/21 documented as of this encounter
--- OUTSIDE RECORDS SUMMARY | 2025-04-27 17:36 | XMS_ITS | Encounter Summary ---
Author Organization [facility] Address [address] [place] [address] Phone Care Team Providers Care Administrative Medical Director Name Role Phone Junior Artis MD Primary Care Provider Reason for Visit * Reason Comments Med Refill Encounter Details Date Type Department Care Team ([facility] st Contact Info) Description 10/05/2022 Refill [facility] [address] [place] [address] Santy Jonas MD [address] [place] [address] Social History Tobacco Use Types Packs/Day Years [...] on filedocumented in this encounter Care Teams Administrative Medical Director Relationship Specialty Start Date End Date Junior Artis MD [address] [place], [place] PCP - General Internal Medicine 09/10/20 documented as of this encounter
--- OUTSIDE RECORDS SUMMARY | 2025-04-27 17:36 | XMS_ITS | Continuity of Care Document ---
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 378556026 Active 2020 Chronic serous otitis media, right ear; Note: Date Diagnosed : 05/24/2020 10:11 AM (H65.21) Not Available [facility] 4 02:14:59 Tinnitus of right ear 67512415126 08 Active 2022 Tinnitus, right ear; Note: Date Diagnosed : 08/26/2022 9:28 AM (H93.11) Not Available [facility] 4 02:14:19 Sensorine ural hearing loss of bilateral ears 659546819 Active 2023 NAVARRO AIKEN, [facility] 100 [facility], [place], [address] , [facility] - [facility] 4 10:46:20 Problem Notes None recorded. Medical Equipment None Reported. Allergies Allergen ID Allergen Name Allergen Category Reaction Reaction Severity Criticality Documentation Date Start Date Code Code System Note Provider Name and Address Organization Details Recorded Time 09359 Zithromax medicatio n other Not available Not available 09/22/202319637 4 RxNorm React ion: Unkno wn; Not Available [facility] 4 00:48:42 76692 lisinopri l medicatio n other Not available Not available 09/22/2023 94458 RxNorm React ion: Unkno wn; Not Available [facility] 4 00:48:46 Medications Name Sig Start [...] release 24 hr active Medicati on ID: 129783 B rand Name: metoprol ol succinat e [...] mcg tablet 2023 active Medicati on ID: 116005 B rand Name: Thera Se nd Method: [...] mg tablet 03/01 completed Medicati on ID: 215474 B rand Name: hydralaz ine Send Method: [...] elayed release 03/01 completed Medicati on ID: 185769 B rand Name: omeprazo le Send Method: E-Prescr ibed Sub s Allowed: subs OK Speci al Instruct ion: take 1 capsule by mouth twice a day Medi cationGe nericNam e: omeprazo le Not Available Not Available Not Available aspirin 81 mg chewable tablet active Medicati on ID: 041535 B rand Name: aspirin Send Method: E-Prescr [...] mg iron) tablet active Medicati on ID: 551736 B rand Name: FeroSul Send Method: E-Prescr [...] Updated DateTime 03/03/2025 175.26 cm 23.5 kg/m2 [address].[address], [address], [place] - [facility] 03/03/2025 11:03:59 Social History None recorded. Functional Status None recorded. Mental Status None recorded. Family History Nothing Reported. Medical History Condition Response Heart Attack ([place]) Y Cancer Y Anemia Y Hypertension Y GERD/Reflux Y High Cholesterol Y Past Encounters Encounter ID Performer Location Encounter Start Date Encounter Closed Date Diagnosis/Indication Diagnosis SNOMED-CT Code Diagnosis ICD10 Code Diagnosis IMO Codes Diagnosis Note [id number] LIGIA PERKINS PA-C [facility] [address] [place] [address] 03/03/2025 10:58:09 03/03/2025 11:40:14 Disorder of right Eustachian tube 9998080677 706177 H69.81 Health Concerns Section Related Observation LastModified by Organization Detai ls LastModified Time None Recorded Concern Status LastModified by Organization Details LastModified Time None Recorded Payers Encounter Date Sequence Insurance Name Policy Number Policy Mccullough Covered Member ID Mccullough Member ID Guarantor Name 03/03/2025 1 [facility] [id number] 4 Alireza Kyle [id number] Alireza Kyle Notes Date Note Type Note [...] interested in hearing aids. ZHENG SIMS MD [address] [place] [address], [address], [facility] - [facility] 03/03/2025 12:33:00
== END 2025-04-27 14:16 | disposition home or self-care (01) ==
LOC: HO.HKAS 13:28
PROVIDERS: PCP Internal Medicine; Visit Provider Internal Medicine Nephrology
DX: N18.4 Chronic kidney disease, stage 4 (severe) (principal); D63.1 Anemia in chronic kidney disease; I12.9 Hypertensive chronic kidney disease with stage 1 through stage 4 chronic kidney disease, or unspecified chronic kidney disease
CPT/HCPCS: 99214

== ENCOUNTER → 2025-04-27 13:28 | Outpatient (BNVA) | payer MEDICARE, SELFPAY | PROVIDERS: PCP Internal Medicine; Visit Provider Internal Medicine Nephrology | DX: N18.4 Chronic kidney disease, stage 4 (severe) (principal); D63.1 Anemia in chronic kidney disease; I10 Essential (primary) hypertension | CPT/HCPCS: 96372; 99212; Q5106 ==